=== PATIENT | male | born 1980 | race Caucasian/White ===

== ENCOUNTER 2019-04-19 16:42 | Inpatient (IN) | payer OTHER ==
[2019-04-19] MEDS ORDERED: Sodium Chloride 0.9% 10 ML Syringe FLUSH PRN (17:05)
[2019-04-19] MEDS ORDERED: cefTRIAXone 2 GM in Sodium Chloride 0.9% 100 ML IV ONE (17:05)
[2019-04-19] MEDS ORDERED: cefTRIAXone 2 GM AdvVial IV ONE (17:26)
[2019-04-19] MEDS ORDERED: Sodium Chloride 0.9% 100 ML ONE (17:27)
[2019-04-19] MEDS ORDERED: cefTRIAXone 2 GM in Sodium Chloride 0.9% 100 ML IV SCH (17:30)
--- NOTE | 2019-04-19 18:03 | CT ---
Head CT Technique: Multiple axial sections through the brain were obtained. Intravenous contrast was not utilized. Comparison: No prior intracranial imaging. Findings: Ventricles along with basal cisterns and sulci over the convexities appear within normal limits for the patient's age. No abnormal parenchymal densities are seen. No evidence of intracranial hemorrhage. No midline shift or mass effect is seen. Visualized paranasal sinuses and mastoid sinuses show nothing acute. No acute calvarial abnormality is appreciated. Impression: 1. No acute finding is seen on noncontrast head CT exam. Diagnostic code #1 This report was dictated in [place] Standard Time
[2019-04-19] MEDS ORDERED: Acetaminophen 325 MG Tab PO ONE (19:02)
[2019-04-19] MEDS ORDERED: Benzocaine/Cetylpyridinium/Menthol Lozenge MUCMEM ONE (19:03)
--- NOTE | 2019-04-19 19:25 | EDM.PDOC ---
ED HPI GENERAL MEDICAL PROBLEM - General Chief Complaint: Headache Stated Complaint: HEADACHE AND NOT REAL COHERENT Time Seen by Provider: 04/19/19 17:04 Source of Information: Reports: Patient, Family History Limitations: Reports: No Limitations - History of Present Illness INITIAL COMMENTS - FREE TEXT/NARRATIVE: The patient presents with a headache, fever, chills, cough and generalized weakness. He was diagnosed last week with pneumonia and he was treated but he did not get better and now he is worse. He has no chest pain but he is short of breath. He has no abdominal pain, nausea or vomiting. He has not had an appetite. He has no health problems like asthma. He quit smoking years ago. Onset: Gradual Duration: Day(s): Location: Reports: Head Quality: Reports: Ache Severity: Moderate Improves with: Reports: None Worsens with: Reports: None Associated Symptoms: Reports: Cough, Fever/Chills, Headaches, Shortness of Breath. Denies: Chest Pain, Nausea/Vomiting Headache Pain Score (Numeric/FACES): 8 - Related Data Allergies Allergy/AdvReac Type Severity Reaction Status Date / Time No Known Allergies Allergy Verified 04/19/19 16:53 Home Meds: Home Meds . [Unable to Verify Home Med List] 04/19/19 [History] ED ROS GENERAL - Review of Systems Review Of Systems: See Below Constitutional: Reports: Fever, Chills HEENT: Reports: No Symptoms Respiratory: Reports: Shortness of Breath, Cough Cardiovascular: Reports: No Symptoms Endocrine: Reports: No Symptoms GI/Abdominal: Reports: No Symptoms : Reports: No Symptoms Musculoskeletal: Reports: No Symptoms - Physical Exam Exam: See Below Exam Limited By: No Limitations General Appearance: Alert, No Apparent Distress Ears: Normal External Exam Nose: Normal Inspection Throat/Mouth: Other (Dry mucus membranes) Head Exam: Atraumatic, Normocephalic Neck: Normal Inspection, Supple, Non-Tender Respiratory/Chest: No Respiratory Distress, Rhonchi Cardiovascular: No Edema, No Murmur, Tachycardia GI/Abdominal: Soft, Non-Tender, No Organomegaly Neuro Exam (Abbreviated): Alert, Oriented, No Motor/Sensory Deficits Course - Vital Signs Last Recorded V/S: Last Vital Signs Temp 100.1 F 04/19/19 17:01 Pulse 170 H 04/19/19 17:01 Resp BP 128/86 04/19/19 17:01 Pulse Ox - Orders/Labs/Meds Orders: Active Orders 24 hr Category Date Time Status Patient Status [ADT] Routine ADT 04/19/19 19:08 Active EKG 12 Lead [EKG Documentation Completion] [RC] STAT Care 04/19/19 18:20 Active Chest 2V [CR] Stat Exams 04/19/19 17:05 Taken CULTURE BLOOD [BC] Stat Lab 04/19/19 17:16 Received CULTURE BLOOD [BC] Stat Lab 04/19/19 17:31 Received UA W/JOE RFLX IF INDICATED [URIN] Stat Lab 04/19/19 17:05 Ordered Sodium Chloride 0.9% [Normal Saline] 2,700 ml Med 04/19/19 17:05 Active IV BOLUS Sodium Chloride 0.9% [Saline Flush] Med 04/19/19 17:05 Active 10 ml FLUSH ASDIRECTED PRN Blood Culture x2 Reflex Set [OM.PC] Stat Oth 04/19/19 17:05 Ordered Saline Lock Insert [OM.PC] Stat Oth 04/19/19 17:05 Ordered Severe Sepsis Onset Time [OM.PC] Stat Oth 04/19/19 17:05 Ordered Medication Orders Sodium Chloride (Normal Saline) 2,700 mls @ 1,000 mls/hr IV BOLUS ONE Stop: 04/19/19 19:46 Last Admin: 04/19/19 17:22 Dose: 1,000 mls/hr Sodium Chloride (Saline Flush) 10 ml FLUSH ASDIRECTED PRN PRN Reason: Keep Vein Open Labs: Laboratory Tests 04/19/19 04/19/19 04/19/19 Range/Units 17:10 17:10 17:10 WBC 22.21 H (4.23-9.07) K/mm3 RBC 5.10 (4.63-6.08) M/mm3 Hgb 15.9 (13.7-17.5) gm/dl Hct 48.6 (40.1-51.0) % MCV 95.3 H (79.0-92.2) fl MCH 31.2 (25.7-32.2) pg MCHC 32.7 (32.2-35.5) g/dl RDW Std Deviation 45.8 H (35.1-43.9) fL Plt Count 269 (163-337) K/mm3 MPV 8.3 L (9.4-12.3) fl Neutrophils % (Manual) 79 H (40-60) % Band Neutrophils % 7 (0-10) % Lymphocytes % (Manual) 8 L (20-40) % Atypical Lymphs % 0 % Monocytes % (Manual) 6 (2-10) % Eosinophils % (Manual) 0 L (0.8-7.0) % Basophils % (Manual) 0 L (0.2-1.2) Platelet Estimate Adequate RBC Morph Comment Normal PT 11.0 (9.7-12.0) SECONDS INR 1.01 Sodium 138 (136-145) mEq/L Potassium 4.2 (3.5-5.1) mEq/L Chloride 98 (98-107) mEq/L Carbon Dioxide 29 (21-32) mEq/L Anion Gap 15.2 H (5-15) BUN 12 (7-18) mg/dL Creatinine 1.6 H (0.7-1.3) mg/dL Est Cr Clr Drug Dosing 62.60 mL/min Estimated GFR (MDRD) 49 (>60) mL/min BUN/Creatinine Ratio 7.5 L (14-18) Glucose 115 H (74-106) mg/dL Lactic Acid (0.4-2.0) mmol/L Calcium 9.6 (8.5-10.1) mg/dL Total Bilirubin 1.3 H (0.2-1.0) mg/dL AST 59 H (15-37) U/L ALT 143 H (16-63) U/L Alkaline Phosphatase 99 (46-116) U/L C-Reactive Protein 11.6 H* (<1.0) mg/dL Total Protein 8.0 (6.4-8.2) g/dl Albumin 3.8 (3.4-5.0) g/dl Globulin 4.2 gm/dL Albumin/Globulin Ratio 0.9 L (1-2) 04/19/19 Range/Units 17:10 WBC (4.23-9.07) K/mm3 RBC (4.63-6.08) M/mm3 Hgb (13.7-17.5) gm/dl Hct (40.1-51.0) % MCV (79.0-92.2) fl MCH (25.7-32.2) pg MCHC (32.2-35.5) g/dl RDW Std Deviation (35.1-43.9) fL Plt Count (163-337) K/mm3 MPV (9.4-12.3) fl Neutrophils % (Manual) (40-60) % Band Neutrophils % (0-10) % Lymphocytes % (Manual) (20-40) % Atypical Lymphs % % Monocytes % (Manual) (2-10) % Eosinophils % (Manual) (0.8-7.0) % Basophils % (Manual) (0.2-1.2) Platelet Estimate RBC Morph Comment PT (9.7-12.0) SECONDS INR Sodium (136-145) mEq/L Potassium (3.5-5.1) mEq/L Chloride (98-107) mEq/L Carbon Dioxide (21-32) mEq/L Anion Gap (5-15) BUN (7-18) mg/dL Creatinine (0.7-1.3) mg/dL Est Cr Clr Drug Dosing mL/min Estimated GFR (MDRD) (>60) mL/min BUN/Creatinine Ratio (14-18) Glucose (74-106) mg/dL Lactic Acid 3.5 H* (0.4-2.0) mmol/L Calcium (8.5-10.1) mg/dL Total Bilirubin (0.2-1.0) mg/dL AST (15-37) U/L ALT (16-63) U/L Alkaline Phosphatase (46-116) U/L C-Reactive Protein (<1.0) mg/dL Total Protein (6.4-8.2) g/dl Albumin (3.4-5.0) g/dl Globulin gm/dL Albumin/Globulin Ratio (1-2) Meds: Medications Generic Name Dose Route Start Last Admin Trade Name Freq PRN Reason Stop Dose Admin Sodium Chloride 2,700 mls @ 1,000 mls/hr 04/19/19 17:05 04/19/19 17:22 Normal Saline IV 04/19/19 19:46 1,000 mls/hr BOLUS ONE Administration Sodium Chloride 10 ml 04/19/19 17:05 Saline Flush FLUSH ASDIRECTED PRN Keep Vein Open Discontinued Medications Generic Name Dose Route Start Last Admin Trade Name Freq PRN Reason Stop Dose Admin Acetaminophen 325 mg 04/19/19 19:02 Tylenol PO 04/19/19 19:03 NOW ONE Benzocaine/Menthol 1 lozenge 04/19/19 19:03 Cepacol Sore Throat MUCMEM 04/19/19 19:04 ONETIME ONE Ceftriaxone Sodium Confirm 04/19/19 17:26 04/19/19 17:54 Rocephin Administered 04/19/19 17:27 Not Given Dose 2 gm IV .STK-MED ONE Ceftriaxone Sodium 2 gm/ 100 mls @ 200 mls/hr 04/19/19 17:05 04/19/19 17:54 Sodium Chloride IV 04/19/19 17:34 200 mls/hr STAT ONE Administration Ceftriaxone Sodium 2 gm/ 100 mls @ 200 mls/hr 04/19/19 17:30 Sodium Chloride IV Q24H RICH Sodium Chloride Confirm 04/19/19 17:27 04/19/19 17:55 Normal Saline Administered 04/19/19 17:28 Not Given Dose 100 mls @ as directed .ROUTE .STK-MED ONE - Re-Assessments/Exams Free Text/Narrative Re-Assessment/Exam: 04/19/19 19:23 I ordered oxygen, IV NS 2,700ml bolus, CXR, labs and rocephin 2 grams IV and blood cultures. His CXR shows a RML infiltrate. His WBC was elevated at 22.21. His PT and INR were normal. His anion gap was elevated at 15.2. His creatinine was elevated at 1.6. His glucose was elevated at 115. His AST was elevated at 59. His ALT was elevated at 143. His CRP is elevated at 11.6. His EKG shows a sinus tachycardia in the 150s. He is feeling better. He is septic from pneumonia. I called Dr Marroquin and she agreed to the admission. Departure - Departure Time of Disposition: 19:30 Disposition: Admitted As Inpatient 67 Condition: Poor Clinical Impression: Hypoxia, Renal insufficiency Sepsis Qualifiers: Sepsis type: sepsis due to unspecified organism Sepsis acute organ dysfunction status: unspecified Qualified Code(s): A41.9 - Sepsis, unspecified organism Pneumonia Qualifiers: Pneumonia type: due to unspecified organism Laterality: right Lung location: middle lobe of lung Qualified Code(s): J18.9 - Pneumonia, unspecified organism - Discharge Information Referrals: Gayle Molina NP [Primary Care Provider] - Sepsis Event Note - Evaluation Sepsis Screening Result: Possible Severe Sepsis Risk - Focused Exam Vital Signs: Vital Signs Temp Pulse BP 04/19/19 17:01 100.1 F 170 H 128/86 Date Exam was Performed: 04/19/19 Time Exam was Performed: 19:19 - My Orders Last 24 Hours: My Active Orders 04/19/19 17:05 Chest 2V [CR] Stat UA W/JOE RFLX IF INDICATED [URIN] Stat Sodium Chloride 0.9% [Normal Saline] 2,700 ml IV BOLUS Sodium Chloride 0.9% [Saline Flush] 10 ml FLUSH ASDIRECTED PRN Blood Culture x2 Reflex Set [OM.PC] Stat Saline Lock Insert [OM.PC] Stat Severe Sepsis Onset Time [OM.PC] Stat 04/19/19 17:16 CULTURE BLOOD [BC] Stat 04/19/19 17:31 CULTURE BLOOD [BC] Stat 04/19/19 18:20 EKG 12 Lead [EKG Documentation Completion] [RC] STAT 04/19/19 19:08 Patient Status [ADT] Routine - Assessment/Plan Last 24 Hours: My Active Orders 04/19/19 17:05 Chest 2V [CR] Stat UA W/JOE RFLX IF INDICATED [URIN] Stat Sodium Chloride 0.9% [Normal Saline] 2,700 ml IV BOLUS Sodium Chloride 0.9% [Saline Flush] 10 ml FLUSH ASDIRECTED PRN Blood Culture x2 Reflex Set [OM.PC] Stat Saline Lock Insert [OM.PC] Stat Severe Sepsis Onset Time [OM.PC] Stat 04/19/19 17:16 CULTURE BLOOD [BC] Stat 04/19/19 17:31 CULTURE BLOOD [BC] Stat 04/19/19 18:20 EKG 12 Lead [EKG Documentation Completion] [RC] STAT 04/19/19 19:08 Patient Status [ADT] Routine
[2019-04-19] MEDS ORDERED: Ondansetron 4 MG/2 ML SDV IV PRN (20:47)
[2019-04-19] MEDS ORDERED: Ondansetron 4 MG Tab.DIS PO PRN (20:47)
[2019-04-19] MEDS ORDERED: ALPRAZolam 0.5 MG Tab PO PRN (20:51)
--- NOTE | 2019-04-19 20:59 | PCM.HP.2 ---
H&P History of Present Illness - General Date of Service: 04/19/19 Admit Problem/Dx: Admission Diagnosis/Problem Admission Diagnosis/Problem Pneumonia - History of Present Illness Initial Comments - Free Text/Narative: This is a 39 year old male with past medical history of anxiety who comes to the ED complaining of flu-like symptoms for 1 days. As per patient he awoke today with a headache, associated with productive cough , sore throat, dizziness and chills. Patient notes to have been in usual health yesterday. Of note he had pneumonia in February, he was treated as an outpatient for 10 days. Headache Pain Score (Numeric/FACES): 8 - Related Data Allergies/Adverse Reactions: Allergies Allergy/AdvReac Type Severity Reaction Status Date / Time No Known Allergies Allergy Verified 04/19/19 20:22 Home Medications: Home Meds ALPRAZolam [Xanax] 0.5 mg PO BEDTIME PRN 04/19/19 [History] Cyclobenzaprine [Flexeril] 10 mg PO BID PRN 04/19/19 [History] Desvenlafaxine Succinate [Pristiq ER] 25 mg PO DAILY 04/19/19 [History] Hydrocodone/Acetaminophen [Hydrocodon-Acetaminophn 10-325] 0.5 tab PO BEDTIME PRN 04/19/19 [History] Past Medical History Other Respiratory History: pneumonia in past, states its not recurrent Musculoskeletal History: Reports: Back Pain, Chronic Other Musculoskeletal History: Broke neck in 2005. -Neck/back swell around nerves and he gets muscle spasms - Past Surgical History Other GI Surgeries/Procedures: Hernia surgery Social & Family History - Tobacco Use Smoking Status *Q: Former Smoker Years of Tobacco use: 15 Packs/Tins Daily: 0.5 Used Tobacco, but Quit: Yes Month/Year Tobacco Last Used: 2016 Second Hand Smoke Exposure: No - Caffeine Use Caffeine Use: Reports: Soda - Recreational Drug Use Recreational Drug Use: No H&P Review of Systems - Review of Systems: Review Of Systems: See Below General: Reports: Chills, Malaise, Fatigue. Denies: Fever, Weakness, Night Sweats, Diaphoresis, Decreased Appetite, Weight Loss, Weight Gain HEENT: Reports: Sinus Congestion, Sore Throat. Denies: Dysphasia, Ear Pain, Eye Pain, Glasses, Headaches, Hearing Changes, Rhinitis, Post Nasal Drip, Vertigo, Visual Changes Pulmonary: Reports: Cough, Sputum. Denies: Shortness of Breath, Wheezing, Pleuritic Chest Pain, Hemoptysis Cardiovascular: Denies: Chest Pain, Palpitations, Dyspnea on Exertion, Orthopnea , PND, Edema, Lightheadedness, Syncope, Claudication, Blood Pressure Problem Gastrointestinal: Denies: Abdominal Pain, Anorexia, Black Stool, Bloody Stool, Constipation, Diarrhea, Decreased Appetite, Difficulty Swallowing, Distension, Flatus, Hematemesis, Hematochezia, Melena, Nausea, Stool Incontinence, Vomiting Genitourinary: Denies: Dysuria, Frequency, Burning, Pain, Urgency, Incontinence Musculoskeletal: Denies: Joint Pain, Joint Swelling, Muscle Pain, Muscle Stiffness Skin: Denies: Cyanosis, Jaundice, Mottled, Pallor, Diaphoresis Psychiatric: Denies: Confusion, Depression, Mood Lability, Anxiety, Agitation, Cravings Neurological: Reports: Headache. Denies: Confusion, Dizziness, Numbness, Paresthesia, Pre-Existing Deficit Hematologic/Lymphatic: Denies: Anemia, Easy Bleeding, Easy Bruising Immunologic: Denies: Anaphylaxis, Food Allergy Exam - Exam Exam: See Below - Vital Signs Vital Signs: Last Vital Signs Temp 100.1 F 04/19/19 17: Pulse 170 H 04/19/19 17:01 Resp BP 128/86 04/19/19 17:01 Pulse Ox Weight: 98.339 kg - Exam Quality Assessment: Supplemental Oxygen. No: Central Line/PICC, Urinary Catheter, DVT Prophylaxis General: Alert, Oriented, Cooperative. No: Mild Distress HEENT: Conjunctiva Clear, EACs Clear, EOMI, Hearing Intact. No: Mucosa Moist & [place] Neck: Supple, Trachea Midline, Full Range of Motion. No: Lymphadenopathy Lungs: Clear to Auscultation, Normal Respiratory Effort. No: Crackles, Rales, Rhonchi, Wheezing Cardiovascular: Regular Rhythm, Tachycardia. No: Systolic Murmur, Diastolic Murmur, Rubs, Gallop/S3, Gallop/S4 GI/Abdominal Exam: Normal Bowel Sounds, Soft, Non-Tender, No Organomegaly Back Exam: Normal Inspection. No: CVA Tenderness (L), CVA Tenderness (R) Extremities: Normal Inspection, Normal Range of Motion, Non-Tender, No Pedal Edema, Normal Capillary Refill Neuro Extensive - Mental Status: Alert, Oriented x3 Psychiatric: Alert, Normal Affect, Normal Mood - Patient Data Result Diagrams: 04/19/19 17:10 04/19/19 17:10 EKG INTERPRETATION EKG Date: 04/19/19 Rhythm: NSR [place]: Normal P-Wave: Present QRS: Normal ST-T: Normal QT: Normal EKG Interpretation Comments: Sinus tachycardia Sepsis Event Note - Evaluation Sepsis Screening Result: Severe Sepsis Risk Current Stage of Sepsis: Severe Sepsis Possible Source of Sepsis: Pulmonary - Focused Exam Vital Signs: Vital Signs Temp Pulse BP 04/19/19 17:01 100.1 F 170 H 128/86 Respiratory Effort Without Exertion: Dyspneic, Labored Capillary Refill, Detail: Less than/Equal to (</=) 2 Seconds Pulse Description: 2+ Normal Peripheral Pulse Location: Posterior Tibial Skin Exam (Focused Sepsis): Normal Turgor, Flushed Date Exam was Performed: 04/20/19 Time Exam was Performed: 00:00 - Problem List (1) Sepsis SNOMED Code(s): 54778322 ICD Code: A41.9 - SEPSIS, UNSPECIFIED ORGANISM Status: Acute Current Visit: Yes Qualifiers: Sepsis type: sepsis due to unspecified organism Sepsis acute organ dysfunction status: unspecified Qualified Code(s): A41.9 - Sepsis, unspecified organism (2) Pneumonia SNOMED Code(s): 697666647 ICD Code: J18.9 - PNEUMONIA, UNSPECIFIED ORGANISM Status: Acute Current Visit: Yes Qualifiers: Pneumonia type: due to unspecified organism Laterality: right Lung location: middle lobe of lung Qualified Code(s): J18.9 - Pneumonia, unspecified organism (3) Hypoxia SNOMED Code(s): 131165375 ICD Code: R09.02 - HYPOXEMIA Status: Acute Current Visit: Yes (4) Acute kidney failure SNOMED Code(s): 51720878 ICD Code: N17.9 - ACUTE KIDNEY FAILURE, UNSPECIFIED Status: Acute Current Visit: Yes (5) Sinus tachycardia SNOMED Code(s): 43351085 ICD Code: R00.0 - TACHYCARDIA, UNSPECIFIED Status: Acute Current Visit: Yes (6) Leukocytosis SNOMED Code(s): 167425997, 885091966 ICD Code: D72.829 - ELEVATED WHITE BLOOD CELL COUNT, UNSPECIFIED Status: Acute Current Visit: Yes (7) Lactic acidosis SNOMED Code(s): 98200612 ICD Code: E87.2 - ACIDOSIS Status: Acute Current Visit: Yes (8) High anion gap metabolic acidosis SNOMED Code(s): 57878092 ICD Code: E87.2 - ACIDOSIS Status: Acute Current Visit: Yes (9) Chronic kidney disease SNOMED Code(s): 037162280 ICD Code: N18.9 - CHRONIC KIDNEY DISEASE, UNSPECIFIED Status: Acute Current Visit: Yes (10) Abnormal LFTs SNOMED Code(s): 603175099 ICD Code: R94.5 - ABNORMAL RESULTS OF LIVER FUNCTION STUDIES Status: Acute Current Visit: Yes (11) Anxiety SNOMED Code(s): 05643701 ICD Code: F41.9 - ANXIETY DISORDER, UNSPECIFIED Status: Acute Current Visit: Yes Problem List Initiated/Reviewed/Updated: Yes Assessment/Plan Comment:: Sepsis 2/2 Community acquired pneumonia Hypoxia Sinus tachycardia/ Leukocytosis Lactic acidosis High anion gap metabolic acidosis Flu shot in February Right middle and lower lobe infiltrate Hypoxic on admission requiring O2 supplementation via nasal cannula Elevated lactic acid qualified patient for sepsis Given IVF bolus PLAN - Levofloxacin - Procalcitonin today and every 48 hrs - Trend temperature - F/U on blood cultures - Repeat lactic acid until negative - Monitor Respiratory status - Continue supplementation via NC - ABGs in AM - Repeat labs in AM - RT induced sputum - Etiology serology Acute vs acute on chronic kidney failure Admission GFR 49 Unknown baseline PLAN - Renally dosed medications - Avoid nephrotoxic medications as much as possible - Monitor urine output - Request records for baseline - Repeat labs in AM Anxiety No recent panic attacks Takes as needed Xanax at home PLAN - Continue home meds once available PROPHYLAXIS DVT- Lovenox GI- Not indicated CODE STATUS: FULL CODE DISPOSITION: Patient will be admitted for IV antibiotics and monitorization of respiratory status. No significant co-morbidities, fully independent prior to admission. - Mortality Measure Prognosis:: Good
[2019-04-19 21:19] LABS: HEMOGLOBIN A1C 5.6 % (4.50-6.20)
[2019-04-19] MEDS ORDERED: Sodium Chloride 0.9% 1,000 ML IV SCH (21:30)
[2019-04-19] MEDS: Levofloxacin/Dextrose 5%-Water 750 MG in Premix Bag 1 BAG IV SCH (21:32)
[2019-04-19] MEDS ORDERED: Metoprolol Tartrate 5 MG/5 ML SDV IVPUSH ONE (23:04)
[2019-04-19] MEDS: Lactated Ringers 1,000 ML IV SCH (23:19)
[2019-04-20] MEDS ORDERED: Enoxaparin 40 MG/0.4 ML Syringe SUBCUT ONE (00:11)
[2019-04-20] MEDS: Lactated Ringers 1,000 ML IV SCH ×4 (04:22→23:55)
[2019-04-20] MEDS ORDERED: Desvenlafaxine Succinate [Pristiq] 25 MG PO SCH (09:00)
[2019-04-20] MEDS ORDERED: Cyclobenzaprine 10 MG Tab PO PRN (09:11)
[2019-04-20] MEDS ORDERED: Acetaminophen/HYDROcodone 325-10 MG Tab PO PRN (09:22)
[2019-04-20] MEDS: Acetaminophen 325 MG Tab PO PRN ×2 (09:42→16:58)
[2019-04-20] MEDS: Acetaminophen/HYDROcodone 325-10 MG Tab PO PRN (18:37)
[2019-04-20] MEDS: Levofloxacin/Dextrose 5%-Water 750 MG in Premix Bag 1 BAG IV SCH (20:05)
[2019-04-21] MEDS: Acetaminophen/HYDROcodone 325-10 MG Tab PO PRN ×3 (04:36→19:45)
[2019-04-21] MEDS: Lactated Ringers 1,000 ML IV SCH ×4 (04:38→19:37)
[2019-04-21] MEDS ORDERED: Magnesium Sulfate/Water 2 GM in Premix Bag 1 BAG IV ONE (07:16)
[2019-04-21] MEDS: DESVENLAFAXINE 50 MG PO SCH (08:36)
[2019-04-21] MEDS: Acetaminophen 325 MG Tab PO PRN (09:15)
--- NOTE | 2019-04-21 09:28 | PCM.PN ---
- General Info Date of Service: 04/20/19 Subjective Update: Feeling better Tolerating diet BM this AM Ambulating - Patient Data Vitals - Most Recent: Last Vital Signs Temp 98.4 F 04/21/19 07:55 Pulse 109 H 04/21/19 07:55 Resp 20 04/21/19 07:55 BP 116/78 04/21/19 07:55 Pulse Ox 92 L 04/21/19 07:55 Weight - Most Recent: 95.436 kg - Exam Quality Assessment: Supplemental Oxygen General: Alert, Oriented, Cooperative, No Acute Distress HEENT: Pupils Equal, Pupils Reactive, EOMI, Mucous Membr. Moist/[place] Neck: Supple, Trachea Midline, No JVD, No Thyromegaly, +2 Carotid Pulse wo Bruit. No: Lymphadenopathy Lungs: Normal Respiratory Effort, Decreased Breath Sounds, Crackles (R middle and lower chest) Cardiovascular: Regular Rate, Regular Rhythm. No: Murmurs, Gallops, Rubs GI/Abdominal Exam: Normal Bowel Sounds, Soft, Non-Tender Back Exam: Normal Inspection Sepsis Event Note - Evaluation Sepsis Screening Result: Sepsis Risk - Focused Exam Vital Signs: Vital Signs Temp Pulse Resp BP Pulse Ox 04/21/19 07:55 98.4 F 109 H 20 116/78 92 L 04/21/19 04:35 99.9 F 128 H 18 126/78 92 L 04/20/19 23:56 99.1 F 121 H 20 119/65 89 L 04/20/19 23:30 92 L Date Exam was Performed: 04/21/19 Time Exam was Performed: 18:50 - Problem List & Annotations (1) Sepsis SNOMED Code(s): 81478515 Code(s): A41.9 - SEPSIS, UNSPECIFIED ORGANISM Status: Acute Priority: High Current Visit: Yes Qualifiers: Sepsis type: sepsis due to unspecified organism Sepsis acute organ dysfunction status: unspecified Qualified Code(s): A41.9 - Sepsis, unspecified organism (2) Pneumonia SNOMED Code(s): 801046953 Code(s): J18.9 - PNEUMONIA, UNSPECIFIED ORGANISM Status: Acute Priority: High Current Visit: Yes Qualifiers: Pneumonia type: due to unspecified organism Laterality: right Lung location: middle lobe of lung Qualified Code(s): J18.9 - Pneumonia, unspecified organism (3) Hypoxia SNOMED Code(s): 011168078 Code(s): R09.02 - HYPOXEMIA Status: Resolved Priority: High Current Visit: Yes (4) Acute kidney failure SNOMED Code(s): 11894803 Code(s): N17.9 - ACUTE KIDNEY FAILURE, UNSPECIFIED Status: Resolved Priority: High Current Visit: Yes Qualifiers: Acute renal failure type: unspecified Qualified Code(s): N17.9 - Acute kidney failure, unspecified (5) Sinus tachycardia SNOMED Code(s): 02745006 Code(s): R00.0 - TACHYCARDIA, UNSPECIFIED Status: Acute Priority: High Current Visit: Yes (6) Leukocytosis SNOMED Code(s): 784414185, 051972801 Code(s): D72.829 - ELEVATED WHITE BLOOD CELL COUNT, UNSPECIFIED Status: Acute Priority: High Current Visit: Yes Qualifiers: Leukocytosis type: unspecified Qualified Code(s): D72.829 - Elevated white blood cell count, unspecified (7) Lactic acidosis SNOMED Code(s): 04411773 Code(s): E87.2 - ACIDOSIS Status: Resolved Priority: High Current Visit : Yes (8) High anion gap metabolic acidosis SNOMED Code(s): 42090853 Code(s): E87.2 - ACIDOSIS Status: Resolved Priority: High Current Visit : Yes (9) Chronic kidney disease SNOMED Code(s): 970452576 Code(s): N18.9 - CHRONIC KIDNEY DISEASE, UNSPECIFIED Status: Acute Current Visit: Yes (10) Abnormal LFTs SNOMED Code(s): 077744451 Code(s): R94.5 - ABNORMAL RESULTS OF LIVER FUNCTION STUDIES Status: Acute Priority: High Current Visit: Yes (11) Anxiety SNOMED Code(s): 87268977 Code(s): F41.9 - ANXIETY DISORDER, UNSPECIFIED Status: Chronic Priority: Medium Current Visit: No - Problem List Review Problem List Initiated/Reviewed/Updated: Yes - Plan Plan:: Sepsis 2/2 Community acquired pneumonia Hypoxia Sinus tachycardia/ Leukocytosis Lactic acidosis High anion gap metabolic acidosis Flu shot in February Right middle and lower lobe infiltrate Hypoxic on admission requiring O2 supplementation via nasal cannula Elevated lactic acid qualified patient for sepsis Given IVF bolus Lactic acid still + PLAN - Continue - Procalcitonin pending - Trend temperature - F/U on blood cultures - Monitor Respiratory status - Continue supplementation via NC - Etiology serology Acute vs acute on chronic kidney failure Admission GFR 49 Unknown baseline PLAN - Renally dosed medications - Avoid nephrotoxic medications as much as possible - Monitor urine output - Request records for baseline - Repeat labs in AM Anxiety No recent panic attacks Takes as needed Xanax at home PLAN - Continue home meds once available PROPHYLAXIS DVT- Lovenox GI- Not indicated CODE STATUS: FULL CODE DISPOSITION: Patient will be admitted for IV antibiotics and monitorization of respiratory status. Clinically improving No significant co-morbidities, fully independent prior to admission.
--- NOTE | 2019-04-21 10:50 | CR ---
Chest: Two views of the chest were obtained. Comparison: No prior chest imaging is available. Diffuse increased density noted within both sides of the chest. Findings most likely due to diffuse bronchopneumonia. Heart size and mediastinum are normal. Bony structures are unremarkable. Impression: 1. Diffuse increased density within both sides of the chest. 2. As mentioned above, findings are most likely due to diffuse bronchopneumonia. Diagnostic code #3 This report was dictated in [place] Standard Time
--- NOTE | 2019-04-21 11:41 | PCM.PN ---
- General Info Date of Service: 04/21/19 Admission Dx/Problem (Free Text): Admission Diagnosis/Problem Admission Diagnosis/Problem Pneumonia Functional Status: Reports: Pain Controlled, Tolerating Diet, Ambulating, Urinating, Incentive Spirometry, Other (Acapella ). Denies: New Symptoms - Review of Systems General: Reports: No Symptoms, Weakness (improving ). Denies: Fever, Fatigue, Malaise, Chills HEENT: Reports: No Symptoms. Denies: Headaches, Sore Throat Pulmonary: Reports: Cough (improving ). Denies: Shortness of Breath, Pleuritic Chest Pain, Sputum, Wheezing Cardiovascular: Reports: No Symptoms. Denies: Chest Pain, Palpitations, Dyspnea on Exertion Gastrointestinal: Reports: No Symptoms. Denies: Abdominal Pain, Constipation, Diarrhea, Nausea, Vomiting Genitourinary: Reports: No Symptoms. Denies: Pain Musculoskeletal: Reports: No Symptoms Skin: Reports: No Symptoms. Denies: Cyanosis Neurological: Reports: No Symptoms. Denies: Confusion, Difficulty Walking, Gait Disturbance Psychiatric: Reports: No Symptoms - Patient Data Vitals - Most Recent: Last Vital Signs Temp 98.4 F 04/21/19 07:55 Pulse 109 H 04/21/19 07:55 Resp 20 04/21/19 07:55 BP 116/78 04/21/19 07:55 Pulse Ox 92 L 04/21/19 07:55 Weight - Most Recent: 210 lb 6.4 oz I&O - Last 24 Hours: Intake & Output 04/20/19 04/21/19 04/21/19 22:59 06:59 14:59 Intake Total 0 3600 Output Total 2009 318 Balance 540 420 Lab Results Last 24 Hours: Laboratory Results - last 24 hr 04/21/19 04/21/19 04/21/19 Range/Units 05:22 05:22 10:47 WBC 11.82 H (4.23-9.07) K/mm3 RBC 4.06 L (4.63-6.08) M/mm3 Hgb 12.6 L (13.7-17.5) gm/dl Hct 38.9 L (40.1-51.0) % MCV 95.8 H (79.0-92.2) fl MCH 31.0 (25.7-32.2) pg MCHC 32.4 (32.2-35.5) g/dl RDW Std Deviation 43.2 (35.1-43.9) fL Plt Count 235 (163-337) K/mm3 MPV 8.7 L (9.4-12.3) fl Neut % (Auto) 80.3 H (34.0-67.9) % Lymph % (Auto) 11.9 L (21.8-53.1) % [place] % (Auto) 7.0 (5.3-12.2) % Eos % (Auto) 0.4 L (0.8-7.0) Baso % (Auto) 0.1 (0.1-1.2) % Neut # (Auto) 9.48 H (1.78-5.38) K/mm3 Lymph # (Auto) 1.41 (1.32-3.57) K/mm3 [place] # (Auto) 0.83 H (0.30-0.82) K/mm3 Eos # (Auto) 0.05 (0.04-0.54) K/mm3 Baso # (Auto) 0.01 (0.01-0.08) K/mm3 Puncture Site Rt radial ABG pH 7.44 (7.35-7.45) ABG pCO2 36.4 (35.0-45.0) mmHg ABG pO2 59.0 L (80.0-100.0) mmHg ABG HCO3 24.3 (22.0-26.0) meq/L ABG O2 Saturation 92.2 L (96.0-97.0) % ABG Base Excess 0.9 (-2-2.0) Frederic Test Positive A-a Gradient 45 mmHg O2 Delivery Device Room air FiO2 21.00 (21.00-100.00) % Sodium 137 (136-145) mEq/L Potassium 3.9 (3.5-5.1) mEq/L Chloride 101 (98-107) mEq/L Carbon Dioxide 25 (21-32) mEq/L Anion Gap 14.9 (5-15) BUN 13 (7-18) mg/dL Creatinine 1.2 (0.7-1.3) mg/dL Est Cr Clr Drug Dosing 86.18 mL/min Estimated GFR (MDRD) > 60 (>60) mL/min BUN/Creatinine Ratio 10.8 L (14-18) Glucose 108 H (74-106) mg/dL Calcium 9.1 (8.5-10.1) mg/dL Magnesium 1.5 L (1.8-2.4) mg/dl Akbar Results Last 24 Hours: Microbiology 04/19/19 17:16 Aerobic Blood Culture - Preliminary Blood - Venous - Lab Draw NO GROWTH AFTER 1 DAY Anaerobic Blood Culture - Preliminary NO GROWTH AFTER 1 DAY 04/19/19 17:31 Aerobic Blood Culture - Preliminary Blood - Venous NO GROWTH AFTER 1 DAY Anaerobic Blood Culture - Preliminary NO GROWTH AFTER 1 DAY Med Orders - Current: Current Medications Acetaminophen (Tylenol) 650 mg PO Q4H PRN PRN Reason: Pain (Mild 1-3)/fever Last Admin: 04/21/19 09:15 Dose: 650 mg Hydrocodone Bitart/Acetaminophen ([place] 325-10 Mg) 1 tab PO Q6H PRN PRN Reason: Pain Last Admin: 04/21/19 04:36 Dose: 1 tab Alprazolam (Xanax) 0.5 mg PO BEDTIME PRN PRN Reason: Insomnia Last Admin: 04/19/19 22:08 Dose: 0.5 mg Cyclobenzaprine HCl (Flexeril) 10 mg PO TID PRN PRN Reason: Muscle Spasm Lactated Ringer's (Ringers, Lactated) 1,000 mls @ 200 mls/hr IV ASDIRECTED [facility] Last Admin: 04/21/19 09:46 Dose: 200 mls/hr Levofloxacin/Dextrose 750 mg/ (Premix) 150 mls @ 100 mls/hr IV Q24H [facility] Last Admin: 04/20/19 20:05 Dose: 100 mls/hr Ondansetron HCl (Zofran) 4 mg IV Q6H PRN PRN Reason: Nausea/Vomiting Ondansetron HCl (Zofran Odt) 4 mg PO Q6H PRN PRN Reason: nausea, able to take PO Desvenlafaxine Er (50 Mg Ptom) 0 each PO DAILY [facility] Last Admin: 04/21/19 08:36 Dose: 1 each Sodium Chloride (Saline Flush) 10 ml FLUSH ASDIRECTED PRN PRN Reason: Keep Vein Open Discontinued Medications Acetaminophen (Tylenol) 325 mg PO NOW ONE Stop: 04/19/19 19:03 Last Admin: 04/19/19 20:15 Dose: 325 mg Benzocaine/Menthol (Cepacol Sore Throat) 1 lozenge MUCMEM ONETIME ONE Stop: 04/19/19 19:04 Last Admin: 04/19/19 20:16 Dose: 1 lozenge Ceftriaxone Sodium (Rocephin) Confirm Administered Dose 2 gm IV .STK-MED ONE Stop: 04/19/19 17:27 Last Admin: 04/19/19 17:54 Dose: Not Given Cyclobenzaprine HCl (Flexeril) 10 mg PO BID PRN PRN Reason: Pain Last Admin: 04/20/19 09:41 Dose: 10 mg Enoxaparin Sodium (Lovenox) 40 mg SUBCUT ONETIME ONE Stop: 04/20/19 00:12 Last Admin: 04/20/19 04:16 Dose: 40 mg Ceftriaxone Sodium 2 gm/ (Sodium Chloride) 100 mls @ 200 mls/hr IV STAT ONE Stop: 04/19/19 17:34 Last Admin: 04/19/19 17:54 Dose: 200 mls/hr Sodium Chloride (Normal Saline) 2,700 mls @ 1,000 mls/hr IV BOLUS ONE Stop: 04/19/19 19:46 Last Admin: 04/19/19 17:22 Dose: 1,000 mls/hr Ceftriaxone Sodium 2 gm/ (Sodium Chloride) 100 mls @ 200 mls/hr IV Q24H [facility] Sodium Chloride (Normal Saline) Confirm Administered Dose 100 mls @ as directed .ROUTE .STK-MED ONE Stop: 04/19/19 17:28 Last Admin: 04/19/19 17:55 Dose: Not Given Sodium Chloride (Normal Saline) 1,000 mls @ 200 mls/hr IV ASDIRECTED [facility] Stop: 04/20/19 00:30 Last Admin: 04/19/19 21:31 Dose: 200 mls/hr Magnesium Sulfate 2 gm/ Premix 50 mls @ 25 mls/hr IV ONETIME ONE Stop: 04/21/19 09:15 Last Admin: 04/21/19 07:26 Dose: 25 mls/hr Metoprolol Tartrate (Lopressor) 5 mg IVPUSH ONETIME ONE Stop: 04/19/19 23:05 Last Admin: 04/19/19 23:20 Dose: 5 mg Desvenlafaxine Succinate [Pristiq] 25 Mg 0 each PO DAILY RICH Last Admin: 04/20/19 12:13 Dose: Not Given - Exam Quality Assessment: DVT Prophylaxis. No: Supplemental Oxygen General: Alert, Oriented, Cooperative, No Acute Distress HEENT: Pupils Equal, Pupils Reactive, EOMI, Mucous Membr. Moist/[place] Lungs: Clear to Auscultation, Normal Respiratory Effort. No: Crackles, Rhonchi , Wheezing Cardiovascular: Regular Rhythm, Tachycardia GI/Abdominal Exam: Normal Bowel Sounds, Soft, Non-Tender, No Distention, No Abnormal Bruit (Male) Exam: Deferred Back Exam: Normal Inspection, Full Range of Motion Extremities: Normal Inspection, Normal Range of Motion, Non-Tender, No Pedal Edema, Normal Capillary Refill Peripheral Pulses: 4+: Radial (L), Radial (R), Dorsalis Pedis (L), Dorsalis Pedis (R) Skin: Warm, Dry, Intact Neurological: No New Focal Deficit Psy/Mental Status: Alert, Normal Affect, Normal Mood Sepsis Event Note - Evaluation Sepsis Screening Result: No Definite Risk - Focused Exam Vital Signs: Vital Signs Temp Pulse Resp BP Pulse Ox 04/21/19 07:55 98.4 F 109 H 20 116/78 92 L 04/21/19 04:35 99.9 F 128 H 18 126/78 92 L 04/20/19 23:56 99.1 F 121 H 20 119/65 89 L Date Exam was Performed: 04/21/19 Time Exam was Performed: 15:30 - Problem List & Annotations (1) Abnormal LFTs SNOMED Code(s): 393677392 Code(s): R94.5 - ABNORMAL RESULTS OF LIVER FUNCTION STUDIES Status: Acute Priority: High Current Visit: Yes (2) Acute kidney failure SNOMED Code(s): 64773240 Code(s): N17.9 - ACUTE KIDNEY FAILURE, UNSPECIFIED Status: Resolved Priority: High Current Visit: Yes Qualifiers: Acute renal failure type: unspecified Qualified Code(s): N17.9 - Acute kidney failure, unspecified (3) Anxiety SNOMED Code(s): 13749811 Code(s): F41.9 - ANXIETY DISORDER, UNSPECIFIED Status: Chronic Priority: Medium Current Visit: No (4) High anion gap metabolic acidosis SNOMED Code(s): 53021460 Code(s): E87.2 - ACIDOSIS Status: Resolved Priority: High Current Visit : Yes (5) Hypoxia SNOMED Code(s): 004622480 Code(s): R09.02 - HYPOXEMIA Status: Resolved Priority: High Current Visit: Yes (6) Lactic acidosis SNOMED Code(s): 66894883 Code(s): E87.2 - ACIDOSIS Status: Resolved Priority: High Current Visit : Yes (7) Leukocytosis SNOMED Code(s): 408190450, 375582221 Code(s): D72.829 - ELEVATED WHITE BLOOD CELL COUNT, UNSPECIFIED Status: Acute Priority: High Current Visit: Yes Qualifiers: Leukocytosis type: unspecified Qualified Code(s): D72.829 - Elevated white blood cell count, unspecified (8) Pneumonia SNOMED Code(s): 942923453 Code(s): J18.9 - PNEUMONIA, UNSPECIFIED ORGANISM Status: Acute Priority: High Current Visit: Yes Qualifiers: Pneumonia type: due to unspecified organism Laterality: right Lung location: middle lobe of lung Qualified Code(s): J18.9 - Pneumonia, unspecified organism (9) Renal insufficiency SNOMED Code(s): 915142523, 853196403 Code(s): N28.9 - DISORDER OF KIDNEY AND URETER, UNSPECIFIED Status: Resolved Priority: High Current Visit: Yes (10) Sepsis SNOMED Code(s): 76265203 Code(s): A41.9 - SEPSIS, UNSPECIFIED ORGANISM Status: Acute Priority: High Current Visit: Yes Qualifiers: Sepsis type: sepsis due to unspecified organism Sepsis acute organ dysfunction status: unspecified Qualified Code(s): A41.9 - Sepsis, unspecified organism (11) Sinus tachycardia SNOMED Code(s): 21160222 Code(s): R00.0 - TACHYCARDIA, UNSPECIFIED Status: Acute Priority: High Current Visit: Yes - Problem List Review Problem List Initiated/Reviewed/Updated: Yes - Plan Plan:: Sepsis 2/2 Community acquired pneumonia Hypoxia Sinus tachycardia/ Leukocytosis Lactic acidosis High anion gap metabolic acidosis Flu shot in February Right middle and lower lobe infiltrate Hypoxic on admission requiring O2 supplementation via nasal cannula Elevated lactic acid qualified patient for sepsis Given IVF bolus PLAN - Levofloxacin - Procalcitonin again today - Trend temperature- negative - F/U on blood cultures - negative - Repeat lactic acid until negative - Monitor Respiratory status - Continue supplementation via NC -> on room air - ABGs obtained this AM - Repeat labs in AM - RT induced sputum - Etiology serology - Negative mycoplasma, Strep pneumo pending Acute vs acute on chronic kidney failure -> Resolved Admission GFR 49--> Greater than 60 Unknown baseline PLAN - Renally dosed medications - Avoid nephrotoxic medications as much as possible - Monitor urine output - Request records for baseline - Repeat labs in AM Anxiety No recent panic attacks Takes as needed Xanax at home May be contributing to tachycardia PLAN - Continue home meds once available Headache Reports daily caffeine use PLAN - Fioricet as ordered PROPHYLAXIS DVT- Lovenox GI- Not indicated CODE STATUS: FULL CODE DISPOSITION: Patient will be admitted for IV antibiotics and monitorization of respiratory status. No significant co-morbidities, fully independent prior to admission.
[2019-04-21] MEDS: Cyclobenzaprine 10 MG Tab PO PRN ×2 (13:31→23:07)
[2019-04-21] MEDS ORDERED: Acetaminophen/Butalbital/Caffeine 325-50-40 MG Tab PO PRN (13:49)
[2019-04-21] MEDS: Levofloxacin/Dextrose 5%-Water 750 MG in Premix Bag 1 BAG IV SCH (21:11)
[2019-04-22] MEDS: Lactated Ringers 1,000 ML IV SCH (03:13)
--- NOTE | 2019-04-22 07:58 | PCM.DCSUM1 ---
Discharge Summary - Hospital Course HPI Initial Comments: This is a 39 year old male with past medical history of anxiety who comes to the ED complaining of flu-like symptoms for 1 days. As per patient he awoke today with a headache, associated with productive cough , sore throat, dizziness and chills. Patient notes to have been in usual health yesterday. Of note he had pneumonia in February, he was treated as an outpatient for 10 days. Diagnosis: Stroke: No - Discharge Data Discharge Date: 04/22/19 (Admit date: 04/19/19) Discharge Disposition: Home, Self-Care 01 Condition: Good - Referral to Home Health Primary Care Physician: Gayle Molina NP - Discharge Diagnosis/Problem(s) (1) Abnormal LFTs SNOMED Code(s): 643046300 ICD Code: R94.5 - ABNORMAL RESULTS OF LIVER FUNCTION STUDIES Status: Acute Priority: High Current Visit: Yes (2) Acute kidney failure SNOMED Code(s): 66468965 ICD Code: N17.9 - ACUTE KIDNEY FAILURE, UNSPECIFIED Status: Resolved Priority: High Current Visit: Yes Qualifiers: Acute renal failure type: unspecified Qualified Code(s): N17.9 - Acute kidney failure, unspecified (3) Anxiety SNOMED Code(s): 18817716 ICD Code: F41.9 - ANXIETY DISORDER, UNSPECIFIED Status: Chronic Priority : Medium Current Visit: No (4) High anion gap metabolic acidosis SNOMED Code(s): 88475522 ICD Code: E87.2 - ACIDOSIS Status: Resolved Priority: High Current Visit: Yes (5) Hypoxia SNOMED Code(s): 057228429 ICD Code: R09.02 - HYPOXEMIA Status: Resolved Priority: High Current Visit: Yes (6) Lactic acidosis SNOMED Code(s): 94746997 ICD Code: E87.2 - ACIDOSIS Status: Resolved Priority: High Current Visit: Yes (7) Leukocytosis SNOMED Code(s): 534989266, 424337114 ICD Code: D72.829 - ELEVATED WHITE BLOOD CELL COUNT, UNSPECIFIED Status: Acute Priority: High Current Visit: Yes Qualifiers: Leukocytosis type: unspecified Qualified Code(s): D72.829 - Elevated white blood cell count, unspecified (8) Pneumonia SNOMED Code(s): 465463858 ICD Code: J18.9 - PNEUMONIA, UNSPECIFIED ORGANISM Status: Acute Priority : High Current Visit: Yes Qualifiers: Pneumonia type: due to unspecified organism Laterality: right Lung location: middle lobe of lung Qualified Code(s): J18.9 - Pneumonia, unspecified organism (9) Renal insufficiency SNOMED Code(s): 529941433, 295512834 ICD Code: N28.9 - DISORDER OF KIDNEY AND URETER, UNSPECIFIED Status: Resolved Priority: High Current Visit: Yes (10) Sepsis SNOMED Code(s): 97847487 ICD Code: A41.9 - SEPSIS, UNSPECIFIED ORGANISM Status: Acute Priority: High Current Visit: Yes Qualifiers: Sepsis type: sepsis due to unspecified organism Sepsis acute organ dysfunction status: unspecified Qualified Code(s): A41.9 - Sepsis, unspecified organism (11) Sinus tachycardia SNOMED Code(s): 88094741 ICD Code: R00.0 - TACHYCARDIA, UNSPECIFIED Status: Acute Priority: High Current Visit: Yes - Patient Summary/Data Labs Pending at D/C: No labs. 48 hour Holter monitor applied before discharge Recommended Follow-up Testing/Procedures: Follow-up with PCP within 5-7 days of discharge, Sooner if needed. Hospital Course: Last was admitted to the hospital floor for pneumonia and sepsis. He presented to the ED with headache, fever, chills, cough, generalized weakness. He was also noted to be minimally coherent. He had been treated with prior week for pneumonia, although he reported that he did not get much better and he began feeling worse. He was noted to have an elevated white count of 22.21, high anion gap of 15.2, elevated creatinine at 1.6, elevated CRP at 11.6, and be tachycardic with a heart rate in the 150s. He was placed on oxygen and given a 2700 mL fluid bolus along with 2 g IV Rocephin. Sepsis code was called. Blood cultures were obtained and these remained negative. Head CT was obtained showing nothing acute. Chest x-ray showed diffuse increased density within both sides of the chest, likely due to diffuse bronchial pneumonia. Lactic acid was also found to be elevated at 3.5. Procalcitonin was obtained however due to an issue with lab this was never resulted. UA was negative. Respiratory viral panel was obtained and this was negative. Mycoplasma pneumonia was negative. Strep pneumonia was negative. Magnesium was supplemented. His high anion gap and acute renal failure did resolve with IV fluids. He never did have any fevers. Blood pressures remained stable. He was switched from Rocephin to 750 mg daily Levaquin with good results. His white count did trend down and ultimately normalized prior to discharge at 6.55. He was weaned off of oxygen. Lactic acid trended down. He felt much better. He was utilizing incentive spirometry and Acapella and was instructed to continue with this at discharge. He was prescribed 7 more days of 750 mg Levaquin which would bring his total duration of treatment to 10 days. He was instructed to follow-up with his primary care provider within 5-7 days of discharge, sooner if needed. While here was noted to be tachycardic with HR in the 120s. Was believed initially that this was due to him being septic, however although it improved, it did remain. Patient reports that he has had multiple episodes of heart rate in the 120s. He reports this is usually under stressful situations however it does come and go. He states that he will be in the 120s and then go home to be around family and his children. He then notes that he will be in the mid to upper 90s.. We did order a 48-hour Holter monitor for discharge to continue to monitor this. This should be followed up on by the patient's primary care provider. He will be discharged home today. All home medications were continued. His only new medication was Levaquin as mentioned prior. - Patient Instructions Diet: Usual Diet as Tolerated Activity: As Tolerated Notify Provider of: Fever, Increased Pain, Nausea and/or Vomiting Other/Special Instructions: Follow-up with your primary care provider within 5- 7 days of discharge, sooner if needed. Continue to utilize your incentive spirometry (clear/blue device you inhale through) and acapella (green tube you blow through) until symptoms resolve. Take your antibiotic as prescribed until it is gone, even if you feel 100% better. Resume home medications as directed. Because you were septic you have been given information on this with your discharge paperwork. Follow Holter monitor directions. Wear this for 48 hours as directed. Should symptoms return or worsen return to the emergency room or contact your primary care provider - Gayle Molina NP. - Discharge Plan *PRESCRIPTION DRUG MONITORING PROGRAM REVIEWED*: No *COPY OF PRESCRIPTION DRUG MONITORING REPORT IN PATIENT MIKE: No Prescriptions/Med Rec: levoFLOXacin [Levaquin] 750 mg PO DAILY #7 tab Home Medications: Home Meds ALPRAZolam [Xanax] 1 mg PO BEDTIME PRN 04/19/19 [History] Cyclobenzaprine [Flexeril] 10 mg PO TID PRN 04/19/19 [History] Desvenlafaxine Succinate [Pristiq] 50 mg PO DAILY 04/19/19 [History] Hydrocodone/Acetaminophen [Hydrocodon-Acetaminophn 10-325] 1 tab PO Q6H PRN [History] levoFLOXacin [Levaquin] 750 mg PO DAILY #7 tab 04/22/19 [Rx] Oxygen Therapy Mode: Room Air Patient Handouts: Sepsis, Adult, Ambulatory Cardiac Monitoring, Community- Acquired Pneumonia, Adult, Iuxi-mo-Lzks Forms: ED Department Discharge Referrals: Gayle Molina NP [Primary Care Provider] - 05/06/19 10:45 am (thanh follow-up with your primary care provider on May 06 at 1045am. ) - Discharge Summary/Plan Comment DC Time >30 min.: Yes (45 mins) - General Info Date of Service: 04/22/19 Admission Dx/Problem (Free Text: Admission Diagnosis/Problem Admission Diagnosis/Problem Pneumonia Functional Status: Reports: Pain Controlled, Tolerating Diet, Ambulating, Urinating, New Symptoms, Incentive Spirometry, Other (Acapella ) - Review of Systems General: Reports: No Symptoms. Denies: Fever, Weakness, Chills HEENT: Reports: No Symptoms. Denies: Headaches, Sore Throat Pulmonary: Reports: Cough (occasional ), Sputum (occasional ). Denies: Shortness of Breath, Wheezing Cardiovascular: Reports: No Symptoms. Denies: Chest Pain, Palpitations, Dyspnea on Exertion Gastrointestinal: Reports: No Symptoms. Denies: Abdominal Pain, Constipation, Diarrhea, Nausea, Vomiting Genitourinary: Reports: No Symptoms. Denies: Pain Musculoskeletal: Reports: No Symptoms Skin: Reports: No Symptoms. Denies: Cyanosis Neurological: Reports: No Symptoms. Denies: Confusion, Difficulty Walking, Gait Disturbance Psychiatric: Reports: No Symptoms - Patient Data Vitals - Most Recent: Last Vital Signs Temp 98.1 F 04/22/19 03:17 Pulse 93 04/22/19 03:17 Resp 15 04/22/19 03:17 BP 114/77 04/22/19 03:17 Pulse Ox 93 L 04/22/19 03:17 Weight - Most Recent: 210 lb 4.8 oz I&O - Last 24 hours: Intake & Output 04/21/19 04/22/19 04/22/19 22:59 06:59 14:59 Intake Total 3290 2373 Output Total 1300 1500 Balance 1989 873 Lab Results - Last 24 hrs: Laboratory Results - last 24 hr 04/19/19 04/21/19 04/22/19 Range/Units 21:30 10:47 05:25 WBC 6.55 (4.23-9.07) K/mm3 RBC 4.12 L (4.63-6.08) M/mm3 Hgb 12.7 L (13.7-17.5) gm/dl Hct 39.5 L (40.1-51.0) % MCV 95.9 H (79.0-92.2) fl MCH 30.8 (25.7-32.2) pg MCHC 32.2 (32.2-35.5) g/dl RDW Std Deviation 43.4 (35.1-43.9) fL Plt Count 242 (163-337) K/mm3 MPV 8.5 L (9.4-12.3) fl Neut % (Auto) 56.7 (34.0-67.9) % Lymph % (Auto) 31.5 (21.8-53.1) % Reagan % (Auto) 8.9 (5.3-12.2) % Eos % (Auto) 2.1 (0.8-7.0) Baso % (Auto) 0.2 (0.1-1.2) % Neut # (Auto) 3.72 (1.78-5.38) K/mm3 Lymph # (Auto) 2.06 (1.32-3.57) K/mm3 Reagan # (Auto) 0.58 (0.30-0.82) K/mm3 Eos # (Auto) 0.14 (0.04-0.54) K/mm3 Baso # (Auto) 0.01 (0.01-0.08) K/mm3 Puncture Site Rt radial ABG pH 7.44 (7.35-7.45) ABG pCO2 36.4 (35.0-45.0) mmHg ABG pO2 59.0 L (80.0-100.0) mmHg ABG HCO3 24.3 (22.0-26.0) meq/L ABG O2 Saturation 92.2 L (96.0-97.0) % ABG Base Excess 0.9 (-2-2.0) Frederic Test Positive A-a Gradient 45 mmHg O2 Delivery Device Room air FiO2 21.00 (21.00-100.00) % Sodium (136-145) mEq/L Potassium (3.5-5.1) mEq/L Chloride (98-107) mEq/L Carbon Dioxide (21-32) mEq/L Anion Gap (5-15) BUN (7-18) mg/dL Creatinine (0.7-1.3) mg/dL Est Cr Clr Drug Dosing mL/min Estimated GFR (MDRD) (>60) mL/min BUN/Creatinine Ratio (14-18) Glucose (74-106) mg/dL Calcium (8.5-10.1) mg/dL Magnesium (1.8-2.4) mg/dl Total Bilirubin (0.2-1.0) mg/dL AST (15-37) U/L ALT (16-63) U/L Alkaline Phosphatase (46-116) U/L Total Protein (6.4-8.2) g/dl Albumin (3.4-5.0) g/dl Globulin gm/dL Albumin/Globulin Ratio (1-2) Adenovirus (PCR) Not detected (Not Detected) B. pertussis DNA (PCR) Not detected (Not Detected) B.parapertussis DNA PCR Not detected (Not Detected) C. pneumoniae DNA (PCR) Not detected (Not Detected) Coronavirus (PCR) Not detected (Not Detected) Human Metapneumovir PCR Not detected (Not Detected) Influenza A (RT-PCR) Not detected (Not Detected) Influenza B (RT-PCR) Not detected (Not Detected) M. pneumoniae (PCR) Not detected (Not Detected) Parainfluen 1,2,3,4 PCR Not detected (Not Detected) RSV (PCR) Not detected (Not Detected) Entero/Rhino (PCR) Not detected (Not Detected) 12/17/19 Range/Units 05:25 WBC (4.23-9.07) K/mm3 RBC (4.63-6.08) M/mm3 Hgb (13.7-17.5) gm/dl Hct (40.1-51.0) % MCV (79.0-92.2) fl MCH (25.7-32.2) pg MCHC (32.2-35.5) g/dl RDW Std Deviation (35.1-43.9) fL Plt Count (163-337) K/mm3 MPV (9.4-12.3) fl Neut % (Auto) (34.0-67.9) % Lymph % (Auto) (21.8-53.1) % Reagan % (Auto) (5.3-12.2) % Eos % (Auto) (0.8-7.0) Baso % (Auto) (0.1-1.2) % Neut # (Auto) (1.78-5.38) K/mm3 Lymph # (Auto) (1.32-3.57) K/mm3 Reagan # (Auto) (0.30-0.82) K/mm3 Eos # (Auto) (0.04-0.54) K/mm3 Baso # (Auto) (0.01-0.08) K/mm3 Puncture Site ABG pH (7.35-7.45) ABG pCO2 (35.0-45.0) mmHg ABG pO2 (80.0-100.0) mmHg ABG HCO3 (22.0-26.0) meq/L ABG O2 Saturation (96.0-97.0) % ABG Base Excess (-2-2.0) Frederic Test A-a Gradient mmHg O2 Delivery Device FiO2 (21.00-100.00) % Sodium 139 (136-145) mEq/L Potassium 4.1 (3.5-5.1) mEq/L Chloride 102 (98-107) mEq/L Carbon Dioxide 29 (21-32) mEq/L Anion Gap 12.1 (5-15) BUN 12 (7-18) mg/dL Creatinine 1.2 (0.7-1.3) mg/dL Est Cr Clr Drug Dosing 86.18 mL/min Estimated GFR (MDRD) > 60 (>60) mL/min BUN/Creatinine Ratio 10.0 L (14-18) Glucose 90 (74-106) mg/dL Calcium 9.0 (8.5-10.1) mg/dL Magnesium 1.8 (1.8-2.4) mg/dl Total Bilirubin 0.6 (0.2-1.0) mg/dL AST 17 (15-37) U/L ALT 50 (16-63) U/L Alkaline Phosphatase 64 (46-116) U/L Total Protein 6.9 (6.4-8.2) g/dl Albumin 2.7 L (3.4-5.0) g/dl Globulin 4.2 gm/dL Albumin/Globulin Ratio 0.6 L (1-2) Adenovirus (PCR) (Not Detected) B. pertussis DNA (PCR) (Not Detected) B.parapertussis DNA PCR (Not Detected) C. pneumoniae DNA (PCR) (Not Detected) Coronavirus (PCR) (Not Detected) Human Metapneumovir PCR (Not Detected) Influenza A (RT-PCR) (Not Detected) Influenza B (RT-PCR) (Not Detected) M. pneumoniae (PCR) (Not Detected) Parainfluen 1,2,3,4 PCR (Not Detected) RSV (PCR) (Not Detected) Entero/Rhino (PCR) (Not Detected) JOE Results - Last 24 hrs: Microbiology 04/19/19 20:25 Streptococcus pneumoniae Antigen (M - Final Urine 04/19/19 17:16 Aerobic Blood Culture - Preliminary Blood - Venous - Lab Draw NO GROWTH AFTER 2 DAYS Anaerobic Blood Culture - Preliminary NO GROWTH AFTER 2 DAYS 04/19/19 17:31 Aerobic Blood Culture - Preliminary Blood - Venous NO GROWTH AFTER 2 DAYS Anaerobic Blood Culture - Preliminary NO GROWTH AFTER 2 DAYS Med Orders - Current: Current Medications Acetaminophen (Tylenol) 650 mg PO Q4H PRN PRN Reason: Pain (Mild 1-3)/fever Last Admin: 04/21/19 09:15 Dose: 650 mg Acetaminophen/Butalbital/Caffeine (Fioricet 325-50-40 Mg) 1 tab PO Q6H PRN PRN Reason: Headache Hydrocodone Bitart/Acetaminophen ([place] 325-10 Mg) 1 tab PO Q6H PRN PRN Reason: Pain Last Admin: 04/21/19 19:45 Dose: 1 tab Alprazolam (Xanax) 0.5 mg PO BEDTIME PRN PRN Reason: Insomnia Last Admin: 04/19/19 22:08 Dose: 0.5 mg Cyclobenzaprine HCl (Flexeril) 10 mg PO TID PRN PRN Reason: Muscle Spasm Last Admin: 04/21/19 23:07 Dose: 10 mg Levofloxacin/Dextrose 750 mg/ (Premix) 150 mls @ 100 mls/hr IV Q24H RICH Ondansetron HCl (Zofran) 4 mg IV Q6H PRN PRN Reason: Nausea/Vomiting Ondansetron HCl (Zofran Odt) 4 mg PO Q6H PRN PRN Reason: nausea, able to take PO Desvenlafaxine Er (50 Mg Ptom) 0 each PO DAILY RICH Last Admin: 04/21/19 08:36 Dose: 1 each Sodium Chloride (Saline Flush) 10 ml FLUSH ASDIRECTED PRN PRN Reason: Keep Vein Open Discontinued Medications Acetaminophen (Tylenol) 325 mg PO NOW ONE Stop: 04/19/19 19:03 Last Admin: 04/19/19 20:15 Dose: 325 mg Benzocaine/Menthol (Cepacol Sore Throat) 1 lozenge MUCMEM ONETIME ONE Stop: 04/19/19 19:04 Last Admin: 04/19/19 20:16 Dose: 1 lozenge Ceftriaxone Sodium (Rocephin) Confirm Administered Dose 2 gm IV .STK-MED ONE Stop: 04/19/19 17:27 Last Admin: 04/19/19 17:54 Dose: Not Given Cyclobenzaprine HCl (Flexeril) 10 mg PO BID PRN PRN Reason: Pain Last Admin: 04/20/19 09:41 Dose: 10 mg Enoxaparin Sodium (Lovenox) 40 mg SUBCUT ONETIME ONE Stop: 04/20/19 00:12 Last Admin: 04/20/19 04:16 Dose: 40 mg Ceftriaxone Sodium 2 gm/ (Sodium Chloride) 100 mls @ 200 mls/hr IV STAT ONE Stop: 04/19/19 17:34 Last Admin: 04/19/19 17:54 Dose: 200 mls/hr Sodium Chloride (Normal Saline) 2,700 mls @ 1,000 mls/hr IV BOLUS ONE Stop: 04/19/19 19:46 Last Admin: 04/19/19 17:22 Dose: 1,000 mls/hr Ceftriaxone Sodium 2 gm/ (Sodium Chloride) 100 mls @ 200 mls/hr IV Q24H [facility] Sodium Chloride (Normal Saline) Confirm Administered Dose 100 mls @ as directed .ROUTE .STK-MED ONE Stop: 04/19/19 17:28 Last Admin: 04/19/19 17:55 Dose: Not Given Lactated Ringer's (Ringers, Lactated) 1,000 mls @ 200 mls/hr IV ASDIRECTED [facility] Last Admin: 04/22/19 03:13 Dose: 200 mls/hr Levofloxacin/Dextrose 750 mg/ (Premix) 150 mls @ 100 mls/hr IV Q24H [facility] Last Admin: 04/21/19 21:11 Dose: 100 mls/hr Sodium Chloride (Normal Saline) 1,000 mls @ 200 mls/hr IV ASDIRECTED [facility] Stop: 04/20/19 00:30 Last Admin: 04/19/19 21:31 Dose: 200 mls/hr Magnesium Sulfate 2 gm/ Premix 50 mls @ 25 mls/hr IV ONETIME ONE Stop: 04/21/19 09:15 Last Admin: 04/21/19 07:26 Dose: 25 mls/hr Metoprolol Tartrate (Lopressor) 5 mg IVPUSH ONETIME ONE Stop: 04/19/19 23:05 Last Admin: 04/19/19 23:20 Dose: 5 mg Desvenlafaxine Succinate [Pristiq] 25 Mg 0 each PO DAILY [facility] Last Admin: 04/20/19 12:13 Dose: Not Given - Exam Quality Assessment: Reports: DVT Prophylaxis General: Reports: Alert, Oriented, Cooperative, No Acute Distress HEENT: Reports: Pupils Equal, Pupils Reactive, EOMI, Mucous Membr. Moist/[place] Neck: Reports: Supple, Trachea Midline Lungs: Reports: Clear to Auscultation, Normal Respiratory Effort Cardiovascular: Reports: Regular Rhythm, Tachycardia (rate 90-110s) GI/Abdominal Exam: Normal Bowel Sounds, Soft, Non-Tender, No Distention, No Abnormal Bruit (Male) Exam: Deferred Rectal (Males) Exam: Deferred Back Exam: Reports: Normal Inspection, Full Range of Motion Extremities: Normal Inspection, Normal Range of Motion, Non-Tender, No Pedal Edema, Normal Capillary Refill Skin: Reports: Warm, Dry, Intact Neurological: Reports: No New Focal Deficit Psy/Mental Status: Reports: Alert, Normal Affect, Normal Mood
[2019-04-22] MEDS: Acetaminophen/HYDROcodone 325-10 MG Tab PO PRN (08:04)
[2019-04-22] MEDS: DESVENLAFAXINE 50 MG PO SCH (08:04)
[2019-04-22] MEDS ORDERED: Levofloxacin/Dextrose 5%-Water 750 MG in Premix Bag 1 BAG IV SCH (21:00)
== END 2019-04-22 12:25 | disposition home or self-care (01) | DRG 871 ==
LOC: JD.ED 16:42 → JD.MS 19:08
PROVIDERS: ADMIT Internal Medicine; ATTEND Internal Medicine
DX: A41.9 Sepsis, unspecified organism (principal); J18.1 Lobar pneumonia, unspecified organism; N17.9 Acute kidney failure, unspecified; E87.2 Acidosis; R94.5 Abnormal results of liver function studies; F41.9 Anxiety disorder, unspecified; G89.29 Other chronic pain; M54.9 Dorsalgia, unspecified; N18.9 Chronic kidney disease, unspecified; Z87.891 Personal history of nicotine dependence; Z79.899 Other long term (current) drug therapy
CPT/HCPCS: 36415; 36600; 70450; 70450-26; 71046; 71046-26; 80048; 80053; 81003; 82803; 83036; 83605; 83735; 84100; 84145; 85007; 85025; 85027; 85610; 86140; 86738; 87040; 87486; 87581; 87632; 87798; 87899; 93005; 94761; 96361; 96365; 99284; 99285-25; A9270-GY; J0696; J1650; J1956; J3475; J3490; J7030; J7050; J7120

== ENCOUNTER 2019-06-07 10:00 | Inpatient (IN) | payer OTHER ==
[2019-06-07] MEDS ORDERED: cefTRIAXone 2 GM in Sodium Chloride 0.9% 100 ML IV SCH (10:30)
--- NOTE | 2019-06-07 11:03 | CR ---
Chest: Portable view of the chest was obtained. Comparison: Prior chest x-ray of 04/19/19. Heart size and mediastinum are normal. Minimal interstitial change noted within the left lung base. Uncertain if findings represent mild bronchitis or are residual from previous parenchymal process representing scarring. Lungs otherwise are clear. Bony structures are unremarkable. Impression: 1. Mild interstitial change within the left lung base as noted above. 2. Portable chest x-ray is otherwise unremarkable. Diagnostic code #3 This report was dictated in [place] Standard Time
[2019-06-07] MEDS ORDERED: Albuterol/Ipratropium 3.0-0.5 MG/3 ML Neb Soln NEB ONE (11:05)
[2019-06-07] MEDS ORDERED: Sodium Chloride 0.9% 1,000 ML IV ONE (11:12)
--- NOTE | 2019-06-07 12:30 | EDM.PDOC ---
ED HPI GENERAL MEDICAL PROBLEM - General Chief Complaint: Respiratory Problem Stated Complaint: RESPIRATORY ISSUES Time Seen by Provider: 06/07/19 10:08 Source of Information: Reports: Patient History Limitations: Reports: No Limitations - History of Present Illness INITIAL COMMENTS - FREE TEXT/NARRATIVE: The patient presents with a cough, fever, shortness of breath and tachycardia. This all started yesterday. He was admitted 2 months ago for the same. He had pneumonia and sepsis. He is tachycardia when he came in and his oxygen saturations are low. He has a productive cough. He has a fever and chills. He has no lung problems. He has no abdominal pain, nausea or vomiting. Onset: Gradual Duration: Day(s): (2) Improves with: Reports: None Worsens with: Reports: None Associated Symptoms: Reports: Cough, Fever/Chills, Shortness of Breath. Denies : Chest Pain, Headaches, Nausea/Vomiting Middle Back Pain Score (Numeric/FACES): 8 - Related Data Allergies Allergy/AdvReac Type Severity Reaction Status Date / Time No Known Allergies Allergy Verified 06/07/19 10:10 Home Meds: Home Meds ALPRAZolam [Xanax] 1 mg PO BEDTIME PRN 04/19/19 [History] Cyclobenzaprine [Flexeril] 10 mg PO TID PRN 04/19/19 [History] Desvenlafaxine Succinate [Pristiq] 50 mg PO DAILY 04/19/19 [History] Hydrocodone/Acetaminophen [Hydrocodon-Acetaminophn 10-325] 1 tab PO Q6H PRN [History] Amoxicillin 250 mg PO DAILY 06/07/19 [History] Past Medical History Other Respiratory History: pneumonia in past, states its not recurrent Musculoskeletal History: Reports: Back Pain, Chronic Other Musculoskeletal History: Broke neck in 2005. -Neck/back swell around nerves and he gets muscle spasms Psychiatric History: Reports: Anxiety - Past Surgical History Other GI Surgeries/Procedures: Hernia surgery Social & Family History - Tobacco Use Smoking Status *Q: Former Smoker Used Tobacco, but Quit: Yes Month/Year Tobacco Last Used: 2015 - Caffeine Use Caffeine Use: Reports: Soda - Recreational Drug Use Recreational Drug Use: No ED ROS GENERAL - Review of Systems Review Of Systems: See Below Constitutional: Reports: Fever, Chills HEENT: Reports: No Symptoms Respiratory: Reports: Shortness of Breath, Cough Cardiovascular: Reports: No Symptoms Endocrine: Reports: No Symptoms GI/Abdominal: Reports: No Symptoms : Reports: No Symptoms ED EXAM, GENERAL - Physical Exam Exam: See Below Exam Limited By: No Limitations General Appearance: Alert, No Apparent Distress Ears: Normal External Exam Nose: Normal Inspection Head: Atraumatic, Normocephalic Neck: Normal Inspection Respiratory/Chest: No Respiratory Distress, Lungs Clear, Normal Breath Sounds Cardiovascular: No Edema, No Murmur, Tachycardia GI/Abdominal: Soft, Non-Tender, No Organomegaly, No Mass Back Exam: Normal Inspection Extremities: Normal Inspection EKG INTERPRETATION EKG Date: 06/07/19 Time: 10:44 Rhythm: Other (sinus tachycardia) Rate (Beats/Min): 167 [place]: LAD-Left [place] Deviation P-Wave: Present QRS: Normal ST-T: Normal QT: Normal Course - Vital Signs Last Recorded V/S: Last Vital Signs Temp 101.5 F H 06/07/19 10:08 Pulse 162 H 06/07/19 10:08 Resp 22 H 06/07/19 10:08 BP Pulse Ox 91 L 06/07/19 11:06 - Orders/Labs/Meds Orders: Active Orders 24 hr Category Date Time Status EKG Documentation Completion [RC] ASDIRECTED Care 06/07/19 10:16 Active RT Aerosol Therapy [RC] ASDIRECTED Care 06/07/19 11:06 Active CULTURE BLOOD [BC] Stat Lab 06/07/19 10:30 Received CULTURE BLOOD [BC] Stat Lab 06/07/19 10:43 Received cefTRIAXone [Rocephin] 2 gm Med 06/07/19 10:30 Active Sodium Chloride 0.9% [Normal Saline] 100 ml IV Q24H EKG 12 Lead [EK] Stat Ther 06/07/19 10:16 Ordered Medication Orders Ceftriaxone Sodium 2 gm/ (Sodium Chloride) 100 mls @ 200 mls/hr IV Q24H RICH Last Admin: 06/07/19 10:32 Dose: 200 mls/hr Labs: Laboratory Tests 06/07/19 06/07/19 06/07/19 Range/Units 10:30 10:30 10:30 WBC 13.61 H (4.23-9.07) K/mm3 RBC 4.86 (4.63-6.08) M/mm3 Hgb 14.9 D (13.7-17.5) gm/dl Hct 46.0 (40.1-51.0) % MCV 94.7 H (79.0-92.2) fl MCH 30.7 (25.7-32.2) pg MCHC 32.4 (32.2-35.5) g/dl RDW Std Deviation 43.7 (35.1-43.9) fL Plt Count 339 H D (163-337) K/mm3 MPV 8.1 L (9.4-12.3) fl Neutrophils % (Manual) 87 H (40-60) % Band Neutrophils % 0 (0-10) % Lymphocytes % (Manual) 13 L (20-40) % Atypical Lymphs % 0 % Monocytes % (Manual) 0 L (2-10) % Eosinophils % (Manual) 0 L (0.8-7.0) % Basophils % (Manual) 0 L (0.2-1.2) Toxic Granulation Moderate Platelet Estimate Adequate Plt Morphology Comment Normal RBC Morph Comment Normal Sodium 140 (136-145) mEq/L Potassium 4.5 (3.5-5.1) mEq/L Chloride 101 (98-107) mEq/L Carbon Dioxide 30 (21-32) mEq/L Anion Gap 13.5 (5-15) BUN 12 (7-18) mg/dL Creatinine 1.3 (0.7-1.3) mg/dL Est Cr Clr Drug Dosing 79.55 mL/min Estimated GFR (MDRD) > 60 (>60) mL/min BUN/Creatinine Ratio 9.2 L (14-18) Glucose 151 H (74-106) mg/dL Lactic Acid 3.2 H* (0.4-2.0) mmol/L Calcium 9.9 (8.5-10.1) mg/dL Total Bilirubin 0.5 (0.2-1.0) mg/dL AST 31 (15-37) U/L ALT 54 (16-63) U/L Alkaline Phosphatase 79 (46-116) U/L C-Reactive Protein 5.9 H* (<1.0) mg/dL Total Protein 7.9 (6.4-8.2) g/dl Albumin 4.0 (3.4-5.0) g/dl Globulin 3.9 gm/dL Albumin/Globulin Ratio 1.0 (1-2) Meds: Medications Generic Name Dose Route Start Last Admin Trade Name Darrell PRN Reason Stop Dose Admin Ceftriaxone Sodium 2 gm/ 100 mls @ 200 mls/hr 06/07/19 10:30 06/07/19 10:32 Sodium Chloride IV 200 mls/hr Q24H RICH Administration Discontinued Medications Generic Name Dose Route Start Last Admin Trade Name Darrell PRN Reason Stop Dose Admin Albuterol/Ipratropium 3 ml 06/07/19 11:05 06/07/19 11:11 Duoneb 3.0-0.5 Mg/3 Ml NEB 06/07/19 11:06 3 ml ONETIME ONE Administration Sodium Chloride 1,000 mls @ 1,000 mls/hr 06/07/19 11:12 06/07/19 11:19 Normal Saline IV 06/07/19 12:11 1,000 mls/hr ONETIME ONE Administration Iopamidol 80 ml 06/07/19 13:01 06/07/19 13:02 Isovue-300 (61%) IVPUSH 06/07/19 13:02 80 ml ONETIME ONE Administration - Re-Assessments/Exams Free Text/Narrative Re-Assessment/Exam: 06/07/19 13:47 I ordered oxygen, IV NS 1L bolus, blood cultures, influenza, lactic acid, EKG and CXR. His EKG shows a sinus tachycardia. His CXR shows some atelectasis or early infiltrate left lower lung. His WBC is elevated at 13.61. His glucose is 151. His lactic acid is elevated at 3.2. His CRP is elevated at 5.9. I have ordered another liter of fluids. His influenza was negative. He needs to be admitted. I talked with Dr Nash and we discussed how this is abnormal for such a young gut to have pneumonia twice within 2 months. We discussed the possibility of atypical pneumonia. He did recommend a CT of his chest. I am waiting for the results now. I have ordered rocephin 2 grams IV and gave him a breathing treatment. 06/07/19 14:[address] shows interstitial change within both sides of the chest with more focal density within the left base. Differential includes bacterial bronchitis and pneumonia within the left base as well as viral bronchitis and viral pneumonia. Multiple small subpleural nodules on both sides of the chest. Follow up chest CT is recommended without contrast in 6 months t confirm stability of these nodules. Fluid within the dilated esophagus presumably representing gastroesophageal reflux. I updated Dr Nash. Departure - Departure Time of Disposition: 14:10 Disposition: Admitted As Inpatient 67 Condition: Good Clinical Impression: Sinus tachycardia Pneumonia Qualifiers: Pneumonia type: due to unspecified organism Laterality: right Lung location: middle lobe of lung Qualified Code(s): J18.9 - Pneumonia, unspecified organism Sepsis Qualifiers: Sepsis type: sepsis due to unspecified organism Sepsis acute organ dysfunction status: unspecified Qualified Code(s): A41.9 - Sepsis, unspecified organism - Discharge Information Sepsis Event Note - Evaluation Sepsis Screening Result: Severe Sepsis Risk - Focused Exam Vital Signs: Vital Signs Temp Pulse Resp Pulse Ox Pulse Ox 06/07/19 11:06 91 L 06/07/19 10:08 101.5 F H 162 H 22 H 88 L Date Exam was Performed: 06/07/19 Time Exam was Performed: 14:04 - My Orders Last 24 Hours: My Active Orders 06/07/19 10:16 EKG Documentation Completion [RC] ASDIRECTED EKG 12 Lead [EK] Stat 06/07/19 10:30 CULTURE BLOOD [BC] Stat cefTRIAXone [Rocephin] 2 gm Sodium Chloride 0.9% [Normal Saline] 100 ml IV Q24H 06/07/19 10:43 CULTURE BLOOD [BC] Stat 06/07/19 11:06 RT Aerosol Therapy [RC] ASDIRECTED - Assessment/Plan Last 24 Hours: My Active Orders 06/07/19 10:16 EKG Documentation Completion [RC] ASDIRECTED EKG 12 Lead [EK] Stat 06/07/19 10:30 CULTURE BLOOD [BC] Stat cefTRIAXone [Rocephin] 2 gm Sodium Chloride 0.9% [Normal Saline] 100 ml IV Q24H 06/07/19 10:43 CULTURE BLOOD [BC] Stat 06/07/19 11:06 RT Aerosol Therapy [RC] ASDIRECTED
[2019-06-07] MEDS ORDERED: Iopamidol 612 MG/ML 100 ML Bottle IVPUSH ONE (13:01)
--- NOTE | 2019-06-07 13:33 | CT ---
CT chest Technique: Multiple axial sections were obtained from above the lung apices inferiorly through the lung bases. Intravenous contrast was utilized. Comparison: Prior chest x-ray performed on the same day (10:08 AM) Findings: Esophagus is slightly dilated with fluid. Findings presumably represent gastroesophageal reflux. Visualized upper abdominal structures shows no discrete abnormality. No pericardial thickening is seen. Mediastinum and hilar regions show no adenopathy or mass. No axillary adenopathy is identified. Interstitial changes noted within the left upper lung and right upper lung as well as more focal density within the left lower lung. Multiple small subpleural nodules are noted on both sides of the chest. Impression: 1. Interstitial change within both sides of the chest with more focal density within the left base. Differential includes bacterial bronchitis and pneumonia within the left base as well as viral bronchitis and viral pneumonia. 2. Multiple small subpleural nodules on both sides of the chest. Follow-up chest CT is recommended without contrast in 6 months to confirm stability of these nodules. 3. Fluid within a dilated esophagus presumably representing gastroesophageal reflux. Diagnostic code #3 Study was dictated in [place] Standard Time
[2019-06-07] MEDS ORDERED: Lactated Ringers 1,000 ML IV ONE (14:20)
[2019-06-07] MEDS ORDERED: Acetaminophen 325 MG Tab PO ONE (14:21)
[2019-06-07] MEDS ORDERED: Azithromycin 500 MG in Sodium Chloride 0.9% 250 ML IV ONE (14:44)
[2019-06-07] MEDS ORDERED: ALPRAZolam 0.5 MG Tab PO PRN (14:44)
[2019-06-07] MEDS ORDERED: Vancomycin 2 GM in Sodium Chloride 0.9% 500 ML IV ONE (16:00)
[2019-06-07] MEDS: Oseltamivir 75 MG Cap PO SCH ×2 (16:27→21:10)
[2019-06-07] MEDS ORDERED: Cefepime 2 GM in Premix Bag 1 BAG IV SCH ×2 (16:45→18:30)
[2019-06-07] MEDS: Cyclobenzaprine 10 MG Tab PO PRN (17:28)
[2019-06-07] MEDS: Acetaminophen/HYDROcodone 325-10 MG Tab PO PRN (17:29)
[2019-06-07] MEDS ORDERED: Ibuprofen 600 MG Tab PO PRN (18:23)
[2019-06-07] MEDS ORDERED: Ondansetron 4 MG/2 ML SDV IV PRN (18:26)
[2019-06-07] MEDS: Sodium Chloride 0.9% 1,000 ML IV SCH (18:56)
--- NOTE | 2019-06-07 20:43 | PCM.HP.2 ---
H&P History of Present Illness - General Date of Service: 06/07/19 Admit Problem/Dx: Admission Diagnosis/Problem Admission Diagnosis/Problem Pneumonia - History of Present Illness Initial Comments - Free Text/Narative: Patient presented to the emergency room with chief complaint of cough, fever, shortness of breath, and racing heart. Patient states that he was feeling fine until 2 days ago when he started feeling "fuzzy" and had a temperature of just over 99. Yesterday he developed a cough and had a "coughing fit" and increased heartburn. Patient was diagnosed in February with pneumonia that was chest x- ray confirmed. Patient was seen and admitted here with tachycardia, sepsis, and pneumonia in April and finished 10 days of antibiotics, treated with Levaquin. Patient states that his symptoms today are very similar to his symptoms when he presented here in April. He denies any high-grade fever but does complain of a low-grade fever and chills. During hospitalization last time his heart rate after improvement and rehydration was still in the 120s and he was sent home with a Holter monitor. Holter monitor found him to be predominantly noted in sinus tachycardia with a heart rate ranging from 80 to 259 bpm with a mean of 110 bpm. No atrial fibrillation or ventricular tachycardia. Patient's basal heart rate was noted to be elevated except during sleep hours. This raises concern of inappropriate sinus tachycardia. In the emergency room patient's temperature was found to be 101.5, pulse of 162 , respiratory rate of 16, pulse ox 91%. EKG shows sinus tachycardia with a ventricular rate of 167 bpm with left axis deviation. Labs: WBC 13.61, hemoglobin 14.9, platelets 239, sodium 140, potassium 4.5, bicarb 30, anion gap 13.5. Chest x-ray showed mild interstitial change within the left lung base. Middle Back Pain Score (Numeric/FACES): 8 - Related Data Allergies/Adverse Reactions: Allergies Allergy/AdvReac Type Severity Reaction Status Date / Time No Known Allergies Allergy Verified 06/07/19 10:10 Home Medications: Home Meds ALPRAZolam [Xanax] 1 mg PO BEDTIME PRN 04/19/19 [History] Cyclobenzaprine [Flexeril] 10 mg PO TID PRN 04/19/19 [History] Desvenlafaxine Succinate [Pristiq] 50 mg PO DAILY 04/19/19 [History] Hydrocodone/Acetaminophen [Hydrocodon-Acetaminophn 10325] 1 tab PO Q6H PRN [History] Amoxicillin 250 mg PO DAILY 06/07/19 [History] Past Medical History HEENT History: Reports: Other (See Below) Other HEENT History: root canal on 06/03/2019 Other Respiratory History: pneumonia in past, states its not recurrent Musculoskeletal History: Reports: Back Pain, Chronic Other Musculoskeletal History: Broke neck in 2005. -Neck/back swell around nerves and he gets muscle spasms Psychiatric History: Reports: Anxiety - Past Surgical History Other GI Surgeries/Procedures: Hernia surgery Social & Family History - Tobacco Use Smoking Status *Q: Former Smoker Used Tobacco, but Quit: Yes Month/Year Tobacco Last Used: 2016 Second Hand Smoke Exposure: No - Caffeine Use Caffeine Use: Reports: Soda Caffeine Use Comment: Drinks about 2 20oz bottles of soda per day - Recreational Drug Use Recreational Drug Use: No H&P Review of Systems - Review of Systems: Review Of Systems: See Below General: Reports: Fever, Fatigue HEENT: Reports: No Symptoms Pulmonary: Reports: Shortness of Breath, Cough Cardiovascular: Reports: Palpitations, Lightheadedness Gastrointestinal: Reports: No Symptoms Musculoskeletal: Reports: No Symptoms Psychiatric: Reports: No Symptoms Neurological: Reports: No Symptoms Exam - Exam Exam: See Below - Vital Signs Vital Signs: Last Vital Signs Temp 98.8 F 06/07/19 17:27 Pulse 117 H 06/07/19 17:27 Resp 16 06/07/19 17:27 BP 109/75 06/07/19 17:27 Pulse Ox 93 L 06/07/19 17:27 Weight: 213 lb 6.4 oz - Exam Quality Assessment: Supplemental Oxygen General: Alert, Oriented, 4 HEENT: Conjunctiva Clear, Mucosa Moist & [place] Neck: Supple, Trachea Midline, 2 Lungs: Rhonchi. No: Normal Respiratory Effort (Increased respiratory effort and rate.) Cardiovascular: Regular Rhythm, Normal S1, Normal S2, Tachycardia. No: Systolic Murmur GI/Abdominal Exam: Normal Bowel Sounds, Soft, Non-Tender, No Organomegaly, No Distention, No Abnormal Bruit, No Mass Back Exam: Normal Inspection, Full Range of Motion Extremities: Normal Inspection, Normal Range of Motion, Non-Tender, No Pedal Edema, Normal Capillary Refill Skin: Warm, Dry, Intact Neuro Extensive - Mental Status: Alert, Oriented x3, Normal Mood/Affect, Normal Cognition Neuro Extensive - Motor, Sensory, Reflexes: CN II-XII Intact Psychiatric: Alert, Normal Affect, Normal Mood - Patient Data Lab Results Last 24 hrs: Laboratory Results - last 24 hr 06/07/19 06/07/19 06/07/19 Range/Units 10:30 10:30 10:30 WBC 13.61 H (4.23-9.07) K/mm3 RBC 4.86 (4.63-6.08) M/mm3 Hgb 14.9 D (13.7-17.5) gm/dl Hct 46.0 (40.1-51.0) % MCV 94.7 H (79.0-92.2) fl MCH 30.7 (25.7-32.2) pg MCHC 32.4 (32.2-35.5) g/dl RDW Std Deviation 43.7 (35.1-43.9) fL Plt Count 339 H D (163-337) K/mm3 MPV 8.1 L (9.4-12.3) fl Neutrophils % (Manual) 87 H (40-60) % Band Neutrophils % 0 (0-10) % Lymphocytes % (Manual) 13 L (20-40) % Atypical Lymphs % 0 % Monocytes % (Manual) 0 L (2-10) % Eosinophils % (Manual) 0 L (0.8-7.0) % Basophils % (Manual) 0 L (0.2-1.2) Toxic Granulation Moderate Platelet Estimate Adequate Plt Morphology Comment Normal RBC Morph Comment Normal Sodium 140 (136-145) mEq/L Potassium 4.5 (3.5-5.1) mEq/L Chloride 101 (98-107) mEq/L Carbon Dioxide 30 (21-32) mEq/L Anion Gap 13.5 (5-15) BUN 12 (7-18) mg/dL Creatinine 1.3 (0.7-1.3) mg/dL Est Cr Clr Drug Dosing 79.55 mL/min Estimated GFR (MDRD) > 60 (>60) mL/min BUN/Creatinine Ratio 9.2 L (14-18) Glucose 151 H (74-106) mg/dL Lactic Acid 3.2 H* (0.4-2.0) mmol/L Calcium 9.9 (8.5-10.1) mg/dL Total Bilirubin 0.5 (0.2-1.0) mg/dL AST 31 (15-37) U/L ALT 54 (16-63) U/L Alkaline Phosphatase 79 (46-116) U/L C-Reactive Protein 5.9 H* (<1.0) mg/dL Total Protein 7.9 (6.4-8.2) g/dl Albumin 4.0 (3.4-5.0) g/dl Globulin 3.9 gm/dL Albumin/Globulin Ratio 1.0 (1-2) 06/07/19 06/07/19 Range/Units 14:22 17:30 WBC (4.23-9.07) K/mm3 RBC (4.63-6.08) M/mm3 Hgb (13.7-17.5) gm/dl Hct (40.1-51.0) % MCV (79.0-92.2) fl MCH (25.7-32.2) pg MCHC (32.2-35.5) g/dl RDW Std Deviation (35.1-43.9) fL Plt Count (163-337) K/mm3 MPV (9.4-12.3) fl Neutrophils % (Manual) (40-60) % Band Neutrophils % (0-10) % Lymphocytes % (Manual) (20-40) % Atypical Lymphs % % Monocytes % (Manual) (2-10) % Eosinophils % (Manual) (0.8-7.0) % Basophils % (Manual) (0.2-1.2) Toxic Granulation Platelet Estimate Plt Morphology Comment RBC Morph Comment Sodium (136-145) mEq/L Potassium (3.5-5.1) mEq/L Chloride (98-107) mEq/L Carbon Dioxide (21-32) mEq/L Anion Gap (5-15) BUN (7-18) mg/dL Creatinine (0.7-1.3) mg/dL Est Cr Clr Drug Dosing mL/min Estimated GFR (MDRD) (>60) mL/min BUN/Creatinine Ratio (14-18) Glucose (74-106) mg/dL Lactic Acid 2.3 H* 1.7 (0.4-2.0) mmol/L Calcium (8.5-10.1) mg/dL Total Bilirubin (0.2-1.0) mg/dL AST (15-37) U/L ALT (16-63) U/L Alkaline Phosphatase (46-116) U/L C-Reactive Protein (<1.0) mg/dL Total Protein (6.4-8.2) g/dl Albumin (3.4-5.0) g/dl Globulin gm/dL Albumin/Globulin Ratio (1-2) Result Diagrams: 06/07/19 10:30 06/07/19 10:30 Akbar Results Last 24 hrs: Microbiology 06/07/19 10:30 Influenza Type A Antigen Screen - Final Nasopharyngeal Swab NEGATIVE INFLUENZA A VIRUS AG REFERENCE RANGE: NEGATIVE Influenza Type B Antigen Screen - Final NEGATIVE INFLUENZA B VIRUS AG REFERENCE RANGE: NEGATIVE Imaging Impressions Last 24 hrs: CT of the chest: 1. Interstitial change within both sides of the chest with more focal density within the left base. Differential includes bacterial bronchitis and pneumonia within the left base as well as viral bronchitis and viral pneumonia. 2. Multiple small subpleural nodules on both sides of the chest. Follow-up chest CT is recommended without contrast in 6 months to confirm stability of these nodules. 3. Fluid within dilated esophagus presumably representing gastroesophageal reflux. Sepsis Event Note - Evaluation Sepsis Screening Result: Severe Sepsis Risk - Focused Exam Vital Signs: Vital Signs Temp Temp Pulse Pulse Resp BP Pulse Ox 06/07/19 17:27 98.8 F 117 H 16 109/75 93 L 06/07/19 15:46 100.2 F 06/07/19 14:32 103.0 F H 06/07/19 14:08 102.9 F H 139 H 22 H 124/88 94 L 06/07/19 11:06 06/07/19 10:08 101.5 F H 162 H 22 H 88 L Pulse Ox 06/07/19 17:27 06/07/19 15:46 06/07/19 14:32 06/07/19 14:08 06/07/19 11:06 91 L 06/07/19 10:08 Date Exam was Performed: 06/07/19 Time Exam was Performed: 20:47 Problem List Initiated/Reviewed/Updated: Yes Orders Last 24hrs: Active Orders 24 hr Category Date Time Status Patient Status [ADT] Routine ADT 06/07/19 13:09 Active Oxygen Therapy [RC] PRN Care 06/07/19 18:26 Active RT Aerosol Therapy [RC] ASDIRECTED Care 06/07/19 11:06 Active Up ad Cristal [RC] ASDIRECTED Care 06/07/19 18:26 Active VTE/DVT Education [RC] PER UNIT ROUTINE Care 06/07/19 18:26 Active Vital Signs [RC] Q4HR Care 06/07/19 18:26 Active Regular Diet [DIET] Diet 06/07/19 Dinner Active C-REACTIVE PROTEIN [CHEM] AM Lab 06/08/19 05:11 Ordered C-REACTIVE PROTEIN [CHEM] AM Lab 06/09/19 05:11 Ordered CBC WITH AUTO DIFF [HEME] AM Lab 06/08/19 05:11 Ordered CBC WITH AUTO DIFF [HEME] AM Lab 06/09/19 05:11 Ordered CMP [COMPREHENSIVE METABOLIC PN,CMP] [CHEM] AM Lab 06/08/19 05:11 Ordered CMP [COMPREHENSIVE METABOLIC PN,CMP] [CHEM] AM Lab 06/09/19 05:11 Ordered CULTURE BLOOD [BC] Stat Lab 06/07/19 10:30 Received CULTURE BLOOD [BC] Stat Lab 06/07/19 10:43 Received CULTURE SPUTUM + SMEAR [RM] Routine Lab 06/07/19 14:41 Ordered LEGIONELLA ANTIGEN [MREF] Routine Lab 06/07/19 15:30 Received MAGNESIUM [CHEM] AM Lab 06/08/19 05:11 Ordered MAGNESIUM [CHEM] AM Lab 06/09/19 05:11 Ordered RESPIRATORY PANEL Routine Lab 06/07/19 16:34 Received STREP PNEUMONIAE ANTIGEN [MREF] Routine Lab 06/07/19 15:30 Received ALPRAZolam [Xanax] Med 06/07/19 14:44 Active 1 mg PO BEDTIME PRN Acetaminophen/HYDROcodone [[place] 325-10 MG] Med 06/07/19 16:40 Active 1 tab PO Q6H PRN Cefepime [Maxipime in D5W 2 GM/50 ML] 2 gm Med 06/07/19 18:30 Active Premix Bag 1 bag IV Q8H Cyclobenzaprine [Flexeril] Med 06/07/19 16:40 Active 10 mg PO TID PRN Desvenlafaxine Succinate [Pristiq] Med 06/08/19 09:00 Pending 50 mg PO DAILY Enoxaparin [Lovenox] Med 06/08/19 09:00 Active 40 mg SUBCUT DAILY Ibuprofen [Motrin] Med 06/07/19 18:23 Active 600 mg PO Q6H PRN Ondansetron [Zofran] Med 06/07/19 18:26 Active 4 mg IV Q4H PRN Oseltamivir [Tamiflu] Med 06/07/19 14:45 Active 75 mg PO BID Pharmacy to Dose - Vancomycin Med 06/07/19 14:45 Pending 1 dose .XX ASDIRECTED Sodium Chloride 0.9% [Normal Saline] 1,000 ml Med 06/07/19 18:15 Active IV ASDIRECTED Vancomycin 1.5 gm Med 06/08/19 04:00 Active Sodium Chloride 0.9% [Normal Saline] 250 ml IV Q12H Resuscitation Status Routine Resus Stat 06/07/19 18:26 Ordered EKG 12 Lead [EK] Stat Ther 06/07/19 10:16 Ordered Medication Orders Hydrocodone Bitart/Acetaminophen ([place] 325-10 Mg) 1 tab PO Q6H PRN PRN Reason: Pain Last Admin: 06/07/19 17:29 Dose: 1 tab Alprazolam (Xanax) 1 mg PO BEDTIME PRN PRN Reason: Insomnia Cyclobenzaprine HCl (Flexeril) 10 mg PO TID PRN PRN Reason: Pain Last Admin: 06/07/19 17:28 Dose: 10 mg Enoxaparin Sodium (Lovenox) 40 mg SUBCUT DAILY [facility] Vancomycin HCl 1.5 gm/ Sodium (Chloride) 250 mls @ 167 mls/hr IV Q12H [facility] Cefepime HCl 2 gm/ Premix 50 mls @ 100 mls/hr IV Q8H [facility] Sodium Chloride (Normal Saline) 1,000 mls @ 150 mls/hr IV ASDIRECTED [facility] Last Admin: 06/07/19 18:56 Dose: 150 mls/hr Ibuprofen (Motrin) 600 mg PO Q6H PRN PRN Reason: Pain/Fever Non-Formulary Medication (Desvenlafaxine Succinate [Pristiq]) 50 mg PO DAILY [facility] Ondansetron HCl (Zofran) 4 mg IV Q4H PRN PRN Reason: Nausea/Vomiting Oseltamivir Phosphate (Tamiflu) 75 mg PO BID [facility] Last Admin: 06/07/19 16:27 Dose: 75 mg Vancomycin HCl (Pharmacy To Dose - Vancomycin) 1 dose .XX ASDIRECTED [facility] Assessment/Plan Comment:: Assessment * Sepsis secondary to pneumonia * Fluid resuscitation was started in the emergency department. * Rocephin 2 g IV given in the emergency department. * Recent hospitalization for pneumonia treated with Levaquin. * Elevated white count of 13.6, C-reactive protein 5.9, and lactic acid 3.2. * Sinus tachycardia -possible inappropriate sinus tachycardia * Holter monitor consistent with inappropriate sinus tachycardia with average heart rate of 110. * Recurrent pneumonia. * This appears to be the third pneumonia since February. * No other symptoms of immunodeficiency. * No history of recurrent sinusitis or other infections. * Gastroesophageal reflux disease * On Pepcid AC at home * Subpleural nodules on CT scan * Recommend follow-up noncontrast CT in 6 months Plan * Admit to medical floor on telemetry * Continue fluid rehydration * FiO2 to keep SPO2 greater than 90%. * Broaden antibiotic coverage for Pseudomonas and MRSA since recent inpatient pneumonia treatment. * Start cefepime, azithromycin, and vancomycin. * Respiratory panel, urine for Legionella antigen and streptococcal antigen * Blood and sputum cultures * Serial lactic acid until lactic acid is less than 2 * TSH in the morning * Follow CBC, CMP, and magnesium * Once hemodynamically stable consider starting beta-starla for tachycardia * VTE prophylaxis with Lovenox * CODE STATUS: Full code * Anticipated length of stay 2 to 3 days * Noncontrast CT in 6 months to follow subpleural nodules. CT of the chest: 1. Interstitial change within both sides of the chest with more focal density within the left base. Differential includes bacterial bronchitis and pneumonia within the left base as well as viral bronchitis and viral pneumonia. 2. Multiple small subpleural nodules on both sides of the chest. Follow-up chest CT is recommended without contrast in 6 months to confirm stability of these nodules. 3. Fluid within dilated esophagus presumably representing gastroesophageal reflux. - Mortality Measure Prognosis:: Good
[2019-06-07] MEDS ORDERED: Albuterol/Ipratropium 3.0-0.5 MG/3 ML Neb Soln NEB PRN (21:03)
[2019-06-07] MEDS ORDERED: Albuterol 0.083% 2.5 MG/3 ML Neb Soln NEB PRN (21:04)
[2019-06-07] MEDS ORDERED: Melatonin 3 MG Tab PO PRN (22:41)
[2019-06-08] MEDS: Sodium Chloride 0.9% 1,000 ML IV SCH (02:14)
[2019-06-08] MEDS: Cyclobenzaprine 10 MG Tab PO PRN ×2 (05:34→23:24)
[2019-06-08] MEDS: Acetaminophen/HYDROcodone 325-10 MG Tab PO PRN ×3 (05:34→20:48)
[2019-06-08] MEDS ORDERED: Pantoprazole 40 MG Tab.CR PO SCH (06:00)
[2019-06-08] MEDS: Cefepime 2 GM in Premix Bag 1 BAG IV SCH ×3 (06:01→22:45)
[2019-06-08] MEDS: Enoxaparin 40 MG/0.4 ML Syringe SUBCUT SCH (08:43)
[2019-06-08] MEDS: Oseltamivir 75 MG Cap PO SCH ×2 (08:43→20:48)
[2019-06-08] MEDS ORDERED: Sodium Chloride 0.9% 10 ML Syringe FLUSH PRN (09:23)
--- NOTE | 2019-06-08 09:29 | PCM.PN ---
- General Info Date of Service: 06/08/19 Admission Dx/Problem (Free Text): Admission Diagnosis/Problem Admission Diagnosis/Problem Pneumonia Subjective Update: Patient had a good night. He does state that even when healthy he gets tired at work easily. He often has to stop and take a 15-minute nap. This is consistent with inappropriate sinus tachycardia. - Review of Systems General: Reports: Fatigue HEENT: Reports: No Symptoms Cardiovascular: Reports: No Symptoms Gastrointestinal: Reports: No Symptoms Musculoskeletal: Reports: No Symptoms - Patient Data Vitals - Most Recent: Last Vital Signs Temp 98.1 F 06/08/19 04:01 Pulse 108 H 06/08/19 04:01 Resp 19 06/08/19 04:01 BP 106/78 06/08/19 04:01 Pulse Ox 95 06/08/19 08:51 Weight - Most Recent: 214 lb 14.4 oz I&O - Last 24 Hours: Intake & Output 06/07/19 06/08/19 06/08/19 22:59 06:59 14:59 Intake Total 240 1800 Output Total 2500 Balance 240 -700 Lab Results Last 24 Hours: Laboratory Results - last 24 hr 06/07/19 06/07/19 06/07/19 Range/Units 10:30 10:30 10:30 WBC 13.61 H (4.23-9.07) K/mm3 RBC 4.86 (4.63-6.08) M/mm3 Hgb 14.9 D (13.7-17.5) gm/dl Hct 46.0 (40.1-51.0) % MCV 94.7 H (79.0-92.2) fl MCH 30.7 (25.7-32.2) pg MCHC 32.4 (32.2-35.5) g/dl RDW Std Deviation 43.7 (35.1-43.9) fL Plt Count 339 H D (163-337) K/mm3 MPV 8.1 L (9.4-12.3) fl Neut % (Auto) (34.0-67.9) % Lymph % (Auto) (21.8-53.1) % [place] % (Auto) (5.3-12.2) % Eos % (Auto) (0.8-7.0) Baso % (Auto) (0.1-1.2) % Neut # (Auto) (1.78-5.38) K/mm3 Lymph # (Auto) (1.32-3.57) K/mm3 [place] # (Auto) (0.30-0.82) K/mm3 Eos # (Auto) (0.04-0.54) K/mm3 Baso # (Auto) (0.01-0.08) K/mm3 Neutrophils % (Manual) 87 H (40-60) % Band Neutrophils % 0 (0-10) % Lymphocytes % (Manual) 13 L (20-40) % Atypical Lymphs % 0 % Monocytes % (Manual) 0 L (2-10) % Eosinophils % (Manual) 0 L (0.8-7.0) % Basophils % (Manual) 0 L (0.2-1.2) Toxic Granulation Moderate Platelet Estimate Adequate Plt Morphology Comment Normal RBC Morph Comment Normal Sodium 140 (136-145) mEq/L Potassium 4.5 (3.5-5.1) mEq/L Chloride 101 (98-107) mEq/L Carbon Dioxide 30 (21-32) mEq/L Anion Gap 13.5 (5-15) BUN 12 (7-18) mg/dL Creatinine 1.3 (0.7-1.3) mg/dL Est Cr Clr Drug Dosing 79.55 mL/min Estimated GFR (MDRD) > 60 (>60) mL/min BUN/Creatinine Ratio 9.2 L (14-18) Glucose 151 H (74-106) mg/dL Lactic Acid 3.2 H* (0.4-2.0) mmol/L Calcium 9.9 (8.5-10.1) mg/dL Magnesium (1.8-2.4) mg/dl Total Bilirubin 0.5 (0.2-1.0) mg/dL AST 31 (15-37) U/L ALT 54 (16-63) U/L Alkaline Phosphatase 79 (46-116) U/L C-Reactive Protein 5.9 H* (<1.0) mg/dL Total Protein 7.9 (6.4-8.2) g/dl Albumin 4.0 (3.4-5.0) g/dl Globulin 3.9 gm/dL Albumin/Globulin Ratio 1.0 (1-2) TSH 3rd Generation (0.358-3.74) uIU/mL 06/07/19 06/07/19 06/08/19 Range/Units 14:22 17:30 04:28 WBC 10.66 H (4.23-9.07) K/mm3 RBC 3.88 L (4.63-6.08) M/mm3 Hgb 11.9 L D (13.7-17.5) gm/dl Hct 37.6 L (40.1-51.0) % MCV 96.9 H (79.0-92.2) fl MCH 30.7 (25.7-32.2) pg MCHC 31.6 L (32.2-35.5) g/dl RDW Std Deviation 44.2 H (35.1-43.9) fL Plt Count 284 (163-337) K/mm3 MPV 8.3 L (9.4-12.3) fl Neut % (Auto) 70.7 H (34.0-67.9) % Lymph % (Auto) 19.1 L (21.8-53.1) % [place] % (Auto) 8.0 (5.3-12.2) % Eos % (Auto) 1.4 (0.8-7.0) Baso % (Auto) 0.3 (0.1-1.2) % Neut # (Auto) 7.54 H (1.78-5.38) K/mm3 Lymph # (Auto) 2.04 (1.32-3.57) K/mm3 [place] # (Auto) 0.85 H (0.30-0.82) K/mm3 Eos # (Auto) 0.15 (0.04-0.54) K/mm3 Baso # (Auto) 0.03 (0.01-0.08) K/mm3 Neutrophils % (Manual) (40-60) % Band Neutrophils % (0-10) % Lymphocytes % (Manual) (20-40) % Atypical Lymphs % % Monocytes % (Manual) (2-10) % Eosinophils % (Manual) (0.8-7.0) % Basophils % (Manual) (0.2-1.2) Toxic Granulation Platelet Estimate Plt Morphology Comment RBC Morph Comment Sodium (136-145) mEq/L Potassium (3.5-5.1) mEq/L Chloride (98-107) mEq/L Carbon Dioxide (21-32) mEq/L Anion Gap (5-15) BUN (7-18) mg/dL Creatinine (0.7-1.3) mg/dL Est Cr Clr Drug Dosing mL/min Estimated GFR (MDRD) (>60) mL/min BUN/Creatinine Ratio (14-18) Glucose (74-106) mg/dL Lactic Acid 2.3 H* 1.7 (0.4-2.0) mmol/L Calcium (8.5-10.1) mg/dL Magnesium (1.8-2.4) mg/dl Total Bilirubin (0.2-1.0) mg/dL AST (15-37) U/L ALT (16-63) U/L Alkaline Phosphatase (46-116) U/L C-Reactive Protein (<1.0) mg/dL Total Protein (6.4-8.2) g/dl Albumin (3.4-5.0) g/dl Globulin gm/dL Albumin/Globulin Ratio (1-2) TSH 3rd Generation (0.358-3.74) uIU/mL 06/08/19 Range/Units 04:28 WBC (4.23-9.07) K/mm3 RBC (4.63-6.08) M/mm3 Hgb (13.7-17.5) gm/dl Hct (40.1-51.0) % MCV (79.0-92.2) fl MCH (25.7-32.2) pg MCHC (32.2-35.5) g/dl RDW Std Deviation (35.1-43.9) fL Plt Count (163-337) K/mm3 MPV (9.4-12.3) fl Neut % (Auto) (34.0-67.9) % Lymph % (Auto) (21.8-53.1) % [place] % (Auto) (5.3-12.2) % Eos % (Auto) (0.8-7.0) Baso % (Auto) (0.1-1.2) % Neut # (Auto) (1.78-5.38) K/mm3 Lymph # (Auto) (1.32-3.57) K/mm3 [place] # (Auto) (0.30-0.82) K/mm3 Eos # (Auto) (0.04-0.54) K/mm3 Baso # (Auto) (0.01-0.08) K/mm3 Neutrophils % (Manual) (40-60) % Band Neutrophils % (0-10) % Lymphocytes % (Manual) (20-40) % Atypical Lymphs % % Monocytes % (Manual) (2-10) % Eosinophils % (Manual) (0.8-7.0) % Basophils % (Manual) (0.2-1.2) Toxic Granulation Platelet Estimate Plt Morphology Comment RBC Morph Comment Sodium 139 (136-145) mEq/L Potassium 4.5 (3.5-5.1) mEq/L Chloride 103 (98-107) mEq/L Carbon Dioxide 30 (21-32) mEq/L Anion Gap 10.5 (5-15) BUN 11 (7-18) mg/dL Creatinine 1.1 (0.7-1.3) mg/dL Est Cr Clr Drug Dosing 94.02 mL/min Estimated GFR (MDRD) > 60 (>60) mL/min BUN/Creatinine Ratio 10.0 L (14-18) Glucose 103 (74-106) mg/dL Lactic Acid (0.4-2.0) mmol/L Calcium 8.5 (8.5-10.1) mg/dL Magnesium 1.8 (1.8-2.4) mg/dl Total Bilirubin 0.6 (0.2-1.0) mg/dL AST 17 (15-37) U/L ALT 41 (16-63) U/L Alkaline Phosphatase 61 (46-116) U/L C-Reactive Protein 12.9 H* (<1.0) mg/dL Total Protein 6.1 L (6.4-8.2) g/dl Albumin 2.9 L (3.4-5.0) g/dl Globulin 3.2 gm/dL Albumin/Globulin Ratio 0.9 L (1-2) TSH 3rd Generation 0.941 (0.358-3.74) uIU/mL Akbar Results Last 24 Hours: Microbiology 06/07/19 10:30 Influenza Type A Antigen Screen - Final Nasopharyngeal Swab NEGATIVE INFLUENZA A VIRUS AG REFERENCE RANGE: NEGATIVE Influenza Type B Antigen Screen - Final NEGATIVE INFLUENZA B VIRUS AG REFERENCE RANGE: NEGATIVE Med Orders - Current: Current Medications Hydrocodone Bitart/Acetaminophen ([place] 325-10 Mg) 1 tab PO Q6H PRN PRN Reason: Pain Last Admin: 06/08/19 05:34 Dose: 1 tab Albuterol (Proventil Neb Soln) 2.5 mg NEB Q2H PRN PRN Reason: Dyspnea Albuterol/Ipratropium (Duoneb 3.0-0.5 Mg/3 Ml) 3 ml NEB Q6HRRT PRN PRN Reason: Dyspnea Alprazolam (Xanax) 1 mg PO BEDTIME PRN PRN Reason: Insomnia Cyclobenzaprine HCl (Flexeril) 10 mg PO TID PRN PRN Reason: Pain Last Admin: 06/08/19 05:34 Dose: 10 mg Enoxaparin Sodium (Lovenox) 40 mg SUBCUT DAILY [facility] Last Admin: 06/08/19 08:43 Dose: 40 mg Vancomycin HCl 1.5 gm/ Sodium (Chloride) 250 mls @ 167 mls/hr IV Q12H [facility] Last Admin: 06/08/19 04:05 Dose: 167 mls/hr Cefepime HCl 2 gm/ Premix 50 mls @ 100 mls/hr IV Q8H [facility] Last Admin: 06/08/19 06:01 Dose: 100 mls/hr Ibuprofen (Motrin) 600 mg PO Q6H PRN PRN Reason: Pain/Fever Melatonin (Melatonin) 9 mg PO BEDTIME PRN PRN Reason: Insomnia Non-Formulary Medication (Desvenlafaxine Succinate [Pristiq]) 50 mg PO DAILY [facility] Ondansetron HCl (Zofran) 4 mg IV Q4H PRN PRN Reason: Nausea/Vomiting Oseltamivir Phosphate (Tamiflu) 75 mg PO BID [facility] Last Admin: 06/08/19 08:43 Dose: 75 mg Pantoprazole Sodium (Protonix) 40 mg PO ACBREAKFAST [facility] Last Admin: 06/08/19 05:28 Dose: 40 mg Sodium Chloride (Saline Flush) 10 ml FLUSH ASDIRECTED PRN PRN Reason: Keep Vein Open Vancomycin HCl (Pharmacy To Dose - Vancomycin) 1 dose .XX ASDIRECTED [facility] Discontinued Medications Acetaminophen (Tylenol) 975 mg PO NOW ONE Stop: 06/07/19 14:22 Last Admin: 06/07/19 14:32 Dose: 975 mg Albuterol/Ipratropium (Duoneb 3.0-0.5 Mg/3 Ml) 3 ml NEB ONETIME ONE Stop: 06/07/19 11:06 Last Admin: 06/07/19 11:11 Dose: 3 ml Ceftriaxone Sodium 2 gm/ (Sodium Chloride) 100 mls @ 200 mls/hr IV Q24H [facility] Last Admin: 06/07/19 10:32 Dose: 200 mls/hr Sodium Chloride (Normal Saline) 1,000 mls @ 1,000 mls/hr IV ONETIME ONE Stop: 06/07/19 12:11 Last Admin: 06/07/19 11:19 Dose: 1,000 mls/hr Lactated Ringer's (Ringers, Lactated) 1,000 mls @ 1,000 mls/hr IV .BOLUS ONE Stop: 06/07/19 15:19 Last Admin: 06/07/19 14:34 Dose: 1,000 mls/hr Cefepime HCl 2 gm/ Premix 50 mls @ 100 mls/hr IV Q8H [facility] Last Admin: 06/07/19 18:20 Dose: Not Given Azithromycin 500 mg/ Sodium (Chloride) 250 mls @ 250 mls/hr IV ONETIME ONE Stop: 06/07/19 15:43 Last Admin: 06/07/19 15:42 Dose: 250 mls/hr Vancomycin HCl 2 gm/ Sodium (Chloride) 500 mls @ 250 mls/hr IV ONETIME ONE Stop: 06/07/19 17:59 Last Admin: 06/07/19 16:27 Dose: 250 mls/hr Cefepime HCl 2 gm/ Premix 50 mls @ 100 mls/hr IV Q8H [facility] Last Admin: 06/07/19 21:10 Dose: 100 mls/hr Sodium Chloride (Normal Saline) 1,000 mls @ 150 mls/hr IV ASDIRECTED [facility] Last Admin: 06/08/19 02:14 Dose: 150 mls/hr Iopamidol (Isovue-300 (61%)) 80 ml IVPUSH ONETIME ONE Stop: 06/07/19 13:02 Last Admin: 06/07/19 13:02 Dose: 80 ml - Exam Quality Assessment: Supplemental Oxygen General: Alert, Oriented HEENT: Pupils Equal, Mucous Membr. Moist/[place] Neck: Supple Lungs: Clear to Auscultation, Normal Respiratory Effort Cardiovascular: Regular Rhythm, Tachycardia GI/Abdominal Exam: Normal Bowel Sounds, No Organomegaly, No Distention Extremities: Normal Inspection, Normal Range of Motion, Non-Tender, No Pedal Edema Sepsis Event Note - Evaluation Sepsis Screening Result: Sepsis Risk - Focused Exam Vital Signs: Vital Signs Temp Pulse Resp BP Pulse Ox Pulse Ox Pulse Ox 06/08/19 08:51 95 06/08/19 04:01 98.1 F 108 H 19 106/78 95 06/08/19 00:49 98.2 F 108 H 20 101/61 94 L 06/07/19 21:50 92 L Date Exam was Performed: 06/08/19 Time Exam was Performed: 12:24 - Problem List Review Problem List Initiated/Reviewed/Updated: Yes - My Orders Last 24 Hours: My Active Orders 06/07/19 14:44 ALPRAZolam [Xanax] 1 mg PO BEDTIME PRN 06/07/19 14:45 Oseltamivir [Tamiflu] 75 mg PO BID Pharmacy to Dose - Vancomycin 1 dose .XX ASDIRECTED 06/07/19 15:30 LEGIONELLA ANTIGEN [MREF] Routine STREP PNEUMONIAE ANTIGEN [MREF] Routine 06/07/19 16:34 RESPIRATORY PANEL Routine 06/07/19 16:40 Acetaminophen/HYDROcodone [[place] 325-10 MG] 1 tab PO Q6H PRN Cyclobenzaprine [Flexeril] 10 mg PO TID PRN 06/07/19 18:23 Ibuprofen [Motrin] 600 mg PO Q6H PRN 06/07/19 18:26 Oxygen Therapy [RC] PRN Up ad Cristal [RC] ASDIRECTED VTE/DVT Education [RC] PER UNIT ROUTINE Vital Signs [RC] Q4HR Ondansetron [Zofran] 4 mg IV Q4H PRN Resuscitation Status Routine 06/07/19 21:03 Albuterol/Ipratropium [DuoNeb 3.0-0.5 MG/3 ML] 3 ml NEB Q6HRRT PRN 06/07/19 21:04 Albuterol [Proventil Neb Soln] 2.5 mg NEB Q2H PRN 06/07/19 21:05 RT Aerosol Therapy [RC] ASDIRECTED 06/07/19 21:06 RT Incentive Spirometry [RC] ASDIRECTED 06/07/19 22:41 Melatonin 9 mg PO BEDTIME PRN 06/07/19 Dinner Regular Diet [DIET] 06/08/19 04:00 Vancomycin 1.5 gm Sodium Chloride 0.9% [Normal Saline] 250 ml IV Q12H 06/08/19 04:08 HIV RAPID SCREEN RLFX COMFIRM [CHEM] Routine 06/08/19 05:30 CULTURE SPUTUM + SMEAR [RM] Routine Cefepime [Maxipime in D5W 2 GM/50 ML] 2 gm Premix Bag 1 bag IV Q8H 06/08/19 06:00 Pantoprazole [ProTONIX] 40 mg PO ACBREAKFAST 06/08/19 09:00 Desvenlafaxine Succinate [Pristiq] 50 mg PO DAILY Enoxaparin [Lovenox] 40 mg SUBCUT DAILY 06/08/19 09:23 Sodium Chloride 0.9% [Saline Flush] 10 ml FLUSH ASDIRECTED PRN Convert IV to Saline Lock [OM.PC] Routine 06/09/19 05:11 C-REACTIVE PROTEIN [CHEM] AM CBC WITH AUTO DIFF [HEME] AM CMP [COMPREHENSIVE METABOLIC PN,CMP] [CHEM] AM MAGNESIUM [CHEM] AM - Plan Plan:: Assessment * Sepsis -resolved * Pneumonia * Currently on cefepime, azithromycin, and vancomycin * Recent hospitalization for pneumonia treated with Levaquin. * Elevated white count of 13.6 --> 10.7, C-reactive protein 5.9 --> 12.9, and lactic acid 3.2 --> 1.8. * Sinus tachycardia -possible inappropriate sinus tachycardia * Holter monitor consistent with inappropriate sinus tachycardia with average heart rate of 110. * Patient is symptomatic from his tachycardia making it likely that this is inappropriate sinus tachycardia. * TSH - 0.94 * Recurrent pneumonia. * This appears to be the third pneumonia since February. * No other symptoms of immunodeficiency. * No history of recurrent sinusitis or other infections. * Gastroesophageal reflux disease * On Pepcid AC at home * Changed to Protonix. * Possible cause of recurrent pneumonias. He states he often wakes up coughing due to reflux. * Subpleural nodules on CT scan * Recommend follow-up noncontrast CT in 6 months Plan * Admit to medical floor on telemetry * Continue fluid rehydration * FiO2 to keep SPO2 greater than 90%. * Broadened antibiotic coverage for Pseudomonas and MRSA since recent inpatient pneumonia treatment. * Respiratory panel, urine for Legionella antigen and streptococcal antigen - pending * Blood and sputum cultures - pending * Follow CBC, CMP, CRP and magnesium * Stop IV fluids * Consider starting metoprolol succinate 100 mg in the am for tachycardia * VTE prophylaxis with Lovenox * CODE STATUS: Full code * Anticipated length of stay 2 to 3 days * Noncontrast CT in 6 months to follow subpleural nodules. CT of the chest: 1. Interstitial change within both sides of the chest with more focal density within the left base. Differential includes bacterial bronchitis and pneumonia within the left base as well as viral bronchitis and viral pneumonia. 2. Multiple small subpleural nodules on both sides of the chest. Follow-up chest CT is recommended without contrast in 6 months to confirm stability of these nodules. 3. Fluid within dilated esophagus presumably representing gastroesophageal reflux.
[2019-06-08] MEDS: Vancomycin 1 GM, Vancomycin 250 MG in Sodium Chloride 0.9% 250 ML IV SCH ×2 (11:23→20:48)
[2019-06-08] MEDS: Desvenlafaxine Succinate [Pristiq] 50 MG PO SCH (11:37)
[2019-06-08] MEDS: Pantoprazole 40 MG Tab.CR PO SCH (16:00)
[2019-06-08] MEDS ORDERED: Vancomycin 1.5 GM in Sodium Chloride 0.9% 500 ML IV SCH (16:00)
[2019-06-08] MEDS: Sucralfate Suspension 1 GM/10 ML Cup PO SCH ×2 (16:00→22:46)
[2019-06-09] MEDS: Vancomycin 1 GM, Vancomycin 250 MG in Sodium Chloride 0.9% 250 ML IV SCH (04:12)
[2019-06-09] MEDS: Acetaminophen/HYDROcodone 325-10 MG Tab PO PRN ×2 (04:22→10:57)
[2019-06-09] MEDS: Pantoprazole 40 MG Tab.CR PO SCH (05:50)
[2019-06-09] MEDS: Cefepime 2 GM in Premix Bag 1 BAG IV SCH ×2 (05:51→12:38)
[2019-06-09] MEDS: Sucralfate Suspension 1 GM/10 ML Cup PO SCH ×2 (06:24→10:53)
[2019-06-09] MEDS: Cyclobenzaprine 10 MG Tab PO PRN (08:39)
[2019-06-09] MEDS: Desvenlafaxine Succinate [Pristiq] 50 MG PO SCH (08:41)
[2019-06-09] MEDS: Oseltamivir 75 MG Cap PO SCH (08:41)
[2019-06-09] MEDS: Enoxaparin 40 MG/0.4 ML Syringe SUBCUT SCH (08:42)
[2019-06-09] MEDS ORDERED: Metoprolol Succinate 50 MG Tab.ER PO SCH (09:00)
--- NOTE | 2019-06-09 14:04 | PCM.DCSUM1 ---
Discharge Summary - Hospital Course HPI Initial Comments: Patient presented to the emergency room with chief complaint of cough, fever, shortness of breath, and racing heart. Patient states that he was feeling fine until 2 days ago when he started feeling "fuzzy" and had a temperature of just over 99. Yesterday he developed a cough and had a "coughing fit" and increased heartburn. Patient was diagnosed in February with pneumonia that was chest x- ray confirmed. Patient was seen and admitted here with tachycardia, sepsis, and pneumonia in April and finished 10 days of antibiotics, treated with Levaquin. Patient states that his symptoms today are very similar to his symptoms when he presented here in April. He denies any high-grade fever but does complain of a low-grade fever and chills. During hospitalization last time his heart rate after improvement and rehydration was still in the 120s and he was sent home with a Holter monitor. Holter monitor found him to be predominantly noted in sinus tachycardia with a heart rate ranging from 80 to 259 bpm with a mean of 110 bpm. No atrial fibrillation or ventricular tachycardia. Patient's basal heart rate was noted to be elevated except during sleep hours. This raises concern of inappropriate sinus tachycardia. In the emergency room patient's temperature was found to be 101.5, pulse of 162 , respiratory rate of 16, pulse ox 91%. EKG shows sinus tachycardia with a ventricular rate of 167 bpm with left axis deviation. Labs: WBC 13.61, hemoglobin 14.9, platelets 239, sodium 140, potassium 4.5, bicarb 30, anion gap 13.5. Chest x-ray showed mild interstitial change within the left lung base. Diagnosis: Stroke: No - Discharge Data Discharge Date: 06/09/19 Discharge Disposition: Home, Self-Care 01 Condition: Good - Referral to Home Health Primary Care Physician: Gayle Molina NP - Patient Summary/Data Hospital Course: Patient was admitted for recurrent pneumonia. He was initially placed on vancomycin and cefepime secondary to his recent hospitalization. MRSA screen was negative. After speaking to him more it appears patient is likely aspirating in the middle the night. He states he wakes with coughing fits. He has worse reflux when he lays down at night. Patient also has a history of sinus tachycardia. Review of the Holter monitor showed he likely has inappropriate sinus tachycardia since he has improvement in his rate when he sleeps and it increases to an average of 120 when he is awake. Patient does appear to be symptomatic with at least fatigue secondary to his sinus tachycardia. Patient was started on Toprol-XL 50 mg on the day of discharge. - Patient Instructions Diet: Heart Healthy Diet Driving: May Drive Today Showering/Bathing: May Shower Notify Provider of: Fever Other/Special Instructions: Please make an appointment with your PCP to discuss GI referral and possible cardiology referral. - Discharge Plan *PRESCRIPTION DRUG MONITORING PROGRAM REVIEWED*: No *COPY OF PRESCRIPTION DRUG MONITORING REPORT IN PATIENT MIKE: No Prescriptions/Med Rec: Amoxicillin/Potassium Clav [Augmentin 875-125 Tablet] 1 each PO BID #10 tablet Metoprolol Succinate [Toprol XL 50mg] 50 mg PO DAILY #30 tab.er Pantoprazole Sodium 40 mg PO BID #60 tablet. Sucralfate [Carafate] 1 gm PO QIDACANDBED PRN #120 tablet PRN Reason: Heartburn Home Medications: Home Meds ALPRAZolam [Xanax] 1 mg PO BEDTIME PRN 04/19/19 [History] Cyclobenzaprine [Flexeril] 10 mg PO TID PRN 04/19/19 [History] Desvenlafaxine Succinate [Pristiq] 50 mg PO DAILY 04/19/19 [History] Hydrocodone/Acetaminophen [Hydrocodon-Acetaminophn 10-325] 1 tab PO Q6H PRN [History] Amoxicillin/Potassium Clav [Augmentin 875-125 Tablet] 1 each PO BID #10 tablet 06/09/19 [Rx] Metoprolol Succinate [Toprol XL 50mg] 50 mg PO DAILY #30 tab.er 06/09/19 [Rx] Pantoprazole Sodium 40 mg PO BID #60 tablet. 06/09/19 [Rx] Sucralfate [Carafate] 1 gm PO QIDACANDBED PRN #120 tablet 06/09/19 [Rx] Oxygen Therapy Mode: Room Air Patient Handouts: Sepsis, Adult Forms: ED Department Discharge Referrals: Gayle Molina NP [Primary Care Provider] - 06/16/19 10:00 am (Please follow-up with your primary care provider on ) - Discharge Summary/Plan Comment DC Time >30 min.: Yes Discharge Summary/Plan Comment: Finish all antibiotics. You were started on pantoprazole 40 mg twice a day for your reflux. Also, sucralfate 1 g tablets were prescribed up to 4 times a day for reflux. Your recurrent pneumonia may be due to your reflux. 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 You were started on metoprolol succinate 50 mg daily for your inappropriate sinus tachycardia. Follow-up with your primary care provider next week. - General Info Date of Service: 06/09/19 Admission Dx/Problem (Free Text: Admission Diagnosis/Problem Admission Diagnosis/Problem Pneumonia Subjective Update: Patient is doing much better. After 50 mg of Toprol-XL his heart rate is in the low 100s. Functional Status: Reports: Pain Controlled - Review of Systems General: Reports: No Symptoms HEENT: Reports: No Symptoms Pulmonary: Reports: No Symptoms Cardiovascular: Reports: No Symptoms Gastrointestinal: Reports: No Symptoms - Patient Data Vitals - Most Recent: Last Vital Signs Temp 97.5 F 06/09/19 11:24 Pulse 88 06/09/19 11:24 Resp 20 06/09/19 11:24 BP 121/77 06/09/19 11:24 Pulse Ox 94 L 06/09/19 11:24 Weight - Most Recent: 210 lb 6.4 oz I&O - Last 24 hours: Intake & Output 06/08/19 06/09/19 06/09/19 22:59 06:59 14:59 Intake Total 1200 1250 290 Output Total 3000 1400 Balance -1800 -150 290 Lab Results - Last 24 hrs: Laboratory Results - last 24 hr 06/08/19 06/09/19 06/09/19 Range/Units 23:14 05:18 05:18 WBC 6.28 (4.23-9.07) K/mm3 RBC 3.99 L (4.63-6.08) M/mm3 Hgb 12.3 L (13.7-17.5) gm/dl Hct 37.8 L (40.1-51.0) % MCV 94.7 H (79.0-92.2) fl MCH 30.8 (25.7-32.2) pg MCHC 32.5 (32.2-35.5) g/dl RDW Std Deviation 42.1 (35.1-43.9) fL Plt Count 305 (163-337) K/mm3 MPV 8.4 L (9.4-12.3) fl Neut % (Auto) 50.9 (34.0-67.9) % Lymph % (Auto) 35.0 (21.8-53.1) % [place] % (Auto) 10.0 (5.3-12.2) % Eos % (Auto) 2.9 (0.8-7.0) Baso % (Auto) 0.6 (0.1-1.2) % Neut # (Auto) 3.19 (1.78-5.38) K/mm3 Lymph # (Auto) 2.20 (1.32-3.57) K/mm3 [place] # (Auto) 0.63 (0.30-0.82) K/mm3 Eos # (Auto) 0.18 (0.04-0.54) K/mm3 Baso # (Auto) 0.04 (0.01-0.08) K/mm3 Sodium 137 (136-145) mEq/L Potassium 3.9 (3.5-5.1) mEq/L Chloride 101 (98-107) mEq/L Carbon Dioxide 27 (21-32) mEq/L Anion Gap 12.9 (5-15) BUN 12 (7-18) mg/dL Creatinine 1.0 (0.7-1.3) mg/dL Est Cr Clr Drug Dosing 103.42 mL/min Estimated GFR (MDRD) > 60 (>60) mL/min BUN/Creatinine Ratio 12.0 L (14-18) Glucose 97 (74-106) mg/dL Calcium 8.9 (8.5-10.1) mg/dL Magnesium 1.9 (1.8-2.4) mg/dl Total Bilirubin 0.5 (0.2-1.0) mg/dL AST 15 (15-37) U/L ALT 38 (16-63) U/L Alkaline Phosphatase 66 (46-116) U/L C-Reactive Protein 12.1 H* (<1.0) mg/dL Total Protein 6.8 (6.4-8.2) g/dl Albumin 3.1 L (3.4-5.0) g/dl Globulin 3.7 gm/dL Albumin/Globulin Ratio 0.8 L (1-2) MRSA (PCR) Negative JOE Results - Last 24 hrs: Microbiology 06/07/19 10:30 Aerobic Blood Culture - Preliminary Blood NO GROWTH AFTER 2 DAYS Anaerobic Blood Culture - Preliminary NO GROWTH AFTER 2 DAYS 06/07/19 10:43 Aerobic Blood Culture - Preliminary Blood NO GROWTH AFTER 2 DAYS Anaerobic Blood Culture - Preliminary NO GROWTH AFTER 2 DAYS 06/08/19 05:30 Gram Stain - Final Sputum - Expectorated Med Orders - Current: Current Medications Hydrocodone Bitart/Acetaminophen ([place] 325-10 Mg) 1 tab PO Q6H PRN PRN Reason: Pain Last Admin: 06/09/19 10:57 Dose: 1 tab Albuterol (Proventil Neb Soln) 2.5 mg NEB Q2H PRN PRN Reason: Dyspnea Albuterol/Ipratropium (Duoneb 3.0-0.5 Mg/3 Ml) 3 ml NEB Q6HRRT PRN PRN Reason: Dyspnea Alprazolam (Xanax) 1 mg PO BEDTIME PRN PRN Reason: Insomnia Cyclobenzaprine HCl (Flexeril) 10 mg PO TID PRN PRN Reason: Pain Last Admin: 06/09/19 08:39 Dose: 10 mg Enoxaparin Sodium (Lovenox) 40 mg SUBCUT DAILY [facility] Last Admin: 06/09/19 08:42 Dose: 40 mg Cefepime HCl 2 gm/ Premix 50 mls @ 100 mls/hr IV Q8H [facility] Last Admin: 06/09/19 12:38 Dose: 100 mls/hr Ibuprofen (Motrin) 600 mg PO Q6H PRN PRN Reason: Pain/Fever Melatonin (Melatonin) 9 mg PO BEDTIME PRN PRN Reason: Insomnia Metoprolol Succinate (Toprol Xl) 50 mg PO DAILY [facility] Last Admin: 06/09/19 08:39 Dose: 50 mg Ondansetron HCl (Zofran) 4 mg IV Q4H PRN PRN Reason: Nausea/Vomiting Oseltamivir Phosphate (Tamiflu) 75 mg PO BID [facility] Last Admin: 06/09/19 08:41 Dose: 75 mg Pantoprazole Sodium (Protonix) 40 mg PO BIDAC [facility] Last Admin: 06/09/19 05:50 Dose: 40 mg Desvenlafaxine Succinate [Pristiq] 50 Mg 0 each PO DAILY [facility] Last Admin: 06/09/19 08:41 Dose: 1 each Sodium Chloride (Saline Flush) 10 ml FLUSH ASDIRECTED PRN PRN Reason: Keep Vein Open Sucralfate (Carafate) 1 gm PO QIDACANDBED [facility] Last Admin: 06/09/19 10:53 Dose: 1 gm Discontinued Medications Acetaminophen (Tylenol) 975 mg PO NOW ONE Stop: 06/07/19 14:22 Last Admin: 06/07/19 14:32 Dose: 975 mg Albuterol/Ipratropium (Duoneb 3.0-0.5 Mg/3 Ml) 3 ml NEB ONETIME ONE Stop: 06/07/19 11:06 Last Admin: 06/07/19 11:11 Dose: 3 ml Ceftriaxone Sodium 2 gm/ (Sodium Chloride) 100 mls @ 200 mls/hr IV Q24H [facility] Last Admin: 06/07/19 10:32 Dose: 200 mls/hr Sodium Chloride (Normal Saline) 1,000 mls @ 1,000 mls/hr IV ONETIME ONE Stop: 06/07/19 12:11 Last Admin: 06/07/19 11:19 Dose: 1,000 mls/hr Lactated Ringer's (Ringers, Lactated) 1,000 mls @ 1,000 mls/hr IV .BOLUS ONE Stop: 06/07/19 15:19 Last Admin: 06/07/19 14:34 Dose: 1,000 mls/hr Cefepime HCl 2 gm/ Premix 50 mls @ 100 mls/hr IV Q8H [facility] Last Admin: 06/07/19 18:20 Dose: Not Given Azithromycin 500 mg/ Sodium (Chloride) 250 mls @ 250 mls/hr IV ONETIME ONE Stop: 06/07/19 15:43 Last Admin: 06/07/19 15:42 Dose: 250 mls/hr Vancomycin HCl 2 gm/ Sodium (Chloride) 500 mls @ 250 mls/hr IV ONETIME ONE Stop: 06/07/19 17:59 Last Admin: 06/07/19 16:27 Dose: 250 mls/hr Vancomycin HCl 1.5 gm/ Sodium (Chloride) 250 mls @ 167 mls/hr IV Q12H [facility] Last Admin: 06/08/19 04:05 Dose: 167 mls/hr Cefepime HCl 2 gm/ Premix 50 mls @ 100 mls/hr IV Q8H [facility] Last Admin: 06/07/19 21:10 Dose: 100 mls/hr Sodium Chloride (Normal Saline) 1,000 mls @ 150 mls/hr IV ASDIRECTED [facility] Last Admin: 06/08/19 02:14 Dose: 150 mls/hr Vancomycin HCl 1.5 gm/ Sodium (Chloride) 500 mls @ 334 mls/hr IV Q12H [facility] Vancomycin HCl 1 gm/Vancomycin HCl 250 mg/ Sodium Chloride 250 mls @ 167 mls/ hr IV Q8H [facility] Last Admin: 06/09/19 04:12 Dose: 167 mls/hr Iopamidol (Isovue-300 (61%)) 80 ml IVPUSH ONETIME ONE Stop: 06/07/19 13:02 Last Admin: 06/07/19 13:02 Dose: 80 ml Pantoprazole Sodium (Protonix) 40 mg PO ACBREAKFAST [facility] Last Admin: 06/08/19 05:28 Dose: 40 mg Vancomycin HCl (Pharmacy To Dose - Vancomycin) 0 dose .XX ASDIRECTED PRN PRN Reason: RX TO DOSE VANCOMYCIN - Exam General: Reports: Alert, Oriented HEENT: Reports: Pupils Equal, Mucous Membr. Moist/[place] Neck: Reports: Supple Lungs: Reports: Clear to Auscultation, Normal Respiratory Effort Cardiovascular: Reports: Regular Rhythm, Tachycardia GI/Abdominal Exam: Normal Bowel Sounds, Soft, Non-Tender, No Organomegaly, No Distention, No Abnormal Bruit, No Mass, Pelvis Stable Extremities: Normal Inspection, Non-Tender, No Pedal Edema Neurological: Reports: No New Focal Deficit Psy/Mental Status: Reports: Alert, Normal Affect, Normal Mood
== END 2019-06-09 14:52 | disposition home or self-care (01) | DRG 871 ==
LOC: JD.ED 10:00 → JD.MS 13:09
PROVIDERS: ADMIT Family Medicine; ATTEND Family Medicine
DX: A41.9 Sepsis, unspecified organism (principal); J18.9 Pneumonia, unspecified organism; R91.8 Other nonspecific abnormal finding of lung field; K21.9 Gastro-esophageal reflux disease without esophagitis; M54.9 Dorsalgia, unspecified; G89.29 Other chronic pain; F41.9 Anxiety disorder, unspecified; Z87.891 Personal history of nicotine dependence; Z98.890 Other specified postprocedural states; Z79.2 Long term (current) use of antibiotics; Z99.81 Dependence on supplemental oxygen; Z79.899 Other long term (current) drug therapy
CPT/HCPCS: 36415; 71045; 71045-26; 71260; 71260-26; 80053; 83605; 83735; 84443; 85007; 85025; 85027; 86140; 87040; 87070; 87205; 87486; 87581; 87632; 87641; 87798; 87804; 87899; 93005; 93010; 94640; 94760; 96361; 96365; 99222; 99232; 99239; 99284; 99285-25; A9270-GY; G0433; J0456; J0692; J0696; J1650; J3370; J7030; J7040; J7050; J7120; J7620-GY; Q9967

== ENCOUNTER 2019-07-28 13:21 | Observation (INO) | payer OTHER ==
[2019-07-28] MEDS ORDERED: Lactated Ringers 1,000 ML IV ONE (13:56)
[2019-07-28] MEDS ORDERED: Lactated Ringers 1,000 ML IV SCH (14:00)
--- NOTE | 2019-07-28 14:00 | EDM.PDOC ---
ED HPI GENERAL MEDICAL PROBLEM - General Chief Complaint: Respiratory Problem Stated Complaint: HEART RATE IS HIGH O2 IS LOW SENT BY CLINIC Time Seen by Provider: 07/28/19 13:43 - History of Present Illness INITIAL COMMENTS - FREE TEXT/NARRATIVE: 39-year-old male presents the emergency room with rapid heart rate worsening cough and a fever. This started this morning. The patient has had multiple episodes of pneumonia over the last 6 to 8 months. He has been admitted twice thus far he has been followed up by some specialists and the believe he is having an aspiration pneumonia. He is having significant reflux especially at night when he tries to sleep. They have recently started him on what sounds like a PPI and Carafate which is helping some. This morning he woke up with a fever and a more rapid heart rate. He has been seen by cardiology who says he has a rapid heart rate of than that no abnormalities have been identified. The cough for the most part is been nonproductive thus far. - Related Data Allergies Allergy/AdvReac Type Severity Reaction Status Date / Time No Known Allergies Allergy Verified 07/28/19 13:33 Home Meds: Home Meds ALPRAZolam [Xanax] 1 mg PO BEDTIME PRN 04/19/19 [History] Cyclobenzaprine [Flexeril] 10 mg PO TID PRN 04/19/19 [History] Desvenlafaxine Succinate [Pristiq] 50 mg PO DAILY 04/19/19 [History] Hydrocodone/Acetaminophen [Hydrocodon-Acetaminophn 10-325] 1 tab PO Q6H PRN [History] Metoprolol Succinate [Toprol XL 50mg] 50 mg PO DAILY #30 tab.er 06/09/19 [Rx] Pantoprazole Sodium 40 mg PO BID #60 tablet. 06/09/19 [Rx] Sucralfate [Carafate] 1 gm PO QIDACANDBED PRN #120 tablet 06/09/19 [Rx] Past Medical History HEENT History: Reports: Other (See Below) Other HEENT History: root canal on 06/03/2019 Cardiovascular History: Reports: Other (See Below) Other Cardiovascular History: Tachycardia Respiratory History: Reports: Pneumonia, Recurrent Other Respiratory History: pneumonia in past, states its not recurrent Gastrointestinal History: Reports: GERD Genitourinary History: Reports: None Musculoskeletal History: Reports: Back Pain, Chronic Other Musculoskeletal History: Broke neck in 2006. -Neck/back swell around nerves and he gets muscle spasms Neurological History: Reports: None Psychiatric History: Reports: Anxiety Endocrine/Metabolic History: Reports: Obesity/BMI 30+ Hematologic History: Reports: None Immunologic History: Reports: None Oncologic (Cancer) History: Reports: None Dermatologic History: Reports: None - Infectious Disease History Infectious Disease History: Reports: None - Past Surgical History GI Surgical History: Reports: Hernia Repair/Other Social & Family History - Tobacco Use Smoking Status *Q: Former Smoker Used Tobacco, but Quit: Yes Month/Year Tobacco Last Used: 2017 - Caffeine Use Caffeine Use: Reports: Soda Caffeine Use Comment: Drinks about 2 20oz bottles of soda per day - Recreational Drug Use Recreational Drug Use: No ED ROS GENERAL - Review of Systems Review Of Systems: See Below Constitutional: Reports: Fever. Denies: No Symptoms, Chills HEENT: Reports: No Symptoms Respiratory: Reports: Shortness of Breath, Cough. Denies: Wheezing, Pleuritic Chest Pain, Sputum Cardiovascular: Denies: Chest Pain, Blood Pressure Problem, Lightheadedness, Palpitations, Syncope Endocrine: Denies: No Symptoms GI/Abdominal: Reports: No Symptoms : Reports: No Symptoms Musculoskeletal: Reports: No Symptoms Neurological: Reports: No Symptoms ED EXAM, GENERAL - Physical Exam Exam: See Below Exam Limited By: No Limitations General Appearance: Alert, No Apparent Distress Eye Exam: Bilateral Eye: Normal Inspection Ears: Normal External Exam, Normal Canal, Hearing Grossly Normal, Normal TMs Nose: Normal Inspection, Normal Mucosa, No Blood Throat/Mouth: Normal Inspection, Normal Lips, Normal Teeth, Normal Gums, Normal Oropharynx, Normal Voice, No Airway Compromise, Other (Semi-dry mucosa) Head: Atraumatic, Normocephalic Neck: Normal Inspection, Supple, Non-Tender, Full Range of Motion. No: Lymphadenopathy (L), Lymphadenopathy (R) Respiratory/Chest: Lungs Clear, Decreased Breath Sounds Cardiovascular: Regular Rate, Rhythm, No Edema, No Murmur, Tachycardia GI/Abdominal: Normal Bowel Sounds, Soft, Non-Tender Back Exam: Normal Inspection. No: CVA Tenderness (L), CVA Tenderness (R) EKG INTERPRETATION EKG Date: 07/28/19 Rhythm: NSR Rate (Beats/Min): 95 [place]: Normal P-Wave: Present QRS: Normal ST-T: Normal QT: Normal Comparison: No Change (Probable no significant change he was in a sinus tach rate near 160 on his last EKG) EKG Interpretation Comments: Normal EKG Course - Vital Signs Last Recorded V/S: Last Vital Signs Temp 37.2 C 07/28/19 13:29 Pulse 86 07/28/19 16:32 Resp 16 07/28/19 16:32 BP 106/84 07/28/19 16:32 Pulse Ox 97 07/28/19 16:32 - Orders/Labs/Meds Orders: Active Orders 24 hr Category Date Time Status EKG Documentation Completion [RC] STAT Care 07/28/19 13:57 Active Oxygen Therapy Adult [Oxygen Therapy] [RC] ASDIRECTED Care 07/28/19 14:01 Active CULTURE BLOOD [BC] Stat Lab 07/28/19 14:20 Received CULTURE BLOOD [BC] Stat Lab 07/28/19 14:26 Received UA RFX JOE AND CULT IF INDIC [URIN] Stat Lab 07/28/19 13:57 Ordered Lactated Ringers [Ringers, Lactated] 1,000 ml Med 07/28/19 14:00 Active IV ASDIRECTED Blood Culture x2 Reflex Set [OM.PC] Stat Oth 07/28/19 13:57 Ordered Isolation [COMM] Routine Oth 07/28/19 15:05 Ordered Isolation [COMM] Routine Oth 07/28/19 15:09 Ordered Medication Orders Lactated Ringer's (Ringers, Lactated) 1,000 mls @ 150 mls/hr IV ASDIRECTED RICH Last Admin: 07/28/19 15:36 Dose: 150 mls/hr Labs: Laboratory Tests 07/28/19 07/28/19 07/28/19 Range/Units 14:04 14:20 14:20 WBC (4.23-9.07) K/mm3 RBC (4.63-6.08) M/mm3 Hgb (13.7-17.5) gm/dl Hct (40.1-51.0) % MCV (79.0-92.2) fl MCH (25.7-32.2) pg MCHC (32.2-35.5) g/dl RDW Std Deviation (35.1-43.9) fL Plt Count (163-337) K/mm3 MPV (9.4-12.3) fl Neut % (Auto) (34.0-67.9) % Lymph % (Auto) (21.8-53.1) % [place] % (Auto) (5.3-12.2) % Eos % (Auto) (0.8-7.0) Baso % (Auto) (0.1-1.2) % Neut # (Auto) (1.78-5.38) K/mm3 Lymph # (Auto) (1.32-3.57) K/mm3 [place] # (Auto) (0.30-0.82) K/mm3 Eos # (Auto) (0.04-0.54) K/mm3 Baso # (Auto) (0.01-0.08) K/mm3 Manual Slide Review PT 11.8 (9.7-12.0) SECONDS INR 1.09 Puncture Site Rt radial ABG pH 7.45 (7.35-7.45) ABG pCO2 38.7 (35.0-45.0) mmHg ABG pO2 68.0 L (80.0-100.0) mmHg ABG HCO3 26.8 H (22.0-26.0) meq/L ABG O2 Saturation 85.1 L (96.0-97.0) % ABG Base Excess 3.2 H (-2-2.0) Frederic Test Positive O2 Delivery Device Room air FiO2 0.00 L (21.00-100.00) % Sodium 141 (136-145) mEq/L Potassium 4.1 (3.5-5.1) mEq/L Chloride 104 (98-107) mEq/L Carbon Dioxide 26 (21-32) mEq/L Anion Gap 15.1 H (5-15) BUN 12 (7-18) mg/dL Creatinine 1.1 (0.7-1.3) mg/dL Est Cr Clr Drug Dosing 94.02 mL/min Estimated GFR (MDRD) > 60 (>60) mL/min BUN/Creatinine Ratio 10.9 L (14-18) Glucose 103 (74-106) mg/dL Lactic Acid (0.4-2.0) mmol/L Calcium 9.2 (8.5-10.1) mg/dL Total Bilirubin 0.5 (0.2-1.0) mg/dL AST 29 (15-37) U/L ALT 41 (16-63) U/L Alkaline Phosphatase 70 (46-116) U/L Total Protein 7.1 (6.4-8.2) g/dl Albumin 3.8 (3.4-5.0) g/dl Globulin 3.3 gm/dL Albumin/Globulin Ratio 1.2 (1-2) 07/28/19 07/28/19 Range/Units 14:20 14:20 WBC 9.90 H (4.23-9.07) K/mm3 RBC 4.35 L (4.63-6.08) M/mm3 Hgb 13.5 L (13.7-17.5) gm/dl Hct 39.9 L (40.1-51.0) % MCV 91.7 D (79.0-92.2) fl MCH 31.0 (25.7-32.2) pg MCHC 33.8 (32.2-35.5) g/dl RDW Std Deviation 40.7 (35.1-43.9) fL Plt Count 297 (163-337) K/mm3 MPV 8.5 L (9.4-12.3) fl Neut % (Auto) 84.7 H (34.0-67.9) % Lymph % (Auto) 9.2 L (21.8-53.1) % [place] % (Auto) 5.3 (5.3-12.2) % Eos % (Auto) 0.4 L (0.8-7.0) Baso % (Auto) 0.2 (0.1-1.2) % Neut # (Auto) 8.39 H (1.78-5.38) K/mm3 Lymph # (Auto) 0.91 L (1.32-3.57) K/mm3 [place] # (Auto) 0.52 (0.30-0.82) K/mm3 Eos # (Auto) 0.04 (0.04-0.54) K/mm3 Baso # (Auto) 0.02 (0.01-0.08) K/mm3 Manual Slide Review Normal smear PT (9.7-12.0) SECONDS INR Puncture Site ABG pH (7.35-7.45) ABG pCO2 (35.0-45.0) mmHg ABG pO2 (80.0-100.0) mmHg ABG HCO3 (22.0-26.0) meq/L ABG O2 Saturation (96.0-97.0) % ABG Base Excess (-2-2.0) Frederic Test O2 Delivery Device FiO2 (21.00-100.00) % Sodium (136-145) mEq/L Potassium (3.5-5.1) mEq/L Chloride (98-107) mEq/L Carbon Dioxide (21-32) mEq/L Anion Gap (5-15) BUN (7-18) mg/dL Creatinine (0.7-1.3) mg/dL Est Cr Clr Drug Dosing mL/min Estimated GFR (MDRD) (>60) mL/min BUN/Creatinine Ratio (14-18) Glucose (74-106) mg/dL Lactic Acid 1.0 (0.4-2.0) mmol/L Calcium (8.5-10.1) mg/dL Total Bilirubin (0.2-1.0) mg/dL AST (15-37) U/L ALT (16-63) U/L Alkaline Phosphatase (46-116) U/L Total Protein (6.4-8.2) g/dl Albumin (3.4-5.0) g/dl Globulin gm/dL Albumin/Globulin Ratio (1-2) Meds: Medications Generic Name Dose Route Start Last Admin Trade Name Freq PRN Reason Stop Dose Admin Lactated Ringer's 1,000 mls @ 150 mls/hr 07/28/19 14:00 07/28/19 15:36 Ringers, Lactated IV 150 mls/hr ASDIRECTED RICH Administration Discontinued Medications Generic Name Dose Route Start Last Admin Trade Name Freq PRN Reason Stop Dose Admin Lactated Ringer's 1,000 mls @ 999 mls/hr 07/28/19 13:56 07/28/19 14:23 Ringers, Lactated IV 07/28/19 14:56 999 mls/hr .BOLUS ONE Administration - Re-Assessments/Exams Free Text/Narrative Re-Assessment/Exam: 07/28/19 17:22 Beds been uneventful thus far his lactic acid is 1 cultures have been obtained that reviewing his records with him the same psych his tachycardia is chronic for him the O2 saturation being low is not certainly new for him he has not had any chest pain so probability of the PE is extremely unlikely. No pneumonia found on one view chest. Case discussed with Dr. Mary, our hospitalist, patient will be placed in for further evaluation and treatment. He does not believe he is actively septic at this point as his tachycardia is chronic however this will be watched very closely Departure - Departure Time of Disposition: 17:23 Disposition: Admitted As Inpatient 67 Clinical Impression: Hypoxia, History of tachycardia - Discharge Information Referrals: Gayle Molina NP [Primary Care Provider] - Forms: ED Department Discharge Sepsis Event Note - Evaluation Sepsis Screening Result: Possible Sepsis Risk - Focused Exam Vital Signs: Vital Signs Temp Pulse Resp BP Pulse Ox Pulse Ox 07/28/19 16:32 86 16 106/84 97 07/28/19 14:24 88 L 07/28/19 13:29 37.2 C 122 H 16 137/92 H 92 L Date Exam was Performed: 07/28/19 Time Exam was Performed: 17:26 - My Orders Last 24 Hours: My Active Orders 07/28/19 13:57 EKG Documentation Completion [RC] STAT UA RFX JOE AND CULT IF INDIC [URIN] Stat Blood Culture x2 Reflex Set [OM.PC] Stat 07/28/19 14:00 Lactated Ringers [Ringers, Lactated] 1,000 ml IV ASDIRECTED 07/28/19 14:01 Oxygen Therapy Adult [Oxygen Therapy] [RC] ASDIRECTED 07/28/19 14:20 CULTURE BLOOD [BC] Stat 07/28/19 14:26 CULTURE BLOOD [BC] Stat 07/28/19 15:05 Isolation [COMM] Routine 07/28/19 15:09 Isolation [COMM] Routine - Assessment/Plan Last 24 Hours: My Active Orders 07/28/19 13:57 EKG Documentation Completion [RC] STAT UA RFX JOE AND CULT IF INDIC [URIN] Stat Blood Culture x2 Reflex Set [OM.PC] Stat 07/28/19 14:00 Lactated Ringers [Ringers, Lactated] 1,000 ml IV ASDIRECTED 07/28/19 14:01 Oxygen Therapy Adult [Oxygen Therapy] [RC] ASDIRECTED 07/28/19 14:20 CULTURE BLOOD [BC] Stat 07/28/19 14:26 CULTURE BLOOD [BC] Stat 03/23/20 15:05 Isolation [COMM] Routine 07/28/19 15:09 Isolation [COMM] Routine
--- NOTE | 2019-07-28 14:21 | CR ---
Chest: Portable view of the chest was obtained. Comparison: Prior chest x-ray of 06/07/19. Heart size and mediastinum are normal. Lungs are clear. Bony structures appear grossly intact. Impression: 1. Nothing acute is appreciated on portable chest x-ray. Diagnostic code #1 This report was dictated in MDT
[2019-07-28] MEDS ORDERED: Acetaminophen 325 MG Tab PO PRN (19:09)
[2019-07-28] MEDS ORDERED: Sucralfate 1 GM Tab PO PRN (19:11)
[2019-07-28] MEDS ORDERED: ALPRAZolam 0.5 MG Tab PO PRN (19:11)
--- NOTE | 2019-07-28 19:20 | PCM.HP.2 ---
H&P History of Present Illness - General Date of Service: 07/28/19 Admit Problem/Dx: Admission Diagnosis/Problem Admission Diagnosis/Problem Hypoxia - History of Present Illness Initial Comments - Free Text/Narative: 39-year-old male with history of recurrent aspiration pneumonia presented to the emergency room after developing fever, malaise, cough, and general flulike symptoms. Patient states that he woke up feeling feverish and his temperature was 102.5 temporally. He has been admitted to other times in the last few months and it was determined that he has aspirations in the middle the night. He sleeps with his head raise, is on a PPI and Carafate. He has been seen by gastroenterology. When patient arrived in the emergency room his oxygen was in the mid 80s and blood gas showed a PaO2 of 68. Patient was placed on 2 L and oxygen saturations increased to the mid 90s. Patient also has a 2-1/2-year-old that spends time in daycare. He has been sick recently. Patient also has syndrome of inappropriate sinus tachycardia. He is currently on Toprol-XL 50 mg daily and has been evaluated by cardiology. Initial labs: WBC 9.9, hemoglobin 13.5, platelet count 297, normal comprehensive metabolic panel, ABG pH 7.45, PCO2 37.7, PO2 of 68, HCO3 of 26.8. Chest x-ray showed nothing acute. - Related Data Allergies/Adverse Reactions: Allergies Allergy/AdvReac Type Severity Reaction Status Date / Time No Known Allergies Allergy Verified 07/28/19 13:33 Home Medications: Home Meds ALPRAZolam [Xanax] 1 mg PO BEDTIME PRN 04/19/19 [History] Cyclobenzaprine [Flexeril] 10 mg PO TID PRN 04/19/19 [History] Desvenlafaxine Succinate [Pristiq] 50 mg PO DAILY 04/19/19 [History] Hydrocodone/Acetaminophen [Hydrocodon-Acetaminophn 10-325] 1 tab PO Q6H PRN [History] Metoprolol Succinate [Toprol XL 50mg] 50 mg PO DAILY #30 tab.er 06/09/19 [Rx] Pantoprazole Sodium 40 mg PO BID #60 tablet. 06/09/19 [Rx] Sucralfate [Carafate] 1 gm PO QIDACANDBED PRN #120 tablet 06/09/19 [Rx] Past Medical History HEENT History: Reports: Other (See Below) Other HEENT History: root canal on 06/03/2019 Cardiovascular History: Reports: Other (See Below) Other Cardiovascular History: Tachycardia Respiratory History: Reports: Pneumonia, Recurrent Other Respiratory History: pneumonia in past, states its not recurrent Gastrointestinal History: Reports: GERD Genitourinary History: Reports: None Musculoskeletal History: Reports: Back Pain, Chronic Other Musculoskeletal History: Broke neck in 2005. -Neck/back swell around nerves and he gets muscle spasms Neurological History: Reports: None Psychiatric History: Reports: Anxiety Endocrine/Metabolic History: Reports: Obesity/BMI 30+ Hematologic History: Reports: None Immunologic History: Reports: None Oncologic (Cancer) History: Reports: None Dermatologic History: Reports: None - Infectious Disease History Infectious Disease History: Reports: None - Past Surgical History GI Surgical History: Reports: Hernia Repair/Other Social & Family History - Tobacco Use Smoking Status *Q: Former Smoker Used Tobacco, but Quit: Yes Month/Year Tobacco Last Used: 2016 - Caffeine Use Caffeine Use: Reports: Soda Caffeine Use Comment: Drinks about 2 20oz bottles of soda per day - Recreational Drug Use Recreational Drug Use: No H&P Review of Systems - Review of Systems: Review Of Systems: Comprehensive ROS is negative, except as noted in HPI. Exam - Exam Exam: See Below - Vital Signs Vital Signs: Last Vital Signs Temp 97.2 F 07/28/19 18:15 Pulse 102 H 07/28/19 18:15 Resp 16 07/28/19 18:15 BP 105/80 07/28/19 18:15 Pulse Ox 95 07/28/19 18:15 Weight: 208 lb 8 oz - Exam Quality Assessment: Supplemental Oxygen General: Alert, Oriented, 4 HEENT: Conjunctiva Clear, Hearing Intact, Mucosa Moist & Hos[place], Normal Nasal Septum Neck: Supple, Trachea Midline, 2 Lungs: Clear to Auscultation, Normal Respiratory Effort Cardiovascular: Regular Rhythm, Normal S1, Normal S2, Tachycardia. No: Systolic Murmur GI/Abdominal Exam: Normal Bowel Sounds, Soft, Non-Tender, No Organomegaly, No Distention, No Abnormal Bruit, No Mass Extremities: Normal Inspection, Normal Range of Motion, Non-Tender, No Pedal Edema, Normal Capillary Refill Skin: Warm, Dry, Intact Neurological: Cranial Nerves Intact Neuro Extensive - Mental Status: Alert, Oriented x3, Normal Mood/Affect, Normal Cognition Psychiatric: Alert, Normal Affect, Normal Mood - Patient Data Lab Results Last 24 hrs: Laboratory Results - last 24 hr 07/28/19 07/28/19 07/28/19 Range/Units 14:04 14:20 14:20 WBC (4.23-9.07) K/mm3 RBC (4.63-6.08) M/mm3 Hgb (13.7-17.5) gm/dl Hct (40.1-51.0) % MCV (79.0-92.2) fl MCH (25.7-32.2) pg MCHC (32.2-35.5) g/dl RDW Std Deviation (35.1-43.9) fL Plt Count (163-337) K/mm3 MPV (9.4-12.3) fl Neut % (Auto) (34.0-67.9) % Lymph % (Auto) (21.8-53.1) % [place] % (Auto) (5.3-12.2) % Eos % (Auto) (0.8-7.0) Baso % (Auto) (0.1-1.2) % Neut # (Auto) (1.78-5.38) K/mm3 Lymph # (Auto) (1.32-3.57) K/mm3 [place] # (Auto) (0.30-0.82) K/mm3 Eos # (Auto) (0.04-0.54) K/mm3 Baso # (Auto) (0.01-0.08) K/mm3 Manual Slide Review PT 11.8 (9.7-12.0) SECONDS INR 1.09 Puncture Site Rt radial ABG pH 7.45 (7.35-7.45) ABG pCO2 38.7 (35.0-45.0) mmHg ABG pO2 68.0 L (80.0-100.0) mmHg ABG HCO3 26.8 H (22.0-26.0) meq/L ABG O2 Saturation 85.1 L (96.0-97.0) % ABG Base Excess 3.2 H (-2-2.0) Frederic Test Positive O2 Delivery Device Room air FiO2 0.00 L (21.00-100.00) % Sodium 141 (136-145) mEq/L Potassium 4.1 (3.5-5.1) mEq/L Chloride 104 (98-107) mEq/L Carbon Dioxide 26 (21-32) mEq/L Anion Gap 15.1 H (5-15) BUN 12 (7-18) mg/dL Creatinine 1.1 (0.7-1.3) mg/dL Est Cr Clr Drug Dosing 94.02 mL/min Estimated GFR (MDRD) > 60 (>60) mL/min BUN/Creatinine Ratio 10.9 L (14-18) Glucose 103 (74-106) mg/dL Lactic Acid (0.4-2.0) mmol/L Calcium 9.2 (8.5-10.1) mg/dL Total Bilirubin 0.5 (0.2-1.0) mg/dL AST 29 (15-37) U/L ALT 41 (16-63) U/L Alkaline Phosphatase 70 (46-116) U/L Total Protein 7.1 (6.4-8.2) g/dl Albumin 3.8 (3.4-5.0) g/dl Globulin 3.3 gm/dL Albumin/Globulin Ratio 1.2 (1-2) Urine Color (Yellow) Urine Appearance (Clear) Urine pH (5.0-8.0) Ur Specific [place] (1.005-1.030) Urine Protein (Negative) Urine Glucose (UA) (Negative) Urine Ketones (Negative) Urine Occult Blood (Negative) Urine Nitrite (Negative) Urine Bilirubin (Negative) Urine Urobilinogen (0.2-1.0) Ur Leukocyte Esterase (Negative) 07/28/19 07/28/19 07/28/19 Range/Units 14:20 14:20 18:05 WBC 9.90 H (4.23-9.07) K/mm3 RBC 4.35 L (4.63-6.08) M/mm3 Hgb 13.5 L (13.7-17.5) gm/dl Hct 39.9 L (40.1-51.0) % MCV 91.7 D (79.0-92.2) fl MCH 31.0 (25.7-32.2) pg MCHC 33.8 (32.2-35.5) g/dl RDW Std Deviation 40.7 (35.1-43.9) fL Plt Count 297 (163-337) K/mm3 MPV 8.5 L (9.4-12.3) fl Neut % (Auto) 84.7 H (34.0-67.9) % Lymph % (Auto) 9.2 L (21.8-53.1) % [place] % (Auto) 5.3 (5.3-12.2) % Eos % (Auto) 0.4 L (0.8-7.0) Baso % (Auto) 0.2 (0.1-1.2) % Neut # (Auto) 8.39 H (1.78-5.38) K/mm3 Lymph # (Auto) 0.91 L (1.32-3.57) K/mm3 [place] # (Auto) 0.52 (0.30-0.82) K/mm3 Eos # (Auto) 0.04 (0.04-0.54) K/mm3 Baso # (Auto) 0.02 (0.01-0.08) K/mm3 Manual Slide Review Normal smear PT (9.7-12.0) SECONDS INR Puncture Site ABG pH (7.35-7.45) ABG pCO2 (35.0-45.0) mmHg ABG pO2 (80.0-100.0) mmHg ABG HCO3 (22.0-26.0) meq/L ABG O2 Saturation (96.0-97.0) % ABG Base Excess (-2-2.0) Frederic Test O2 Delivery Device FiO2 (21.00-100.00) % Sodium (136-145) mEq/L Potassium (3.5-5.1) mEq/L Chloride (98-107) mEq/L Carbon Dioxide (21-32) mEq/L Anion Gap (5-15) BUN (7-18) mg/dL Creatinine (0.7-1.3) mg/dL Est Cr Clr Drug Dosing mL/min Estimated GFR (MDRD) (>60) mL/min BUN/Creatinine Ratio (14-18) Glucose (74-106) mg/dL Lactic Acid 1.0 (0.4-2.0) mmol/L Calcium (8.5-10.1) mg/dL Total Bilirubin (0.2-1.0) mg/dL AST (15-37) U/L ALT (16-63) U/L Alkaline Phosphatase (46-116) U/L Total Protein (6.4-8.2) g/dl Albumin (3.4-5.0) g/dl Globulin gm/dL Albumin/Globulin Ratio (1-2) Urine Color Light yellow (Yellow) Urine Appearance Clear (Clear) Urine pH 7.5 (5.0-8.0) Ur Specific [place] 1.020 (1.005-1.030) Urine Protein Negative (Negative) Urine Glucose (UA) Negative (Negative) Urine Ketones Negative (Negative) Urine Occult Blood Negative (Negative) Urine Nitrite Negative (Negative) Urine Bilirubin Negative (Negative) Urine Urobilinogen 0.2 (0.2-1.0) Ur Leukocyte Esterase Negative (Negative) Result Diagrams: 07/28/19 14:20 07/28/19 14:20 Akbar Results Last 24 hrs: Microbiology 07/28/19 15:45 Respiratory Syncytial Virus Ag Scrn - Final Nasal, Unspecified NEGATIVE RSV ANTIGEN REFERENCE RANGE: NEGATIVE 07/28/19 15:45 Influenza Type A Antigen Screen - Final Nasal, Unspecified NEGATIVE INFLUENZA A VIRUS AG REFERENCE RANGE: NEGATIVE Influenza Type B Antigen Screen - Final NEGATIVE INFLUENZA B VIRUS AG REFERENCE RANGE: NEGATIVE Sepsis Event Note - Evaluation Sepsis Screening Result: Possible Sepsis Risk - Focused Exam Vital Signs: Vital Signs Temp Pulse Resp BP Pulse Ox Pulse Ox 07/28/19 18:15 97.2 F 102 H 16 105/80 95 07/28/19 16:32 86 16 106/84 97 07/28/19 14:24 88 L 07/28/19 13:29 98.9 F 122 H 16 137/92 H 92 L Date Exam was Performed: 07/28/19 Time Exam was Performed: 21:28 Problem List Initiated/Reviewed/Updated: Yes Orders Last 24hrs: Active Orders 24 hr Category Date Time Status Admission Status [Patient Status] [ADT] Routine ADT 07/28/19 17:40 Active EKG Documentation Completion [RC] STAT Care 07/28/19 13:57 Active Oxygen Therapy Adult [Oxygen Therapy] [RC] ASDIRECTED Care 07/28/19 14:01 Active Oxygen Therapy [RC] PRN Care 07/28/19 19:09 Ordered Up ad Cristal [RC] ASDIRECTED Care 07/28/19 19:09 Ordered VTE/DVT Education [RC] PER UNIT ROUTINE Care 07/28/19 19:09 Ordered Vital Signs [RC] ASDIRECTED Care 07/28/19 19:09 Ordered Regular Diet [DIET] Diet 07/29/19 Breakfast Active BASIC METABOLIC PANEL,BMP [CHEM] AM Lab 07/29/19 05:11 Ordered CBC WITH AUTO DIFF [HEME] AM Lab 07/29/19 05:11 Ordered CORONAVIRUS COVID-19 PCR PHL [MREF] Stat Lab 07/28/19 17:45 Received CULTURE BLOOD [BC] Stat Lab 07/28/19 14:20 Received CULTURE BLOOD [BC] Stat Lab 07/28/19 14:26 Received ALPRAZolam [Xanax] Med 07/28/19 19:11 Ordered 1 mg PO BEDTIME PRN Acetaminophen [Tylenol] Med 07/28/19 19:09 Ordered 650 mg PO Q4H PRN Acetaminophen/HYDROcodone Med 07/28/19 19:11 Ordered 1 tab PO Q6H PRN Cyclobenzaprine [Flexeril] Med 07/28/19 19:11 Ordered 10 mg PO TID PRN Desvenlafaxine Succinate [Pristiq] Med 07/29/19 09:00 Ordered 50 mg PO DAILY Lactated Ringers [Ringers, Lactated] 1,000 ml Med 07/28/19 14:00 Active IV ASDIRECTED Metoprolol Succinate [Toprol XL] Med 07/29/19 09:00 Ordered 50 mg PO DAILY Pantoprazole [ProTONIX] Med 07/28/19 21:00 Ordered 40 mg PO BID Sucralfate [Carafate] Med 07/28/19 19:11 Ordered 1 gm PO QIDACANDBED PRN Blood Culture x2 Reflex Set [OM.PC] Stat Oth 07/28/19 13:57 Ordered Isolation [COMM] Routine Oth 07/28/19 15:05 Ordered Isolation [COMM] Routine Oth 07/28/19 15:09 Ordered Resuscitation Status Routine Resus Stat 07/28/19 18:49 Ordered Medication Orders Acetaminophen (Tylenol) 650 mg PO Q4H PRN PRN Reason: Pain (Mild 1-3)/fever Alprazolam (Xanax) 1 mg PO BEDTIME PRN PRN Reason: Insomnia Cyclobenzaprine HCl (Flexeril) 10 mg PO TID PRN PRN Reason: Pain Lactated Ringer's (Ringers, Lactated) 1,000 mls @ 150 mls/hr IV ASDIRECTED [facility] Last Admin: 07/28/19 15:36 Dose: 150 mls/hr Metoprolol Succinate (Toprol Xl) 50 mg PO DAILY [facility] Non-Formulary Medication (Acetaminophen/Hydrocodone) 1 tab PO Q6H PRN PRN Reason: Pain Non-Formulary Medication (Desvenlafaxine Succinate [Pristiq]) 50 mg PO DAILY [facility] Pantoprazole Sodium (Protonix) 40 mg PO BID [facility] Sucralfate (Carafate) 1 gm PO QIDACANDBED PRN PRN Reason: Heartburn Assessment/Plan Comment:: 39-year-old male with sick close contact and history of aspiration pneumonia presented to the emergency room with hypoxemia and reported fever. * Temperature at home temporally was 102.5. * Hypoxic on arrival to the emergency room in the mid 80s with a PaO2 of 65. * No known exposure to COVID-19 * Negative influenza and RSV in the emergency room * Normal chest x-ray * Presumed viral illness * On pantoprazole and Carafate Syndrome of inappropriate tachycardia * Home meds include metoprolol succinate 50 mg daily History of chronic back and neck pain * Home meds include Flexeril and hydrocodone/acetaminophen Plan * Admit to medical floor in isolation * FiO2 to keep SPO2 greater than 90% * Because he had a fever, hypoxemia, cough, shortness of breath and a sick contact we will proceed with testing for COVID-19 since he is hospitalized. * Repeat CBC and CMP in the morning * Hold off on antibiotics at this time. * Continue home meds * VTE prophylaxis not warranted: Early ambulation * CODE STATUS: Full code - Mortality Measure Prognosis:: Good
[2019-07-28] MEDS: Pantoprazole 40 MG Tab.CR PO SCH (21:02)
[2019-07-28] MEDS: Cyclobenzaprine 10 MG Tab PO PRN (22:14)
[2019-07-28] MEDS: Acetaminophen/HYDROcodone 325-10 MG Tab PO PRN (22:14)
[2019-07-29] MEDS: Acetaminophen/HYDROcodone 325-10 MG Tab PO PRN (05:11)
[2019-07-29] MEDS: Pantoprazole 40 MG Tab.CR PO SCH (05:11)
[2019-07-29] MEDS: Cyclobenzaprine 10 MG Tab PO PRN (05:12)
[2019-07-29] MEDS ORDERED: ALPRAZolam 1 MG Tab PO PRN (07:48)
[2019-07-29] MEDS ORDERED: Metoprolol Succinate 50 MG Tab.ER PO SCH (09:00)
[2019-07-29] MEDS ORDERED: Desvenlafaxine Succinate [Pristiq] 50 MG PO SCH (09:00)
--- NOTE | 2019-07-29 11:27 | PCM.DCSUM1 ---
Discharge Summary - Hospital Course HPI Initial Comments: 39-year-old male with history of recurrent aspiration pneumonia presented to the emergency room after developing fever, malaise, cough, and general flulike symptoms. Patient states that he woke up feeling feverish and his temperature was 102.5 temporally. He has been admitted to other times in the last few months and it was determined that he has aspirations in the middle the night. He sleeps with his head raise, is on a PPI and Carafate. He has been seen by gastroenterology. When patient arrived in the emergency room his oxygen was in the mid 80s and blood gas showed a PaO2 of 68. Patient was placed on 2 L and oxygen saturations increased to the mid 90s. Patient also has a 2-1/2-year-old that spends time in daycare. He has been sick recently. Patient also has syndrome of inappropriate sinus tachycardia. He is currently on Toprol-XL 50 mg daily and has been evaluated by cardiology. Initial labs: WBC 9.9, hemoglobin 13.5, platelet count 297, normal comprehensive metabolic panel, ABG pH 7.45, PCO2 37.7, PO2 of 68, HCO3 of 26.8. Chest x-ray showed nothing acute. Brief History: 39-year-old male with sick close contact and history of aspiration pneumonia presented to the emergency room with hypoxemia and reported fever. Temperature at home temporally was 102.5. Hypoxic on arrival to the emergency room in the mid 80s with a PaO2 of 65. No known exposure to COVID-19. Negative influenza and RSV in the emergency room. Normal chest x- ray. Presumed viral illness. On pantoprazole and Carafate. Syndrome of inappropriate tachycardia. Home meds include metoprolol succinate 50 mg daily. History of chronic back and neck pain. Home meds include Flexeril and hydrocodone/acetaminophen. Plan. Admit to medical floor in isolation. FiO2 to keep SPO2 greater than 90%. Because he had a fever, hypoxemia, cough, shortness of breath and a sick contact we will proceed with testing for COVID- 19 since he is hospitalized. Repeat CBC and CMP in the morning. Hold off on antibiotics at this time. Continue home meds. VTE prophylaxis not warranted: Early ambulation. CODE STATUS: Full code Diagnosis: Stroke: No - Discharge Data Discharge Date: 07/29/19 Discharge Disposition: Home, Self-Care 01 Condition: Good - Referral to Home Health Primary Care Physician: Gayle Molina NP - Patient Summary/Data Hospital Course: Patient was admitted and placed in isolation. He had no further elevations in his temperature or fever. He was weaned off oxygen early last evening and never required oxygen throughout the rest of the night. Cough resolved and he is asymptomatic. - Patient Instructions Diet: Usual Diet as Tolerated Activity: As Tolerated Showering/Bathing: May Shower Notify Provider of: Fever Other/Special Instructions: Follow up with gastroenterolost to discuss recurrent aspiration. - Discharge Plan *PRESCRIPTION DRUG MONITORING PROGRAM REVIEWED*: No *COPY OF PRESCRIPTION DRUG MONITORING REPORT IN PATIENT MIKE: No Home Medications: Home Meds ALPRAZolam [Xanax] 1 mg PO BEDTIME PRN 04/19/19 [History] Cyclobenzaprine [Flexeril] 10 mg PO TID PRN 04/19/19 [History] Desvenlafaxine Succinate [Pristiq] 50 mg PO DAILY 04/19/19 [History] Hydrocodone/Acetaminophen [Hydrocodon-Acetaminophn 10-325] 1 tab PO Q6H PRN [History] Metoprolol Succinate [Toprol XL 50mg] 50 mg PO DAILY #30 tab.er 06/09/19 [Rx] Pantoprazole Sodium 40 mg PO BID #60 tablet. 06/09/19 [Rx] Sucralfate [Carafate] 1 gm PO QIDACANDBED PRN #120 tablet 06/09/19 [Rx] Oxygen Therapy Mode: Room Air Patient Handouts: Hypoxia, Sinus Tachycardia, Coronavirus Information 07/21/19 Referrals: Gayle Molina NP [Primary Care Provider] - 08/07/19 10:30 am (Please follow up with Gayle Molina NP on August 06 at 10:30.) - Discharge Summary/Plan Comment DC Time >30 min.: No Discharge Summary/Plan Comment: Discharged home in good condition. Continue self isolation until results of COVID-19 are back. No change in medications. - General Info Date of Service: 07/29/19 Admission Dx/Problem (Free Text: Admission Diagnosis/Problem Admission Diagnosis/Problem Hypoxia Subjective Update: Patient is doing well without any complaints. He slept well, denies cough, no fever. Functional Status: Reports: Pain Controlled - Review of Systems General: Reports: No Symptoms HEENT: Reports: No Symptoms Pulmonary: Reports: No Symptoms Cardiovascular: Reports: No Symptoms Gastrointestinal: Reports: No Symptoms Musculoskeletal: Reports: No Symptoms Neurological: Reports: No Symptoms - Patient Data Vitals - Most Recent: Last Vital Signs Temp 97.5 F 07/29/19 08:30 Pulse 72 07/29/19 08:30 Resp 14 07/29/19 08:30 BP 101/56 L 07/29/19 08:30 Pulse Ox 94 L 07/29/19 08:30 Weight - Most Recent: 207 lb 11.2 oz I&O - Last 24 hours: Intake & Output 07/28/19 07/29/19 07/29/19 22:59 06:59 14:59 Intake Total 1500 Output Total 800 Balance 700 Lab Results - Last 24 hrs: Laboratory Results - last 24 hr 07/28/19 07/28/19 07/28/19 Range/Units 14:04 14:20 14:20 WBC (4.23-9.07) K/mm3 RBC (4.63-6.08) M/mm3 Hgb (13.7-17.5) gm/dl Hct (40.1-51.0) % MCV (79.0-92.2) fl MCH (25.7-32.2) pg MCHC (32.2-35.5) g/dl RDW Std Deviation (35.1-43.9) fL Plt Count (163-337) K/mm3 MPV (9.4-12.3) fl Neut % (Auto) (34.0-67.9) % Lymph % (Auto) (21.8-53.1) % [place] % (Auto) (5.3-12.2) % Eos % (Auto) (0.8-7.0) Baso % (Auto) (0.1-1.2) % Neut # (Auto) (1.78-5.38) K/mm3 Lymph # (Auto) (1.32-3.57) K/mm3 [place] # (Auto) (0.30-0.82) K/mm3 Eos # (Auto) (0.04-0.54) K/mm3 Baso # (Auto) (0.01-0.08) K/mm3 Manual Slide Review PT 11.8 (9.7-12.0) SECONDS INR 1.09 Puncture Site Rt radial ABG pH 7.45 (7.35-7.45) ABG pCO2 38.7 (35.0-45.0) mmHg ABG pO2 68.0 L (80.0-100.0) mmHg ABG HCO3 26.8 H (22.0-26.0) meq/L ABG O2 Saturation 85.1 L (96.0-97.0) % ABG Base Excess 3.2 H (-2-2.0) Frederic Test Positive O2 Delivery Device Room air FiO2 0.00 L (21.00-100.00) % Sodium 141 (136-145) mEq/L Potassium 4.1 (3.5-5.1) mEq/L Chloride 104 (98-107) mEq/L Carbon Dioxide 26 (21-32) mEq/L Anion Gap 15.1 H (5-15) BUN 12 (7-18) mg/dL Creatinine 1.1 (0.7-1.3) mg/dL Est Cr Clr Drug Dosing 94.02 mL/min Estimated GFR (MDRD) > 60 (>60) mL/min BUN/Creatinine Ratio 10.9 L (14-18) Glucose 103 (74-106) mg/dL Lactic Acid (0.4-2.0) mmol/L Calcium 9.2 (8.5-10.1) mg/dL Total Bilirubin 0.5 (0.2-1.0) mg/dL AST 29 (15-37) U/L ALT 41 (16-63) U/L Alkaline Phosphatase 70 (46-116) U/L Total Protein 7.1 (6.4-8.2) g/dl Albumin 3.8 (3.4-5.0) g/dl Globulin 3.3 gm/dL Albumin/Globulin Ratio 1.2 (1-2) Urine Color (Yellow) Urine Appearance (Clear) Urine pH (5.0-8.0) Ur Specific [place] (1.005-1.030) Urine Protein (Negative) Urine Glucose (UA) (Negative) Urine Ketones (Negative) Urine Occult Blood (Negative) Urine Nitrite (Negative) Urine Bilirubin (Negative) Urine Urobilinogen (0.2-1.0) Ur Leukocyte Esterase (Negative) 07/28/19 07/28/1920 Range/Units 14:20 14:20 18:05 WBC 9.90 H (4.23-9.07) K/mm3 RBC 4.35 L (4.63-6.08) M/mm3 Hgb 13.5 L (13.7-17.5) gm/dl Hct 39.9 L (40.1-51.0) % MCV 91.7 D (79.0-92.2) fl MCH 31.0 (25.7-32.2) pg MCHC 33.8 (32.2-35.5) g/dl RDW Std Deviation 40.7 (35.1-43.9) fL Plt Count 297 (163-337) K/mm3 MPV 8.5 L (9.4-12.3) fl Neut % (Auto) 84.7 H (34.0-67.9) % Lymph % (Auto) 9.2 L (21.8-53.1) % Oliver % (Auto) 5.3 (5.3-12.2) % Eos % (Auto) 0.4 L (0.8-7.0) Baso % (Auto) 0.2 (0.1-1.2) % Neut # (Auto) 8.39 H (1.78-5.38) K/mm3 Lymph # (Auto) 0.91 L (1.32-3.57) K/mm3 [place] # (Auto) 0.52 (0.30-0.82) K/mm3 Eos # (Auto) 0.04 (0.04-0.54) K/mm3 Baso # (Auto) 0.02 (0.01-0.08) K/mm3 Manual Slide Review Normal smear PT (9.7-12.0) SECONDS INR Puncture Site ABG pH (7.35-7.45) ABG pCO2 (35.0-45.0) mmHg ABG pO2 (80.0-100.0) mmHg ABG HCO3 (22.0-26.0) meq/L ABG O2 Saturation (96.0-97.0) % ABG Base Excess (-2-2.0) Frederic Test O2 Delivery Device FiO2 (21.00-100.00) % Sodium (136-145) mEq/L Potassium (3.5-5.1) mEq/L Chloride (98-107) mEq/L Carbon Dioxide (21-32) mEq/L Anion Gap (5-15) BUN (7-18) mg/dL Creatinine (0.7-1.3) mg/dL Est Cr Clr Drug Dosing mL/min Estimated GFR (MDRD) (>60) mL/min BUN/Creatinine Ratio (14-18) Glucose (74-106) mg/dL Lactic Acid 1.0 (0.4-2.0) mmol/L Calcium (8.5-10.1) mg/dL Total Bilirubin (0.2-1.0) mg/dL AST (15-37) U/L ALT (16-63) U/L Alkaline Phosphatase (46-116) U/L Total Protein (6.4-8.2) g/dl Albumin (3.4-5.0) g/dl Globulin gm/dL Albumin/Globulin Ratio (1-2) Urine Color Light yellow (Yellow) Urine Appearance Clear (Clear) Urine pH 7.5 (5.0-8.0) Ur Specific [place] 1.020 (1.005-1.030) Urine Protein Negative (Negative) Urine Glucose (UA) Negative (Negative) Urine Ketones Negative (Negative) Urine Occult Blood Negative (Negative) Urine Nitrite Negative (Negative) Urine Bilirubin Negative (Negative) Urine Urobilinogen 0.2 (0.2-1.0) Ur Leukocyte Esterase Negative (Negative) 07/29/19 07/29/19 Range/Units 05:48 05:48 WBC 5.06 (4.23-9.07) K/mm3 RBC 3.93 L (4.63-6.08) M/mm3 Hgb 12.0 L D (13.7-17.5) gm/dl Hct 37.2 L (40.1-51.0) % MCV 94.7 H D (79.0-92.2) fl MCH 30.5 (25.7-32.2) pg MCHC 32.3 (32.2-35.5) g/dl RDW Std Deviation 42.3 (35.1-43.9) fL Plt Count 275 (163-337) K/mm3 MPV 8.4 L (9.4-12.3) fl Neut % (Auto) 41.2 (34.0-67.9) % Lymph % (Auto) 44.9 (21.8-53.1) % [place] % (Auto) 9.7 (5.3-12.2) % Eos % (Auto) 4.0 (0.8-7.0) Baso % (Auto) 0.2 (0.1-1.2) % Neut # (Auto) 2.09 (1.78-5.38) K/mm3 Lymph # (Auto) 2.27 (1.32-3.57) K/mm3 [place] # (Auto) 0.49 (0.30-0.82) K/mm3 Eos # (Auto) 0.20 (0.04-0.54) K/mm3 Baso # (Auto) 0.01 (0.01-0.08) K/mm3 Manual Slide Review PT (9.7-12.0) SECONDS INR Puncture Site ABG pH (7.35-7.45) ABG pCO2 (35.0-45.0) mmHg ABG pO2 (80.0-100.0) mmHg ABG HCO3 (22.0-26.0) meq/L ABG O2 Saturation (96.0-97.0) % ABG Base Excess (-2-2.0) Frederic Test O2 Delivery Device FiO2 (21.00-100.00) % Sodium 142 (136-145) mEq/L Potassium 4.3 (3.5-5.1) mEq/L Chloride 106 (98-107) mEq/L Carbon Dioxide 28 (21-32) mEq/L Anion Gap 12.3 (5-15) BUN 11 (7-18) mg/dL Creatinine 1.2 (0.7-1.3) mg/dL Est Cr Clr Drug Dosing 86.18 mL/min Estimated GFR (MDRD) > 60 (>60) mL/min BUN/Creatinine Ratio 9.2 L (14-18) Glucose 97 (74-106) mg/dL Lactic Acid (0.4-2.0) mmol/L Calcium 8.9 (8.5-10.1) mg/dL Total Bilirubin (0.2-1.0) mg/dL AST (15-37) U/L ALT (16-63) U/L Alkaline Phosphatase (46-116) U/L Total Protein (6.4-8.2) g/dl Albumin (3.4-5.0) g/dl Globulin gm/dL Albumin/Globulin Ratio (1-2) Urine Color (Yellow) Urine Appearance (Clear) Urine pH (5.0-8.0) Ur Specific [place] (1.005-1.030) Urine Protein (Negative) Urine Glucose (UA) (Negative) Urine Ketones (Negative) Urine Occult Blood (Negative) Urine Nitrite (Negative) Urine Bilirubin (Negative) Urine Urobilinogen (0.2-1.0) Ur Leukocyte Esterase (Negative) JOE Results - Last 24 hrs: Microbiology 07/28/19 15:45 Respiratory Syncytial Virus Ag Scrn - Final Nasal, Unspecified NEGATIVE RSV ANTIGEN REFERENCE RANGE: NEGATIVE 07/28/19 15:45 Influenza Type A Antigen Screen - Final Nasal, Unspecified NEGATIVE INFLUENZA A VIRUS AG REFERENCE RANGE: NEGATIVE Influenza Type B Antigen Screen - Final NEGATIVE INFLUENZA B VIRUS AG REFERENCE RANGE: NEGATIVE Med Orders - Current: Current Medications Acetaminophen (Tylenol) 650 mg PO Q4H PRN PRN Reason: Pain (Mild 1-3)/fever Hydrocodone Bitart/Acetaminophen ([place] 325-10 Mg) 1 tab PO Q6H PRN PRN Reason: PAIN Last Admin: 07/29/19 05:11 Dose: 1 tab Alprazolam (Xanax) 1 mg PO BEDTIME PRN PRN Reason: Insomnia Cyclobenzaprine HCl (Flexeril) 10 mg PO TID PRN PRN Reason: Pain Last Admin: 07/29/19 05:12 Dose: 10 mg Metoprolol Succinate (Toprol Xl) 50 mg PO DAILY [facility] Pantoprazole Sodium (Protonix) 40 mg PO BIDAC RICH Last Admin: 07/29/19 05:11 Dose: 40 mg Desvenlafaxine Succinate [Pristiq] 50 Mg 0 each PO DAILY [facility] Sucralfate (Carafate) 1 gm PO QIDACANDBED PRN PRN Reason: Heartburn Discontinued Medications Alprazolam (Xanax) 1 mg PO BEDTIME PRN PRN Reason: Insomnia Lactated Ringer's (Ringers, Lactated) 1,000 mls @ 999 mls/hr IV .BOLUS ONE Stop: 07/28/19 14:56 Last Admin: 07/28/19 14:23 Dose: 999 mls/hr Lactated Ringer's (Ringers, Lactated) 1,000 mls @ 150 mls/hr IV ASDIRECTED [facility] Last Admin: 07/28/19 15:36 Dose: 150 mls/hr - Exam Quality Assessment: Denies: Supplemental Oxygen General: Reports: Alert, Oriented HEENT: Reports: Pupils Equal, Mucous Membr. Moist/[place] Neck: Reports: Supple Lungs: Reports: Clear to Auscultation, Normal Respiratory Effort Cardiovascular: Reports: Regular Rate, Regular Rhythm GI/Abdominal Exam: Normal Bowel Sounds, Soft, Non-Tender, No Organomegaly, No Distention, No Abnormal Bruit, No Mass Extremities: Normal Inspection, Normal Range of Motion, Non-Tender, No Pedal Edema, Normal Capillary Refill Psy/Mental Status: Reports: Alert, Normal Affect, Normal Mood
== END 2019-07-29 13:13 | disposition home or self-care (01) ==
LOC: JD.ED 13:21 → JD.MS 17:40
PROVIDERS: ADMIT Family Medicine; ATTEND Family Medicine
DX: R09.02 Hypoxemia (principal); R00.0 Tachycardia, unspecified; R50.9 Fever, unspecified; R05 Cough; R06.02 Shortness of breath; R53.81 Other malaise; G89.29 Other chronic pain; M54.9 Dorsalgia, unspecified; M54.2 Cervicalgia; E66.9 Obesity, unspecified; F41.9 Anxiety disorder, unspecified; K21.9 Gastro-esophageal reflux disease without esophagitis; Z87.891 Personal history of nicotine dependence; Z87.01 Personal history of pneumonia (recurrent); Z68.30 Body mass index [BMI] 30.0-30.9, adult; Z79.899 Other long term (current) drug therapy
CPT/HCPCS: 36415; 36600; 71045; 80048; 80053; 81003; 82803; 83605; 85025; 85610; 87040; 87804; 87807; 93005; 96360; 96361; 99284; A9270; J7120; U0001; 93010; G0378

== ENCOUNTER 2020-01-14 08:24 | Emergency (ER) | payer OTHER ==
[2020-01-14] MEDS ORDERED: Sodium Chloride 0.9% 10 ML Syringe FLUSH PRN (09:01)
[2020-01-14] MEDS ORDERED: Acetaminophen 325 MG Tab PO ONE (09:04)
[2020-01-14] MEDS ORDERED: Sodium Chloride 0.9% 1,000 ML IV SCH (09:15)
--- NOTE | 2020-01-14 09:42 | EDM.PDOC ---
ED HPI GENERAL MEDICAL PROBLEM - General Chief Complaint: Fever Stated Complaint: FEVER/MUSCLE ACHE Time Seen by Provider: 01/14/20 08:53 Source of Information: Reports: Patient, RN Notes Reviewed - History of Present Illness INITIAL COMMENTS - FREE TEXT/NARRATIVE: 39 yr old male with nasal congestion yesterday, seen at clinic yesterday, started on oral prednisone and an oral antibiotic after being seen at clinic. Today awakened with fever, chills, occasional cough. Does not feel short of breath but presented to ED with sats of only 84% at time of initial vitals. He does of hx of GE reflux, hx of prior pneumonias, hx Htn. He states he and his are trying to be careful, social distancing and wearing masks when out in public so no known covid exposure. Not currently working. Generalized Pain Score (Numeric/FACES): 8 - Related Data Allergies Allergy/AdvReac Type Severity Reaction Status Date / Time oxycodone Allergy Headache Verified 01/14/20 09:06 Home Meds: Home Meds ALPRAZolam [Xanax] 1 mg PO BEDTIME PRN 04/19/19 [History] Cyclobenzaprine [Flexeril] 10 mg PO TID PRN 04/19/19 [History] Desvenlafaxine Succinate [Pristiq] 50 mg PO DAILY 04/19/19 [History] Hydrocodone/Acetaminophen [Hydrocodone-Acetamin 10-325 mg] 1 tab PO Q6H PRN 04/19/19 [History] Metoprolol Succinate [Toprol XL 50mg] 50 mg PO DAILY #30 tab.er 06/09/19 [Rx] Pantoprazole Sodium 40 mg PO BID #60 tablet. 06/09/19 [Rx] Past Medical History HEENT History: Reports: Impaired Vision, Other (See Below) Other HEENT History: root canal on 06/03/2019, wears eyeglasses. Cardiovascular History: Reports: Other (See Below) Other Cardiovascular History: Tachycardia Respiratory History: Reports: Pneumonia, Recurrent Other Respiratory History: pneumonia in past, states its not recurrent Gastrointestinal History: Reports: GERD Genitourinary History: Reports: Acute Renal Failure Musculoskeletal History: Reports: Back Pain, Chronic, Fracture Other Musculoskeletal History: Broke neck in 2005. -Neck/back swell around nerves and he gets muscle spasms Neurological History: Reports: Concussion Psychiatric History: Reports: Anxiety Endocrine/Metabolic History: Reports: Obesity/BMI 30+ Hematologic History: Reports: None Immunologic History: Reports: Other (See Below) Other Immunologic History: mono in high school Oncologic (Cancer) History: Reports: None Dermatologic History: Reports: None - Infectious Disease History Infectious Disease History: Reports: Chicken Pox - Past Surgical History HEENT Surgical History: Reports: Oral Surgery Other HEENT Surgeries/Procedures: cleft palate. GI Surgical History: Reports: Hernia Repair/Other Social & Family History - Family History Family Medical History: Noncontributory - Tobacco Use Smoking Status *Q: Former Smoker Used Tobacco, but Quit: Yes Month/Year Tobacco Last Used: May 2016 - Caffeine Use Caffeine Use: Reports: None Caffeine Use Comment: Drinks about 2 20oz bottles of soda per day - Recreational Drug Use Recreational Drug Use: No ED ROS GENERAL - Review of Systems Review Of Systems: See Below Constitutional: Reports: Fever, Chills HEENT: Reports: Rhinitis. Denies: Throat Pain Respiratory: Reports: Cough. Denies: Shortness of Breath, Sputum Cardiovascular: Denies: Chest Pain GI/Abdominal: Reports: Diarrhea (soft stools since last evening). Denies: Abdominal Pain, Nausea, Vomiting Musculoskeletal: Denies: Shoulder Pain, Arm Pain, Back Pain Skin: Denies: Rash Neurological: Reports: Dizziness (mild). Denies: Trouble Speaking, Difficulty Walking ED EXAM, GENERAL - Physical Exam Exam: See Below General Appearance: Alert, No Apparent Distress Head: Atraumatic Neck: Supple Respiratory/Chest: No Respiratory Distress, Lungs Clear, Normal Breath Sounds. No: Rhonchi, Wheezing Cardiovascular: Tachycardia GI/Abdominal: Soft, Non-Tender Back Exam: No: CVA Tenderness (L), CVA Tenderness (R) Extremities: Normal Inspection. No: Pedal Edema, Leg Pain Neurological: Alert, Oriented, No Motor/Sensory Deficits Skin Exam: Warm, Dry, Normal Color, No Rash Course - Vital Signs Last Recorded V/S: Last Vital Signs Temp 100.3 F 01/14/20 09:45 Pulse 119 H 01/14/20 09:45 Resp 18 01/14/20 09:45 BP 113/84 01/14/20 09:45 Pulse Ox 93 L 01/14/20 09:45 - Orders/Labs/Meds Orders: Active Orders 24 hr Category Date Time Status Oxygen Therapy [RC] ASDIRECTED Care 01/14/20 09:00 Active Peripheral IV Care [RC] . DIRECTED Care 01/14/20 09:01 Active Sodium Chloride 0.9% [Normal Saline] 1,000 ml Med 01/14/20 09:15 Active IV ASDIRECTED Sodium Chloride 0.9% [Saline Flush] Med 01/14/20 09:01 Active 10 ml FLUSH ASDIRECTED PRN Peripheral IV Insertion Adult [OM.PC] Stat Oth 01/14/20 09:00 Ordered Medication Orders Sodium Chloride (Normal Saline) 1,000 mls @ 75 mls/hr IV ASDIRECTED RICH Last Admin: 01/14/20 09:20 Dose: 75 mls/hr Documented by: KARINA Sodium Chloride (Saline Flush) 10 ml FLUSH ASDIRECTED PRN PRN Reason: Keep Vein Open Last Admin: 01/14/20 09:20 Dose: 10 ml Documented by: KARINA Labs: Laboratory Tests 01/14/20 01/14/20 01/14/20 Range/Units 08:50 08:50 08:50 WBC 8.96 (4.23-9.07) K/mm3 RBC 4.29 L (4.63-6.08) M/mm3 Hgb 13.0 L (13.7-17.5) gm/dl Hct 40.0 L (40.1-51.0) % MCV 93.2 H (79.0-92.2) fl MCH 30.3 (25.7-32.2) pg MCHC 32.5 (32.2-35.5) g/dl RDW Std Deviation 41.9 (35.1-43.9) fL Plt Count 321 (163-337) K/mm3 MPV 8.8 L (9.4-12.3) fl Neut % (Auto) 87.6 H (34.0-67.9) % Lymph % (Auto) 5.5 L (21.8-53.1) % [place] % (Auto) 6.5 (5.3-12.2) % Eos % (Auto) 0.2 L (0.8-7.0) Baso % (Auto) 0.1 (0.1-1.2) % Neut # (Auto) 7.85 H (1.78-5.38) K/mm3 Lymph # (Auto) 0.49 L (1.32-3.57) K/mm3 [place] # (Auto) 0.58 (0.30-0.82) K/mm3 Eos # (Auto) 0.02 L (0.04-0.54) K/mm3 Baso # (Auto) 0.01 (0.01-0.08) K/mm3 Manual Slide Review Abnormal smear D-Dimer, Quantitative (0.19-0.50) mg/L Puncture Site ABG pH (7.35-7.45) ABG pCO2 (35.0-45.0) mmHg ABG pO2 (80.0-100.0) mmHg ABG HCO3 (22.0-26.0) meq/L ABG O2 Saturation (96.0-97.0) % ABG Base Excess (-2-2.0) Frederic Test A-a Gradient mmHg O2 Delivery Device Oxygen Flow Rate FiO2 (21.00-100.00) % Sodium 139 (136-145) mEq/L Potassium 4.1 (3.5-5.1) mEq/L Chloride 103 (98-107) mEq/L Carbon Dioxide 27 (21-32) mEq/L Anion Gap 13.1 (5-15) BUN 13 (7-18) mg/dL Creatinine 1.5 H (0.7-1.3) mg/dL Est Cr Clr Drug Dosing 68.94 mL/min Estimated GFR (MDRD) 52 (>60) mL/min BUN/Creatinine Ratio 8.7 L (14-18) Glucose 127 H (74-106) mg/dL Lactic Acid (0.4-2.0) mmol/L Calcium 9.7 (8.5-10.1) mg/dL Ferritin (26-388) ng/ml Total Bilirubin 0.3 (0.2-1.0) mg/dL AST 38 H (15-37) U/L ALT 52 (16-63) U/L Alkaline Phosphatase 61 (46-116) U/L Lactate Dehydrogenase 213 (85-227) U/L Troponin I (0.00-0.056) ng/mL C-Reactive Protein 6.9 H* (<1.0) mg/dL Total Protein 7.6 (6.4-8.2) g/dl Albumin 3.8 (3.4-5.0) g/dl Globulin 3.8 gm/dL Albumin/Globulin Ratio 1.0 (1-2) SARS Virus RNA (PCR) (NEGATIVE) 01/14/20 01/14/20 01/14/20 Range/Units 08:50 08:50 08:50 WBC (4.23-9.07) K/mm3 RBC (4.63-6.08) M/mm3 Hgb (13.7-17.5) gm/dl Hct (40.1-51.0) % MCV (79.0-92.2) fl MCH (25.7-32.2) pg MCHC (32.2-35.5) g/dl RDW Std Deviation (35.1-43.9) fL Plt Count (163-337) K/mm3 MPV (9.4-12.3) fl Neut % (Auto) (34.0-67.9) % Lymph % (Auto) (21.8-53.1) % [place] % (Auto) (5.3-12.2) % Eos % (Auto) (0.8-7.0) Baso % (Auto) (0.1-1.2) % Neut # (Auto) (1.78-5.38) K/mm3 Lymph # (Auto) (1.32-3.57) K/mm3 [place] # (Auto) (0.30-0.82) K/mm3 Eos # (Auto) (0.04-0.54) K/mm3 Baso # (Auto) (0.01-0.08) K/mm3 Manual Slide Review D-Dimer, Quantitative 0.33 (0.19-0.50) mg/L Puncture Site ABG pH (7.35-7.45) ABG pCO2 (35.0-45.0) mmHg ABG pO2 (80.0-100.0) mmHg ABG HCO3 (22.0-26.0) meq/L ABG O2 Saturation (96.0-97.0) % ABG Base Excess (-2-2.0) Frederic Test A-a Gradient mmHg O2 Delivery Device Oxygen Flow Rate FiO2 (21.00-100.00) % Sodium (136-145) mEq/L Potassium (3.5-5.1) mEq/L Chloride (98-107) mEq/L Carbon Dioxide (21-32) mEq/L Anion Gap (5-15) BUN (7-18) mg/dL Creatinine (0.7-1.3) mg/dL Est Cr Clr Drug Dosing mL/min Estimated GFR (MDRD) (>60) mL/min BUN/Creatinine Ratio (14-18) Glucose (74-106) mg/dL Lactic Acid 1.5 (0.4-2.0) mmol/L Calcium (8.5-10.1) mg/dL Ferritin 296 (26-388) ng/ml Total Bilirubin (0.2-1.0) mg/dL AST (15-37) U/L ALT (16-63) U/L Alkaline Phosphatase (46-116) U/L Lactate Dehydrogenase (85-227) U/L Troponin I (0.00-0.056) ng/mL C-Reactive Protein (<1.0) mg/dL Total Protein (6.4-8.2) g/dl Albumin (3.4-5.0) g/dl Globulin gm/dL Albumin/Globulin Ratio (1-2) SARS Virus RNA (PCR) (NEGATIVE) 01/14/20 01/14/20 01/14/20 Range/Units 09:10 10:11 12:15 WBC (4.23-9.07) K/mm3 RBC (4.63-6.08) M/mm3 Hgb (13.7-17.5) gm/dl Hct (40.1-51.0) % MCV (79.0-92.2) fl MCH (25.7-32.2) pg MCHC (32.2-35.5) g/dl RDW Std Deviation (35.1-43.9) fL Plt Count (163-337) K/mm3 MPV (9.4-12.3) fl Neut % (Auto) (34.0-67.9) % Lymph % (Auto) (21.8-53.1) % [place] % (Auto) (5.3-12.2) % Eos % (Auto) (0.8-7.0) Baso % (Auto) (0.1-1.2) % Neut # (Auto) (1.78-5.38) K/mm3 Lymph # (Auto) (1.32-3.57) K/mm3 [place] # (Auto) (0.30-0.82) K/mm3 Eos # (Auto) (0.04-0.54) K/mm3 Baso # (Auto) (0.01-0.08) K/mm3 Manual Slide Review D-Dimer, Quantitative (0.19-0.50) mg/L Puncture Site Lt radial ABG pH 7.40 (7.35-7.45) ABG pCO2 42.8 (35.0-45.0) mmHg ABG pO2 66.0 L (80.0-100.0) mmHg ABG HCO3 25.7 (22.0-26.0) meq/L ABG O2 Saturation 91.9 L (96.0-97.0) % ABG Base Excess 1.2 (-2-2.0) Frederic Test Positive A-a Gradient 31 mmHg O2 Delivery Device Room air Oxygen Flow Rate 0.0 FiO2 21.00 (21.00-100.00) % Sodium (136-145) mEq/L Potassium (3.5-5.1) mEq/L Chloride (98-107) mEq/L Carbon Dioxide (21-32) mEq/L Anion Gap (5-15) BUN (7-18) mg/dL Creatinine (0.7-1.3) mg/dL Est Cr Clr Drug Dosing mL/min Estimated GFR (MDRD) (>60) mL/min BUN/Creatinine Ratio (14-18) Glucose (74-106) mg/dL Lactic Acid (0.4-2.0) mmol/L Calcium (8.5-10.1) mg/dL Ferritin (26-388) ng/ml Total Bilirubin (0.2-1.0) mg/dL AST (15-37) U/L ALT (16-63) U/L Alkaline Phosphatase (46-116) U/L Lactate Dehydrogenase (85-227) U/L Troponin I < 0.017 (0.00-0.056) ng/mL C-Reactive Protein (<1.0) mg/dL Total Protein (6.4-8.2) g/dl Albumin (3.4-5.0) g/dl Globulin gm/dL Albumin/Globulin Ratio (1-2) SARS Virus RNA (PCR) Negative (NEGATIVE) Meds: Medications Generic Name Dose Route Start Last Admin Trade Name Freq PRN Reason Stop Dose Admin Sodium Chloride 1,000 mls @ 75 mls/hr 01/14/20 09:15 01/14/20 09:20 Normal Saline IV 75 mls/hr ASDIRECTED RICH Administration Sodium Chloride 10 ml 01/14/20 09:01 01/14/20 09:20 Saline Flush FLUSH 10 ml ASDIRECTED PRN Administration Keep Vein Open Discontinued Medications Generic Name Dose Route Start Last Admin Trade Name Freq PRN Reason Stop Dose Admin Acetaminophen 975 mg 01/14/20 09:04 01/14/20 09:20 Tylenol PO 01/14/20 09:05 975 mg NOW ONE Administration - Re-Assessments/Exams Free Text/Narrative Re-Assessment/Exam: 01/14/20 13:06 CXR did not show acute findings. WBC 8,900. LDH, D Dimer, Ferritin all nl. Lactic acid 1.5. CRP 6.9. 1 hr covid neg. sats were in the low to mid 90's with 02. I did check ABG's after 15 minutes room air which showed pO2 66, other OK, sats of 91.9 with that. He does feel up to going home. He did not feel short of breath resting off 02. He certainly has an infection, I do strongly suspect early covid., suspect false neg. on his screen which does happen somewhat frequently, I have discussed with pt that it looks OK for him to go home at this time but have given him strong return precautions. Departure - Departure Time of Disposition: 12:43 Disposition: Home, Self-Care 01 Condition: Fair Clinical Impression: Viral syndrome - Discharge Information Instructions: Viral Illness, Adult Referrals: Gayle Molina NP [Primary Care Provider] - Forms: ED Department Discharge Additional Instructions: rest, tylenol q 6 to 8 hr for high fever or discomfort as needed. Self Isolate for 7 to 10 days or until you have been without symptoms for at least 3 to 4 days. Even though your Covid screen this morning is negative there it is likely that you have covid infection with your current sx and so much covid illness in our community right now. Consider retesting on Sunday. Return to ED for severe difficulty breathing or otherwise as needed. Sepsis Event Note (ED) - Evaluation Sepsis Screening Result: Possible Sepsis Risk - Focused Exam Vital Signs: Vital Signs Temp Temp Pulse Resp BP Pulse Ox 01/14/20 09:45 100.3 F 119 H 18 113/84 93 L 01/14/20 09:20 103.5 F H 01/14/20 08:35 103.5 F H 154 H 16 125/80 84 L - My Orders Last 24 Hours: My Active Orders 01/14/20 09:00 Oxygen Therapy [RC] ASDIRECTED Peripheral IV Insertion Adult [OM.PC] Stat 01/14/20 09:01 Peripheral IV Care [RC] . DIRECTED Sodium Chloride 0.9% [Saline Flush] 10 ml FLUSH ASDIRECTED PRN 01/14/20 09:15 Sodium Chloride 0.9% [Normal Saline] 1,000 ml IV ASDIRECTED - Assessment/Plan Last 24 Hours: My Active Orders 01/14/20 09:00 Oxygen Therapy [RC] ASDIRECTED Peripheral IV Insertion Adult [OM.PC] Stat 01/14/20 09:01 Peripheral IV Care [RC] . DIRECTED Sodium Chloride 0.9% [Saline Flush] 10 ml FLUSH ASDIRECTED PRN 01/14/20 09:15 Sodium Chloride 0.9% [Normal Saline] 1,000 ml IV ASDIRECTED
--- NOTE | 2020-01-14 09:51 | CR ---
Chest: Portable view of the chest was obtained. Comparison: Prior chest x-ray on 07/28/19. Heart size and mediastinum are normal. Lungs are clear with no acute parenchymal change. Bony structures are grossly intact. Impression: 1. Nothing acute is seen on portable chest x-ray. Diagnostic code #1 This report was dictated in MDT
== END 2020-01-14 14:05 | disposition home or self-care (01) ==
LOC: JD.ED 08:24
DX: B34.9 Viral infection, unspecified (principal); K21.9 Gastro-esophageal reflux disease without esophagitis; F41.9 Anxiety disorder, unspecified; E66.9 Obesity, unspecified; Z68.30 Body mass index [BMI] 30.0-30.9, adult; Z20.828 Contact with and (suspected) exposure to other viral communicable diseases; Z88.5 Allergy status to narcotic agent; Z79.899 Other long term (current) drug therapy; Z87.891 Personal history of nicotine dependence
CPT/HCPCS: 36415; 36600; 71045; 71045-26; 80053; 82728; 82803; 83605; 83615; 84484; 85025; 85379; 86140; 96360; 96361; 99283-25; A9270-GY; J7030; U0002

== ENCOUNTER 2020-04-03 11:37 | Emergency (ER) | payer OTHER ==
[2020-04-03] MEDS ORDERED: Sodium Chloride 0.9% 10 ML Syringe FLUSH PRN (11:59)
[2020-04-03] MEDS ORDERED: Sodium Chloride 0.9% 1,000 ML IV SCH (12:00)
[2020-04-03] MEDS ORDERED: cefTRIAXone 2 GM in Sodium Chloride 0.9% 100 ML IV ONE (14:07)
[2020-04-03] MEDS ORDERED: Sodium Chloride 0.9% 1,000 ML IV ONE (14:12)
--- NOTE | 2020-04-03 14:16 | EDM.PDOC ---
ED HPI GENERAL MEDICAL PROBLEM - General Chief Complaint: Fever Stated Complaint: POSS COVID/FEVER Time Seen by Provider: 04/03/20 11:53 Source of Information: Reports: Patient History Limitations: Reports: No Limitations - History of Present Illness INITIAL COMMENTS - FREE TEXT/NARRATIVE: The patient presents with a cough, shortness of breath and fever. This started a couple days ago. He has a history of recurrent pneumonias and tachycardia. This will be the 4th time he has had pneumonia in the past 4 years. His oxygen saturations are always low in the 70s. Today it was 77%. He is always tachycardic. Today his heart rate was in the 150s. He has no lung problems such as asthma or COPD. He does not smoke. He has no other heart problems such as CAD. He does have a history of reflux and HTN for which he takes medicine. He does not think he was exposed to anyone with COVID 19. Onset: Gradual Duration: Day(s): Severity: Moderate Improves with: Reports: None Worsens with: Reports: None Associated Symptoms: Reports: Cough, Fever/Chills, Shortness of Breath. Denies: Chest Pain, Headaches, Nausea/Vomiting Treatments [employer]: Reports: Acetaminophen Headache Pain Score (Numeric/FACES): 7 - Related Data Allergies Allergy/AdvReac Type Severity Reaction Status Date / Time oxycodone Allergy Headache Verified 04/03/20 11:55 Home Meds: Home Meds ALPRAZolam [Xanax] 1 mg PO BEDTIME PRN 04/19/19 [History] Cyclobenzaprine [Flexeril] 10 mg PO TID PRN 04/19/19 [History] Desvenlafaxine Succinate [Pristiq] 50 mg PO DAILY 04/19/19 [History] Hydrocodone/Acetaminophen [Hydrocodone-Acetamin 10-325 mg] 1 tab PO Q6H PRN 04/19/19 [History] Metoprolol Succinate [Toprol XL 50mg] 50 mg PO DAILY #30 tab.er 06/09/19 [Rx] Pantoprazole Sodium 40 mg PO BID #60 tablet. 06/09/19 [Rx] Past Medical History HEENT History: Reports: Impaired Vision, Other (See Below) Other HEENT History: root canal on 06/03/2019, wears eyeglasses. Cardiovascular History: Reports: Other (See Below) Other Cardiovascular History: Tachycardia Respiratory History: Reports: Pneumonia, Recurrent Other Respiratory History: pneumonia in past, states its not recurrent Gastrointestinal History: Reports: GERD Genitourinary History: Reports: Acute Renal Failure Musculoskeletal History: Reports: Back Pain, Chronic, Fracture Other Musculoskeletal History: Broke neck in 2005. -Neck/back swell around nerves and he gets muscle spasms Neurological History: Reports: Concussion Psychiatric History: Reports: Anxiety Endocrine/Metabolic History: Reports: Obesity/BMI 30+ Hematologic History: Reports: None Immunologic History: Reports: Other (See Below) Other Immunologic History: mono in high school Oncologic (Cancer) History: Reports: None Dermatologic History: Reports: None - Infectious Disease History Infectious Disease History: Reports: Chicken Pox - Past Surgical History HEENT Surgical History: Reports: Oral Surgery Other HEENT Surgeries/Procedures: cleft palate. GI Surgical History: Reports: Hernia Repair/Other Other GI Surgeries/Procedures: Hernia surgery Social & Family History - Family History Family Medical History: No Pertinent Family History - Tobacco Use Tobacco Use Status *Q: Current Status Unknown - Caffeine Use Caffeine Use: Reports: None Caffeine Use Comment: Drinks about 2 20oz bottles of soda per day - Recreational Drug Use Recreational Drug Use: No ED ROS GENERAL - Review of Systems Review Of Systems: See Below Constitutional: Reports: Fever, Chills HEENT: Reports: No Symptoms Respiratory: Reports: Shortness of Breath, Cough Cardiovascular: Reports: Palpitations. Denies: Chest Pain Endocrine: Reports: No Symptoms GI/Abdominal: Reports: No Symptoms ED EXAM, GENERAL - Physical Exam Exam: See Below Exam Limited By: No Limitations General Appearance: Alert, No Apparent Distress Ears: Normal External Exam Nose: Normal Inspection Head: Atraumatic, Normocephalic Neck: Normal Inspection Respiratory/Chest: No Respiratory Distress, Decreased Breath Sounds Cardiovascular: Regular Rate, Rhythm, No Edema, No Murmur GI/Abdominal: Soft, Non-Tender, No Organomegaly, No Mass Back Exam: Normal Inspection Extremities: Normal Inspection #1 Interpretation EKG Date: 04/03/20 Time: 14:34 Rhythm: Other (sinus tachycardia) Rate (Beats/Min): 136 [place]: Normal P-Wave: Present QRS: Normal ST-T: Normal QT: Normal Course - Vital Signs Last Recorded V/S: Last Vital Signs Temp 98.6 F 04/03/20 14:09 Pulse 132 H 04/03/20 14:09 Resp 18 04/03/20 14:09 BP 122/72 04/03/20 14:09 Pulse Ox 93 L 04/03/20 14:09 - Orders/Labs/Meds Orders: Active Orders 24 hr Category Date Time Status Cardiac Monitoring [RC] . DIRECTED Care 04/03/20 11:59 Active EKG Documentation Completion [RC] STAT Care 04/03/20 12:00 Active Oxygen Therapy [RC] PRN Care 04/03/20 11:59 Active Peripheral IV Care [RC] . DIRECTED Care 04/03/20 12:00 Active Chest 1V Frontal [CR] Stat Exams 04/03/20 12:00 Taken CULTURE BLOOD [BC] Stat Lab 04/03/20 12:22 Received CULTURE BLOOD [BC] Stat Lab 04/03/20 12:35 Received Sodium Chloride 0.9% [Normal Saline] 1,000 ml Med 04/03/20 12:00 Active IV .BOLUS Sodium Chloride 0.9% [Normal Saline] 1,000 ml Med 04/03/20 14:12 Active IV ONETIME Sodium Chloride 0.9% [Saline Flush] Med 04/03/20 11:59 Active 10 ml FLUSH ASDIRECTED PRN cefTRIAXone [Rocephin] 2 gm Med 04/03/20 14:07 Active Sodium Chloride 0.9% [Normal Saline] 100 ml IV ONETIME Blood Culture x2 Reflex Set [OM.PC] Stat Oth 04/03/20 12:01 Ordered Peripheral IV Insertion Adult [OM.PC] Stat Oth 04/03/20 11:59 Ordered Medication Orders Sodium Chloride (Normal Saline) 1,000 mls @ 1,000 mls/hr IV .BOLUS RICH Last Admin: 04/03/20 12:13 Dose: 1,000 mls/hr Documented by: SHIRLEY Ceftriaxone Sodium 2 gm/ (Sodium Chloride) 100 mls @ 200 mls/hr IV ONETIME ONE Stop: 04/03/20 14:36 Last Admin: 04/03/20 14:22 Dose: 200 mls/hr Documented by: KARINA Sodium Chloride (Normal Saline) 1,000 mls @ 999 mls/hr IV ONETIME ONE Stop: 04/03/20 15:12 Last Admin: 04/03/20 14:22 Dose: 999 mls/hr Documented by: KARINA Sodium Chloride (Saline Flush) 10 ml FLUSH ASDIRECTED PRN PRN Reason: Keep Vein Open Last Admin: 04/03/20 12:13 Dose: 10 ml Documented by: SHIRLEY Labs: Laboratory Tests 04/03/20 04/03/20 04/03/20 Range/Units 12:00 12:00 12:00 WBC 5.67 (4.23-9.07) K/mm3 RBC 3.94 L (4.63-6.08) M/mm3 Hgb 12.3 L (13.7-17.5) gm/dl Hct 36.9 L (40.1-51.0) % MCV 93.7 H (79.0-92.2) fl MCH 31.2 (25.7-32.2) pg MCHC 33.3 (32.2-35.5) g/dl RDW Std Deviation 43.8 (35.1-43.9) fL Plt Count 235 D (163-337) K/mm3 MPV 8.4 L (9.4-12.3) fl Neut % (Auto) 77.9 H (34.0-67.9) % Lymph % (Auto) 13.8 L (21.8-53.1) % [place] % (Auto) 7.6 (5.3-12.2) % Eos % (Auto) 0.5 L (0.8-7.0) Baso % (Auto) 0.2 (0.1-1.2) % Neut # (Auto) 4.42 (1.78-5.38) K/mm3 Lymph # (Auto) 0.78 L (1.32-3.57) K/mm3 [place] # (Auto) 0.43 (0.30-0.82) K/mm3 Eos # (Auto) 0.03 L (0.04-0.54) K/mm3 Baso # (Auto) 0.01 (0.01-0.08) K/mm3 PT 12.4 H (9.7-12.0) SECONDS INR 1.16 APTT 24.1 (21.7-31.4) SECONDS D-Dimer, Quantitative 0.98 H (0.19-0.50) mg/L Puncture Site ABG pH (7.35-7.45) ABG pCO2 (35.0-45.0) mmHg ABG pO2 (80.0-100.0) mmHg ABG HCO3 (22.0-26.0) meq/L ABG O2 Saturation (96.0-97.0) % ABG Base Excess (-2-2.0) Frederic Test O2 Delivery Device Oxygen Flow Rate FiO2 (21.00-100.00) % Sodium 140 (136-145) mEq/L Potassium 3.4 L (3.5-5.1) mEq/L Chloride 102 (98-107) mEq/L Carbon Dioxide 29 (21-32) mEq/L Anion Gap 12.4 (5-15) BUN 12 (7-18) mg/dL Creatinine 1.5 H (0.7-1.3) mg/dL Est Cr Clr Drug Dosing 66.77 mL/min Estimated GFR (MDRD) 52 (>60) mL/min BUN/Creatinine Ratio 8.0 L (14-18) Glucose 102 (74-106) mg/dL Lactic Acid (0.4-2.0) mmol/L Calcium 9.5 (8.5-10.1) mg/dL Ferritin (26-388) ng/ml Total Bilirubin 0.6 (0.2-1.0) mg/dL AST 60 H (15-37) U/L ALT 79 H (16-63) U/L Alkaline Phosphatase 57 (46-116) U/L Lactate Dehydrogenase 237 H (85-227) U/L Troponin I < 0.017 (0.00-0.056) ng/mL C-Reactive Protein 1.6 H* (<1.0) mg/dL Total Protein 6.9 (6.4-8.2) g/dl Albumin 3.6 (3.4-5.0) g/dl Globulin 3.3 gm/dL Albumin/Globulin Ratio 1.1 (1-2) SARS-CoV-2 RNA (SYDNIE) (NEGATIVE) 04/03/20 04/03/20 04/03/20 Range/Units 12:00 12:00 12:01 WBC (4.23-9.07) K/mm3 RBC (4.63-6.08) M/mm3 Hgb (13.7-17.5) gm/dl Hct (40.1-51.0) % MCV (79.0-92.2) fl MCH (25.7-32.2) pg MCHC (32.2-35.5) g/dl RDW Std Deviation (35.1-43.9) fL Plt Count (163-337) K/mm3 MPV (9.4-12.3) fl Neut % (Auto) (34.0-67.9) % Lymph % (Auto) (21.8-53.1) % [place] % (Auto) (5.3-12.2) % Eos % (Auto) (0.8-7.0) Baso % (Auto) (0.1-1.2) % Neut # (Auto) (1.78-5.38) K/mm3 Lymph # (Auto) (1.32-3.57) K/mm3 [place] # (Auto) (0.30-0.82) K/mm3 Eos # (Auto) (0.04-0.54) K/mm3 Baso # (Auto) (0.01-0.08) K/mm3 PT (9.7-12.0) SECONDS INR APTT (21.7-31.4) SECONDS D-Dimer, Quantitative (0.19-0.50) mg/L Puncture Site Rt radial ABG pH 7.40 (7.35-7.45) ABG pCO2 45.4 H (35.0-45.0) mmHg ABG pO2 65.0 L (80.0-100.0) mmHg ABG HCO3 27.7 H (22.0-26.0) meq/L ABG O2 Saturation 91.2 L (96.0-97.0) % ABG Base Excess 2.9 H (-2-2.0) Frederic Test Positive O2 Delivery Device Nasal cannula Oxygen Flow Rate 5.0 FiO2 0.00 L (21.00-100.00) % Sodium (136-145) mEq/L Potassium (3.5-5.1) mEq/L Chloride (98-107) mEq/L Carbon Dioxide (21-32) mEq/L Anion Gap (5-15) BUN (7-18) mg/dL Creatinine (0.7-1.3) mg/dL Est Cr Clr Drug Dosing mL/min Estimated GFR (MDRD) (>60) mL/min BUN/Creatinine Ratio (14-18) Glucose (74-106) mg/dL Lactic Acid 2.2 H* (0.4-2.0) mmol/L Calcium (8.5-10.1) mg/dL Ferritin 277 (26-388) ng/ml Total Bilirubin (0.2-1.0) mg/dL AST (15-37) U/L ALT (16-63) U/L Alkaline Phosphatase (46-116) U/L Lactate Dehydrogenase (85-227) U/L Troponin I (0.00-0.056) ng/mL C-Reactive Protein (<1.0) mg/dL Total Protein (6.4-8.2) g/dl Albumin (3.4-5.0) g/dl Globulin gm/dL Albumin/Globulin Ratio (1-2) SARS-CoV-2 RNA (SYDNIE) (NEGATIVE) 04/03/20 Range/Units 12:19 WBC (4.23-9.07) K/mm3 RBC (4.63-6.08) M/mm3 Hgb (13.7-17.5) gm/dl Hct (40.1-51.0) % MCV (79.0-92.2) fl MCH (25.7-32.2) pg MCHC (32.2-35.5) g/dl RDW Std Deviation (35.1-43.9) fL Plt Count (163-337) K/mm3 MPV (9.4-12.3) fl Neut % (Auto) (34.0-67.9) % Lymph % (Auto) (21.8-53.1) % [place] % (Auto) (5.3-12.2) % Eos % (Auto) (0.8-7.0) Baso % (Auto) (0.1-1.2) % Neut # (Auto) (1.78-5.38) K/mm3 Lymph # (Auto) (1.32-3.57) K/mm3 [place] # (Auto) (0.30-0.82) K/mm3 Eos # (Auto) (0.04-0.54) K/mm3 Baso # (Auto) (0.01-0.08) K/mm3 PT (9.7-12.0) SECONDS INR APTT (21.7-31.4) SECONDS D-Dimer, Quantitative (0.19-0.50) mg/L Puncture Site ABG pH (7.35-7.45) ABG pCO2 (35.0-45.0) mmHg ABG pO2 (80.0-100.0) mmHg ABG HCO3 (22.0-26.0) meq/L ABG O2 Saturation (96.0-97.0) % ABG Base Excess (-2-2.0) Frederic Test O2 Delivery Device Oxygen Flow Rate FiO2 (21.00-100.00) % Sodium (136-145) mEq/L Potassium (3.5-5.1) mEq/L Chloride (98-107) mEq/L Carbon Dioxide (21-32) mEq/L Anion Gap (5-15) BUN (7-18) mg/dL Creatinine (0.7-1.3) mg/dL Est Cr Clr Drug Dosing mL/min Estimated GFR (MDRD) (>60) mL/min BUN/Creatinine Ratio (14-18) Glucose (74-106) mg/dL Lactic Acid (0.4-2.0) mmol/L Calcium (8.5-10.1) mg/dL Ferritin (26-388) ng/ml Total Bilirubin (0.2-1.0) mg/dL AST (15-37) U/L ALT (16-63) U/L Alkaline Phosphatase (46-116) U/L Lactate Dehydrogenase (85-227) U/L Troponin I (0.00-0.056) ng/mL C-Reactive Protein (<1.0) mg/dL Total Protein (6.4-8.2) g/dl Albumin (3.4-5.0) g/dl Globulin gm/dL Albumin/Globulin Ratio (1-2) SARS-CoV-2 RNA (SYDNIE) Negative (NEGATIVE) Meds: Medications Generic Name Dose Route Start Last Admin Trade Name Freq PRN Reason Stop Dose Admin Sodium Chloride 1,000 mls @ 1,000 mls/hr 04/03/20 12:00 04/03/20 12:13 Normal Saline IV 1,000 mls/hr .BOLUS RICH Administration Ceftriaxone Sodium 2 gm/ 100 mls @ 200 mls/hr 04/03/20 14:07 04/03/20 14:22 Sodium Chloride IV 04/03/20 14:36 200 mls/hr ONETIME ONE Administration Sodium Chloride 1,000 mls @ 999 mls/hr 04/03/20 14:12 04/03/20 14:22 Normal Saline IV 04/03/20 15:12 999 mls/hr ONETIME ONE Administration Sodium Chloride 10 ml 04/03/20 11:59 04/03/20 12:13 Saline Flush FLUSH 10 ml ASDIRECTED PRN Administration Keep Vein Open - Re-Assessments/Exams Free Text/Narrative Re-Assessment/Exam: 04/03/20 14:35 I ordered an IV NS 1L bolus, oxygen 5L NC, labs, blood cultures, lactic acid, CXR and COVID 19. His EKG shows a sinus tachycardia. His CXR shows a left lower lobe infiltrate. His COVID 19 test is negative. His CBC looks good. His D-dimer is elevated at 0.98. His pH is normal at 7.4. His pCO2 was elevated slightly at 45.4. His pO2 is low at 65. His K is 3.4. His creatinine is elevated at 1.5. His lactic acid is elevated at 2.2. His AST is elevated at 60. His ALT is elevated at 79. His LDH is elevated at 237. His troponin is negative. His CRP is elevated at 1.6. I ordered rocephin 2 grams IV. I feel he needs to be admitted. We have no beds here. Both [facility] are full. I called [facility] and talked with Dr Wilkes the hospitalist alteration hand and he accepted the patient. Departure - Departure Time of Disposition: 14:40 Disposition: Home, Self-Care 01 Condition: Serious Clinical Impression: Hypoxia, Sinus tachycardia Pneumonia Qualifiers: Pneumonia type: due to unspecified organism Laterality: left Lung location: lower lobe of lung Qualified Code(s): J18.9 - Pneumonia, unspecified organism - Discharge Information Referrals: Gayle Molina NP [Primary Care Provider] - Forms: ED Department Discharge Sepsis Event Note (ED) - Evaluation Sepsis Screening Result: No Definite Risk - Focused Exam Vital Signs: Vital Signs Temp Pulse Resp BP Pulse Ox 04/03/20 14:09 98.6 F 132 H 18 122/72 93 L 04/03/20 12:35 100.1 F 136 H 20 118/77 90 L 04/03/20 11:51 157 H 26 H 137/90 77 L - My Orders Last 24 Hours: My Active Orders 04/03/20 11:59 Cardiac Monitoring [RC] . DIRECTED Oxygen Therapy [RC] PRN Sodium Chloride 0.9% [Saline Flush] 10 ml FLUSH ASDIRECTED PRN Peripheral IV Insertion Adult [OM.PC] Stat 04/03/20 12:00 EKG Documentation Completion [RC] STAT Peripheral IV Care [RC] . DIRECTED Chest 1V Frontal [CR] Stat Sodium Chloride 0.9% [Normal Saline] 1,000 ml IV .BOLUS 04/03/20 12:01 Blood Culture x2 Reflex Set [OM.PC] Stat 04/03/20 12:22 CULTURE BLOOD [BC] Stat 04/03/20 12:35 CULTURE BLOOD [BC] Stat 04/03/20 14:07 cefTRIAXone [Rocephin] 2 gm Sodium Chloride 0.9% [Normal Saline] 100 ml IV ONETIME 04/03/20 14:12 Sodium Chloride 0.9% [Normal Saline] 1,000 ml IV ONETIME - Assessment/Plan Last 24 Hours: My Active Orders 04/03/20 11:59 Cardiac Monitoring [RC] . DIRECTED Oxygen Therapy [RC] PRN Sodium Chloride 0.9% [Saline Flush] 10 ml FLUSH ASDIRECTED PRN Peripheral IV Insertion Adult [OM.PC] Stat 04/03/20 12:00 EKG Documentation Completion [RC] STAT Peripheral IV Care [RC] . DIRECTED Chest 1V Frontal [CR] Stat Sodium Chloride 0.9% [Normal Saline] 1,000 ml IV .BOLUS 04/03/20 12:01 Blood Culture x2 Reflex Set [OM.PC] Stat 04/03/20 12:22 CULTURE BLOOD [BC] Stat 04/03/20 12:35 CULTURE BLOOD [BC] Stat 04/03/20 14:07 cefTRIAXone [Rocephin] 2 gm Sodium Chloride 0.9% [Normal Saline] 100 ml IV ONETIME 04/03/20 14:12 Sodium Chloride 0.9% [Normal Saline] 1,000 ml IV ONETIME
--- NOTE | 2020-04-05 11:21 | CR ---
PROCEDURE INFORMATION: Exam: XR Chest, 1 View Exam date and time: 04/03/2020 1:23 PM Age: 39 years old Clinical indication: Chest pain; Type not specified TECHNIQUE: Imaging protocol: XR of the chest Views: 1 view. COMPARISON: CR Chest 1V Frontal 01/14/2020 9:11 AM FINDINGS: Lungs: There is focal airspace opacity in the left lower lobe concerning for pneumonia. Atypical/viral etiologies are possible. Pleural space: Unremarkable. No pleural effusion. No pneumothorax. Heart/Mediastinum: Unremarkable. No cardiomegaly. Bones/joints: Unremarkable. IMPRESSION: New focal airspace opacity in the periphery of the left lower lobe. Finding is concerning for pneumonia. Consider atypical/viral etiologies. Thank you for allowing us to participate in the care of your patient. Dictated and Authenticated by: Stewart Chowdary MD 04/03/2020 2:53 PM Central Time ([place] & [place]) LAUREN
== END 2020-04-03 15:05 | disposition home or self-care (01) ==
LOC: JD.ED 11:37
DX: J18.9 Pneumonia, unspecified organism (principal); R09.02 Hypoxemia; R79.89 Other specified abnormal findings of blood chemistry; E66.9 Obesity, unspecified; R79.1 Abnormal coagulation profile; F41.9 Anxiety disorder, unspecified; K21.9 Gastro-esophageal reflux disease without esophagitis; Z20.828 Contact with and (suspected) exposure to other viral communicable diseases; Z88.5 Allergy status to narcotic agent; Z68.32 Body mass index [BMI] 32.0-32.9, adult
CPT/HCPCS: 36415; 36600; 71045; 80053; 82728; 82803; 83605; 83615; 84484; 85025; 85379; 85610; 85730; 86140; 87040; 87635; 93005; 96365; 99285; J0696; J7030; J7050; U0002

== ENCOUNTER 2020-05-17 07:15 | Inpatient (IN) | payer OTHER ==
--- NOTE | 2020-05-17 07:38 | EDM.PDOC ---
ED HPI GENERAL MEDICAL PROBLEM - General Chief Complaint: Respiratory Problem Stated Complaint: COUGH AND FEVER Time Seen by Provider: 05/17/20 07:25 Source of Information: Reports: Patient History Limitations: Reports: No Limitations - History of Present Illness INITIAL COMMENTS - FREE TEXT/NARRATIVE: 40-year-old male presents to the ED feeling short of breath on minimal exertion. Patient has a history of recent aspiration pneumonitis .Last admission was April 03 in [place] due to lack of beds in [place] and here with a left lower lobar pneumonia. He was Covid negative at that time and he was Covid negative the last week before he had nasal septoplasty performed by ENT--Dr Jacobo in [place]. Still has some tubes in his nasal cavities bilaterally. His reports that he was coughing a good deal of the night with some concerns of recurrent aspiration. He has no fever at this time. Feels mildly short of breath. O2 sats were only 80% on room air. Lungs show scattered rhonchi throughout the posterior lung hurst but very quiesced sent and minimal. 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 It is concerning that he may have been aspirating multiple times over the last 10 years. Last time he was treated with broad-spectrum antibiotics including Rocephin. He has a mild minimal cough at this time. No sore throat no odynophagia. Onset: Today, Sudden Onset Date: 05/17/20 (Reports that he was coughing and choking a bit throughout the night.) Duration: Hour(s): Location: Reports: Chest Quality: Reports: Other (Soreness of breath.) Severity: Moderate Improves with: Reports: Rest Worsens with: Reports: Other (With walking and exertion.) Context: Denies: Activity, Exercise, Lifting, Sick Contact, Trauma, Other Associated Symptoms: Reports: Cough, Shortness of Breath. 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 06/09/19 [Rx] Fenofibrate Nanocrystallized [Fenofibrate] 145 mg PO DAILY 05/17/20 [History] Gabapentin [Neurontin] 300 mg PO TID 05/17/20 [History] Metoprolol Succinate [Toprol XL 50mg] 50 mg PO BID 05/17/20 [History] Rosuvastatin Calcium 20 mg PO DAILY 05/17/20 [History] Past Medical History HEENT History: Reports: Impaired Vision, Other (See Below) Other HEENT History: root canal on 06/03/2019, wears eyeglasses. Born with a cleft palate. Cardiovascular History: Reports: Other (See Below) Other Cardiovascular History: Tachycardia Respiratory History: Reports: Pneumonia, Recurrent Other Respiratory History: pneumonia in past, states its not recurrent. Patient has a history of recurrent aspiration pneumonitis. Gastrointestinal History: Reports: GERD Genitourinary History: Reports: Acute Renal Failure Musculoskeletal History: Reports: Back Pain, Chronic, Fracture Other Musculoskeletal History: Broke neck in 2005. -Neck/back swell around nerves and he gets muscle spasms Neurological History: Reports: Concussion Psychiatric History: Reports: Anxiety Endocrine/Metabolic History: Reports: Obesity/BMI 30+ Hematologic History: Reports: None Immunologic History: Reports: Other (See Below) Other Immunologic History: mono in high school Oncologic (Cancer) History: Reports: None Dermatologic History: Reports: None - Infectious Disease History Infectious Disease History: Reports: Chicken Pox - Past Surgical History HEENT Surgical History: Reports: Oral Surgery Other HEENT Surgeries/Procedures: cleft palate. GI Surgical History: Reports: Hernia Repair/Other Other GI Surgeries/Procedures: Hernia surgery Social & Family History - Family History Family Medical History: No Pertinent Family History - Caffeine Use Caffeine Use: Reports: None Caffeine Use Comment: Drinks about 2 20oz bottles of soda per day - Living Situation & Occupation Living situation: Reports: Occupation: Employed [employer] Review of Systems Review Of Systems: See Below Constitutional: Reports: Fatigue. Denies: Fever, Chills, Malaise, Weakness, Diaphoresis, Decreased Appetite, Weight Loss HEENT: Reports: Glasses, Sinus Problem (Chronic nasal congestion with recent repair of deviated nasal septum last week .), Other Respiratory: Reports: Shortness of Breath, Cough. Denies: Wheezing, Pleuritic Chest Pain, Sputum, Hemoptysis, Other Cardiovascular: Reports: Dyspnea on Exertion. Denies: No Symptoms, Chest Pain, Blood Pressure Problem, Claudication, Edema, Lightheadedness, Orthopnea, Palpitations, PND, Syncope Endocrine: Reports: No Symptoms GI/Abdominal: Reports: Other (History of significant GERD known to have a small hiatal hernia and was felt not bad enough to require fundoplication) : Reports: Frequency, Other Musculoskeletal: Reports: Back Pain (Nocturia x2) Skin: Reports: No Symptoms Neurological: Reports: No Symptoms Psychiatric: Reports: No Symptoms Hematologic/Lymphatic: Reports: No Symptoms Immunologic: Reports: No Symptoms ED EXAM, GENERAL - Physical Exam Exam: See Below Exam Limited By: No Limitations General Appearance: Alert, WD/WN, No Apparent Distress, Other (Temperature is 38.2 pulse 80 and sinus respiratory it was 22 with O2 sats o 78% room air placed on 3 L/min by nasal cannula to achieve O2 sats of 93% BP 05/31/1974) Eye Exam: Bilateral Eye: Normal Inspection, PERRL Ears: Normal TMs Nose: Other (Morris had recent surgery to bilateral naris with tubes 90 both sides of the nares that are due to come out today.) Throat/Mouth: Other (Patient has an upper dental plate in place covering up his soft and hard palate there I could not see any cleft at this time.) Head: Atraumatic, Normocephalic Neck: Normal Inspection, Supple, Non-Tender, Full Range of Motion. No: Lymphadenopathy (L), Lymphadenopathy (R) Respiratory/Chest: No Accessory Muscle Use, Respiratory Distress (Tachypneic at rest 22 to 24/min with O2 sats of only 78% room air), Rhonchi (Fine rhonchi throughout both posterior lung hurst up to the lower scapula bilaterally.). No: Wheezing, Stridor Cardiovascular: Normal Peripheral Pulses, Regular Rate, Rhythm, No Edema, No Gallop, No Murmur, No Rub Peripheral Pulses: 2+: Posterior Tibial (L), Posterior Tibial (R), Dorsalis Pedis (L), Dorsalis Pedis (R), 3+: Carotid (L), Carotid (R) GI/Abdominal: Normal Bowel Sounds, Soft, Non-Tender, No Organomegaly, No Abnormal Bruit, No Mass, Pelvis Stable Back Exam: Normal Inspection, Full Range of Motion. No: CVA Tenderness (L), CVA Tenderness (R) Extremities: Normal Inspection, Normal Range of Motion, Non-Tender, No Pedal Edema Neurological: Alert, Oriented, CN II-XII Intact, Normal Cognition, Normal Gait Psychiatric: Normal Affect, Normal Mood Skin Exam: Warm, Dry, Intact, Normal Color, No Rash #1 Interpretation EKG Date: 05/17/20 Time: 07:58 Rhythm: Other Rate (Beats/Min): 124 Elk: LAD-Left Elk Deviation (Mild left axis deviation -24 degrees) P-Wave: Present QRS: Other (Early R wave transition consider right ventricular hypertrophy versus septal hypertrophy pattern.) ST-T: Other (T wave inversion in lead V2 and flattening in aVL nonspecific findings) QT: Normal EKG Interpretation Comments: Borderline ECG Course - Vital Signs Last Recorded V/S: Last Vital Signs Temp 38.7 C H 05/17/20 08:53 Pulse 80 05/17/20 07:28 Resp 22 H 05/17/20 07:28 BP 125/75 05/17/20 07:28 Pulse Ox 86 L 05/17/20 07:38 - Orders/Labs/Meds Orders: Active Orders 24 hr Category Date Time Status EKG Documentation Completion [RC] STAT Care 05/17/20 07:36 Active Oxygen Therapy [RC] ASDIRECTED Care 05/17/20 07:36 Active RT Aerosol Therapy [RC] ASDIRECTED Care 05/17/20 08:10 Active CULTURE BLOOD [BC] Stat Lab 05/17/20 08:11 Received CULTURE BLOOD [BC] Stat Lab 05/17/20 08:22 Received FERRITIN [CHEM] Stat Lab 05/17/20 08:11 Received URINALYSIS W/MICROSCOPIC [UA W/MICROSCOPIC] [URIN] Stat Lab 05/17/20 07:37 Ordered Albuterol/Ipratropium [DuoNeb 3.0-0.5 MG/3 ML] Med 05/17/20 08:10 Active 3 ml NEB Q4H PRN Dextrose 5%-0.9% NaCl [Dextrose 5%-Normal Saline] 1,000 Med 05/17/20 07:45 Active ml IV ASDIRECTED Blood Culture x2 Reflex Set [OM.PC] Stat Oth 05/17/20 07:36 Ordered Medication Orders Albuterol/Ipratropium (Duoneb 3.0-0.5 Mg/3 Ml) 3 ml NEB Q4H PRN PRN Reason: Shortness Of Breath/wheezing Last Admin: 05/17/20 08:19 Dose: 3 ml Documented by: LACHELLE Alprazolam (Xanax) 1 mg PO BEDTIME RICH Cyclobenzaprine HCl (Flexeril) 10 mg PO TID PRN PRN Reason: Pain Fenofibrate (Tricor) 145 mg PO DAILY RICH Gabapentin (Neurontin) 300 mg PO TID RICH Guaifenesin/Phenylephrine HCl (Robitussin Dm) 10 ml PO Q4H PRN PRN Reason: Cough Dextrose/Sodium Chloride (Dextrose 5%-Normal Saline) 1,000 mls @ 500 mls/hr IV ASDIRECTED [facility] Last Admin: 05/17/20 08:12 Dose: 500 mls/hr Documented by: SHIRLEY Promethazine HCl 12.5 mg/ (Sodium Chloride) 50.5 mls @ 100 mls/hr IV Q6H PRN PRN Reason: Nausea/Vomiting Sodium Chloride (Normal Saline) 1,000 mls @ 100 mls/hr IV ASDIRECTED [facility] Stop: 05/17/20 21:44 Ibuprofen (Motrin) 400 mg PO Q6H PRN PRN Reason: Pain (mild 1-3) Metoprolol Succinate (Toprol Xl) 50 mg PO BID [facility] Ondansetron HCl (Zofran) 4 mg IV Q6H PRN PRN Reason: Nausea/Vomiting Pantoprazole Sodium (Protonix) 40 mg PO BID [facility] Pantoprazole Sodium (Protonix Iv) 40 mg IV Q12HR [facility] Desvenlafaxine Succinate [Pristiq] 50 Mg 0 each PO DAILY [facility] Polyethylene Glycol (Miralax) 17 gm PO DAILY PRN PRN Reason: Constipation Labs: Laboratory Tests 05/17/20 05/17/20 05/17/20 Range/Units 08:11 08:11 08:11 WBC 8.39 (4.23-9.07) K/mm3 RBC 3.99 L (4.63-6.08) M/mm3 Hgb 12.2 L (13.7-17.5) gm/dl Hct 37.3 L (40.1-51.0) % MCV 93.5 H (79.0-92.2) fl MCH 30.6 (25.7-32.2) pg MCHC 32.7 (32.2-35.5) g/dl RDW Std Deviation 40.3 (35.1-43.9) fL Plt Count 325 D (163-337) K/mm3 MPV 8.4 L (9.4-12.3) fl Neutrophils % (Manual) 83 H (40-60) % Band Neutrophils % 0 (0-10) % Lymphocytes % (Manual) 13 L (20-40) % Atypical Lymphs % 0 % Monocytes % (Manual) 4 (2-10) % Eosinophils % (Manual) 0 L (0.8-7.0) % Basophils % (Manual) 0 L (0.2-1.2) Platelet Estimate Adequate RBC Morph Comment Normal PT 11.3 (9.7-12.0) SECONDS INR 1.06 APTT 21.9 (21.7-31.4) SECONDS D-Dimer, Quantitative (0.19-0.50) mg/L Puncture Site ABG pH (7.35-7.45) ABG pCO2 (35.0-45.0) mmHg ABG pO2 (80.0-100.0) mmHg ABG HCO3 (22.0-26.0) meq/L ABG O2 Saturation (96.0-97.0) % ABG Base Excess (-2-2.0) Frederic Test A-a Gradient mmHg O2 Delivery Device Oxygen Flow Rate FiO2 (21.00-100.00) % Sodium 142 (136-145) mEq/L Potassium 3.8 (3.5-5.1) mEq/L Chloride 101 (98-107) mEq/L Carbon Dioxide 32 (21-32) mEq/L Anion Gap 12.8 (5-15) BUN 15 (7-18) mg/dL Creatinine 1.1 (0.7-1.3) mg/dL Est Cr Clr Drug Dosing 93.09 mL/min Estimated GFR (MDRD) > 60 (>60) mL/min BUN/Creatinine Ratio 13.6 L (14-18) Glucose 115 H (74-106) mg/dL Lactic Acid (0.4-2.0) mmol/L Calcium 8.9 (8.5-10.1) mg/dL Magnesium 1.8 (1.8-2.4) mg/dl Total Bilirubin 0.5 (0.2-1.0) mg/dL AST 94 H (15-37) U/L ALT 121 H (16-63) U/L Alkaline Phosphatase 68 (46-116) U/L Lactate Dehydrogenase 244 H (85-227) U/L Troponin I < 0.017 (0.00-0.056) ng/mL C-Reactive Protein 2.4 H* (<1.0) mg/dL NT-Pro-B Natriuret Pep (0-125) pg/mL Total Protein 7.3 (6.4-8.2) g/dl Albumin 3.8 (3.4-5.0) g/dl Globulin 3.5 gm/dL Albumin/Globulin Ratio 1.1 (1-2) 05/17/20 05/17/20 05/17/20 Range/Units 08:11 08:11 08:11 WBC (4.23-9.07) K/mm3 RBC (4.63-6.08) M/mm3 Hgb (13.7-17.5) gm/dl Hct (40.1-51.0) % MCV (79.0-92.2) fl MCH (25.7-32.2) pg MCHC (32.2-35.5) g/dl RDW Std Deviation (35.1-43.9) fL Plt Count (163-337) K/mm3 MPV (9.4-12.3) fl Neutrophils % (Manual) (40-60) % Band Neutrophils % (0-10) % Lymphocytes % (Manual) (20-40) % Atypical Lymphs % % Monocytes % (Manual) (2-10) % Eosinophils % (Manual) (0.8-7.0) % Basophils % (Manual) (0.2-1.2) Platelet Estimate RBC Morph Comment PT (9.7-12.0) SECONDS INR APTT (21.7-31.4) SECONDS D-Dimer, Quantitative 0.39 (0.19-0.50) mg/L Puncture Site ABG pH (7.35-7.45) ABG pCO2 (35.0-45.0) mmHg ABG pO2 (80.0-100.0) mmHg ABG HCO3 (22.0-26.0) meq/L ABG O2 Saturation (96.0-97.0) % ABG Base Excess (-2-2.0) Frederic Test A-a Gradient mmHg O2 Delivery Device Oxygen Flow Rate FiO2 (21.00-100.00) % Sodium (136-145) mEq/L Potassium (3.5-5.1) mEq/L Chloride (98-107) mEq/L Carbon Dioxide (21-32) mEq/L Anion Gap (5-15) BUN (7-18) mg/dL Creatinine (0.7-1.3) mg/dL Est Cr Clr Drug Dosing mL/min Estimated GFR (MDRD) (>60) mL/min BUN/Creatinine Ratio (14-18) Glucose (74-106) mg/dL Lactic Acid 1.6 (0.4-2.0) mmol/L Calcium (8.5-10.1) mg/dL Magnesium (1.8-2.4) mg/dl Total Bilirubin (0.2-1.0) mg/dL AST (15-37) U/L ALT (16-63) U/L Alkaline Phosphatase (46-116) U/L Lactate Dehydrogenase (85-227) U/L Troponin I (0.00-0.056) ng/mL C-Reactive Protein (<1.0) mg/dL NT-Pro-B Natriuret Pep 34 (0-125) pg/mL Total Protein (6.4-8.2) g/dl Albumin (3.4-5.0) g/dl Globulin gm/dL Albumin/Globulin Ratio (1-2) 05/17/20 Range/Units 08:25 WBC (4.23-9.07) K/mm3 RBC (4.63-6.08) M/mm3 Hgb (13.7-17.5) gm/dl Hct (40.1-51.0) % MCV (79.0-92.2) fl MCH (25.7-32.2) pg MCHC (32.2-35.5) g/dl RDW Std Deviation (35.1-43.9) fL Plt Count (163-337) K/mm3 MPV (9.4-12.3) fl Neutrophils % (Manual) (40-60) % Band Neutrophils % (0-10) % Lymphocytes % (Manual) (20-40) % Atypical Lymphs % % Monocytes % (Manual) (2-10) % Eosinophils % (Manual) (0.8-7.0) % Basophils % (Manual) (0.2-1.2) Platelet Estimate RBC Morph Comment PT (9.7-12.0) SECONDS INR APTT (21.7-31.4) SECONDS D-Dimer, Quantitative (0.19-0.50) mg/L Puncture Site Rt radial ABG pH 7.38 (7.35-7.45) ABG pCO2 49.0 H (35.0-45.0) mmHg ABG pO2 67.0 L (80.0-100.0) mmHg ABG HCO3 28.2 H (22.0-26.0) meq/L ABG O2 Saturation 93.8 L (96.0-97.0) % ABG Base Excess 2.9 H (-2-2.0) Frederic Test Positive A-a Gradient 128 mmHg O2 Delivery Device Nasal cannula Oxygen Flow Rate 3.0 FiO2 32.00 (21.00-100.00) % Sodium (136-145) mEq/L Potassium (3.5-5.1) mEq/L Chloride (98-107) mEq/L Carbon Dioxide (21-32) mEq/L Anion Gap (5-15) BUN (7-18) mg/dL Creatinine (0.7-1.3) mg/dL Est Cr Clr Drug Dosing mL/min Estimated GFR (MDRD) (>60) mL/min BUN/Creatinine Ratio (14-18) Glucose (74-106) mg/dL Lactic Acid (0.4-2.0) mmol/L Calcium (8.5-10.1) mg/dL Magnesium (1.8-2.4) mg/dl Total Bilirubin (0.2-1.0) mg/dL AST (15-37) U/L ALT (16-63) U/L Alkaline Phosphatase (46-116) U/L Lactate Dehydrogenase (85-227) U/L Troponin I (0.00-0.056) ng/mL C-Reactive Protein (<1.0) mg/dL NT-Pro-B Natriuret Pep (0-125) pg/mL Total Protein (6.4-8.2) g/dl Albumin (3.4-5.0) g/dl Globulin gm/dL Albumin/Globulin Ratio (1-2) Meds: Medications Generic Name Dose Route Start Last Admin Trade Name Freq PRN Reason Stop Dose Admin Albuterol/Ipratropium 3 ml 05/17/20 08:10 05/17/20 08:19 Duoneb 3.0-0.5 Mg/3 Ml NEB 3 ml Q4H PRN Administration Shortness Of Breath/wheezing Alprazolam 1 mg 05/17/20 21:00 Xanax PO BEDTIME [facility] Cyclobenzaprine HCl 10 mg 05/17/20 11:33 Flexeril PO TID PRN Pain Fenofibrate 145 mg 05/18/20 09:00 Tricor PO DAILY [facility] Gabapentin 300 mg 05/17/20 15:00 Neurontin PO TID [facility] Guaifenesin/Phenylephrine HCl 10 ml 05/17/20 11:38 Robitussin Dm PO Q4H PRN Cough Dextrose/Sodium Chloride 1,000 mls @ 500 mls/hr 05/17/20 07:45 05/17/20 08:12 Dextrose 5%-Normal Saline IV 500 mls/hr ASDIRECTED RICH Administration Promethazine HCl 12.5 mg/ 50.5 mls @ 100 mls/hr 05/17/20 11:34 Sodium Chloride IV Q6H PRN Nausea/Vomiting Sodium Chloride 1,000 mls @ 100 mls/hr 05/17/20 11:45 Normal Saline IV 05/17/20 21:44 ASDIRECTED RICH Ibuprofen 400 mg 05/17/20 11:34 Motrin PO Q6H PRN Pain (mild 1-3) Metoprolol Succinate 50 mg 05/17/20 21:00 Toprol Xl PO BID RICH Ondansetron HCl 4 mg 05/17/20 11:34 Zofran IV Q6H PRN Nausea/Vomiting Pantoprazole Sodium 40 mg 05/17/20 21:00 Protonix PO BID [facility] Pantoprazole Sodium 40 mg 05/17/20 21:00 Protonix Iv IV Q12HR [facility] Desvenlafaxine 0 each 05/18/20 09:00 Succinate [Pristiq] PO 50 Mg DAILY [facility] Polyethylene Glycol 17 gm 05/17/20 11:34 Miralax PO DAILY PRN Constipation Discontinued Medications Generic Name Dose Route Start Last Admin Trade Name Freq PRN Reason Stop Dose Admin Acetaminophen 975 mg 05/17/20 08:43 05/17/20 08:53 Tylenol PO 05/17/20 08:44 975 mg ONETIME ONE Administration Ceftriaxone Sodium 2 gm/ 100 mls @ 200 mls/hr 05/17/20 08:19 05/17/20 08:32 Sodium Chloride IV 05/17/20 08:48 200 mls/hr ONETIME ONE Administration Ampicillin Sodium/Sulbactam 100 mls @ 200 mls/hr 05/17/20 09:00 Sodium 1.5 gm/ Sodium Chloride IV Q6H RICH Ampicillin Sodium/Sulbactam 100 mls @ 200 mls/hr 05/17/20 09:09 Sodium 1.5 gm/ Sodium Chloride IV 05/17/20 09:38 ONETIME ONE Piperacillin Sod/Tazobactam 100 mls @ 200 mls/hr 05/17/20 09:15 05/17/20 09:24 Sod 4.5 gm/ Sodium Chloride IV 05/17/20 09:44 200 mls/hr ONETIME ONE Administration Piperacillin Sod/Tazobactam 100 mls @ 200 mls/hr 05/17/20 09:13 Sod 4.5 gm/ Sodium Chloride IV 05/17/20 09:42 ONETIME ONE - Radiology Interpretation Free Text/Narrative:: 40-year-old male presents to the ED with dyspnea that developed overnight. Patient had no recognition of coughing throughout the night but his indicates that he was coughing throughout the night and she believes choking and aspirating. Patient has a history of recurrent aspiration pneumonitis. He was recently hospitalized in [facility] due to lack of beds here and in [facility] on April 03 and was discharged [facility] 1. He was found to have a left lower lobar pneumonia and was Covid negative. He was treated with broad- spectrum antibiotics and discharged home on oral antibiotics. He states he did well with this. This morning he presents with cough shortness of breath and O2 sats here only 78 to 80% on room air. Placed on 3 L/min by nasal cannula with the nose being somewhat obstructed for recent nasal septoplasty performed last week in [place] by Dr. Bedolla--ear nose and throat surgeon. He is due to have the tubes removed from his nose today. States he has a slight cough with no sputum production. He has known to have a hiatal hernia with GERD. It is felt not bad enough to require fundoplication. Temperature is 38.2. Patient will have a septic work-up including lactic acid level. Soon as blood cultures x2 been collected he will receive Rocephin 2 g IV. - Re-Assessments/Exams Free Text/Narrative Re-Assessment/Exam: 05/17/20 08:22 portable chest x-ray reveals a infiltrate left lower lobe of the lung. There are no lung or chest x-rays for comparison views since April 03, 2020. O2 sats are 94%. BP 05/21/1971 with a heart rate of 121 sinus tachycardia. 05/17/20 08:44 patient denies any chills. He is definitely becoming more febrile since admission to the ED. We will give Tylenol 975 mg p.o. O2 sats are now 95%. 05/17/20 08:45 White count is 8.39 with a left shift of 83% neutrophils no bands cells reported. Hemoglobin is 12.12 with hematocrit of 37.3 MCV slightly elevated 93.5. Platelet count 325,000. Blood gases reveal a pH of 7.38 PCO2 is 49 PO2 was 67 with bicarb of 28.2. O2 saturations 94%. This is on 3 L of oxygen by nasal cannula. I am going to add Zosyn 4.5 gm to his treatment plan to cover anaerobes. 05/17/20 09:22 Chemistry is now back showing a sodium of 142 potassium 3.8. Chloride 101 with a bicarb of 32. Anion gap is 12.8. BUN is 15 with a creatinine 1.1. GFR remains greater than 60. Glucose is 115 with a calcium of 8.9. Magnesium 1.8. Total bilirubin is 0.5 with a slightly elevated AST at 94 and ALT at 121. Alk phosphatase is normal at 68. LDH is pending troponin I is less than 0.017 C-reactive protein minimally elevated at 2.4 total protein 7.3 with an albumin fraction of 3.8. 05/17/20 09:22 Case will be discussed with on-call hospitalist Dr. Awan with a view to admission to the hospital [facility] floor.. 05/17/20 11:30: I was able to discuss case with Dr. Curtis and he will see the patient in the ED with a view to admission to the [facility] surgery floor. Departure - Departure Time of Disposition: 11:40 Disposition: Admitted As Inpatient 67 Condition: Serious Clinical Impression: Febrile illness, acute, Hiatal hernia Aspiration pneumonia Qualifiers: Aspiration pneumonia type: unspecified Laterality: left Lung location: lower lobe of lung Qualified Code(s): J69.0 - Pneumonitis due to inhalation of food and vomit - Discharge Information *PRESCRIPTION DRUG MONITORING PROGRAM REVIEWED*: Not Applicable *COPY OF PRESCRIPTION DRUG MONITORING REPORT IN PATIENT MIKE: Not Applicable Sepsis Event Note (ED) - Focused Exam Vital Signs: Vital Signs Temp Temp Pulse Resp BP Pulse Ox Pulse Ox 05/17/20 08:53 38.7 C H 05/17/20 07:38 86 L 05/17/20 07:28 38.2 C H 80 22 H 125/75 78 L - My Orders Last 24 Hours: My Active Orders 05/17/20 07:36 EKG Documentation Completion [RC] STAT Oxygen Therapy [RC] ASDIRECTED Blood Culture x2 Reflex Set [OM.PC] Stat 05/17/20 07:37 URINALYSIS W/MICROSCOPIC [UA W/MICROSCOPIC] [URIN] Stat 05/17/20 07:45 Dextrose 5%-0.9% NaCl [Dextrose 5%-Normal Saline] 1,000 ml IV ASDIRECTED 05/17/20 08:10 RT Aerosol Therapy [RC] ASDIRECTED Albuterol/Ipratropium [DuoNeb 3.0-0.5 MG/3 ML] 3 ml NEB Q4H PRN 05/17/20 08:11 CULTURE BLOOD [BC] Stat FERRITIN [CHEM] Stat 05/17/20 08:22 CULTURE BLOOD [BC] Stat - Assessment/Plan Last 24 Hours: My Active Orders 05/17/20 07:36 EKG Documentation Completion [RC] STAT Oxygen Therapy [RC] ASDIRECTED Blood Culture x2 Reflex Set [OM.PC] Stat 05/17/20 07:37 URINALYSIS W/MICROSCOPIC [UA W/MICROSCOPIC] [URIN] Stat 05/17/20 07:45 Dextrose 5%-0.9% NaCl [Dextrose 5%-Normal Saline] 1,000 ml IV ASDIRECTED 05/17/20 08:10 RT Aerosol Therapy [RC] ASDIRECTED Albuterol/Ipratropium [DuoNeb 3.0-0.5 MG/3 ML] 3 ml NEB Q4H PRN 05/17/20 08:11 CULTURE BLOOD [BC] Stat FERRITIN [CHEM] Stat 05/17/20 08:22 CULTURE BLOOD [BC] Stat
[2020-05-17] MEDS ORDERED: Dextrose 5%-0.9% NaCl 1,000 ML IV SCH (07:45)
[2020-05-17] MEDS ORDERED: Albuterol/Ipratropium 3.0-0.5 MG/3 ML Neb Soln NEB PRN (08:10)
[2020-05-17] MEDS ORDERED: cefTRIAXone 2 GM in Sodium Chloride 0.9% 100 ML IV ONE (08:19)
[2020-05-17] MEDS ORDERED: Acetaminophen 325 MG Tab PO ONE (08:43)
--- NOTE | 2020-05-17 08:45 | CR ---
Chest: Portable view of the chest was obtained. Comparison: Prior chest x-ray of 01/14/20. Heart size and mediastinum are normal. Increased density is identified within the left lung base. Lungs otherwise are clear. Bony structures appear unremarkable. Impression: 1. Findings suspicious for left lower lobe pneumonia. Diagnostic code #3
[2020-05-17] MEDS ORDERED: Ampicillin/Sulbactam Na 1.5 GM in Sodium Chloride 0.9% 100 ML IV SCH (09:00)
[2020-05-17] MEDS ORDERED: Ampicillin/Sulbactam Na 1.5 GM in Sodium Chloride 0.9% 100 ML IV ONE (09:09)
[2020-05-17] MEDS ORDERED: Piperacillin/Tazobactam 4.5 GM in Sodium Chloride 0.9% 100 ML IV ONE ×2 (09:13→09:15)
--- NOTE | 2020-05-17 11:10 | PCM.HP.2 ---
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 He has a similar episode back in March and was sent to [place] for treatment. He was discharged there after 3 days of hospital stay with oral antibiotic. Upon presentation to ED, he was found sating in the 70s to 80s on RA. He had a temp as high as 102F with leukocytosis. He is currently on 2L NC sating adequately. He received IV unasyn and rocephin prior to coming in to the floor fo further management. Back Pain Score (Numeric/FACES): 8 - Related Data Allergies/Adverse Reactions: Allergies Allergy/AdvReac Type Severity Reaction Status Date / Time oxycodone AdvReac Headache Verified 05/18/20 11:27 Home Medications: Home Meds ALPRAZolam [Xanax] 1 mg PO BEDTIME 04/19/19 [History] Cyclobenzaprine [Flexeril] 10 mg PO TID PRN 04/19/19 [History] Desvenlafaxine Succinate [Pristiq] 50 mg PO DAILY 04/19/19 [History] Hydrocodone/Acetaminophen [Hydrocodone-Acetamin 10-325 mg] 1 tab PO Q4H PRN 04/19/19 [History] Pantoprazole Sodium 40 mg PO BID #60 tablet. 06/09/19 [Rx] Cefuroxime Axetil [Ceftin] 500 mg PO BID 05/17/20 [History] Fenofibrate Nanocrystallized [Fenofibrate] 145 mg PO DAILY 05/17/20 [History] Gabapentin [Neurontin] 300 mg PO TID 05/17/20 [History] Metoprolol Succinate [Toprol XL 50mg] 50 mg PO BID 05/17/20 [History] Rosuvastatin Calcium 20 mg PO BEDTIME 05/17/20 [History] Past Medical History HEENT History: Reports: Impaired Vision, Other (See Below) Other HEENT History: root canal on 06/03/2019, wears eyeglasses. Born with a cleft palate. Cardiovascular History: Reports: Other (See Below) Other Cardiovascular History: Tachycardia Respiratory History: Reports: Pneumonia, Recurrent Other Respiratory History: pneumonia in past, states its not recurrent. Patient has a history of recurrent aspiration pneumonitis. Gastrointestinal History: Reports: GERD, Hiatal Hernia Genitourinary History: Reports: Acute Renal Failure Musculoskeletal History: Reports: Back Pain, Chronic, Fracture Other Musculoskeletal History: Broke neck in 2005. -Neck/back swell around nerves and he gets muscle spasms Neurological History: Reports: Concussion Psychiatric History: Reports: Anxiety Endocrine/Metabolic History: Reports: Obesity/BMI 30+ Hematologic History: Reports: None Immunologic History: Reports: Other (See Below) Other Immunologic History: mono in high school Oncologic (Cancer) History: Reports: None Dermatologic History: Reports: None - Infectious Disease History Infectious Disease History: Reports: Chicken Pox - Past Surgical History HEENT Surgical History: Reports: Oral Surgery Other HEENT Surgeries/Procedures: cleft palate. GI Surgical History: Reports: Hernia Repair/Other Other GI Surgeries/Procedures: Hernia surgery Social & Family History - Family History Family Medical History: No Pertinent Family History - Tobacco Use Tobacco Use Status *Q: Former Tobacco User Used Tobacco, but Quit: Yes Month/Year Tobacco Last Used: 2017 - Caffeine Use Caffeine Use: Reports: None Caffeine Use Comment: Drinks about 2 20oz bottles of soda per day - Recreational Drug Use Recreational Drug Use: No - Living Situation & Occupation Living situation: Reports: Occupation: Employed H&P Review of Systems - Review of Systems: Review Of Systems: See Below General: Reports: Fever, Chills. Denies: Fatigue HEENT: Denies: Contact Lenses Pulmonary: Reports: Cough, Other (choking spell). Denies: Shortness of Breath Cardiovascular: Denies: Chest Pain Gastrointestinal: Denies: Abdominal Pain, Hematemesis, Vomiting Genitourinary: Denies: Frequency Musculoskeletal: Reports: Back Pain Skin: Denies: Cyanosis Psychiatric: Denies: Confusion, Anxiety Neurological: Denies: Dizziness, Headache, Syncope, Weakness Hematologic/Lymphatic: Reports: No Symptoms Immunologic: Reports: No Symptoms Exam - Exam Exam: See Below - Vital Signs Vital Signs: Last Vital Signs Temp 38.7 C H 05/17/20 08:53 Pulse 80 05/17/20 07:28 Resp 22 H 05/17/20 07:28 BP 125/75 05/17/20 07:28 Pulse Ox 86 L 05/17/20 07:38 Weight: 97.522 kg - Exam Quality Assessment: Supplemental Oxygen General: Alert, Oriented, Cooperative, Mild Distress HEENT: Conjunctiva Clear, EACs Clear, EOMI, Hearing Intact, Nares Patent, Normal Nasal Septum, Posterior Pharynx Clear, Pupils Equal, Pupils Reactive. No: Mucosa Moist & Cushing Neck: Supple, Trachea Midline Lungs: Normal Respiratory Effort, Decreased Breath Sounds Cardiovascular: Regular Rate, Regular Rhythm GI/Abdominal Exam: Normal Bowel Sounds, Non-Tender, No Organomegaly, No Distention (Male) Exam: Deferred Rectal (Males) Exam: Deferred Back Exam: Normal Inspection, Decreased Range of Motion Extremities: Normal Inspection, Normal Range of Motion, Non-Tender, No Pedal Edema, Normal Capillary Refill Peripheral Pulses: 2+: Dorsalis Pedis (L), Dorsalis Pedis (R) Skin: Warm, Dry, Intact Neuro Extensive - Mental Status: Oriented x3, Normal Cognition, Memory Intact Neuro Extensive - Motor, Sensory, Reflexes: CN II-XII Intact, Normal Gait Psychiatric: Alert, Normal Affect, Normal Mood - Patient Data Lab Results Last 24 hrs: Laboratory Results - last 24 hr 05/17/20 05/17/20 05/17/20 Range/Units 08:11 08:11 08:11 WBC 8.39 (4.23-9.07) K/mm3 RBC 3.99 L (4.63-6.08) M/mm3 Hgb 12.2 L (13.7-17.5) gm/dl Hct 37.3 L (40.1-51.0) % MCV 93.5 H (79.0-92.2) fl MCH 30.6 (25.7-32.2) pg MCHC 32.7 (32.2-35.5) g/dl RDW Std Deviation 40.3 (35.1-43.9) fL Plt Count 325 D (163-337) K/mm3 MPV 8.4 L (9.4-12.3) fl Neutrophils % (Manual) 83 H (40-60) % Band Neutrophils % 0 (0-10) % Lymphocytes % (Manual) 13 L (20-40) % Atypical Lymphs % 0 % Monocytes % (Manual) 4 (2-10) % Eosinophils % (Manual) 0 L (0.8-7.0) % Basophils % (Manual) 0 L (0.2-1.2) Platelet Estimate Adequate RBC Morph Comment Normal PT 11.3 (9.7-12.0) SECONDS INR 1.06 APTT 21.9 (21.7-31.4) SECONDS D-Dimer, Quantitative (0.19-0.50) mg/L Puncture Site ABG pH (7.35-7.45) ABG pCO2 (35.0-45.0) mmHg ABG pO2 (80.0-100.0) mmHg ABG HCO3 (22.0-26.0) meq/L ABG O2 Saturation (96.0-97.0) % ABG Base Excess (-2-2.0) Frederic Test A-a Gradient mmHg O2 Delivery Device Oxygen Flow Rate FiO2 (21.00-100.00) % Sodium 142 (136-145) mEq/L Potassium 3.8 (3.5-5.1) mEq/L Chloride 101 (98-107) mEq/L Carbon Dioxide 32 (21-32) mEq/L Anion Gap 12.8 (5-15) BUN 15 (7-18) mg/dL Creatinine 1.1 (0.7-1.3) mg/dL Est Cr Clr Drug Dosing 93.09 mL/min Estimated GFR (MDRD) > 60 (>60) mL/min BUN/Creatinine Ratio 13.6 L (14-18) Glucose 115 H (74-106) mg/dL Lactic Acid (0.4-2.0) mmol/L Calcium 8.9 (8.5-10.1) mg/dL Magnesium 1.8 (1.8-2.4) mg/dl Total Bilirubin 0.5 (0.2-1.0) mg/dL AST 94 H (15-37) U/L ALT 121 H (16-63) U/L Alkaline Phosphatase 68 (46-116) U/L Lactate Dehydrogenase 244 H (85-227) U/L Troponin I < 0.017 (0.00-0.056) ng/mL C-Reactive Protein 2.4 H* (<1.0) mg/dL NT-Pro-B Natriuret Pep (0-125) pg/mL Total Protein 7.3 (6.4-8.2) g/dl Albumin 3.8 (3.4-5.0) g/dl Globulin 3.5 gm/dL Albumin/Globulin Ratio 1.1 (1-2) 05/17/20 05/17/20 05/17/20 Range/Units 08:11 08:11 08:11 WBC (4.23-9.07) K/mm3 RBC (4.63-6.08) M/mm3 Hgb (13.7-17.5) gm/dl Hct (40.1-51.0) % MCV (79.0-92.2) fl MCH (25.7-32.2) pg MCHC (32.2-35.5) g/dl RDW Std Deviation (35.1-43.9) fL Plt Count (163-337) K/mm3 MPV (9.4-12.3) fl Neutrophils % (Manual) (40-60) % Band Neutrophils % (0-10) % Lymphocytes % (Manual) (20-40) % Atypical Lymphs % % Monocytes % (Manual) (2-10) % Eosinophils % (Manual) (0.8-7.0) % Basophils % (Manual) (0.2-1.2) Platelet Estimate RBC Morph Comment PT (9.7-12.0) SECONDS INR APTT (21.7-31.4) SECONDS D-Dimer, Quantitative 0.39 (0.19-0.50) mg/L Puncture Site ABG pH (7.35-7.45) ABG pCO2 (35.0-45.0) mmHg ABG pO2 (80.0-100.0) mmHg ABG HCO3 (22.0-26.0) meq/L ABG O2 Saturation (96.0-97.0) % ABG Base Excess (-2-2.0) Frederic Test A-a Gradient mmHg O2 Delivery Device Oxygen Flow Rate FiO2 (21.00-100.00) % Sodium (136-145) mEq/L Potassium (3.5-5.1) mEq/L Chloride (98-107) mEq/L Carbon Dioxide (21-32) mEq/L Anion Gap (5-15) BUN (7-18) mg/dL Creatinine (0.7-1.3) mg/dL Est Cr Clr Drug Dosing mL/min Estimated GFR (MDRD) (>60) mL/min BUN/Creatinine Ratio (14-18) Glucose (74-106) mg/dL Lactic Acid 1.6 (0.4-2.0) mmol/L Calcium (8.5-10.1) mg/dL Magnesium (1.8-2.4) mg/dl Total Bilirubin (0.2-1.0) mg/dL AST (15-37) U/L ALT (16-63) U/L Alkaline Phosphatase (46-116) U/L Lactate Dehydrogenase (85-227) U/L Troponin I (0.00-0.056) ng/mL C-Reactive Protein (<1.0) mg/dL NT-Pro-B Natriuret Pep 34 (0-125) pg/mL Total Protein (6.4-8.2) g/dl Albumin (3.4-5.0) g/dl Globulin gm/dL Albumin/Globulin Ratio (1-2) 05/17/20 Range/Units 08:25 WBC (4.23-9.07) K/mm3 RBC (4.63-6.08) M/mm3 Hgb (13.7-17.5) gm/dl Hct (40.1-51.0) % MCV (79.0-92.2) fl MCH (25.7-32.2) pg MCHC (32.2-35.5) g/dl RDW Std Deviation (35.1-43.9) fL Plt Count (163-337) K/mm3 MPV (9.4-12.3) fl Neutrophils % (Manual) (40-60) % Band Neutrophils % (0-10) % Lymphocytes % (Manual) (20-40) % Atypical Lymphs % % Monocytes % (Manual) (2-10) % Eosinophils % (Manual) (0.8-7.0) % Basophils % (Manual) (0.2-1.2) Platelet Estimate RBC Morph Comment PT (9.7-12.0) SECONDS INR APTT (21.7-31.4) SECONDS D-Dimer, Quantitative (0.19-0.50) mg/L Puncture Site Rt radial ABG pH 7.38 (7.35-7.45) ABG pCO2 49.0 H (35.0-45.0) mmHg ABG pO2 67.0 L (80.0-100.0) mmHg ABG HCO3 28.2 H (22.0-26.0) meq/L ABG O2 Saturation 93.8 L (96.0-97.0) % ABG Base Excess 2.9 H (-2-2.0) Frederic Test Positive A-a Gradient 128 mmHg O2 Delivery Device Nasal cannula Oxygen Flow Rate 3.0 FiO2 32.00 (21.00-100.00) % Sodium (136-145) mEq/L Potassium (3.5-5.1) mEq/L Chloride (98-107) mEq/L Carbon Dioxide (21-32) mEq/L Anion Gap (5-15) BUN (7-18) mg/dL Creatinine (0.7-1.3) mg/dL Est Cr Clr Drug Dosing mL/min Estimated GFR (MDRD) (>60) mL/min BUN/Creatinine Ratio (14-18) Glucose (74-106) mg/dL Lactic Acid (0.4-2.0) mmol/L Calcium (8.5-10.1) mg/dL Magnesium (1.8-2.4) mg/dl Total Bilirubin (0.2-1.0) mg/dL AST (15-37) U/L ALT (16-63) U/L Alkaline Phosphatase (46-116) U/L Lactate Dehydrogenase (85-227) U/L Troponin I (0.00-0.056) ng/mL C-Reactive Protein (<1.0) mg/dL NT-Pro-B Natriuret Pep (0-125) pg/mL Total Protein (6.4-8.2) g/dl Albumin (3.4-5.0) g/dl Globulin gm/dL Albumin/Globulin Ratio (1-2) Result Diagrams: 05/18/20 05:00 05/18/20 05:00 Sepsis Event Note - Evaluation Sepsis Screening Result: No Definite Risk - Focused Exam Vital Signs: Vital Signs Temp Temp Pulse Resp BP Pulse Ox Pulse Ox 05/17/20 08:53 38.7 C H 05/17/20 07:38 86 L 05/17/20 07:28 38.2 C H 80 22 H 125/75 78 L Problem List Initiated/Reviewed/Updated: Yes Orders Last 24hrs: Active Orders 24 hr Category Date Time Status Admission Status [Patient Status] [ADT] Routine ADT 05/17/20 09:33 Active EKG Documentation Completion [RC] STAT Care 05/17/20 07:36 Active Oxygen Therapy [RC] ASDIRECTED Care 05/17/20 07:36 Active RT Aerosol Therapy [RC] ASDIRECTED Care 05/17/20 08:10 Active CULTURE BLOOD [BC] Stat Lab 05/17/20 08:11 Received CULTURE BLOOD [BC] Stat Lab 05/17/20 08:22 Received FERRITIN [CHEM] Stat Lab 05/17/20 08:11 Received URINALYSIS W/MICROSCOPIC [UA W/MICROSCOPIC] [URIN] Stat Lab 05/17/20 07:37 Ordered Albuterol/Ipratropium [DuoNeb 3.0-0.5 MG/3 ML] Med 05/17/20 08:10 Active 3 ml NEB Q4H PRN Dextrose 5%-0.9% NaCl [Dextrose 5%-Normal Saline] 1,000 Med 05/17/20 07:45 A ctive ml IV ASDIRECTED Blood Culture x2 Reflex Set [OM.PC] Stat Oth 05/17/20 07:36 Ordered Medication Orders Albuterol/Ipratropium (Duoneb 3.0-0.5 Mg/3 Ml) 3 ml NEB Q4H PRN PRN Reason: Shortness Of Breath/wheezing Last Admin: 05/17/20 08:19 Dose: 3 ml Documented by: LACHELLE Dextrose/Sodium Chloride (Dextrose 5%-Normal Saline) 1,000 mls @ 500 mls/hr IV ASDIRECTED RICH Last Admin: 05/17/20 08:12 Dose: 500 mls/hr Documented by: SHIRLEY Assessment/Plan Comment:: This is a 40 yo white male with past medical hx/o Impaired Vision, Hx/o Cleft palate, Recurrent Pneumonia, GERD, Hx/o Aspiration Pneumonitis, Chronic Back Pain, Anxiety, Obesity and 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 Assessment: Acute: LLL Pneumonia/Aspiration Pneumonitis Hypoxia with O2 sat in the 70s-80s S/p Fever Hyperglycemia Elevated Liver Enzymes Elevated LDH Elevated CRP Fatty Live via U/S Class I Obese Hx/o Congenital Cleft Palate Recent Naso-septal Surgery Chronic: Impaired Vision, Hx/o Cleft palate, Recurrent Pneumonia, GERD, Hx/o Aspiration Pneumonitis, Chronic Back Pain, Anxiety, Obesity and Recent Nasal Surgery Plan: Admit to [facility]. Routine AM Labs. Monitor for Sepsis. Speech eval. NPO until speech eval. Resume some home medications. IV antibiotic. DVT/GI prophylaxis. Sputum Cx with gram strain. IS as directed. PRN decongestant/expectorant. PRN anti-emetic agents. Supplemental O2. - Mortality Measure Prognosis:: Good
[2020-05-17] MEDS ORDERED: Ondansetron 4 MG/2 ML SDV IV PRN (11:34)
[2020-05-17] MEDS ORDERED: Polyethylene Glycol 3350 Powder 17 GM Packet PO PRN (11:34)
[2020-05-17] MEDS ORDERED: Ibuprofen 400 MG Tab PO PRN (11:34)
[2020-05-17] MEDS ORDERED: Promethazine 12.5 MG in Sodium Chloride 0.9% 50 ML IV PRN (11:34)
[2020-05-17] MEDS ORDERED: guaiFENesin/Dextromethorphan 100-10 MG/5 ML Soln 5 ML Cup PO PRN (11:38)
[2020-05-17] MEDS ORDERED: Sodium Chloride 0.9% 1,000 ML IV SCH (11:45)
--- NOTE | 2020-05-17 13:28 | US ---
Limited abdominal ultrasound: Multiple real-time images were obtained of the upper right abdomen. Comparison: No prior abdominal ultrasound is available. Liver shows increased echoes most likely representing fatty infiltration. Gallbladder contains no shadowing gallstones. No gallbladder wall thickening or biliary duct dilatation is appreciated. Right kidney is not evaluated due to bowel gas. Left kidney is without hydronephrosis or mass and has a length of 13.5 cm. Inferior vena cava is patent. Main portal vein shows normal hepatopedal flow. Impression: 1. Findings felt compatible with fatty infiltration within the liver. 2. Nonvisualized right kidney due to bowel gas. 3. No additional abnormality is seen on right upper quadrant abdominal ultrasound. Diagnostic code #3
[2020-05-17] MEDS: Gabapentin 300 MG Cap PO SCH ×2 (16:33→21:27)
[2020-05-17] MEDS: Piperacillin/Tazobactam 4.5 GM in Sodium Chloride 0.9% 100 ML IV SCH (17:00)
[2020-05-17] MEDS ORDERED: ALPRAZolam 0.5 MG Tab PO SCH (21:00)
[2020-05-17] MEDS ORDERED: Pantoprazole 40 MG Vial IV SCH (21:00)
[2020-05-17] MEDS: Pantoprazole 40 MG Tab.CR PO SCH (21:27)
[2020-05-17] MEDS: Metoprolol Succinate 50 MG Tab.ER PO SCH (21:28)
[2020-05-18] MEDS: Piperacillin/Tazobactam 4.5 GM in Sodium Chloride 0.9% 100 ML IV SCH ×3 (00:45→16:55)
[2020-05-18] MEDS: Cyclobenzaprine 10 MG Tab PO PRN ×2 (06:01→14:35)
[2020-05-18] MEDS: Pantoprazole 40 MG Tab.CR PO SCH ×2 (09:36→21:01)
[2020-05-18] MEDS: Gabapentin 300 MG Cap PO SCH ×3 (09:36→21:01)
[2020-05-18] MEDS: Metoprolol Succinate 50 MG Tab.ER PO SCH ×2 (09:37→21:02)
[2020-05-18] MEDS: Fenofibrate Nanocrystallized 145 MG Tab PO SCH (09:37)
[2020-05-18] MEDS ORDERED: HYDROmorphone 1 MG/ML Syringe IVPUSH PRN (11:04)
[2020-05-18] MEDS: Desvenlafaxine Succinate [Pristiq] 50 MG PO SCH (11:19)
[2020-05-18] MEDS: Acetaminophen/HYDROcodone 325-10 MG Tab PO PRN ×2 (11:43→21:02)
--- NOTE | 2020-05-18 12:10 | PCM.PN ---
- General Info Date of Service: 05/18/20 Admission Dx/Problem (Free Text): Admission Diagnosis/Problem Admission Diagnosis/Problem Aspiration pneumonia due to gastric secretions Subjective Update: No overnight or acute issues. He is doing better this AM. He rested well last night. He denies having fever, chills or shortness of breath. He is coughing but w/o phlegm. No coughing spell. He eating and drinking okay. He denies having GI/ complaints. Functional Status: Reports: Pain Controlled, Tolerating Diet, Ambulating, Urinating, Incentive Spirometry. Denies: New Symptoms - Review of Systems General: Denies: Fever, Chills HEENT: Denies: Contact Lenses Pulmonary: Reports: Cough. Denies: Shortness of Breath Cardiovascular: Denies: Chest Pain Gastrointestinal: Denies: Abdominal Pain, Nausea, Vomiting Genitourinary: Denies: Incontinence Musculoskeletal: Denies: Neck Pain Skin: Denies: Cyanosis, Bruising, Rash Neurological: Denies: Confusion, Seizure, Weakness Psychiatric: Denies: Depression, Anxiety - Patient Data Vitals - Most Recent: Last Vital Signs Temp 36.4 C 05/18/20 11:21 Pulse 111 H 05/18/20 11:21 Resp 16 05/18/20 11:21 BP 101/65 05/18/20 11:21 Pulse Ox 90 L 05/18/20 11:21 Weight - Most Recent: 98.339 kg I&O - Last 24 Hours: Intake & Output 05/17/20 05/18/20 05/18/20 22:59 06:59 14:59 Intake Total 583 400 240 Output Total 750 Balance -167 400 240 Lab Results Last 24 Hours: Laboratory Results - last 24 hr 05/17/20 05/17/20 05/18/20 Range/Units 08:11 21:45 05:00 WBC 7.91 (4.23-9.07) K/mm3 RBC 3.45 L (4.63-6.08) M/mm3 Hgb 10.6 L D (13.7-17.5) gm/dl Hct 32.8 L (40.1-51.0) % MCV 95.1 H (79.0-92.2) fl MCH 30.7 (25.7-32.2) pg MCHC 32.3 (32.2-35.5) g/dl RDW Std Deviation 41.7 (35.1-43.9) fL Plt Count 296 (163-337) K/mm3 MPV 8.9 L (9.4-12.3) fl Neut % (Auto) 72.8 H (34.0-67.9) % Lymph % (Auto) 17.3 L (21.8-53.1) % [place] % (Auto) 7.7 (5.3-12.2) % Eos % (Auto) 1.6 (0.8-7.0) Baso % (Auto) 0.3 (0.1-1.2) % Neut # (Auto) 5.76 H (1.78-5.38) K/mm3 Lymph # (Auto) 1.37 (1.32-3.57) K/mm3 [place] # (Auto) 0.61 (0.30-0.82) K/mm3 Eos # (Auto) 0.13 (0.04-0.54) K/mm3 Baso # (Auto) 0.02 (0.01-0.08) K/mm3 Sodium (136-145) mEq/L Potassium (3.5-5.1) mEq/L Chloride (98-107) mEq/L Carbon Dioxide (21-32) mEq/L Anion Gap (5-15) BUN (7-18) mg/dL Creatinine (0.7-1.3) mg/dL Est Cr Clr Drug Dosing mL/min Estimated GFR (MDRD) (>60) mL/min BUN/Creatinine Ratio (14-18) Glucose (74-106) mg/dL Calcium (8.5-10.1) mg/dL Magnesium (1.8-2.4) mg/dl Ferritin 229 (26-388) ng/ml C-Reactive Protein (<1.0) mg/dL Urine Color Yellow (Yellow) Urine Appearance Clear (Clear) Urine pH 7.5 (5.0-8.0) Ur Specific [place] 1.020 (1.005-1.030) Urine Protein Negative (Negative) Urine Glucose (UA) Negative (Negative) Urine Ketones Negative (Negative) Urine Occult Blood Negative (Negative) Urine Nitrite Negative (Negative) Urine Bilirubin Negative (Negative) Urine Urobilinogen 0.2 (0.2-1.0) Ur Leukocyte Esterase Negative (Negative) Urine RBC Not seen (0-5) /hpf Urine WBC Not seen (0-5) /hpf Ur Squamous Epith Cells Not seen (0-5) /hpf Urine Bacteria Rare (FEW) /hpf Urine Mucus Not seen (FEW) /hpf 05/18/20 Range/Units 05:00 WBC (4.23-9.07) K/mm3 RBC (4.63-6.08) M/mm3 Hgb (13.7-17.5) gm/dl Hct (40.1-51.0) % MCV (79.0-92.2) fl MCH (25.7-32.2) pg MCHC (32.2-35.5) g/dl RDW Std Deviation (35.1-43.9) fL Plt Count (163-337) K/mm3 MPV (9.4-12.3) fl Neut % (Auto) (34.0-67.9) % Lymph % (Auto) (21.8-53.1) % [place] % (Auto) (5.3-12.2) % Eos % (Auto) (0.8-7.0) Baso % (Auto) (0.1-1.2) % Neut # (Auto) (1.78-5.38) K/mm3 Lymph # (Auto) (1.32-3.57) K/mm3 [place] # (Auto) (0.30-0.82) K/mm3 Eos # (Auto) (0.04-0.54) K/mm3 Baso # (Auto) (0.01-0.08) K/mm3 Sodium 139 (136-145) mEq/L Potassium 3.8 (3.5-5.1) mEq/L Chloride 102 (98-107) mEq/L Carbon Dioxide 25 (21-32) mEq/L Anion Gap 15.8 H (5-15) BUN 19 H (7-18) mg/dL Creatinine 1.0 (0.7-1.3) mg/dL Est Cr Clr Drug Dosing 102.40 mL/min Estimated GFR (MDRD) > 60 (>60) mL/min BUN/Creatinine Ratio 19.0 H (14-18) Glucose 104 (74-106) mg/dL Calcium 8.6 (8.5-10.1) mg/dL Magnesium 1.8 (1.8-2.4) mg/dl Ferritin (26-388) ng/ml C-Reactive Protein 15.8 H* (<1.0) mg/dL Urine Color (Yellow) Urine Appearance (Clear) Urine pH (5.0-8.0) Ur Specific [place] (1.005-1.030) Urine Protein (Negative) Urine Glucose (UA) (Negative) Urine Ketones (Negative) Urine Occult Blood (Negative) Urine Nitrite (Negative) Urine Bilirubin (Negative) Urine Urobilinogen (0.2-1.0) Ur Leukocyte Esterase (Negative) Urine RBC (0-5) /hpf Urine WBC (0-5) /hpf Ur Squamous Epith Cells (0-5) /hpf Urine Bacteria (FEW) /hpf Urine Mucus (FEW) /hpf Akbar Results Last 24 Hours: Microbiology 05/18/20 04:45 Gram Stain - Final Sputum - Expectorated 05/17/20 08:11 Aerobic Blood Culture - Preliminary Blood - Venous NO GROWTH AFTER 1 DAY Anaerobic Blood Culture - Preliminary NO GROWTH AFTER 1 DAY 05/17/20 08:22 Aerobic Blood Culture - Preliminary Blood - Venous - Lab Draw NO GROWTH AFTER 1 DAY Anaerobic Blood Culture - Preliminary NO GROWTH AFTER 1 DAY Med Orders - Current: Current Medications Hydrocodone Bitart/Acetaminophen ([place] 325-10 Mg) 1 tab PO Q4H PRN PRN Reason: Pain Last Admin: 05/18/20 11:43 Dose: 1 tab Documented by: Albuterol/Ipratropium (Duoneb 3.0-0.5 Mg/3 Ml) 3 ml NEB Q4H PRN PRN Reason: Shortness Of Breath/wheezing Last Admin: 05/17/20 08:19 Dose: 3 ml Documented by: Alprazolam (Xanax) 1 mg PO BEDTIME REPLACED BY [facility] Cyclobenzaprine HCl (Flexeril) 10 mg PO TID PRN PRN Reason: Pain Last Admin: 05/18/20 06:01 Dose: 10 mg Documented by: Fenofibrate (Tricor) 145 mg PO DAILY REPLACED BY [facility] Last Admin: 05/18/20 09:37 Dose: 145 mg Documented by: Gabapentin (Neurontin) 300 mg PO TID REPLACED BY [facility] Last Admin: 05/18/20 09:36 Dose: 300 mg Documented by: Guaifenesin/Phenylephrine HCl (Robitussin Dm) 10 ml PO Q4H PRN PRN Reason: Cough Hydromorphone HCl (Dilaudid) 1 mg IVPUSH Q4H PRN PRN Reason: Pain Promethazine HCl 12.5 mg/ (Sodium Chloride) 50.5 mls @ 100 mls/hr IV Q6H PRN PRN Reason: Nausea/Vomiting Piperacillin Sod/Tazobactam (Sod 4.5 gm/ Sodium Chloride) 100 mls @ 25 mls/hr IV Q8H REPLACED BY [facility] Last Admin: 05/18/20 09:35 Dose: 25 mls/hr Documented by: Ibuprofen (Motrin) 400 mg PO Q6H PRN PRN Reason: Pain (mild 1-3) Last Admin: 05/18/20 03:47 Dose: 400 mg Documented by: Metoprolol Succinate (Toprol Xl) 50 mg PO BID REPLACED BY [facility] Last Admin: 05/18/20 09:37 Dose: 50 mg Documented by: Ondansetron HCl (Zofran) 4 mg IV Q6H PRN PRN Reason: Nausea/Vomiting Pantoprazole Sodium (Protonix) 40 mg PO BID REPLACED BY [facility] Last Admin: 05/18/20 09:36 Dose: 40 mg Documented by: Desvenlafaxine Succinate [Pristiq] 50 Mg 0 each PO DAILY REPLACED BY [facility] Last Admin: 05/18/20 11:19 Dose: Not Given Documented by: Polyethylene Glycol (Miralax) 17 gm PO DAILY PRN PRN Reason: Constipation Discontinued Medications Acetaminophen (Tylenol) 975 mg PO ONETIME ONE Stop: 05/17/20 08:44 Last Admin: 05/17/20 08:53 Dose: 975 mg Documented by: Alprazolam (Xanax) 1 mg PO BEDTIME REPLACED BY [facility] Last Admin: 05/17/20 21:27 Dose: 1 mg Documented by: Dextrose/Sodium Chloride (Dextrose 5%-Normal Saline) 1,000 mls @ 500 mls/hr IV ASDIRECTED REPLACED BY [facility] Last Admin: 05/17/20 08:12 Dose: 500 mls/hr Documented by: Ceftriaxone Sodium 2 gm/ (Sodium Chloride) 100 mls @ 200 mls/hr IV ONETIME ONE Stop: 05/17/20 08:48 Last Admin: 05/17/20 08:32 Dose: 200 mls/hr Documented by: Ampicillin Sodium/Sulbactam (Sodium 1.5 gm/ Sodium Chloride) 100 mls @ 200 mls/hr IV Q6H REPLACED BY [facility] Last Admin: 05/17/20 16:01 Dose: Not Given Documented by: Ampicillin Sodium/Sulbactam (Sodium 1.5 gm/ Sodium Chloride) 100 mls @ 200 mls/hr IV ONETIME ONE Stop: 05/17/20 09:38 Last Admin: 05/17/20 16:01 Dose: Not Given Documented by: Piperacillin Sod/Tazobactam (Sod 4.5 gm/ Sodium Chloride) 100 mls @ 200 mls/hr IV ONETIME ONE Stop: 05/17/20 09:44 Last Admin: 05/17/20 09:24 Dose: 200 mls/hr Documented by: Piperacillin Sod/Tazobactam (Sod 4.5 gm/ Sodium Chloride) 100 mls @ 200 mls/hr IV ONETIME ONE Stop: 05/17/20 09:42 Last Admin: 05/17/20 16:02 Dose: Not Given Documented by: Sodium Chloride (Normal Saline) 1,000 mls @ 100 mls/hr IV ASDIRECTED REPLACED BY [facility] Stop: 05/17/20 21:44 Last Admin: 05/17/20 14:08 Dose: 100 mls/hr Documented by: Pantoprazole Sodium (Protonix Iv) 40 mg IV Q12HR RICH - Exam Quality Assessment: Supplemental Oxygen General: Alert, Oriented, Cooperative, No Acute Distress HEENT: Pupils Equal, Pupils Reactive, EOMI, Mucous Membr. Moist/[place] Neck: Supple Lungs: Clear to Auscultation, Normal Respiratory Effort Cardiovascular: Regular Rate, Regular Rhythm GI/Abdominal Exam: Normal Bowel Sounds, Soft, Non-Tender, No Organomegaly (Male) Exam: Deferred Back Exam: Normal Inspection, Full Range of Motion Extremities: Normal Inspection, Normal Range of Motion, Non-Tender, No Pedal Edema, Normal Capillary Refill Peripheral Pulses: 2+: Dorsalis Pedis (L), Dorsalis Pedis (R) Skin: Warm, Dry, Intact Neurological: No New Focal Deficit Psy/Mental Status: Alert, Normal Affect, Normal Mood Sepsis Event Note - Evaluation Sepsis Screening Result: No Definite Risk - Focused Exam Vital Signs: Vital Signs Temp Pulse Resp BP Pulse Ox Pulse Ox 05/18/20 11:21 36.4 C 111 H 16 101/65 90 L 05/18/20 09:37 104 H 134/66 05/18/20 07:30 37.0 C 104 H 18 134/66 96 05/18/20 04:23 95 05/18/20 03:46 36.6 C 130 H 22 H 120/87 95 05/18/20 00:56 20 92 L 05/18/20 00:43 133 H 92 L - Problem List Review Problem List Initiated/Reviewed/Updated: Yes - My Orders Last 24 Hours: My Active Orders 05/17/20 11:33 Cyclobenzaprine [Flexeril] 10 mg PO TID PRN 05/17/20 11:34 Height and Weight [RC] 06 Intake and Output [RC] 04,16 Oxygen Therapy [RC] PRN Up ad Cristal [RC] BID VTE/DVT Education [RC] DAILY Vital Signs [RC] Q4HR Consult to Case Management/[employer] [CONS] Routine LEADITE MAN Evaluation and Treatment [CONS] Routine Ibuprofen [Motrin] 400 mg PO Q6H PRN Ondansetron [Zofran] 4 mg IV Q6H PRN Promethazine [Phenergan] 12.5 mg Sodium Chloride 0.9% [Normal Saline] 50 ml IV Q6H polyethylene glycoL 3350 [MiraLAX] 17 gm PO DAILY PRN Resuscitation Status Routine 05/17/20 11:38 Flutter Valve Therapy [RT Chest Physiotherapy] [RC] ASDIRECTED Incentive Spirometry [RT Incentive Spirometry] [RC] Q2HWA Dextromethorphan/guaiFENesin [Robitussin DM] 10 ml PO Q4H PRN 05/17/20 15:00 Gabapentin [Neurontin] 300 mg PO TID 05/17/20 Dinner Regular Diet [DIET] 05/17/20 17:30 Piperacillin/Tazobactam [Piperacil-Tazobact] 4.5 gm Sodium Chloride 0.9% [Normal Saline] 100 ml IV Q8H 05/17/20 17:49 CORONAVIRUS COVID-19 PCR PHL Stat 05/17/20 21:00 Metoprolol Succinate [Toprol XL] 50 mg PO BID Pantoprazole [ProTONIX] 40 mg PO BID 05/18/20 04:45 CULTURE SPUTUM + SMEAR [RM] Stat 05/18/20 09:00 Fenofibrate Nanocrystallized [Tricor] 145 mg PO DAILY Patient's Own Medication [Ptom] 0 each PO DAILY 05/18/20 11:04 Acetaminophen/HYDROcodone [[place] 325-10 MG] 1 tab PO Q4H PRN HYDROmorphone [Dilaudid] 1 mg IVPUSH Q4H PRN 05/18/20 21:00 ALPRAZolam [Xanax] 1 mg PO BEDTIME 05/19/20 05:11 Chest 1V Frontal [CR] AM BASIC METABOLIC PANEL,BMP [CHEM] AM C-REACTIVE PROTEIN [CHEM] AM CBC WITH AUTO DIFF [HEME] AM MAGNESIUM [CHEM] AM 05/20/20 05:11 BASIC METABOLIC PANEL,BMP [CHEM] AM C-REACTIVE PROTEIN [CHEM] AM CBC WITH AUTO DIFF [HEME] AM MAGNESIUM [CHEM] AM 05/21/20 05:11 BASIC METABOLIC PANEL,BMP [CHEM] AM C-REACTIVE PROTEIN [CHEM] AM CBC WITH AUTO DIFF [HEME] AM MAGNESIUM [CHEM] AM 05/22/20 05:11 BASIC METABOLIC PANEL,BMP [CHEM] AM C-REACTIVE PROTEIN [CHEM] AM CBC WITH AUTO DIFF [HEME] AM MAGNESIUM [CHEM] AM 05/23/20 05:11 BASIC METABOLIC PANEL,BMP [CHEM] AM C-REACTIVE PROTEIN [CHEM] AM CBC WITH AUTO DIFF [HEME] AM MAGNESIUM [CHEM] AM - Plan Plan:: his is a 40 yo white male with past medical hx/o Impaired Vision, Hx/o Cleft palate, Recurrent Pneumonia, GERD, Hx/o Aspiration Pneumonitis, Chronic Back Pain, Anxiety, Obesity and 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 Assessment: Acute: LLL Pneumonia/Aspiration Pneumonitis Hypoxia with O2 sat in the 70s-80s, now on 2L NC S/p Fever Hyperglycemia Elevated Liver Enzymes Elevated LDH Elevated CRP Fatty Liver via U/S Class I Obese Hx/o Congenital Cleft Palate Recent Naso-septal Surgery Chronic: Impaired Vision, Hx/o Cleft palate, Recurrent Pneumonia, GERD, Hx/o Asp iration Pneumonitis, Chronic Back Pain, Anxiety, Obesity and Recent Nasal Surgery Plan: Continue current treatment. Routine AM Labs. Covid-19/Sputum/Blood Cx pending. Regular diet. IV antibiotic:Zosyn. DVT/GI prophylaxis. Resume home dose pain medication and statin. IS as directed. PRN decongestant/expectorant. PPI for GERD/Coughing Spell. PRN anti-emetic agents. Ambulate as tolerated. Isolation protocol until Covid test is negative. Titrate to come off supplemental O2.
[2020-05-18] MEDS: ALPRAZolam 1 MG Tab PO SCH (21:01)
[2020-05-18] MEDS: Rosuvastatin 10 MG Tab PO SCH (21:01)
[2020-05-19] MEDS: Piperacillin/Tazobactam 4.5 GM in Sodium Chloride 0.9% 100 ML IV SCH ×3 (02:05→17:44)
[2020-05-19] MEDS: Acetaminophen/HYDROcodone 325-10 MG Tab PO PRN ×4 (02:05→20:03)
--- NOTE | 2020-05-19 07:44 | PCM.PN ---
- General Info Date of Service: 05/19/20 Admission Dx/Problem (Free Text): Admission Diagnosis/Problem Admission Diagnosis/Problem Aspiration pneumonia due to gastric secretions Subjective Update: He is feeling better. No fever but still has lingering cough. He reports no new complaints. His repeat chest x-ray shows increased eft lower lobe infiltrate. Functional Status: Reports: Pain Controlled, Tolerating Diet, Ambulating, Urinating. Denies: New Symptoms - Review of Systems General: Denies: Fever, Weakness, Fatigue, Malaise, Chills HEENT: Denies: Contact Lenses Pulmonary: Reports: Cough. Denies: Shortness of Breath, Wheezing Cardiovascular: Denies: Chest Pain Gastrointestinal: Denies: Abdominal Pain, Nausea, Vomiting Genitourinary: Denies: Frequency Musculoskeletal: Denies: Joint Pain Skin: Denies: Cyanosis, Bruising, Pruritis, Rash Neurological: Denies: Confusion, Headache, Syncope, Weakness Psychiatric: Denies: Depression, Anxiety - Patient Data Vitals - Most Recent: Last Vital Signs Temp 36.8 C 05/19/20 05:07 Pulse 111 H 05/19/20 05:07 Resp 16 05/19/20 05:07 BP 97/49 L 05/19/20 05:07 Pulse Ox 85 L 05/19/20 05:07 Weight - Most Recent: 96.071 kg I&O - Last 24 Hours: Intake & Output 05/18/20 05/19/20 05/19/20 22:59 06:59 14:59 Intake Total 1140 600 Balance 1140 600 Lab Results Last 24 Hours: Laboratory Results - last 24 hr 05/18/20 05/19/20 05/19/20 Range/Units 05:00 05:07 05:07 WBC 7.90 (4.23-9.07) K/mm3 RBC 3.38 L (4.63-6.08) M/mm3 Hgb 10.3 L (13.7-17.5) gm/dl Hct 32.4 L (40.1-51.0) % MCV 95.9 H (79.0-92.2) fl MCH 30.5 (25.7-32.2) pg MCHC 31.8 L (32.2-35.5) g/dl RDW Std Deviation 42.2 (35.1-43.9) fL Plt Count 343 H (163-337) K/mm3 MPV 8.7 L (9.4-12.3) fl Neut % (Auto) 63.9 (34.0-67.9) % Lymph % (Auto) 22.7 (21.8-53.1) % [place] % (Auto) 9.9 (5.3-12.2) % Eos % (Auto) 2.9 (0.8-7.0) Baso % (Auto) 0.3 (0.1-1.2) % Neut # (Auto) 5.06 (1.78-5.38) K/mm3 Lymph # (Auto) 1.79 (1.32-3.57) K/mm3 [place] # (Auto) 0.78 (0.30-0.82) K/mm3 Eos # (Auto) 0.23 (0.04-0.54) K/mm3 Baso # (Auto) 0.02 (0.01-0.08) K/mm3 Sodium 139 (136-145) mEq/L Potassium 4.3 (3.5-5.1) mEq/L Chloride 101 (98-107) mEq/L Carbon Dioxide 28 (21-32) mEq/L Anion Gap 14.3 (5-15) BUN 18 (7-18) mg/dL Creatinine 1.3 (0.7-1.3) mg/dL Est Cr Clr Drug Dosing 78.77 mL/min Estimated GFR (MDRD) > 60 (>60) mL/min BUN/Creatinine Ratio 13.8 L (14-18) Glucose 102 (74-106) mg/dL Calcium 9.1 (8.5-10.1) mg/dL Magnesium 2.0 (1.8-2.4) mg/dl Total Bilirubin 0.6 (0.2-1.0) mg/dL Direct Bilirubin 0.30 H (0.0-0.2) mg/dl Indirect Bilirubin 0.30 AST 35 (15-37) U/L ALT 88 H (16-63) U/L Alkaline Phosphatase 58 (46-116) U/L C-Reactive Protein 15.8 H* 21.5 H* (<1.0) mg/dL Total Protein 7.1 (6.4-8.2) g/dl Albumin 3.0 L (3.4-5.0) g/dl Globulin 4.1 gm/dL Albumin/Globulin Ratio 0.7 L (1-2) Akbar Results Last 24 Hours: Microbiology 05/18/20 04:45 Gram Stain - Final Sputum - Expectorated 05/17/20 08:11 Aerobic Blood Culture - Preliminary Blood - Venous NO GROWTH AFTER 1 DAY Anaerobic Blood Culture - Preliminary NO GROWTH AFTER 1 DAY 05/17/20 08:22 Aerobic Blood Culture - Preliminary Blood - Venous - Lab Draw NO GROWTH AFTER 1 DAY Anaerobic Blood Culture - Preliminary NO GROWTH AFTER 1 DAY Med Orders - Current: Current Medications Hydrocodone Bitart/Acetaminophen ([place] 325-10 Mg) 1 tab PO Q4H PRN PRN Reason: Pain Last Admin: 05/19/20 02:05 Dose: 1 tab Documented by: Albuterol/Ipratropium (Duoneb 3.0-0.5 Mg/3 Ml) 3 ml NEB Q4H PRN PRN Reason: Shortness Of Breath/wheezing Last Admin: 05/17/20 08:19 Dose: 3 ml Documented by: Alprazolam (Xanax) 1 mg PO BEDTIME [facility] Last Admin: 05/18/20 21:01 Dose: 1 mg Documented by: Cyclobenzaprine HCl (Flexeril) 10 mg PO TID PRN PRN Reason: Pain Last Admin: 05/18/20 14:35 Dose: 10 mg Documented by: Fenofibrate (Tricor) 145 mg PO DAILY [facility] Last Admin: 05/18/20 09:37 Dose: 145 mg Documented by: Gabapentin (Neurontin) 300 mg PO TID [facility] Last Admin: 05/18/20 21:01 Dose: 300 mg Documented by: Guaifenesin/Phenylephrine HCl (Robitussin Dm) 10 ml PO Q4H PRN PRN Reason: Cough Hydromorphone HCl (Dilaudid) 1 mg IVPUSH Q4H PRN PRN Reason: Pain Last Admin: 05/18/20 15:47 Dose: 1 mg Documented by: Promethazine HCl 12.5 mg/ (Sodium Chloride) 50.5 mls @ 100 mls/hr IV Q6H PRN PRN Reason: Nausea/Vomiting Piperacillin Sod/Tazobactam (Sod 4.5 gm/ Sodium Chloride) 100 mls @ 25 mls/hr IV Q8H [facility] Last Admin: 05/19/20 02:05 Dose: 25 mls/hr Documented by: Ibuprofen (Motrin) 400 mg PO Q6H PRN PRN Reason: Pain (mild 1-3) Last Admin: 05/18/20 03:47 Dose: 400 mg Documented by: Metoprolol Succinate (Toprol Xl) 50 mg PO BID [facility] Last Admin: 05/18/20 21:02 Dose: 50 mg Documented by: Ondansetron HCl (Zofran) 4 mg IV Q6H PRN PRN Reason: Nausea/Vomiting Pantoprazole Sodium (Protonix) 40 mg PO BID [facility] Last Admin: 05/18/20 21:01 Dose: 40 mg Documented by: Desvenlafaxine Succinate [Pristiq] 50 Mg 0 each PO DAILY [facility] Last Admin: 05/18/20 11:19 Dose: Not Given Documented by: Polyethylene Glycol (Miralax) 17 gm PO DAILY PRN PRN Reason: Constipation Rosuvastatin Calcium (Crestor) 20 mg PO BEDTIME [facility] Last Admin: 05/18/20 21:01 Dose: 20 mg Documented by: Discontinued Medications Acetaminophen (Tylenol) 975 mg PO ONETIME ONE Stop: 05/17/20 08:44 Last Admin: 05/17/20 08:53 Dose: 975 mg Documented by: Alprazolam (Xanax) 1 mg PO BEDTIME [facility] Last Admin: 05/17/20 21:27 Dose: 1 mg Documented by: Dextrose/Sodium Chloride (Dextrose 5%-Normal Saline) 1,000 mls @ 500 mls/hr IV ASDIRECTED [facility] Last Admin: 05/17/20 08:12 Dose: 500 mls/hr Documented by: Ceftriaxone Sodium 2 gm/ (Sodium Chloride) 100 mls @ 200 mls/hr IV ONETIME ONE Stop: 05/17/20 08:48 Last Admin: 05/17/20 08:32 Dose: 200 mls/hr Documented by: Ampicillin Sodium/Sulbactam (Sodium 1.5 gm/ Sodium Chloride) 100 mls @ 200 mls/hr IV Q6H [facility] Last Admin: 05/17/20 16:01 Dose: Not Given Documented by: Ampicillin Sodium/Sulbactam (Sodium 1.5 gm/ Sodium Chloride) 100 mls @ 200 mls/hr IV ONETIME ONE Stop: 05/17/20 09:38 Last Admin: 05/17/20 16:01 Dose: Not Given Documented by: Piperacillin Sod/Tazobactam (Sod 4.5 gm/ Sodium Chloride) 100 mls @ 200 mls/hr IV ONETIME ONE Stop: 05/17/20 09:44 Last Admin: 05/17/20 09:24 Dose: 200 mls/hr Documented by: Piperacillin Sod/Tazobactam (Sod 4.5 gm/ Sodium Chloride) 100 mls @ 200 mls/hr IV ONETIME ONE Stop: 05/17/20 09:42 Last Admin: 05/17/20 16:02 Dose: Not Given Documented by: Sodium Chloride (Normal Saline) 1,000 mls @ 100 mls/hr IV ASDIRECTED [facility] Stop: 05/17/20 21:44 Last Admin: 05/17/20 14:08 Dose: 100 mls/hr Documented by: Pantoprazole Sodium (Protonix Iv) 40 mg IV Q12HR RICH - Exam Quality Assessment: Supplemental Oxygen (2L NC) General: Alert, Oriented, Cooperative, No Acute Distress HEENT: Pupils Equal, Pupils Reactive, EOMI, Mucous Membr. Moist/[place], Other (with nasal packing) Neck: Supple Lungs: Clear to Auscultation, Normal Respiratory Effort Cardiovascular: Regular Rate, Regular Rhythm GI/Abdominal Exam: Normal Bowel Sounds, Soft, Non-Tender, No Organomegaly, No Distention, No Abnormal Bruit (Male) Exam: Deferred Back Exam: Normal Inspection, Decreased Range of Motion Extremities: Normal Inspection, Normal Range of Motion, Non-Tender, No Pedal Edema, Normal Capillary Refill, Pedal Edema Peripheral Pulses: 2+: Dorsalis Pedis (L), Dorsalis Pedis (R) Skin: Warm, Dry, Intact Neurological: No New Focal Deficit Psy/Mental Status: Alert, Normal Affect, Normal Mood Sepsis Event Note - Evaluation Sepsis Screening Result: No Definite Risk - Focused Exam Vital Signs: Vital Signs Temp Pulse Resp BP Pulse Ox 05/19/20 05:07 36.8 C 111 H 16 97/49 L 85 L 05/18/20 23:26 37.1 C 140 H 104/65 86 L 05/18/20 21:02 125 H 101/63 05/18/20 20:04 37.6 C 125 H 20 101/63 92 L - Problem List Review Problem List Initiated/Reviewed/Updated: Yes - My Orders Last 24 Hours: My Active Orders 05/18/20 09:00 Fenofibrate Nanocrystallized [Tricor] 145 mg PO DAILY Patient's Own Medication [Ptom] 0 each PO DAILY 05/18/20 11:04 Acetaminophen/HYDROcodone [[place] 325-10 MG] 1 tab PO Q4H PRN HYDROmorphone [Dilaudid] 1 mg IVPUSH Q4H PRN 05/18/20 19:10 Antiembolic Devices [RC] BID SCD [Sequential Compression Device] [OM.PC] Routine 05/18/20 21:00 ALPRAZolam [Xanax] 1 mg PO BEDTIME Rosuvastatin [Crestor] 20 mg PO BEDTIME 05/19/20 05:11 Chest 1V Frontal [CR] AM 05/20/20 05:11 BASIC METABOLIC PANEL,BMP [CHEM] AM C-REACTIVE PROTEIN [CHEM] AM CBC WITH AUTO DIFF [HEME] AM MAGNESIUM [CHEM] AM 05/21/20 05:11 BASIC METABOLIC PANEL,BMP [CHEM] AM C-REACTIVE PROTEIN [CHEM] AM CBC WITH AUTO DIFF [HEME] AM MAGNESIUM [CHEM] AM 05/22/20 05:11 BASIC METABOLIC PANEL,BMP [CHEM] AM C-REACTIVE PROTEIN [CHEM] AM CBC WITH AUTO DIFF [HEME] AM MAGNESIUM [CHEM] AM 05/23/20 05:11 BASIC METABOLIC PANEL,BMP [CHEM] AM C-REACTIVE PROTEIN [CHEM] AM CBC WITH AUTO DIFF [HEME] AM MAGNESIUM [CHEM] AM - Plan Plan:: his is a 40 yo white male with past medical hx/o Impaired Vision, Hx/o Cleft palate, Recurrent Pneumonia, GERD, Hx/o Aspiration Pneumonitis, Chronic Back Pain, Anxiety, Obesity and 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 Assessment: Acute: LLL Pneumonia/Aspiration Pneumonitis Hypoxia with O2 sat in the 80s, still on 2L NC Elevated Liver Enzymes, improving Elevated LDH Elevated CRP: 15.8-->21.5 Fatty Liver via U/S Hypoalbuminemia with Albumin of 3.0 Class I Obese Hx/o Congenital Cleft Palate Recent Naso-septal Surgery S/p removal of bilateral nasal packing Resolved: Fever Hyperglycemia Chronic: Impaired Vision, Hx/o Cleft palate, Recurrent Pneumonia, GERD, Hx/o Aspiration Pneumonitis, Chronic Back Pain, Anxiety, Obesity and Recent Nasal Surgery Plan: Continue current treatment. Routine AM Labs. Sputum Cx shows yeast. Covid- 19 test is negative. Blood cultures x2 are negative after 48 hours. Regular diet. IV antibiotic:Zosyn. DVT/GI prophylaxis. Resume home dose pain medication and statin. IS as directed. PRN decongestant/expectorant. PPI for GERD/Coughing Spell. PRN anti-emetic agents. Ambulate as tolerated. Isolation protocol offt. Titrate to come off supplemental O2.
[2020-05-19] MEDS: Pantoprazole 40 MG Tab.CR PO SCH ×2 (08:20→22:20)
[2020-05-19] MEDS: Gabapentin 300 MG Cap PO SCH ×3 (08:20→22:15)
[2020-05-19] MEDS: Fenofibrate Nanocrystallized 145 MG Tab PO SCH (08:20)
[2020-05-19] MEDS: Metoprolol Succinate 50 MG Tab.ER PO SCH ×2 (08:20→22:16)
[2020-05-19] MEDS: Desvenlafaxine Succinate [Pristiq] 50 MG PO SCH (08:24)
--- NOTE | 2020-05-19 09:07 | CR ---
Chest: Portable view of the chest was obtained. Comparison: Prior chest x-ray of 05/17/20. Findings: Increasing left lower lobe pneumonia is seen from prior exam. Right lung is clear. Heart size and mediastinum are normal. Bony structures are grossly intact. Impression: 1. Increasing left lower lobe pneumonia from prior chest x-ray. 2. No other acute abnormality is seen. Diagnostic code #3
[2020-05-19] MEDS: Rosuvastatin 10 MG Tab PO SCH (22:14)
[2020-05-19] MEDS: ALPRAZolam 1 MG Tab PO SCH (22:15)
[2020-05-20] MEDS: Piperacillin/Tazobactam 4.5 GM in Sodium Chloride 0.9% 100 ML IV SCH ×3 (01:02→18:22)
[2020-05-20] MEDS: Acetaminophen/HYDROcodone 325-10 MG Tab PO PRN ×3 (01:03→18:30)
[2020-05-20] MEDS: Cyclobenzaprine 10 MG Tab PO PRN (01:04)
--- NOTE | 2020-05-20 07:07 | PCM.PN ---
- General Info Date of Service: 05/20/20 Admission Dx/Problem (Free Text): Admission Diagnosis/Problem Admission Diagnosis/Problem Aspiration pneumonia due to gastric secretions Subjective Update: He had an uneventful night. No acute issues or complaints. He is barely coughing. He remains afebrile w/o leukocytosis. He states he feels a lot better. Functional Status: Reports: Pain Controlled, Tolerating Diet, Ambulating, Urinating - Review of Systems General: Denies: Fever, Weakness, Fatigue, Malaise, Chills HEENT: Denies: Headaches, Sinus Congestion, Sore Throat Pulmonary: Reports: Cough. Denies: Shortness of Breath, Pleuritic Chest Pain, Sputum, Hemoptysis Cardiovascular: Denies: Chest Pain Gastrointestinal: Denies: Abdominal Pain, Nausea, Vomiting Genitourinary: Denies: Frequency Musculoskeletal: Denies: Joint Pain Skin: Denies: Bruising, Pruritis, Rash Neurological: Denies: Confusion, Dizziness, Trouble Speaking, Difficulty Walking, Weakness, Gait Disturbance Psychiatric: Denies: Depression, Anxiety - Patient Data Vitals - Most Recent: Last Vital Signs Temp 36.7 C 05/20/20 04:23 Pulse 97 05/20/20 04:23 Resp 16 05/20/20 04:23 BP 96/62 05/20/20 04:23 Pulse Ox 94 L 05/20/20 04:23 Weight - Most Recent: 96.343 kg I&O - Last 24 Hours: Intake & Output 05/19/20 05/20/20 05/20/20 22:59 06:59 14:59 Intake Total 1000 800 Output Total 1600 Balance 1000 -800 Lab Results Last 24 Hours: Laboratory Results - last 24 hr 05/17/20 05/20/20 05/20/20 Range/Units 17:49 04:09 04:09 WBC 5.48 (4.23-9.07) K/mm3 RBC 3.16 L (4.63-6.08) M/mm3 Hgb 9.6 L (13.7-17.5) gm/dl Hct 30.2 L (40.1-51.0) % MCV 95.6 H (79.0-92.2) fl MCH 30.4 (25.7-32.2) pg MCHC 31.8 L (32.2-35.5) g/dl RDW Std Deviation 41.5 (35.1-43.9) fL Plt Count 305 (163-337) K/mm3 MPV 8.7 L (9.4-12.3) fl Neut % (Auto) 53.8 (34.0-67.9) % Lymph % (Auto) 31.9 (21.8-53.1) % [place] % (Auto) 10.6 (5.3-12.2) % Eos % (Auto) 2.7 (0.8-7.0) Baso % (Auto) 0.5 (0.1-1.2) % Neut # (Auto) 2.94 (1.78-5.38) K/mm3 Lymph # (Auto) 1.75 (1.32-3.57) K/mm3 [place] # (Auto) 0.58 (0.30-0.82) K/mm3 Eos # (Auto) 0.15 (0.04-0.54) K/mm3 Baso # (Auto) 0.03 (0.01-0.08) K/mm3 Sodium 138 (136-145) mEq/L Potassium 3.8 (3.5-5.1) mEq/L Chloride 99 (98-107) mEq/L Carbon Dioxide 29 (21-32) mEq/L Anion Gap 13.8 (5-15) BUN 14 (7-18) mg/dL Creatinine 1.2 (0.7-1.3) mg/dL Est Cr Clr Drug Dosing 85.34 mL/min Estimated GFR (MDRD) > 60 (>60) mL/min BUN/Creatinine Ratio 11.7 L (14-18) Glucose 101 (74-106) mg/dL Calcium 8.8 (8.5-10.1) mg/dL Magnesium 2.0 (1.8-2.4) mg/dl C-Reactive Protein 15.3 H* (<1.0) mg/dL SARS-CoV-2 (PCR) Not detected (NOT DETECT) Akbar Results Last 24 Hours: Microbiology 05/18/20 04:45 Gram Stain - Final Sputum - Expectorated Sputum Culture - Preliminary YEAST 05/17/20 08:11 Aerobic Blood Culture - Preliminary Blood - Venous NO GROWTH AFTER 2 DAYS Anaerobic Blood Culture - Preliminary NO GROWTH AFTER 2 DAYS 05/17/20 08:22 Aerobic Blood Culture - Preliminary Blood - Venous - Lab Draw NO GROWTH AFTER 2 DAYS Anaerobic Blood Culture - Preliminary NO GROWTH AFTER 2 DAYS Med Orders - Current: Current Medications Hydrocodone Bitart/Acetaminophen ([place] 325-10 Mg) 1 tab PO Q4H PRN PRN Reason: Pain Last Admin: 05/20/20 01:03 Dose: 1 tab Documented by: Albuterol/Ipratropium (Duoneb 3.0-0.5 Mg/3 Ml) 3 ml NEB Q4H PRN PRN Reason: Shortness Of Breath/wheezing Last Admin: 05/17/20 08:19 Dose: 3 ml Documented by: Alprazolam (Xanax) 1 mg PO BEDTIME [facility] Last Admin: 05/19/20 22:15 Dose: 1 mg Documented by: Cyclobenzaprine HCl (Flexeril) 10 mg PO TID PRN PRN Reason: Pain Last Admin: 05/20/20 01:04 Dose: 10 mg Documented by: Fenofibrate (Tricor) 145 mg PO DAILY [facility] Last Admin: 05/19/20 08:20 Dose: 145 mg Documented by: Gabapentin (Neurontin) 300 mg PO TID [facility] Last Admin: 05/19/20 22:15 Dose: 300 mg Documented by: Guaifenesin/Phenylephrine HCl (Robitussin Dm) 10 ml PO Q4H PRN PRN Reason: Cough Hydromorphone HCl (Dilaudid) 1 mg IVPUSH Q4H PRN PRN Reason: Pain Last Admin: 05/18/20 15:47 Dose: 1 mg Documented by: Promethazine HCl 12.5 mg/ (Sodium Chloride) 50.5 mls @ 100 mls/hr IV Q6H PRN PRN Reason: Nausea/Vomiting Piperacillin Sod/Tazobactam (Sod 4.5 gm/ Sodium Chloride) 100 mls @ 25 mls/hr IV Q8H [facility] Last Admin: 05/20/20 01:02 Dose: 25 mls/hr Documented by: Ibuprofen (Motrin) 400 mg PO Q6H PRN PRN Reason: Pain (mild 1-3) Last Admin: 05/18/20 03:47 Dose: 400 mg Documented by: Metoprolol Succinate (Toprol Xl) 50 mg PO BID [facility] Last Admin: 05/19/20 22:16 Dose: 50 mg Documented by: Ondansetron HCl (Zofran) 4 mg IV Q6H PRN PRN Reason: Nausea/Vomiting Pantoprazole Sodium (Protonix) 40 mg PO BID [facility] Last Admin: 05/19/20 22:20 Dose: 40 mg Documented by: Desvenlafaxine Succinate [Pristiq] 50 Mg 0 each PO DAILY [facility] Last Admin: 05/19/20 08:24 Dose: Not Given Documented by: Polyethylene Glycol (Miralax) 17 gm PO DAILY PRN PRN Reason: Constipation Rosuvastatin Calcium (Crestor) 20 mg PO BEDTIME [facility] Last Admin: 05/19/20 22:14 Dose: 20 mg Documented by: Discontinued Medications Acetaminophen (Tylenol) 975 mg PO ONETIME ONE Stop: 05/17/20 08:44 Last Admin: 05/17/20 08:53 Dose: 975 mg Documented by: Alprazolam (Xanax) 1 mg PO BEDTIME [facility] Last Admin: 05/17/20 21:27 Dose: 1 mg Documented by: Dextrose/Sodium Chloride (Dextrose 5%-Normal Saline) 1,000 mls @ 500 mls/hr IV ASDIRECTED [facility] Last Admin: 05/17/20 08:12 Dose: 500 mls/hr Documented by: Ceftriaxone Sodium 2 gm/ (Sodium Chloride) 100 mls @ 200 mls/hr IV ONETIME ONE Stop: 05/17/20 08:48 Last Admin: 05/17/20 08:32 Dose: 200 mls/hr Documented by: Ampicillin Sodium/Sulbactam (Sodium 1.5 gm/ Sodium Chloride) 100 mls @ 200 mls/hr IV Q6H [facility] Last Admin: 05/17/20 16:01 Dose: Not Given Documented by: Ampicillin Sodium/Sulbactam (Sodium 1.5 gm/ Sodium Chloride) 100 mls @ 200 mls/hr IV ONETIME ONE Stop: 05/17/20 09:38 Last Admin: 05/17/20 16:01 Dose: Not Given Documented by: Piperacillin Sod/Tazobactam (Sod 4.5 gm/ Sodium Chloride) 100 mls @ 200 mls/hr IV ONETIME ONE Stop: 05/17/20 09:44 Last Admin: 05/17/20 09:24 Dose: 200 mls/hr Documented by: Piperacillin Sod/Tazobactam (Sod 4.5 gm/ Sodium Chloride) 100 mls @ 200 mls/hr IV ONETIME ONE Stop: 05/17/20 09:42 Last Admin: 05/17/20 16:02 Dose: Not Given Documented by: Sodium Chloride (Normal Saline) 1,000 mls @ 100 mls/hr IV ASDIRECTED [facility] Stop: 05/17/20 21:44 Last Admin: 05/17/20 14:08 Dose: 100 mls/hr Documented by: Pantoprazole Sodium (Protonix Iv) 40 mg IV Q12HR [facility] - Exam Quality Assessment: No: Supplemental Oxygen General: Alert, Oriented, Cooperative, No Acute Distress HEENT: Pupils Equal, Pupils Reactive, EOMI, Mucous Membr. Moist/[place] Neck: Supple, Trachea Midline Lungs: Normal Respiratory Effort, Decreased Breath Sounds, Rhonchi (mild on left lower lung) Cardiovascular: Regular Rate, Regular Rhythm GI/Abdominal Exam: Normal Bowel Sounds, Soft, Non-Tender, No Organomegaly, No Distention, No Abnormal Bruit (Male) Exam: Deferred Back Exam: Normal Inspection, Full Range of Motion Extremities: Normal Inspection, Normal Range of Motion, Non-Tender, No Pedal Edema, Normal Capillary Refill Peripheral Pulses: 2+: Dorsalis Pedis (L), Dorsalis Pedis (R) Skin: Warm, Dry, Intact Neurological: No New Focal Deficit, Normal Gait Psy/Mental Status: Alert, Normal Affect, Normal Mood Sepsis Event Note - Evaluation Sepsis Screening Result: No Definite Risk - Focused Exam Vital Signs: Vital Signs Temp Pulse Resp BP Pulse Ox Pulse Ox 05/20/20 04:23 36.7 C 97 16 96/62 94 L 05/20/20 00:14 36.7 C 122 H 20 107/66 93 L 05/19/20 22:40 125 H 92 L 05/19/20 22:39 128 H 87 L 05/19/20 22:25 81 L 05/19/20 22:19 37.1 C 120 H 18 115/72 81 L 05/19/20 22:16 120 H 115/72 05/19/20 19:45 36.9 C 117 H 20 108/61 92 L - Problem List Review Problem List Initiated/Reviewed/Updated: Yes - My Orders Last 24 Hours: My Active Orders 05/21/20 05:11 BASIC METABOLIC PANEL,BMP [CHEM] AM C-REACTIVE PROTEIN [CHEM] AM CBC WITH AUTO DIFF [HEME] AM MAGNESIUM [CHEM] AM 05/22/20 05:11 BASIC METABOLIC PANEL,BMP [CHEM] AM C-REACTIVE PROTEIN [CHEM] AM CBC WITH AUTO DIFF [HEME] AM MAGNESIUM [CHEM] AM 05/23/20 05:11 BASIC METABOLIC PANEL,BMP [CHEM] AM C-REACTIVE PROTEIN [CHEM] AM CBC WITH AUTO DIFF [HEME] AM MAGNESIUM [CHEM] AM - Plan Plan:: This is a 40 yo white male with past medical hx/o Impaired Vision, Hx/o Cleft palate, Recurrent Pneumonia, GERD, Hx/o Aspiration Pneumonitis, Chronic Back Pain, Anxiety, Obesity and 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 Assessment: Acute: LLL Pneumonia/Aspiration Pneumonitis Hypoxia with O2 sat in the 80s, now on RA sating adequately Elevated Liver Enzymes, improving Elevated LDH Elevated CRP: 15.8-->21.5-->15.3 Fatty Liver via U/S Hypoalbuminemia with Albumin of 3.0 Class I Obese Hx/o Congenital Cleft Palate Recent Naso-septal Surgery S/p removal of bilateral nasal packing Resolved: Fever Hyperglycemia Chronic: Impaired Vision, Hx/o Cleft palate, Recurrent Pneumonia, GERD, Hx/o Aspiration Pneumonitis, Chronic Back Pain, Anxiety, Obesity and Recent Nasal Surgery Plan: Continue current treatment. Routine AM Labs. Sputum Cx shows yeast:may consider starting him on antifungal agent. He is responding to treatment very well. Blood cultures x 2 are negative after 48 hours. Regular diet. Continue IV antibiotic: Zosyn. DVT/GI prophylaxis. IS as directed. PRN decong estant/expectorant. PPI for GERD/Coughing Spell. PRN anti-emetic agents. Ambulate as tolerated. Off Isolation protocol. Possible discharge in 1-2 days.
[2020-05-20] MEDS: Fenofibrate Nanocrystallized 145 MG Tab PO SCH (09:39)
[2020-05-20] MEDS: Metoprolol Succinate 50 MG Tab.ER PO SCH ×2 (09:39→21:50)
[2020-05-20] MEDS: Pantoprazole 40 MG Tab.CR PO SCH ×2 (09:39→21:52)
[2020-05-20] MEDS: Gabapentin 300 MG Cap PO SCH ×3 (09:39→21:50)
[2020-05-20] MEDS: Desvenlafaxine Succinate [Pristiq] 50 MG PO SCH (09:40)
[2020-05-20] MEDS: Rosuvastatin 10 MG Tab PO SCH (21:49)
[2020-05-20] MEDS: ALPRAZolam 1 MG Tab PO SCH (21:50)
[2020-05-21] MEDS: Piperacillin/Tazobactam 4.5 GM in Sodium Chloride 0.9% 100 ML IV SCH ×2 (01:15→09:22)
[2020-05-21] MEDS: Acetaminophen/HYDROcodone 325-10 MG Tab PO PRN (05:49)
--- NOTE | 2020-05-21 07:54 | CR ---
Chest: Portable view of the chest was obtained. Comparison: Prior chest x-ray of 05/19/20. Findings: Mild increased density within the left lung base is seen. Findings most likely represents continuing area of mild pneumonia. Minimal atelectasis is noted within the right lung base. Upper lungs are clear. Heart size and mediastinum are normal. Bony structures show nothing acute. Impression: 1. Increased density within left lung base most likely due to persisting pneumonia. Findings are slightly changed from prior study with less atelectasis. 2. Minimal atelectasis within the right lung base. Diagnostic code #3
[2020-05-21] MEDS: Gabapentin 300 MG Cap PO SCH (08:24)
[2020-05-21] MEDS: Pantoprazole 40 MG Tab.CR PO SCH (08:24)
[2020-05-21] MEDS: Desvenlafaxine Succinate [Pristiq] 50 MG PO SCH (08:25)
[2020-05-21] MEDS: Metoprolol Succinate 50 MG Tab.ER PO SCH (08:25)
[2020-05-21] MEDS: Fenofibrate Nanocrystallized 145 MG Tab PO SCH (08:25)
--- NOTE | 2020-05-21 10:07 | PCM.DCSUM1 ---
Discharge Summary - Hospital Course Brief History: This is a 40 yo white male with past medical hx/o Impaired Vision, Hx/o Cleft palate, Recurrent Pneumonia, GERD, Hx/o Aspiration Pneumonitis, Chronic Back Pain, Anxiety, Obesity and Recent Nasal Surgery due to congenital oral defect who comes to ED for evaluation of fever associated with cough as well as choking spell and was diagnosed with Left Lower Lobe PNA. - Discharge Data Discharge Date: 05/21/20 Discharge Disposition: Home, Self-Care 01 Condition: Good - Referral to Home Health Primary Care Physician: Gayle Molina NP - Patient Summary/Data Operative Procedure(s) Performed: None Complications: None Consults: Consultations 05/17/20 11:34 Consult to Case Management/Marine Scientist [CONS] Routine V BELT CURER Evaluation and Treatment [CONS] Routine Recommended Follow-up Testing/Procedures: None Hospital Course: Patient was primarily admitted for aspiration pneumonia/community acquired pneumonia. He received intravenous antibiotic, bronchodilators, as well as supplemental O2 for main treatment. He is slowly improved on this regimen. His viral panel was negative. However his sputum culture showed Danielle albicans. His hospital course was uncomplicated except his chronic medical illness remained stable during this hospitalization. Once medically stable, patient was then discharged to home. He will be going home with additional course of his home dose antibiotic as well as a 2-day week course of diflucan for further management of his fungal infection. He was advised to come back or seek immediate care should his symptoms persist or get worse. He was further advised to follow-up with his primary care provider in 1 week. - Patient Instructions Diet: Usual Diet as Tolerated Activity: As Tolerated Driving: Do Not Drive Showering/Bathing: May Shower Notify Provider of: Fever, Increased Pain, Swelling and Redness, Drainage, Nausea and/or Vomiting Other/Special Instructions: -Follow discharge instructions. -Resume all routine home meds and activities as tolerated. -Continue to use incentive spirometry and flutter valve as directed. -Take new medications as directed. -Continue home oral antibiotic and will add 3 more days of treatment. -Come back or seek immedicate care if your symptom persists or gets worse. -Follow up with PCP in 1 week - Discharge Plan *PRESCRIPTION DRUG MONITORING PROGRAM REVIEWED*: Not Applicable *COPY OF PRESCRIPTION DRUG MONITORING REPORT IN PATIENT MIKE: Not Applicable Prescriptions/Med Rec: Fluconazole [Diflucan] 100 mg PO DAILY #13 tablet Saccharomyces Boulardii [Florastor] 250 mg PO DAILY #7 capsule Home Medications: Home Meds ALPRAZolam [Xanax] 1 mg PO BEDTIME 04/19/19 [History] Cyclobenzaprine [Flexeril] 10 mg PO TID PRN 04/19/19 [History] Desvenlafaxine Succinate [Pristiq] 50 mg PO DAILY 04/19/19 [History] Hydrocodone/Acetaminophen [Hydrocodone-Acetamin 10-325 mg] 1 tab PO Q4H PRN 04/19/19 [History] Pantoprazole Sodium 40 mg PO BID #60 tablet. 06/09/19 [Rx] Fenofibrate Nanocrystallized [Fenofibrate] 145 mg PO DAILY 05/17/20 [History] Gabapentin [Neurontin] 300 mg PO TID 05/17/20 [History] Metoprolol Succinate [Toprol XL 50mg] 50 mg PO BID 05/17/20 [History] Rosuvastatin Calcium 20 mg PO BEDTIME 05/17/20 [History] Cefuroxime Axetil [Ceftin] 500 mg PO BID #6 05/21/20 [Rx] Fluconazole [Diflucan] 100 mg PO DAILY #13 tablet 05/21/20 [Rx] Saccharomyces Boulardii [Florastor] 250 mg PO DAILY #7 capsule 05/21/20 [Rx] Oxygen Therapy Mode: Room Air Patient Handouts: Oral Thrush, Adult, Kost-or-Lunl, Aspiration Pneumonia, Fever, Adult, [id number], Community-Acquired Pneumonia, Adult, [id number] Referrals: Gayle Molina, HONING MACHINE SET UP OPERATOR TOOL [Primary Care Provider] - 05/26/20 1:15 pm (Follow up appt with Gayle Molina HONING MACHINE SET UP OPERATOR [employer]OL) - Discharge Summary/Plan Comment DC Time >30 min.: No Discharge Summary/Plan Comment: Discharge to Home - General Info Date of Service: 05/21/20 Admission Dx/Problem (Free Text: Admission Diagnosis/Problem Admission Diagnosis/Problem Aspiration pneumonia due to gastric secretions Subjective Update: He had an uneventful night. No acute issues or complaints. He is barely coughing. He remains afebrile w/o leukocytosis. He states he feels a lot better. Functional Status: Reports: Pain Controlled, Tolerating Diet, Ambulating, Urinating - Review of Systems General: Denies: Fever, Weakness, Fatigue, Malaise, Chills HEENT: Denies: Contact Lenses, Dysphasia, Ear Pain, Eye Pain, Headaches, Post Nasal Drip, Sinus Congestion, Sore Throat, Rhinitis, Visual Changes Pulmonary: Denies: Shortness of Breath, Cough, Sputum, Hemoptysis Cardiovascular: Denies: Chest Pain, Dyspnea on Exertion, Lightheadedness Gastrointestinal: Denies: Abdominal Pain, Nausea, Vomiting Genitourinary: Denies: Dysuria, Burning Musculoskeletal: Denies: Joint Pain Skin: Denies: Cyanosis, Bruising, Pruritis Neurological: Denies: Confusion, Dizziness, Difficulty Walking, Weakness, Gait Disturbance Psychiatric: Denies: Confusion, Depression, Anxiety, Hallucinations - Patient Data Vitals - Most Recent: Last Vital Signs Temp 36.6 C 05/21/20 07:48 Pulse 91 05/21/20 08:25 Resp 16 05/21/20 07:48 BP 106/62 05/21/20 08:25 Pulse Ox 93 L 05/21/20 07:48 Weight - Most Recent: 95.345 kg I&O - Last 24 hours: Intake & Output 05/20/20 05/21/20 05/21/20 22:59 06:59 14:59 Intake Total 1300 300 Output Total 900 Balance 400 300 Lab Results - Last 24 hrs: Laboratory Results - last 24 hr 05/21/20 05/21/20 Range/Units 06:20 06:20 WBC 5.02 (4.23-9.07) K/mm3 RBC 2.87 L (4.63-6.08) M/mm3 Hgb 8.7 L (13.7-17.5) gm/dl Hct 27.4 L (40.1-51.0) % MCV 95.5 H (79.0-92.2) fl MCH 30.3 (25.7-32.2) pg MCHC 31.8 L (32.2-35.5) g/dl RDW Std Deviation 40.5 (35.1-43.9) fL Plt Count 345 H (163-337) K/mm3 MPV 8.1 L (9.4-12.3) fl Neut % (Auto) 47.4 (34.0-67.9) % Lymph % (Auto) 37.8 (21.8-53.1) % [place] % (Auto) 10.4 (5.3-12.2) % Eos % (Auto) 3.0 (0.8-7.0) Baso % (Auto) 0.6 (0.1-1.2) % Neut # (Auto) 2.38 (1.78-5.38) K/mm3 Lymph # (Auto) 1.90 (1.32-3.57) K/mm3 [place] # (Auto) 0.52 (0.30-0.82) K/mm3 Eos # (Auto) 0.15 (0.04-0.54) K/mm3 Baso # (Auto) 0.03 (0.01-0.08) K/mm3 Sodium 140 (136-145) mEq/L Potassium 3.8 (3.5-5.1) mEq/L Chloride 102 (98-107) mEq/L Carbon Dioxide 29 (21-32) mEq/L Anion Gap 12.8 (5-15) BUN 10 (7-18) mg/dL Creatinine 1.3 (0.7-1.3) mg/dL Est Cr Clr Drug Dosing 78.77 mL/min Estimated GFR (MDRD) > 60 (>60) mL/min BUN/Creatinine Ratio 7.7 L (14-18) Glucose 98 (74-106) mg/dL Calcium 9.2 (8.5-10.1) mg/dL Magnesium 2.1 (1.8-2.4) mg/dl C-Reactive Protein 10.3 H* (<1.0) mg/dL JOE Results - Last 24 hrs: Microbiology 05/17/20 08:11 Aerobic Blood Culture - Preliminary Blood - Venous NO GROWTH AFTER 4 DAYS Anaerobic Blood Culture - Preliminary NO GROWTH AFTER 4 DAYS 05/17/20 08:22 Aerobic Blood Culture - Preliminary Blood - Venous - Lab Draw NO GROWTH AFTER 4 DAYS Anaerobic Blood Culture - Preliminary NO GROWTH AFTER 4 DAYS 05/18/20 04:45 Gram Stain - Final Sputum - Expectorated Sputum Culture - Preliminary Danielle Species Not Albicans Danielle Albicans Med Orders - Current: Current Medications Hydrocodone Bitart/Acetaminophen ([place] 325-10 Mg) 1 tab PO Q4H PRN PRN Reason: Pain Last Admin: 05/21/20 05:49 Dose: 1 tab Documented by: Albuterol/Ipratropium (Duoneb 3.0-0.5 Mg/3 Ml) 3 ml NEB Q4H PRN PRN Reason: Shortness Of Breath/wheezing Last Admin: 05/17/20 08:19 Dose: 3 ml Documented by: Alprazolam (Xanax) 1 mg PO BEDTIME [facility] Last Admin: 05/20/20 21:50 Dose: 1 mg Documented by: Cyclobenzaprine HCl (Flexeril) 10 mg PO TID PRN PRN Reason: Pain Last Admin: 05/20/20 01:04 Dose: 10 mg Documented by: Fenofibrate (Tricor) 145 mg PO DAILY [facility] Last Admin: 05/21/20 08:25 Dose: 145 mg Documented by: Gabapentin (Neurontin) 300 mg PO TID [facility] Last Admin: 05/21/20 08:24 Dose: 300 mg Documented by: Guaifenesin/Phenylephrine HCl (Robitussin Dm) 10 ml PO Q4H PRN PRN Reason: Cough Hydromorphone HCl (Dilaudid) 1 mg IVPUSH Q4H PRN PRN Reason: Pain Last Admin: 05/18/20 15:47 Dose: 1 mg Documented by: Promethazine HCl 12.5 mg/ (Sodium Chloride) 50.5 mls @ 100 mls/hr IV Q6H PRN PRN Reason: Nausea/Vomiting Piperacillin Sod/Tazobactam (Sod 4.5 gm/ Sodium Chloride) 100 mls @ 25 mls/hr IV Q8H [facility] Last Admin: 05/21/20 09:22 Dose: 25 mls/hr Documented by: Ibuprofen (Motrin) 400 mg PO Q6H PRN PRN Reason: Pain (mild 1-3) Last Admin: 05/18/20 03:47 Dose: 400 mg Documented by: Metoprolol Succinate (Toprol Xl) 50 mg PO BID [facility] Last Admin: 05/21/20 08:25 Dose: 50 mg Documented by: Ondansetron HCl (Zofran) 4 mg IV Q6H PRN PRN Reason: Nausea/Vomiting Pantoprazole Sodium (Protonix) 40 mg PO BID [facility] Last Admin: 05/21/20 08:24 Dose: 40 mg Documented by: Desvenlafaxine Succinate [Pristiq] 50 Mg 0 each PO DAILY [facility] Last Admin: 05/21/20 08:25 Dose: Not Given Documented by: Polyethylene Glycol (Miralax) 17 gm PO DAILY PRN PRN Reason: Constipation Rosuvastatin Calcium (Crestor) 20 mg PO BEDTIME [facility] Last Admin: 05/20/20 21:49 Dose: 20 mg Documented by: Discontinued Medications Acetaminophen (Tylenol) 975 mg PO ONETIME ONE Stop: 05/17/20 08:44 Last Admin: 05/17/20 08:53 Dose: 975 mg Documented by: Alprazolam (Xanax) 1 mg PO BEDTIME [facility] Last Admin: 05/17/20 21:27 Dose: 1 mg Documented by: Dextrose/Sodium Chloride (Dextrose 5%-Normal Saline) 1,000 mls @ 500 mls/hr IV ASDIRECTED [facility] Last Admin: 05/17/20 08:12 Dose: 500 mls/hr Documented by: Ceftriaxone Sodium 2 gm/ (Sodium Chloride) 100 mls @ 200 mls/hr IV ONETIME ONE Stop: 05/17/20 08:48 Last Admin: 05/17/20 08:32 Dose: 200 mls/hr Documented by: Ampicillin Sodium/Sulbactam (Sodium 1.5 gm/ Sodium Chloride) 100 mls @ 200 mls/hr IV Q6H [facility] Last Admin: 05/17/20 16:01 Dose: Not Given Documented by: Ampicillin Sodium/Sulbactam (Sodium 1.5 gm/ Sodium Chloride) 100 mls @ 200 mls/hr IV ONETIME ONE Stop: 05/17/20 09:38 Last Admin: 05/17/20 16:01 Dose: Not Given Documented by: Piperacillin Sod/Tazobactam (Sod 4.5 gm/ Sodium Chloride) 100 mls @ 200 mls/hr IV ONETIME ONE Stop: 05/17/20 09:44 Last Admin: 05/17/20 09:24 Dose: 200 mls/hr Documented by: Piperacillin Sod/Tazobactam (Sod 4.5 gm/ Sodium Chloride) 100 mls @ 200 mls/hr IV ONETIME ONE Stop: 05/17/20 09:42 Last Admin: 05/17/20 16:02 Dose: Not Given Documented by: Sodium Chloride (Normal Saline) 1,000 mls @ 100 mls/hr IV ASDIRECTED [facility] Stop: 05/17/20 21:44 Last Admin: 05/17/20 14:08 Dose: 100 mls/hr Documented by: Pantoprazole Sodium (Protonix Iv) 40 mg IV Q12HR [facility] - Exam Quality Assessment: Denies: Supplemental Oxygen General: Reports: Alert, Oriented, No Acute Distress, Severe Distress HEENT: Reports: Pupils Equal, Pupils Reactive, EOMI, Mucous Membr. Moist/[place] Neck: Reports: Supple, Trachea Midline, No JVD Lungs: Reports: Clear to Auscultation, Normal Respiratory Effort Cardiovascular: Reports: Regular Rate, Regular Rhythm GI/Abdominal Exam: Normal Bowel Sounds, Soft, Non-Tender, No Organomegaly, No Distention, No Abnormal Bruit, No Mass (Male) Exam: Deferred Rectal (Males) Exam: Deferred Back Exam: Reports: Normal Inspection, Decreased Range of Motion Extremities: Normal Inspection, Normal Range of Motion, Non-Tender, No Pedal Edema, Normal Capillary Refill Skin: Reports: Warm, Dry, Intact Neurological: Reports: No New Focal Deficit Psy/Mental Status: Reports: Alert, Normal Affect, Normal Mood
== END 2020-05-21 13:47 | disposition home or self-care (01) | DRG 178 ==
LOC: JD.ED 07:15 → JD.MS 09:33
PROVIDERS: ADMIT Internal Medicine; ATTEND Internal Medicine
DX: J69.0 Pneumonitis due to inhalation of food and vomit (principal); B37.89 Other sites of candidiasis; J18.9 Pneumonia, unspecified organism; H54.7 Unspecified visual loss; K21.9 Gastro-esophageal reflux disease without esophagitis; G89.29 Other chronic pain; M54.9 Dorsalgia, unspecified; F41.9 Anxiety disorder, unspecified; Z20.822 Contact with and (suspected) exposure to COVID-19; K44.9 Diaphragmatic hernia without obstruction or gangrene; E66.9 Obesity, unspecified; K76.0 Fatty (change of) liver, not elsewhere classified; Z68.32 Body mass index [BMI] 32.0-32.9, adult; Q35.9 Cleft palate, unspecified; Z87.01 Personal history of pneumonia (recurrent); Z79.899 Other long term (current) drug therapy; Z88.5 Allergy status to narcotic agent; Z87.891 Personal history of nicotine dependence; Z98.890 Other specified postprocedural states
CPT/HCPCS: 36415; 36600; 71045; 71045-26; 76705; 76705-26; 80048; 80053; 80076; 81001; 82728; 82803; 83605; 83615; 83735; 83880; 84484; 85007; 85025; 85027; 85379; 85610; 85730; 86140; 87040; 87070; 87205; 92610-GN; 93005; 93010; 94640; 94667; 94760; 94761; 96365; 96367; 99285; 99285-25; A9270-GY; J0696; J1170; J2543; J7030; J7042; J7050; J7620-GY; U0002

== ENCOUNTER 2020-05-31 20:31 | Emergency (ER) | payer OTHER ==
--- NOTE | 2020-05-31 21:10 | EDM.PDOC ---
ED HPI GENERAL MEDICAL PROBLEM - General Chief Complaint: Respiratory Problem Stated Complaint: COUGH FEVER SOB Time Seen by Provider: 05/31/20 20:42 Source of Information: Reports: Patient History Limitations: Reports: No Limitations - History of Present Illness INITIAL COMMENTS - FREE TEXT/NARRATIVE: Mr. Cervantes is a very pleasant 40-year-old gentleman who now presents the ED stating that he developed a cough productive of yellowish sputum, dyspnea, primarily with exertion although occasionally at rest, a temperature just over 100 degrees, and diaphoresis yesterday, 05/30/2020. He then developed shivers around 19:00 tonight. He states that he did not take any [id number] or home remedies to treat his symptoms. The patient states that he has had similar symptoms about 6 or 7 times in the past, since 06/07/2019, with his most recent episode about 1 month ago. He states that he was told that his symptoms are due to aspiration pneumonia, although he states that he underwent a swallow evaluation, and passed it with no difficulties. He also underwent an EGD, finding only a small hiatal hernia. The patient takes pantoprazole to treat GERD. Here in the ED, the patient's initial BP is found to be mildly elevated at 151/84, with tachycardia of 120 bpm. He has a low-grade fever of 100.7 degrees, and is hypoxemic at 76% on room air, 92% on 4 L of oxygen per nasal cannula. He does not appear to be in any distress. Prior to yesterday, the patient denies having a recent fever, chills, sore throat, ear pain, nasal or sinus congestion, cough, dyspnea, chest pain, palpitations, nausea, vomiting, constipation, diarrhea, abdominal pain, urinary symptoms, recent weight gain or weight loss, recent bloody bowel movements or black bowel movements, recent joint aches, headaches, or rashes. The patient's PCP is Gayle Molina NP. His gastroenterology midlevel is Bambi Clifford NP, at [facility]. He does not recall the name of the Nurse General Duty that he will be seeing in the future. He states that he already received an influenza vaccine this season. Neck Pain Score (Numeric/FACES): 9 - Related Data Allergies Allergy/AdvReac Type Severity Reaction Status Date / Time oxycodone AdvReac Severe Headache Verified 05/31/20 20:45 Home Meds: Home Meds ALPRAZolam [Xanax] 1 mg PO BEDTIME 04/19/19 [History] Cyclobenzaprine [Flexeril] 10 mg PO TID PRN 04/19/19 [History] Desvenlafaxine Succinate [Pristiq] 50 mg PO DAILY 04/19/19 [History] Hydrocodone/Acetaminophen [Hydrocodone-Acetamin 10-325 mg] 1 tab PO Q4H PRN 04/19/19 [History] Pantoprazole Sodium 40 mg PO BID #60 tablet. 06/09/19 [Rx] Fenofibrate Nanocrystallized [Fenofibrate] 145 mg PO DAILY 05/17/20 [History] Gabapentin [Neurontin] 300 mg PO TID 05/17/20 [History] Metoprolol Succinate [Toprol XL 50mg] 50 mg PO BID 05/17/20 [History] Rosuvastatin Calcium 20 mg PO BEDTIME 05/17/20 [History] Cefuroxime Axetil [Ceftin] 500 mg PO BID #6 05/21/20 [Rx] Past Medical History HEENT History: Reports: Impaired Vision (wears glasses) Cardiovascular History: Reports: High Cholesterol, Other (See Below) (Tachycardia) Gastrointestinal History: Reports: GERD, Hiatal Hernia Musculoskeletal History: Reports: Fracture (C2 fracture 2005), Neck Pain, Chronic (due to OA) Endocrine/Metabolic History: Reports: Obesity/BMI 30+ - Infectious Disease History Infectious Disease History: Reports: Chicken Pox, Mononucleosis (in HS) - Past Surgical History HEENT Surgical History: Reports: Oral Surgery (cleft palate + lip repair) GI Surgical History: Reports: EGD (x 2019), Hernia, Inguinal (right) Social & Family History - Tobacco Use Tobacco Use Status *Q: Former Tobacco User Tobacco Use Within Last Twelve Months: Vaping (Nicotine) Years of Tobacco use: 20 Packs/Tins Daily: 1 Month/Year Tobacco Last Used: Quit 2018 - Caffeine Use Caffeine Use: Reports: Soda Caffeine Use Comment: Drinks about 2 20oz bottles of soda per day - Alcohol Use Alcohol Use History: No - Recreational Drug Use Recreational Drug Use: No - Living Situation & Occupation Living situation: Reports: , with Spouse, with Family (1 child) Occupation: Disabled ED ROS GENERAL - Review of Systems Review Of Systems: Comprehensive ROS is negative, except as noted in HPI. ED EXAM, GENERAL - Physical Exam Exam: See Below Exam Limited By: No Limitations General Appearance: Alert, WD/WN, No Apparent Distress Eye Exam: Bilateral Eye: EOMI, Normal Inspection Ears: Normal External Exam, Hearing Grossly Normal Nose: Normal Inspection Throat/Mouth: Normal Inspection, Normal Lips (s/p cleft lip repair), Normal Voice, No Airway Compromise Head: Atraumatic, Normocephalic Neck: Normal Inspection, Full Range of Motion Respiratory/Chest: No Respiratory Distress, Lungs Clear, Normal Breath Sounds, No Accessory Muscle Use. No: Decreased Breath Sounds, Crackles, Rhonchi, Wheezing, Stridor, Prolonged Expiration Cardiovascular: Normal Peripheral Pulses, No Gallop, No JVD, No Murmur, No Rub, Tachycardia (regular) Peripheral Pulses: 3+: Radial (L), Radial (R) GI/Abdominal: Normal Bowel Sounds, Soft, Non-Tender, No Organomegaly, No Distention, No Abnormal Bruit, No Mass Back Exam: Normal Inspection, Full Range of Motion, NT Extremities: Normal Inspection, Normal Range of Motion, Normal Capillary Refill, Other (1-2+ pitting pretibial edema bilaterally) Neurological: Alert, Oriented, Normal Cognition, No Motor/Sensory Deficits Psychiatric: Normal Affect Skin Exam: Warm, Dry, Intact, Normal Color, No Rash #1 Interpretation EKG Date: 05/31/20 Time: 20:53 Rhythm: Other (Sinus tachycardia) Rate (Beats/Min): 119 [place]: Normal P-Wave: Present QRS: Normal ST-T: Normal QT: Normal Comparison: No Change (05/17/2020) Course - Vital Signs Last Recorded V/S: Last Vital Signs Temp 38.2 C H 05/31/20 20:41 Pulse 120 H 05/31/20 20:41 Resp 18 05/31/20 20:41 BP 151/84 H 05/31/20 20:41 Pulse Ox 76 L 05/31/20 20:41 - Orders/Labs/Meds Orders: Active Orders 24 hr Category Date Time Status EKG 12 Lead [EKG Documentation Completion] [RC] STAT Care 05/31/20 20:56 Active Ang Chest [CT] Stat Exams 05/31/20 22:26 Taken Chest 2V [CR] Stat Exams 05/31/20 21:01 Taken CULTURE BLOOD [BC] Stat Lab 05/31/20 21:18 Received CULTURE BLOOD [BC] Stat Lab 05/31/20 21:35 Received Sodium Chloride 0.9% [Normal Saline] 1,000 ml Med 05/31/20 22:30 Active IV ASDIRECTED Blood Culture x2 Reflex Set [OM.PC] Stat Oth 05/31/20 21:01 Ordered Medication Orders Sodium Chloride (Normal Saline) 1,000 mls @ 150 mls/hr IV ASDIRECTED RICH Last Admin: 05/31/20 22:49 Dose: 150 mls/hr Documented by: ELIE Labs: Laboratory Tests 05/31/20 05/31/20 05/31/20 Range/Units 21:10 21:18 21:18 WBC 9.43 H (4.23-9.07) K/mm3 RBC 3.61 L (4.63-6.08) M/mm3 Hgb 11.0 L D (13.7-17.5) gm/dl Hct 34.8 L (40.1-51.0) % MCV 96.4 H (79.0-92.2) fl MCH 30.5 (25.7-32.2) pg MCHC 31.6 L (32.2-35.5) g/dl RDW Std Deviation 42.3 (35.1-43.9) fL Plt Count 386 H (163-337) K/mm3 MPV 8.5 L (9.4-12.3) fl Neutrophils % (Manual) 79 H (40-60) % Band Neutrophils % 0 (0-10) % Lymphocytes % (Manual) 15 L (20-40) % Atypical Lymphs % 0 % Monocytes % (Manual) 4 (2-10) % Eosinophils % (Manual) 1 (0.8-7.0) % Basophils % (Manual) 1 (0.2-1.2) Platelet Estimate Adequate RBC Morph Comment Normal APTT 25.4 (21.7-31.4) SECONDS D-Dimer, Quantitative 1.08 H (0.19-0.50) mg/L Puncture Site ABG pH (7.35-7.45) ABG pCO2 (35.0-45.0) mmHg ABG pO2 (80.0-100.0) mmHg ABG HCO3 (22.0-26.0) meq/L ABG O2 Saturation (96.0-97.0) % ABG Base Excess (-2-2.0) Frederic Test A-a Gradient mmHg O2 Delivery Device Oxygen Flow Rate FiO2 (21.00-100.00) % Sodium (136-145) mEq/L Potassium (3.5-5.1) mEq/L Chloride (98-107) mEq/L Carbon Dioxide (21-32) mEq/L Anion Gap (5-15) BUN (7-18) mg/dL Creatinine (0.7-1.3) mg/dL Est Cr Clr Drug Dosing mL/min Estimated GFR (MDRD) (>60) mL/min BUN/Creatinine Ratio (14-18) Glucose (74-106) mg/dL Lactic Acid (0.4-2.0) mmol/L Calcium (8.5-10.1) mg/dL Total Bilirubin (0.2-1.0) mg/dL AST (15-37) U/L ALT (16-63) U/L Alkaline Phosphatase (46-116) U/L Troponin I (0.00-0.056) ng/mL Total Protein (6.4-8.2) g/dl Albumin (3.4-5.0) g/dl Globulin gm/dL Albumin/Globulin Ratio (1-2) Influenza Type A RNA Negative (NEGATIVE) Influenza Type B RNA Negative (NEGATIVE) SARS-CoV-2 RNA (SYDNIE) Negative (NEGATIVE) 05/31/20 05/31/20 05/31/20 Range/Units 21:18 21:18 21:22 WBC (4.23-9.07) K/mm3 RBC (4.63-6.08) M/mm3 Hgb (13.7-17.5) gm/dl Hct (40.1-51.0) % MCV (79.0-92.2) fl MCH (25.7-32.2) pg MCHC (32.2-35.5) g/dl RDW Std Deviation (35.1-43.9) fL Plt Count (163-337) K/mm3 MPV (9.4-12.3) fl Neutrophils % (Manual) (40-60) % Band Neutrophils % (0-10) % Lymphocytes % (Manual) (20-40) % Atypical Lymphs % % Monocytes % (Manual) (2-10) % Eosinophils % (Manual) (0.8-7.0) % Basophils % (Manual) (0.2-1.2) Platelet Estimate RBC Morph Comment APTT (21.7-31.4) SECONDS D-Dimer, Quantitative (0.19-0.50) mg/L Puncture Site Lt radial ABG pH 7.39 (7.35-7.45) ABG pCO2 49.2 H (35.0-45.0) mmHg ABG pO2 84.0 (80.0-100.0) mmHg ABG HCO3 29.4 H (22.0-26.0) meq/L ABG O2 Saturation 96.1 (96.0-97.0) % ABG Base Excess 4.3 H (-2-2.0) Frederic Test Positive A-a Gradient 111 mmHg O2 Delivery Device Nasal cannula Oxygen Flow Rate 4.0 FiO2 36.00 (21.00-100.00) % Sodium 141 (136-145) mEq/L Potassium 4.2 (3.5-5.1) mEq/L Chloride 101 (98-107) mEq/L Carbon Dioxide 32 (21-32) mEq/L Anion Gap 12.2 (5-15) BUN 13 (7-18) mg/dL Creatinine 1.4 H (0.7-1.3) mg/dL Est Cr Clr Drug Dosing 73.14 mL/min Estimated GFR (MDRD) 56 (>60) mL/min BUN/Creatinine Ratio 9.3 L (14-18) Glucose 110 H (74-106) mg/dL Lactic Acid 1.0 (0.4-2.0) mmol/L Calcium 9.5 (8.5-10.1) mg/dL Total Bilirubin 0.3 (0.2-1.0) mg/dL AST 40 H (15-37) U/L ALT 36 (16-63) U/L Alkaline Phosphatase 64 (46-116) U/L Troponin I < 0.017 (0.00-0.056) ng/mL Total Protein 7.5 (6.4-8.2) g/dl Albumin 3.7 (3.4-5.0) g/dl Globulin 3.8 gm/dL Albumin/Globulin Ratio 1.0 (1-2) Influenza Type A RNA (NEGATIVE) Influenza Type B RNA (NEGATIVE) SARS-CoV-2 RNA (SYDNIE) (NEGATIVE) Meds: Medications Generic Name Dose Route Start Last Admin Trade Name Darrell PRN Reason Stop Dose Admin Sodium Chloride 1,000 mls @ 150 mls/hr 05/31/20 22:30 05/31/20 22:49 Normal Saline IV 150 mls/hr ASDIRECTED [facility] Administration - Re-Assessments/Exams Free Text/Narrative Re-Assessment/Exam: 05/31/20 21:04 As above, the patient developed a cough productive of yellowish sputum, dyspnea, primarily with exertion, but also occasionally at rest, a mildly elevated temperature, and diaphoresis yesterday, then shivers about 2 hours ago. Here in the ED, he is found to be tachycardic, febrile, and significantly hypoxemic. An ECG, obtained at triage, demonstrates a sinus tachycardia with no ischemic changes. His physical exam, including that of his lungs, is remarkable for tachycardia, and is otherwise completely unremarkable. I have ordered a work-up that includes several blood tests, 2 sets of blood cultures, an ABG, a swab for both the SARS-CoV-2 virus and influenza, and a chest x-ray. 05/31/20 22:04 Two-view chest radiograph appears to be grossly normal. The cardiac silhouette is within normal limits. No pulmonary vascular congestion. No pleural effusions. Near-complete resolution of the left lower lobe infiltrate seen on the portable chest radiograph dated 05/21/2020 with no new infiltrates. No pneumothorax. Formal read per the Radiologist pending. 05/31/20 22:27 The patient's CBC is remarkable for a WBC count slightly elevated at 9.43, but with 0% bandemia. His H/H are slightly depressed at 11.0/34.8, and he has mild thrombocytosis of 386,000. His CMP is remarkable for a Cr lightly elevated at 1.4, with a BUN normal at 13. He has slight hyperglycemia of 110, and his AST is slightly elevated at 40 with a ALT normal at 36, and the remainder of his CMP being unremarkable. His lactic acid level is within normal limits at 1.0. His troponin is undetectably low. His D-dimer is elevated at 1.08. His ABG demonstrates a primary respiratory acidosis with a secondary metabolic alkalosis. His swab for the SARS-CoV-2 virus and influenza virus has returned negative for both. Based on the above, I have ordered a CT angiogram of the chest along with some IV fluid. 05/31/20 23:40 CT angiogram of the chest is read by [facility] as: 1. Findings suspected for pulmonary embolism in the left upper lobe, clot burden small. Visualization of this region is suboptimal. A short-term follow- up study in 24-48 hours is recommended to determine whether these if these [sic] small filling defects are persistent. 2. Bilateral pulmonary parenchymal abnormality suspect for pneumonia. There are a variety of small distinct nodules in both lungs which are likely inflammatory. A [id number] study , [sic] when patient's acute symptoms have r esolved, it is recommended to assure that all of these areas of nodularity involute. Reviewing the patient's prior medical records, I find the following: A chest x-ray in the ED on 04/19/2019 found bilateral infiltrates. He was treated with IV ceftriaxone in the ED, then admitted to the hospital where he was treated with IV levofloxacin. He was discharged home on 04/22/2019 with a 7-day prescription for levofloxacin. 2 sets of blood cultures from 04/19/2019 were negative. A chest x-ray in the ED on 06/07/2019 found an opacity of his left base, while a CT of the chest at that time found bilateral infiltrates, primarily in the left base. He was again treated with IV ceftriaxone in the ED, and again admitted to the hospital, this time being treated with IV cefepime, azithromycin, and vancomycin. He was discharged home on 06/09/2019 with a prescription for Augmentin. 2 sets of blood cultures from 06/07/2019 were again negative, and, in addition, a Legionella urinary antigen and Streptococcus pneumoniae antigen returned negative. An expectorated sputum culture from 06/08/2019 grew moderate Danielle glabrata and few Danielle albicans. A chest x-ray from the ED on 07/28/2019 was normal, however, the patient was admitted for hypoxemia, being discharged home the following day. No antibiotics were given visit, and 2 sets of blood cultures dated 07/28/2019 were again negative, along with a negative swabs for influenza A+B, RSV, and the SARS-CoV-2 virus. A chest x-ray from the ED on on 01/14/2020 was normal. No antibiotics were given, and the patient was discharged home. On 04/03/2020, a chest x-ray from the ED again found a left lower lobe opacity. The patient was again given IV Rocephin in the ED, then transferred to [facility] due to bed shortage. 2 sets of blood cultures from 04/03/2020 returned negative. We do not have medical records from [facility]. On 05/17/2020, a chest x-ray from the ED again demonstrated a left lower lobe infiltrate. He was treated with IV Rocephin in the ED, then admitted, where he was treated with IV Zosyn. A repeat chest x-ray on 05/19/2020 demonstrated worsening of the infiltrate, and even greater worsening on a 05/21/2020 chest x- ray. 2 sets of blood cultures from 05/17/2020 returned negative. An expectorated sputum culture grew abundant Danielle glabrata and moderate Danielle albicans. He was discharged home on 05/21/2020 with a prescription for oral amoxicillin and a 2-week course of Diflucan, to treat presumed thrush. Due to the patient's hypoxemia, he will need to be admitted to the hospital. I am concerned that the patient may be suffering from fungal pneumonia, explaining why his symptoms have persisted despite treatment with antibiotics, and why his blood cultures have persistently been negative. He would benefit from bronchoscopy, and will therefore need to be transferred. Because of the likelihood of the correctness of the diagnosis of a PE is actually quite low, I do not believe that he needs to be placed on an anticoagulant at this time, particularly since that may delay or prevent him from undergoing a bronchoscopy. 06/01/20 00:54 Case discussed with Keron at [facility] at 00:42. Case then discussed with Dr. Gibbons, Hospitalist at [facility], at 00:47. He is concerned about the decision to not anticoagulate the patient, but agreed. He accepted the patient for transfer to their facility. 06/01/20 00:58 The above plan, including my decision to not anticoagulate him, was discussed with the patient. He is agreeable. The patient will be transported by ground ambulance. 06/01/20 01:07 All 13 chest x-ray, CT angiogram/chest, abdominal x-ray, and upper GI images from 05/20/2018 through present have been pushed to Jean-Claude Alvarez. Departure - Departure Time of Disposition: 00:58 Disposition: DC/Tfer to Acute Hospital 02 Condition: Good Clinical Impression: Hypoxemia, Cough, Dyspnea, Fever - Discharge Information *PRESCRIPTION DRUG MONITORING PROGRAM REVIEWED*: Not Applicable *COPY OF PRESCRIPTION DRUG MONITORING REPORT IN PATIENT MIKE: Not Applicable Referrals: Gayle Molina NP [Primary Care Provider] - Bambi Clifford NP [Ordering Only Provider] - Forms: ED Department Discharge Sepsis Event Note (ED) - Evaluation Sepsis Screening Result: Possible Sepsis Risk - Focused Exam Vital Signs: Vital Signs Temp Pulse Resp BP Pulse Ox 05/31/20 20:41 38.2 C H 120 H 18 151/84 H 76 L - My Orders Last 24 Hours: My Active Orders 05/31/20 20:56 EKG 12 Lead [EKG Documentation Completion] [RC] STAT 05/31/20 21:01 Chest 2V [CR] Stat Blood Culture x2 Reflex Set [OM.PC] Stat 05/31/20 21:18 CULTURE BLOOD [BC] Stat 05/31/20 21:35 CULTURE BLOOD [BC] Stat 05/31/20 22:26 Ang Chest [CT] Stat 05/31/20 22:30 Sodium Chloride 0.9% [Normal Saline] 1,000 ml IV ASDIRECTED - Assessment/Plan Last 24 Hours: My Active Orders 05/31/20 20:56 EKG 12 Lead [EKG Documentation Completion] [RC] STAT 05/31/20 21:01 Chest 2V [CR] Stat Blood Culture x2 Reflex Set [OM.PC] Stat 05/31/20 21:18 CULTURE BLOOD [BC] Stat 05/31/20 21:35 CULTURE BLOOD [BC] Stat 05/31/20 22:26 Ang Chest [CT] Stat 05/31/20 22:30 Sodium Chloride 0.9% [Normal Saline] 1,000 ml IV ASDIRECTED
[2020-05-31 21:56] LABS: CORONAVIRUS COVID-19 NAA NEGATIVE (NEGATIVE)
[2020-05-31] MEDS ORDERED: Sodium Chloride 0.9% 1,000 ML IV SCH (22:30)
--- NOTE | 2020-06-01 07:43 | CR ---
Chest: 2 views of the chest were obtained. Comparison: Subsequent chest CT study performed later on the same day. Slight parenchymal density is noted within the right middle lobe as well as left base. Upper lungs are clear. Heart size and mediastinum are normal. Bony structures appear within normal limits for the patient's age. Impression: 1. Slight density within the right middle lobe which on subsequent CT study represents a presumed pneumonia. 2. Density within left base most likely representing scarring from old pneumonia. Diagnostic code #3
--- NOTE | 2020-06-01 07:43 | CT ---
CT chest Technique: Multiple axial sections through the chest were obtained. Intravenous contrast was utilized. Study has been performed as a pulmonary angiogram protocol. Comparison: Prior chest CT exam of 06/07/19. Findings: Equivocal filling defects within the left upper lung. Pulmonary arteries are not optimally opacified and uncertain if this represents minimal pulmonary embolism or represents flow artifact. No other discrete filling defect is seen within the main or segmental branches. Smaller nonsegmental pulmonary emboli could be missed. Mediastinum and hilar regions show no adenopathy. Thoracic aorta shows no aneurysm. Stable pretracheal lymph node is seen which appears fairly stable from prior exam. No pericardial thickening is seen. Small hiatal hernia is noted. Other visualized abdominal structures show nothing acute. Lung window settings were reviewed. Patchy areas of increased density is noted within the right middle lobe. Slight densities are noted within the lingula and left lower lobe which most likely represent scarring from pneumonia which was seen on prior study. There are multiple nodules scattered within both lungs. These are believed to be fairly stable from prior study in location. Impression: 1. Mild right middle lobe density most likely representing pneumonia. This is an interval change from prior study. 2. Areas of increased density within the left base and lingula which are felt to represent scarring from previous pneumonia on prior CT study. 3. Small nodules are seen within the chest without definite change from previous study. 4. Equivocal small area of pulmonary embolism within the left upper lung, uncertain if this is real or due to flow artifact because of less than optimal opacified pulmonary arteries. Consider bilateral lower extremity deep venous ultrasound. Diagnostic code #3 I agree with preliminary report issued by [facility] report finalized on 06/01/20, 12:37 AM CIVIL ENGINEERING SPECIALIST
== END 2020-06-01 01:42 ==
LOC: JD.ED 20:31
DX: R09.02 Hypoxemia (principal); R06.00 Dyspnea, unspecified; R05 Cough; R50.9 Fever, unspecified; R79.1 Abnormal coagulation profile; R00.0 Tachycardia, unspecified; E78.00 Pure hypercholesterolemia, unspecified; K21.9 Gastro-esophageal reflux disease without esophagitis; E66.9 Obesity, unspecified; Z68.31 Body mass index [BMI] 31.0-31.9, adult; Z20.822 Contact with and (suspected) exposure to COVID-19; Z88.5 Allergy status to narcotic agent; Z79.899 Other long term (current) drug therapy
CPT/HCPCS: 0240U; 36415; 36600; 71046; 71046-26; 71275; 71275-26; 80053; 82803; 83605; 84484; 85007; 85027; 85379; 85730; 87040; 93005; 93010; 99285; 99285-25; J7030

== ENCOUNTER 2020-09-12 17:54 | Inpatient (IN) | payer OTHER ==
[2020-09-12] MEDS ORDERED: Sodium Chloride 0.9% 10 ML Syringe FLUSH PRN (18:46)
[2020-09-12] MEDS ORDERED: Metoprolol Succinate 50 MG Tab.ER PO ONE (18:49)
[2020-09-12 19:01] LABS: CORONAVIRUS COVID-19 NAA NEGATIVE (NEGATIVE)
--- NOTE | 2020-09-12 19:15 | EDM.PDOC ---
ED HPI GENERAL MEDICAL PROBLEM - General Chief Complaint: Respiratory Problem Stated Complaint: COUGH/FEVER/SOB Time Seen by Provider: 09/12/20 18:20 Source of Information: Reports: Patient History Limitations: Reports: No Limitations, Other (ED vital signs reveal a temp of 98.7, pulse of 130, respiratory rate of 19, blood pressure 115/81, pulse ox of 91% on room air.) - History of Present Illness INITIAL COMMENTS - FREE TEXT/NARRATIVE: 40-year-old male presents the emergency department today with complaints of fever, increased cough, shortness of breath, and a slight headache. Patient states he does have a history of aspiration pneumonia due to reflux. He states that he had chronic GERD and was using a CPAP which caused him to have aspiration pneumonia for which she has been hospitalized in the past. He states he is currently on Protonix twice daily. He has seen gastroenterology and pulmonology and they cannot find the cause of his reflux which causes the aspi ration. He states that over the course the past couple of days he believes that he aspirated while in his sleep. However he states that he had a temp of 101.7 this morning, chills, increased cough which is causing him to have emesis from coughing so forcefully. Patient is afebrile in the emergency department however he did take tylenol for his fever prior to his arrival. Patient is tachycardic in the emergency department however he states he has not taken his beta-starla today as he has not felt well. He generally takes metoprolol XL 50 mg twice daily. His primary care provider is Fior Molina. Treatments JERSEY KNITTER: Reports: Acetaminophen Neck Pain Score (Numeric/FACES): 8 - Related Data Allergies Allergy/AdvReac Type Severity Reaction Status Date / Time oxycodone AdvReac Severe Headache Verified 05/31/20 20:45 Home Meds: Home Meds ALPRAZolam [Xanax] 1 mg PO BEDTIME 04/19/19 [History] Cyclobenzaprine [Flexeril] 10 mg PO TID PRN 04/19/19 [History] Desvenlafaxine Succinate [Pristiq] 50 mg PO DAILY 04/19/19 [History] Hydrocodone/Acetaminophen [Hydrocodone-Acetamin 10-325 mg] 1 tab PO Q4H PRN 04/19/19 [History] Pantoprazole Sodium 40 mg PO BID #60 tablet. 06/09/19 [Rx] Fenofibrate Nanocrystallized [Fenofibrate] 145 mg PO DAILY 05/17/20 [History] Gabapentin [Neurontin] 300 mg PO TID 05/17/20 [History] Metoprolol Succinate [Toprol XL 50mg] 50 mg PO BID 05/17/20 [History] Rosuvastatin Calcium 20 mg PO BEDTIME 05/17/20 [History] Past Medical History HEENT History: Reports: Impaired Vision Other HEENT History: root canal on 06/03/2019, wears eyeglasses. Born with a cleft palate. Cardiovascular History: Reports: High Cholesterol, Other (See Below) Other Cardiovascular History: Tachycardia Respiratory History: Reports: Pneumonia, Recurrent Other Respiratory History: pneumonia in past, states its not recurrent. Patient has a history of recurrent aspiration pneumonitis. Gastrointestinal History: Reports: GERD, Hiatal Hernia Genitourinary History: Reports: Acute Renal Failure Musculoskeletal History: Reports: Fracture, Neck Pain, Chronic Other Musculoskeletal History: Broke neck in 2005. -Neck/back swell around nerves and he gets muscle spasms Neurological History: Reports: Concussion Psychiatric History: Reports: Anxiety Endocrine/Metabolic History: Reports: Obesity/BMI 30+ - Infectious Disease History Infectious Disease History: Reports: Chicken Pox, Mononucleosis - Past Surgical History HEENT Surgical History: Reports: Oral Surgery Other HEENT Surgeries/Procedures: cleft palate. GI Surgical History: Reports: EGD, Hernia, Inguinal Other GI Surgeries/Procedures: Hernia surgery Social & Family History - Family History Family Medical History: No Pertinent Family History - Tobacco Use Tobacco Use Status *Q: Former Tobacco User Used Tobacco, but Quit: Yes Month/Year Tobacco Last Used: 3 yr - Caffeine Use Caffeine Use: Reports: Soda Caffeine Use Comment: Drinks about 2 20oz bottles of soda per day - Recreational Drug Use Recreational Drug Use: No - Living Situation & Occupation Living situation: Reports: , with Spouse, with Family (1 child) Occupation: Disabled ED ROS GENERAL - Review of Systems Review Of Systems: Comprehensive ROS is negative, except as noted in HPI. ED EXAM, GENERAL - Physical Exam Exam: See Below Exam Limited By: No Limitations General Appearance: Alert, WD/WN, Mild Distress Ears: Normal External Exam, Hearing Grossly Normal Nose: Normal Inspection Throat/Mouth: Normal Inspection, Normal Lips, Normal Voice, No Airway Compromise Head: Atraumatic, Normocephalic Neck: Normal Inspection, Supple Respiratory/Chest: No Respiratory Distress, Lungs Clear, Normal Breath Sounds, No Accessory Muscle Use, Chest Non-Tender Cardiovascular: Normal Peripheral Pulses, Regular Rate, Rhythm, No Edema, No Murmur Peripheral Pulses: 2+: Radial (L), Radial (R) GI/Abdominal: Normal Bowel Sounds, Soft, Non-Tender, No Distention (Male) Exam: Deferred Rectal (Males) Exam: Deferred Back Exam: Normal Inspection, Full Range of Motion Extremities: Normal Inspection, Normal Range of Motion, Non-Tender, No Pedal Edema, Normal Capillary Refill Neurological: Alert, Oriented, Normal Cognition Psychiatric: Normal Affect, Normal Mood Skin Exam: Warm, Dry, Intact, Normal Color, No Rash Lymphatic: No Adenopathy #1 Interpretation EKG Date: 09/12/20 Time: 21:33 Rhythm: NSR Rate (Beats/Min): 110 [place]: Normal P-Wave: Present QRS: Normal ST-T: Normal QT: Normal EKG Interpretation Comments: Per Dr. Grace interpretation: Sinus tachycardia; no AED; no AVB; no ischemic changes; early transition; no LAD/RAD; no LVH/RVH; no IVCD; QTC within normal limits Course - Vital Signs Text/Narrative:: Patient presents the emergency department from increased complaints of fever, chills, cough, shortness of breath, and a slight headache. States he has a history of aspiration pneumonia from wearing his CPAP when he sleeps. He states he has a productive cough today of green to black-colored sputum. Cough is so forceful that it causes him to vomit which has now caused him to have a sore throat. At the time of my assessment, the patient's O2 sats are 88% on room air. I have applied to the oxygen at 2 L per nasal cannula. Patient is tachycardic in the 120s however I do contributes this to him not taking his doses of metoprolol today. He does take 50 mg of Toprol-XL twice daily for a history of tachycardia. He is not septic in appearance and he is afebrile at the time of ED assessment. I have ordered labs, Covid, influenza a and B swab, chest x-ray, and blood cultures x2. I have also ordered his dose of metoprolol 50 mg to be given now. Last Recorded V/S: Last Vital Signs Temp 98.7 F 09/12/20 18:15 Pulse 110 H 09/12/20 21:45 Resp 18 09/12/20 21:45 BP 113/83 09/12/20 21:45 Pulse Ox 94 L 09/12/20 21:45 - Orders/Labs/Meds Orders: Active Orders 24 hr Category Date Time Status Admission Status [Patient Status] [ADT] Routine ADT 09/12/20 23:00 Ordered Cardiac Monitoring [RC] . DIRECTED Care 09/12/20 23:00 Ordered EKG Documentation Completion [RC] STAT Care 09/12/20 21:25 Active RT Aerosol Therapy [RC] ASDIRECTED Care 09/12/20 19:48 Active RT Incentive Spirometry [RC] ASDIRECTED Care 09/12/20 19:54 Active CTA Chest W WO Contrast [Ang Chest] [CT] Stat Exams 09/12/20 21:52 Taken CULTURE BLOOD [BC] Stat Lab 09/12/20 19:00 Received CULTURE BLOOD [BC] Stat Lab 09/12/20 19:10 Received Magnesium Sulfate/Water [Magnesium Sulfate in Water 4 Med 09/12/20 21:45 Active GM/50 ML] 4 gm Premix Bag 1 bag IV ONETIME Sodium Chloride 0.9% [Normal Saline] 100 ml Med 09/12/20 22:15 Active IV ASDIRECTED Sodium Chloride 0.9% [Saline Flush] Med 09/12/20 18:46 Active 10 ml FLUSH ASDIRECTED PRN metroNIDAZOLE/Normal Saline [Flagyl in NS 500 MG/100 ML Med 09/12/20 21:45 Active ] 500 mg Premix Bag 1 bag IV Q8H Blood Culture x2 Reflex Set [OM.PC] Stat Oth 09/12/20 18:49 Ordered Saline Lock Insert [OM.PC] Stat Oth 09/12/20 18:46 Ordered Medication Orders Magnesium Sulfate 4 gm/ Premix 50 mls @ 12.5 mls/hr IV ONETIME ONE Stop: 09/13/20 01:44 Last Admin: 09/12/20 21:57 Dose: 12.5 mls/hr Documented by: YESSI Metronidazole 500 mg/ Premix 100 mls @ 100 mls/hr IV Q8H [facility] Last Admin: 09/12/20 21:52 Dose: 100 mls/hr Documented by: YESSI Sodium Chloride (Normal Saline) 100 mls @ 60 mls/hr IV ASDIRECTED RICH Last Admin: 09/12/20 22:28 Dose: 60 mls/hr Documented by: LIBORIO Sodium Chloride (Sodium Chloride 0.9% 10 Ml Syringe) 10 ml FLUSH ASDIRECTED PRN PRN Reason: Keep Vein Open Last Admin: 09/12/20 19:08 Dose: 10 ml Documented by: TERRI Labs: Laboratory Tests 09/12/20 09/12/20 09/12/20 Range/Units 18:15 19:10 19:10 WBC 9.11 H (4.23-9.07) K/mm3 RBC 4.32 L (4.63-6.08) M/mm3 Hgb 12.7 L D (13.7-17.5) gm/dl Hct 38.9 L (40.1-51.0) % MCV 90.0 D (79.0-92.2) fl MCH 29.4 (25.7-32.2) pg MCHC 32.6 (32.2-35.5) g/dl RDW Std Deviation 43.4 (35.1-43.9) fL Plt Count 288 D (163-337) K/mm3 MPV 8.4 L (9.4-12.3) fl Neut % (Auto) 84.1 H (34.0-67.9) % Lymph % (Auto) 7.1 L (21.8-53.1) % [place] % (Auto) 8.5 (5.3-12.2) % Eos % (Auto) 0 L (0.8-7.0) Baso % (Auto) 0.2 (0.1-1.2) % Neut # (Auto) 7.66 H (1.78-5.38) K/mm3 Lymph # (Auto) 0.65 L (1.32-3.57) K/mm3 [place] # (Auto) 0.77 (0.30-0.82) K/mm3 Eos # (Auto) 0.00 L (0.04-0.54) K/mm3 Baso # (Auto) 0.02 (0.01-0.08) K/mm3 Manual Slide Review Abnormal smear D-Dimer, Quantitative (0.19-0.50) mg/L Sodium 141 (136-145) mEq/L Potassium 4.3 (3.5-5.1) mEq/L Chloride 102 (98-107) mEq/L Carbon Dioxide 26 (21-32) mEq/L Anion Gap 17.3 H (5-15) BUN 12 (7-18) mg/dL Creatinine 1.3 (0.7-1.3) mg/dL Est Cr Clr Drug Dosing 78.77 mL/min Estimated GFR (MDRD) > 60 (>60) mL/min BUN/Creatinine Ratio 9.2 L (14-18) Glucose 122 H (74-106) mg/dL Calcium 9.3 (8.5-10.1) mg/dL Magnesium 1.2 L (1.8-2.4) mg/dl Total Bilirubin 1.0 (0.2-1.0) mg/dL AST 53 H (15-37) U/L ALT 68 H (16-63) U/L Alkaline Phosphatase 63 (46-116) U/L Total Protein 7.3 (6.4-8.2) g/dl Albumin 3.6 (3.4-5.0) g/dl Globulin 3.7 gm/dL Albumin/Globulin Ratio 1.0 (1-2) Influenza Type A RNA Negative (NEGATIVE) Influenza Type B RNA Negative (NEGATIVE) SARS-CoV-2 RNA (SYDNIE) Negative (NEGATIVE) 09/12/20 Range/Units 19:10 WBC (4.23-9.07) K/mm3 RBC (4.63-6.08) M/mm3 Hgb (13.7-17.5) gm/dl Hct (40.1-51.0) % MCV (79.0-92.2) fl MCH (25.7-32.2) pg MCHC (32.2-35.5) g/dl RDW Std Deviation (35.1-43.9) fL Plt Count (163-337) K/mm3 MPV (9.4-12.3) fl Neut % (Auto) (34.0-67.9) % Lymph % (Auto) (21.8-53.1) % [place] % (Auto) (5.3-12.2) % Eos % (Auto) (0.8-7.0) Baso % (Auto) (0.1-1.2) % Neut # (Auto) (1.78-5.38) K/mm3 Lymph # (Auto) (1.32-3.57) K/mm3 [place] # (Auto) (0.30-0.82) K/mm3 Eos # (Auto) (0.04-0.54) K/mm3 Baso # (Auto) (0.01-0.08) K/mm3 Manual Slide Review D-Dimer, Quantitative 0.92 H (0.19-0.50) mg/L Sodium (136-145) mEq/L Potassium (3.5-5.1) mEq/L Chloride (98-107) mEq/L Carbon Dioxide (21-32) mEq/L Anion Gap (5-15) BUN (7-18) mg/dL Creatinine (0.7-1.3) mg/dL Est Cr Clr Drug Dosing mL/min Estimated GFR (MDRD) (>60) mL/min BUN/Creatinine Ratio (14-18) Glucose (74-106) mg/dL Calcium (8.5-10.1) mg/dL Magnesium (1.8-2.4) mg/dl Total Bilirubin (0.2-1.0) mg/dL AST (15-37) U/L ALT (16-63) U/L Alkaline Phosphatase (46-116) U/L Total Protein (6.4-8.2) g/dl Albumin (3.4-5.0) g/dl Globulin gm/dL Albumin/Globulin Ratio (1-2) Influenza Type A RNA (NEGATIVE) Influenza Type B RNA (NEGATIVE) SARS-CoV-2 RNA (SYDNIE) (NEGATIVE) Meds: Medications Generic Name Dose Route Start Last Admin Trade Name Freq PRN Reason Stop Dose Admin Magnesium Sulfate 4 gm/ Premix 50 mls @ 12.5 mls/hr 09/12/20 21:45 09/12/20 21:57 IV 09/13/20 01:44 12.5 mls/hr ONETIME ONE Administration Metronidazole 500 mg/ Premix 100 mls @ 100 mls/hr 09/12/20 21:45 09/12/20 21:52 IV 100 mls/hr Q8H RICH Administration Sodium Chloride 100 mls @ 60 mls/hr 05/09/21 22:15 09/12/20 22:28 Normal Saline IV 60 mls/hr ASDIRECTED RICH Administration Sodium Chloride 10 ml 09/12/20 18:46 09/12/20 19:08 Sodium Chloride 0.9% 10 Ml Syringe FLUSH 10 ml ASDIRECTED PRN Administration Keep Vein Open Discontinued Medications Generic Name Dose Route Start Last Admin Trade Name Freq PRN Reason Stop Dose Admin Albuterol 2.5 mg 09/12/20 19:47 09/12/20 19:58 Albuterol 0.083% 2.5 Mg/3 Ml Neb Soln NEB 09/12/20 19:48 2.5 mg ONETIME ONE Administration Ceftriaxone Sodium 1 gm/ 100 mls @ 200 mls/hr 09/12/20 21:21 09/12/20 21:44 Sodium Chloride IV 09/12/20 21:50 200 mls/hr ONETIME ONE Administration Iopamidol 100 ml 09/12/20 22:10 09/12/20 22:28 Iopamidol 755 Mg/Ml 100 Ml Bottle IVPUSH 09/12/20 22:11 100 ml ONETIME ONE Administration Metoprolol Succinate 50 mg 09/12/20 18:49 09/12/20 19:01 Metoprolol Succinate 50 Mg Tab.Er PO 09/12/20 18:50 50 mg ONETIME ONE Administration Sodium Chloride 10 ml 09/12/20 22:10 09/12/20 22:28 Sodium Chloride 0.9% 10 Ml Syringe FLUSH 09/12/20 22:11 10 ml ONETIME ONE Administration - Re-Assessments/Exams Free Text/Narrative Re-Assessment/Exam: 09/12/201924 Radiologist impression portable view of the chest: 1. Increasing interstitial change within the right lung and left lung base. Findings could represent diffuse bronchitis either bacterial or viral. Please correlate with the patient's symptoms. 09/12/20 21:44 Hematology reveals a WBC of 9.11, hemoglobin 12.7, hematocrit 38.9, platelet count 288, neutrophil percentage 84.1, chemistry reveals a sodium of 141, potassium 4.3, anion gap 17.3, BUN 12, creatinine 1.3, glucose 122, magnesium 1.2, AST 53, ALT 68 serology reveals an influenza type a and B are both negative as well as Covid negative. I will order magnesium 4 g IV. I have also ordered Rocephin 1 g IV. The patient is on 2 L of oxygen and O2 saturations are only 90 to 91%. I do feel that this patient needs to be admitted to the hospital. I have spoken to the hospitalist, Dr. Rehman and he has agreed to accept the patient under his care. He requests that obtain a twelve- lead EKG and add a D-dimer to the patient's lab work. I will also order Flagyl 500 mg IV. 09/12/20 21:51 D-dimer is 0.92. I have ordered a CTA. 09/12/20 23:02 Radiologist impression CTA of the chest with contrast: 1. There is no CT evidence of central pulmonary embolism at this time. Peripheral emboli, beyond the fourth order branches cannot be ruled out or ruled in. 2. Progressive ill-defined nodular infiltrate involved much of the right lung suggesting progressive pneumonia. Consider viral etiologies, bacterial etiologies, and atypical etiologies. 3. Improved air aeration left lung. 4. There are multiple small rather discrete pulmonary nodules bilaterally. It is unclear whether these are part of the ongoing presumed inflammatory/infective process or whether these reflect discrete lung nodules from some other etiology. Continued surveillance recommended. Departure - Departure Time of Disposition: 23:05 Disposition: Refer to Observation Condition: Good Clinical Impression: Hypomagnesemia Pneumonia Qualifiers: Pneumonia type: due to unspecified organism Laterality: left Lung location: lower lobe of lung Qualified Code(s): J18.9 - Pneumonia, unspecified organism - Discharge Information Referrals: Gayle Molina NP [Primary Care Provider] - Forms: ED Department Discharge Sepsis Event Note (ED) - Evaluation Sepsis Screening Result: No Definite Risk - Focused Exam Vital Signs: Vital Signs Temp Pulse Pulse Resp BP BP Pulse Ox 09/12/20 21:45 110 H 18 113/83 94 L 09/12/20 20:00 09/12/20 19:31 120 H 16 115/85 91 L 09/12/20 19:01 130 H 102/89 09/12/20 18:43 09/12/20 18:15 98.7 F 130 H 19 115/81 91 L Pulse Ox 09/12/20 21:45 09/12/20 20:00 92 L 09/12/20 19:31 09/12/20 19:01 09/12/20 18:43 93 L 09/12/20 18:15 - My Orders Last 24 Hours: My Active Orders 09/12/20 18:46 Sodium Chloride 0.9% [Saline Flush] 10 ml FLUSH ASDIRECTED PRN Saline Lock Insert [OM.PC] Stat 09/12/20 18:49 Blood Culture x2 Reflex Set [OM.PC] Stat 09/12/20 19:00 CULTURE BLOOD [BC] Stat 09/12/20 19:10 CULTURE BLOOD [BC] Stat 09/12/20 19:48 RT Aerosol Therapy [RC] ASDIRECTED 09/12/20 19:54 RT Incentive Spirometry [RC] ASDIRECTED 09/12/20 21:25 EKG Documentation Completion [RC] STAT 09/12/20 21:45 Magnesium Sulfate/Water [Magnesium Sulfate in Water 4 GM/50 ML] 4 gm Premix Bag 1 bag IV ONETIME metroNIDAZOLE/Normal Saline [Flagyl in NS 500 MG/100 ML] 500 mg Premix Bag 1 bag IV Q8H 09/12/20 21:52 CTA Chest W WO Contrast [Ang Chest] [CT] Stat 09/12/20 22:15 Sodium Chloride 0.9% [Normal Saline] 100 ml IV ASDIRECTED 09/12/20 23:00 Admission Status [Patient Status] [ADT] Routine Cardiac Monitoring [RC] . DIRECTED - Assessment/Plan Last 24 Hours: My Active Orders 09/12/20 18:46 Sodium Chloride 0.9% [Saline Flush] 10 ml FLUSH ASDIRECTED PRN Saline Lock Insert [OM.PC] Stat 09/12/20 18:49 Blood Culture x2 Reflex Set [OM.PC] Stat 09/12/20 19:00 CULTURE BLOOD [BC] Stat 09/12/20 19:10 CULTURE BLOOD [BC] Stat 09/12/20 19:48 RT Aerosol Therapy [RC] ASDIRECTED 09/12/20 19:54 RT Incentive Spirometry [RC] ASDIRECTED 09/12/20 21:25 EKG Documentation Completion [RC] STAT 09/12/20 21:45 Magnesium Sulfate/Water [Magnesium Sulfate in Water 4 GM/50 ML] 4 gm Premix Bag 1 bag IV ONETIME metroNIDAZOLE/Normal Saline [Flagyl in NS 500 MG/100 ML] 500 mg Premix Bag 1 bag IV Q8H 09/12/20 21:52 CTA Chest W WO Contrast [Ang Chest] [CT] Stat 09/12/20 22:15 Sodium Chloride 0.9% [Normal Saline] 100 ml IV ASDIRECTED 09/12/20 23:00 Admission Status [Patient Status] [ADT] Routine Cardiac Monitoring [RC] . DIRECTED
--- NOTE | 2020-09-12 19:29 | CR ---
Chest: Portable view of the chest was obtained. Comparison: Prior chest CT study of 05/31/20 and chest x-ray also performed on 05/31/20. Interstitial density is noted throughout the right lung increasing in prominence from prior CT study. Left lung shows minimal interstitial change within the left base. Heart size and mediastinum are normal. No acute osseous finding is seen. Impression: 1. Increasing interstitial change within the right lung and left lung base. Findings could represent diffuse bronchitis either bacterial or viral. Please correlate with the patient's symptoms. Diagnostic code #3
[2020-09-12] MEDS ORDERED: Albuterol 0.083% 2.5 MG/3 ML Neb Soln NEB ONE (19:47)
[2020-09-12] MEDS ORDERED: cefTRIAXone 1 GM in Sodium Chloride 0.9% 100 ML IV ONE (21:21)
[2020-09-12] MEDS ORDERED: Magnesium Sulfate/Water 4 GM in Premix Bag 1 BAG IV ONE (21:45)
[2020-09-12] MEDS: metroNIDAZOLE/Normal Saline 500 MG in Premix Bag 1 BAG IV SCH (21:52)
[2020-09-12] MEDS ORDERED: Sodium Chloride 0.9% 10 ML Syringe FLUSH ONE (22:10)
[2020-09-12] MEDS ORDERED: Iopamidol 755 Mg/ML 100 ML Bottle IVPUSH ONE (22:10)
[2020-09-12] MEDS ORDERED: Sodium Chloride 0.9% 100 ML IV SCH (22:15)
[2020-09-13] MEDS: metroNIDAZOLE/Normal Saline 500 MG in Premix Bag 1 BAG IV SCH ×3 (04:59→21:20)
[2020-09-13] MEDS ORDERED: traMADol 50 MG Tab PO PRN (05:39)
--- NOTE | 2020-09-13 07:06 | CT ---
CT chest Technique: Multiple axial sections were obtained from above the lung apices inferiorly through the lung bases. Intravenous contrast was utilized. Study was performed as a pulmonary angiogram protocol. Comparison: Prior CT chest angiogram of 05/31/20. Findings: Pulmonary arteries are moderately well opacified. No filling defects are seen to indicate pulmonary embolism. Thoracic aorta shows no aneurysm. Scattered lymph nodes are seen within the mediastinum which remain stable from prior exam. No pericardial thickening is seen. Visualized abdominal structures show increased stool within the colon. No acute abdominal abnormality is appreciated. Increasing density within the right lung base is seen from prior exam presumably due to worsening pneumonia. Diffuse nodularity is seen within the right lung which is increased from prior exam. Multiple small peripheral based nodules are also noted. Bone window settings were reviewed which show no acute osseous abnormality. Impression: 1. Increasing density within the right lung base from prior study presumably due to pneumonia. 2. No definite findings of pulmonary embolism. 3. Diffuse nodular interstitial change within the right lung with other smaller well-defined nodules within the periphery of the right lung. Please correlate if this represents infection which could be bacterial or viral, other atypical etiologies can also be included within the differential. This finding is felt to be slightly increased in prominence from previous exam. 4. Mild increased stool within the colon. Diagnostic code #3 I agree with preliminary report from [facility] finalized on 09/13/20, 11:58 PM CDT, code 1
--- NOTE | 2020-09-13 07:15 | PCM.HP.2 ---
H&P History of Present Illness - General Date of Service: 09/13/20 Admit Problem/Dx: Admission Diagnosis/Problem Admission Diagnosis/Problem Hypoxia Source of Information: Patient, Old Records, Provider, RN, RN Notes Reviewed History Limitations: Reports: No Limitations - History of Present Illness Initial Comments - Free Text/Narative: This is a 40-year-old male who presents to ED on the evening of 09/12/2020 with respiratory concerns. He reports recent fever, cough, shortness of breath, and a slight headache. He does carry a history of aspiration pneumonia due to reflu x and he has been hospitalized before for this. States he had been using his CPAP and he does have chronic GERD which would cause him to aspirate. He is on Protonix twice daily. He seen GI and pulmonology and they have been unable to figure out a cause thus far. He states he believes he aspirated in his sleep. Reports a temp of 101.7 accompanied by chills and increased cough which is causing him to vomit, as he is coughing so hard. He is afebrile in the ED but did take Tylenol prior to his arrival. He is noted to be tachycardic however he is on a beta-starla and he states he has not taken it because he has been sick. In the ED twelve-lead EKG is obtained showing a sinus tachycardia at 110 bpm with no ischemic changes. He is noted to have a temp of 98.7 pulse 110. Respirations 18. Blood pressure 113/83. Saturations are 88% on room air. Labs are obtained showing a leukocytosis at 9.11. Hemoglobin 12.7. Platelet 288,000. Neutrophils are elevated at 84.1%. Sodium 141. Potassium 4.3. Chloride 102. Carbon dioxide 26. Anion gap is high at 17.3. BUN is 12. Creatinine 1.3. GFR greater than 60. Glucose is 122. Magnesium 1.2. Bilirubin 1.0. AST is 53, ALT 60, alkaline phosphatase 63. Albumin is 3.6. D- dimer is slightly elevated 0.92. Blood cultures are obtained and pending. Chest x-rays obtained showing interstitial change which is increasing within the right lung and left lung base. Findings could represent diffuse bronchitis either bacterial or viral. Please correlate with the patient's symptoms. CTA is obtained showing 1. Increasing density within the right lung base from the prior study presumably due to pneumonia. 2. No definite findings of pulmonary embolism. 3. Diffuse nodular interstitial change within the right lung with other smaller well-defined nodules within the periphery of the right lung. Please correlate if this represents infection which could be bacterial or viral, other atypical etiologies can be included within the differential. This finding is felt to be slightly increased from in prominence from previous exam. 4. Mild increase stool within the colon. He is given p.o. metoprolol for his tachycardia and an albuterol nebulizer. He started on 1 g Rocephin and 500 mg metronidazole. He is also given 4 g of IV magnesium. He carries a history of cleft palate, HLD, tachycardia, recurrent aspiration pneumonitis, GERD, hiatal hernia, acute renal failure, chronic neck pain secondary to neck fracture in 2005, concussion, anxiety, obesity. He is a former smoker who quit about 3 years ago. He is a full code. His PCP is Gayle Molina NP. He is subsequently admitted to the medical floor for management of his pneumonia. Neck Pain Score (Numeric/FACES): 8 - Related Data Allergies/Adverse Reactions: Allergies Allergy/AdvReac Type Severity Reaction Status Date / Time oxycodone AdvReac Severe Headache Verified 09/12/20 23:42 Home Medications: Home Meds ALPRAZolam [Xanax] 1 mg PO BEDTIME 04/19/19 [History] Cyclobenzaprine [Flexeril] 10 mg PO TID PRN 04/19/19 [History] Desvenlafaxine Succinate [Pristiq] 50 mg PO DAILY 04/19/19 [History] Hydrocodone/Acetaminophen [Hydrocodone-Acetamin 10-325 mg] 1 tab PO Q4H PRN 04/19/19 [History] Pantoprazole Sodium 40 mg PO BID #60 tablet. 06/09/19 [Rx] Fenofibrate Nanocrystallized [Fenofibrate] 145 mg PO DAILY 05/17/20 [History] Gabapentin [Neurontin] 300 mg PO TID 05/17/20 [History] Metoprolol Succinate [Toprol XL 50mg] 25 mg PO BID 05/17/20 [History] Rosuvastatin Calcium 20 mg PO BEDTIME 05/17/20 [History] Past Medical History HEENT History: Reports: Impaired Vision Other HEENT History: root canal on 06/03/2019, wears eyeglasses. 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 Patient has a history of recurrent aspiration pneumonitis. Gastrointestinal History: Reports: GERD, Hiatal Hernia Genitourinary History: Reports: Acute Renal Failure Musculoskeletal History: Reports: Fracture, Neck Pain, Chronic Other Musculoskeletal History: Broke neck in 2006. -Neck/back swell around nerves and he gets muscle spasms Neurological History: Reports: Concussion Psychiatric History: Reports: Anxiety Endocrine/Metabolic History: Reports: Obesity/BMI 30+ - Infectious Disease History Infectious Disease History: Reports: Chicken Pox, Mononucleosis - Past Surgical History HEENT Surgical History: Reports: Oral Surgery Other HEENT Surgeries/Procedures: cleft palate. GI Surgical History: Reports: EGD, Hernia, Inguinal Other GI Surgeries/Procedures: Hernia surgery Social & Family History - Family History Family Medical History: No Pertinent Family History - Tobacco Use Tobacco Use Status *Q: Former Tobacco User Used Tobacco, but Quit: Yes Month/Year Tobacco Last Used: 2018 - Caffeine Use Caffeine Use: Reports: Soda Caffeine Use Comment: Drinks about 2 20oz bottles of soda per day - Recreational Drug Use Recreational Drug Use: No - Living Situation & Occupation Living situation: Reports: , with Spouse, with Family (1 child) Occupation: Disabled H&P Review of Systems - Review of Systems: Review Of Systems: See Below General: Reports: Weakness, Fatigue. Denies: Fever (None since admission ), Chills (none since admission ), Malaise, Night Sweats HEENT: Reports: No Symptoms. Denies: Glasses, Headaches, Rhinitis, Sore Throat Pulmonary: Reports: Shortness of Breath, Cough, Sputum. Denies: Wheezing, Pleuritic Chest Pain Cardiovascular: Reports: No Symptoms, Dyspnea on Exertion. Denies: Chest Pain, Palpitations, Edema, Lightheadedness Gastrointestinal: Reports: No Symptoms. Denies: Abdominal Pain, Constipation, Diarrhea, Nausea, Vomiting Genitourinary: Reports: No Symptoms Musculoskeletal: Reports: Neck Pain (chornic ). Denies: Leg Pain Skin: Reports: No Symptoms. Denies: Cyanosis Psychiatric: Reports: No Symptoms. Denies: Confusion Neurological: Reports: No Symptoms. Denies: Confusion, Dizziness, Headache, Numbness, Pre-Existing Deficit, Syncope, Tingling, Trouble Speaking, Difficulty Walking, Gait Disturbance Hematologic/Lymphatic: Reports: No Symptoms Immunologic: Reports: No Symptoms Exam - Exam Exam: See Below - Vital Signs Vital Signs: Last Vital Signs Temp 98.1 F 09/13/20 04:52 Pulse 82 09/13/20 04:59 Resp 11 L 09/13/20 05:03 BP 102/63 09/13/20 05:03 Pulse Ox 99 09/13/20 04:59 Weight: 218 lb 3.2 oz - Exam Quality Assessment: Supplemental Oxygen (1L), DVT Prophylaxis. No: Urinary Catheter General: Alert, Oriented, Cooperative. No: Mild Distress HEENT: Conjunctiva Clear, EACs Clear, Hearing Intact, Mucosa Moist & [place], Posterior Pharynx Clear, PERRLA Neck: Supple, Trachea Midline Lungs: Normal Respiratory Effort, Decreased Breath Sounds, Rales (Bilateral ) Cardiovascular: Regular Rate, Regular Rhythm GI/Abdominal Exam: Normal Bowel Sounds, Soft, Non-Tender, No Distention (Male) Exam: Deferred Rectal (Males) Exam: Deferred Back Exam: Normal Inspection, Full Range of Motion Extremities: Normal Inspection, Normal Range of Motion, Non-Tender, No Pedal Edema, Normal Capillary Refill Peripheral Pulses: 2+: Radial (L), Radial (R), Dorsalis Pedis (L), Dorsalis Pedis (R) Skin: Warm, Dry, Intact Neurological: Cranial Nerves Intact (Grossly ) Neuro Extensive - Mental Status: Alert, Oriented x3, Normal Mood/Affect - Patient Data Lab Results Last 24 hrs: Laboratory Results - last 24 hr 09/12/20 09/12/20 09/12/20 Range/Units 18:15 19:10 19:10 WBC 9.11 H (4.23-9.07) K/mm3 RBC 4.32 L (4.63-6.08) M/mm3 Hgb 12.7 L D (13.7-17.5) gm/dl Hct 38.9 L (40.1-51.0) % MCV 90.0 D (79.0-92.2) fl MCH 29.4 (25.7-32.2) pg MCHC 32.6 (32.2-35.5) g/dl RDW Std Deviation 43.4 (35.1-43.9) fL Plt Count 288 D (163-337) K/mm3 MPV 8.4 L (9.4-12.3) fl Neut % (Auto) 84.1 H (34.0-67.9) % Lymph % (Auto) 7.1 L (21.8-53.1) % [place] % (Auto) 8.5 (5.3-12.2) % Eos % (Auto) 0 L (0.8-7.0) Baso % (Auto) 0.2 (0.1-1.2) % Neut # (Auto) 7.66 H (1.78-5.38) K/mm3 Lymph # (Auto) 0.65 L (1.32-3.57) K/mm3 [place] # (Auto) 0.77 (0.30-0.82) K/mm3 Eos # (Auto) 0.00 L (0.04-0.54) K/mm3 Baso # (Auto) 0.02 (0.01-0.08) K/mm3 Manual Slide Review Abnormal smear D-Dimer, Quantitative (0.19-0.50) mg/L Sodium 141 (136-145) mEq/L Potassium 4.3 (3.5-5.1) mEq/L Chloride 102 (98-107) mEq/L Carbon Dioxide 26 (21-32) mEq/L Anion Gap 17.3 H (5-15) BUN 12 (7-18) mg/dL Creatinine 1.3 (0.7-1.3) mg/dL Est Cr Clr Drug Dosing 78.77 mL/min Estimated GFR (MDRD) > 60 (>60) mL/min BUN/Creatinine Ratio 9.2 L (14-18) Glucose 122 H (74-106) mg/dL Calcium 9.3 (8.5-10.1) mg/dL Magnesium 1.2 L (1.8-2.4) mg/dl Total Bilirubin 1.0 (0.2-1.0) mg/dL AST 53 H (15-37) U/L ALT 68 H (16-63) U/L Alkaline Phosphatase 63 (46-116) U/L Total Protein 7.3 (6.4-8.2) g/dl Albumin 3.6 (3.4-5.0) g/dl Globulin 3.7 gm/dL Albumin/Globulin Ratio 1.0 (1-2) Influenza Type A RNA Negative (NEGATIVE) Influenza Type B RNA Negative (NEGATIVE) SARS-CoV-2 RNA (SYDNIE) Negative (NEGATIVE) 09/12/20 Range/Units 19:10 WBC (4.23-9.07) K/mm3 RBC (4.63-6.08) M/mm3 Hgb (13.7-17.5) gm/dl Hct (40.1-51.0) % MCV (79.0-92.2) fl MCH (25.7-32.2) pg MCHC (32.2-35.5) g/dl RDW Std Deviation (35.1-43.9) fL Plt Count (163-337) K/mm3 MPV (9.4-12.3) fl Neut % (Auto) (34.0-67.9) % Lymph % (Auto) (21.8-53.1) % [place] % (Auto) (5.3-12.2) % Eos % (Auto) (0.8-7.0) Baso % (Auto) (0.1-1.2) % Neut # (Auto) (1.78-5.38) K/mm3 Lymph # (Auto) (1.32-3.57) K/mm3 [place] # (Auto) (0.30-0.82) K/mm3 Eos # (Auto) (0.04-0.54) K/mm3 Baso # (Auto) (0.01-0.08) K/mm3 Manual Slide Review D-Dimer, Quantitative 0.92 H (0.19-0.50) mg/L Sodium (136-145) mEq/L Potassium (3.5-5.1) mEq/L Chloride (98-107) mEq/L Carbon Dioxide (21-32) mEq/L Anion Gap (5-15) BUN (7-18) mg/dL Creatinine (0.7-1.3) mg/dL Est Cr Clr Drug Dosing mL/min Estimated GFR (MDRD) (>60) mL/min BUN/Creatinine Ratio (14-18) Glucose (74-106) mg/dL Calcium (8.5-10.1) mg/dL Magnesium (1.8-2.4) mg/dl Total Bilirubin (0.2-1.0) mg/dL AST (15-37) U/L ALT (16-63) U/L Alkaline Phosphatase (46-116) U/L Total Protein (6.4-8.2) g/dl Albumin (3.4-5.0) g/dl Globulin gm/dL Albumin/Globulin Ratio (1-2) Influenza Type A RNA (NEGATIVE) Influenza Type B RNA (NEGATIVE) SARS-CoV-2 RNA (SYDNIE) (NEGATIVE) Result Diagrams: 09/13/20 09:05 09/13/20 09:05 Sepsis Event Note - Evaluation Sepsis Screening Result: No Definite Risk - Focused Exam Vital Signs: Vital Signs Temp Temp Pulse Pulse Resp BP BP 09/13/20 05:03 11 L 102/63 09/13/20 05:00 12 09/13/20 04:59 82 12 09/13/20 04:52 98.1 F 87 16 94/52 L 09/13/20 04:00 14 09/13/20 03:00 15 09/13/20 02:00 15 09/13/20 01:00 14 09/13/20 00:18 98.0 F 09/13/20 00:05 97 09/13/20 00:00 14 09/12/20 23:35 99 16 120/68 09/12/20 23:14 98.9 F 102 H 18 114/75 09/12/20 21:45 110 H 18 113/83 09/12/20 20:00 09/12/20 19:31 120 H 16 115/85 Pulse Ox Pulse Ox Pulse Ox 09/13/20 05:03 09/13/20 05:00 09/13/20 04:59 99 09/13/20 04:52 91 L 09/13/20 04:00 09/13/20 03:00 09/13/20 02:00 09/13/20 01:00 09/13/20 00:18 09/13/20 00:05 95 09/13/20 00:00 95 09/12/20 23:35 93 L 09/12/20 23:14 93 L 09/12/20 21:45 94 L 09/12/20 20:00 92 L 09/12/20 19:31 91 L - Problem List (1) History of cleft palate SNOMED Code(s): 926871361 ICD Code: Z87.730 - PERSONAL HISTORY OF (CORRECTED) CLEFT LIP AND PALATE Status: Chronic Priority: Low Current Visit: No (2) HLD (hyperlipidemia) SNOMED Code(s): 14992337 ICD Code: E78.5 - HYPERLIPIDEMIA, UNSPECIFIED Status: Chronic Priority: Low Current Visit: No Qualifiers: Hyperlipidemia type: unspecified Qualified Code(s): E78.5 - Hyperlipidemia, unspecified (3) Recurrent aspiration pneumonia SNOMED Code(s): 055649486 ICD Code: J69.0 - PNEUMONITIS DUE TO INHALATION OF FOOD AND VOMIT Status: Chronic Priority: High Current Visit: Yes (4) GERD (gastroesophageal reflux disease) SNOMED Code(s): 018580548 ICD Code: K21.9 - GASTRO-ESOPHAGEAL REFLUX DISEASE WITHOUT ESOPHAGITIS Status: Chronic Priority: High Current Visit: Yes Qualifiers: Esophagitis presence: esophagitis presence not specified Qualified Code(s): K21.9 - Gastro-esophageal reflux disease without esophagitis (5) Chronic neck pain SNOMED Code(s): 9812276900742 ICD Code: M54.2 - CERVICALGIA; G89.29 - OTHER CHRONIC PAIN Status: Chronic Priority: Medium Current Visit: Yes (6) History of cervical fracture SNOMED Code(s): 773051287, 762390629 ICD Code: Z87.81 - PERSONAL HISTORY OF (HEALED) TRAUMATIC FRACTURE Status: Chronic Priority: Low Current Visit: No (7) Obesity (BMI 30.0-34.9) SNOMED Code(s): 241750819705669 ICD Code: E66.9 - OBESITY, UNSPECIFIED Status: Chronic Priority: Low Current Visit: No (8) Hypomagnesemia SNOMED Code(s): 813942195 ICD Code: E83.42 - HYPOMAGNESEMIA Status: Acute Priority: High Current Visit: Yes (9) Abnormal LFTs SNOMED Code(s): 203317535 ICD Code: R94.5 - ABNORMAL RESULTS OF LIVER FUNCTION STUDIES Status: Acute Priority: Low Current Visit: Yes (10) Aspiration pneumonia SNOMED Code(s): 815576838 ICD Code: J69.0 - PNEUMONITIS DUE TO INHALATION OF FOOD AND VOMIT Status: Acute Priority: High Current Visit: Yes Qualifiers: Aspiration pneumonia type: unspecified Laterality: right Lung location: lower lobe of lung Qualified Code(s): J69.0 - Pneumonitis due to inhalation of food and vomit (11) Cough SNOMED Code(s): 86874736 ICD Code: R05 - COUGH Status: Acute Priority: High Current Visit: Yes (12) Dyspnea SNOMED Code(s): 975676237 ICD Code: R06.00 - DYSPNEA, UNSPECIFIED Status: Acute Priority: High Current Visit: Yes Qualifiers: Dyspnea type: unspecified Qualified Code(s): R06.00 - Dyspnea, unspecified (13) Hiatal hernia SNOMED Code(s): 81344241 ICD Code: K44.9 - DIAPHRAGMATIC HERNIA WITHOUT OBSTRUCTION OR GANGRENE Status: Chronic Priority: Medium Current Visit: No (14) Febrile illness, acute SNOMED Code(s): 316178001 ICD Code: R50.9 - FEVER, UNSPECIFIED Status: Acute Priority: High Current Visit: Yes (15) History of tachycardia SNOMED Code(s): 646203575 ICD Code: Z87.898 - PERSONAL HISTORY OF OTHER SPECIFIED CONDITIONS Status: Acute Priority: High Current Visit: Yes (16) Hypoxemia SNOMED Code(s): 124265534 ICD Code: R09.02 - HYPOXEMIA Status: Acute Priority: High Current Visit: Yes (17) Leukocytosis SNOMED Code(s): 792715920, 707149364 ICD Code: D72.829 - ELEVATED WHITE BLOOD CELL COUNT, UNSPECIFIED Status: Acute Priority: High Current Visit: Yes Qualifiers: Leukocytosis type: unspecified Qualified Code(s): D72.829 - Elevated white blood cell count, unspecified (18) Anxiety SNOMED Code(s): 05807497 ICD Code: F41.9 - ANXIETY DISORDER, UNSPECIFIED Status: Chronic Priority: Medium Current Visit: No (19) High anion gap metabolic acidosis SNOMED Code(s): 61620354 ICD Code: E87.2 - ACIDOSIS Status: Acute Priority: High Current Visit: Yes (20) Elevated d-dimer SNOMED Code(s): 610069621 ICD Code: R79.89 - OTHER SPECIFIED ABNORMAL FINDINGS OF BLOOD CHEMISTRY Status: Ruled-out Priority: High Current Visit: Yes (21) Sleep apnea SNOMED Code(s): 77965226 ICD Code: G47.30 - SLEEP APNEA, UNSPECIFIED Status: Chronic Priority: Medium Current Visit: Yes Qualifiers: Sleep apnea type: unspecified type Qualified Code(s): G47.30 - Sleep apnea, unspecified Problem List Initiated/Reviewed/Updated: Yes Orders Last 24hrs: Active Orders 24 hr Category Date Time Status Admission Status [Patient Status] [ADT] Routine ADT 09/12/20 23:00 Active Activity as Tolerated [RC] .Routine Care 09/12/20 23:49 Active Cardiac Monitoring [RC] . DIRECTED Care 09/12/20 23:00 Active Oxygen Therapy [RC] ASDIRECTED Care 09/12/20 23:50 Active RT Aerosol Therapy [RC] ASDIRECTED Care 09/12/20 19:48 Active RT BiPAP/CPAP [RC] ASDIRECTED Care 09/12/20 23:50 Active RT Incentive Spirometry [RC] ASDIRECTED Care 09/12/20 19:54 Active Regular Diet [DIET] Diet 09/13/20 Breakfast Active CULTURE BLOOD [BC] Stat Lab 09/12/20 19:00 Received CULTURE BLOOD [BC] Stat Lab 09/12/20 19:10 Received Sodium Chloride 0.9% [Saline Flush] Med 09/12/20 18:46 Active 10 ml FLUSH ASDIRECTED PRN metroNIDAZOLE/Normal Saline [Flagyl in NS 500 MG/100 ML Med 09/12/20 21:45 Active ] 500 mg Premix Bag 1 bag IV Q8H traMADol [Ultram] Med 09/13/20 05:39 Active 50 mg PO Q6HR PRN Blood Culture x2 Reflex Set [OM.PC] Stat Oth 09/12/20 18:49 Ordered Saline Lock Insert [OM.PC] Stat Oth 09/12/20 18:46 Ordered Resuscitation Status Routine Resus Stat 09/12/20 23:48 Ordered Medication Orders Metronidazole 500 mg/ Premix 100 mls @ 100 mls/hr IV Q8H RICH Last Admin: 09/13/20 04:59 Dose: 100 mls/hr Documented by: Infusion: 09/12/20 22:52 Dose: 100 mls/hr Documented by: Admin: 09/12/20 21:52 Dose: 100 mls/hr Documented by: YESSI Sodium Chloride (Sodium Chloride 0.9% 10 Ml Syringe) 10 ml FLUSH ASDIRECTED PRN PRN Reason: Keep Vein Open Last Admin: 09/12/20 19:08 Dose: 10 ml Documented by: TERRI Tramadol HCl (Tramadol 50 Mg Tab) 50 mg PO Q6HR PRN PRN Reason: Pain Last Admin: 09/13/20 06:27 Dose: 50 mg Documented by: MANOLO Assessment/Plan Comment:: Assessment - 09/13/2020 (admitted night of 09/12/2020) * 40 yo male who presents to ED with fever, chills, cough, sputum, SOB, headache * Reports fever of 101.7 [employer] - was taking tylenol * Hx/o HLD, tachycardia, recurrent aspiration pneumonitis, GERD, hiatal hernia, chronic neck pain secondary to cervical fracture, anxiety, obesity, Sleep apnea on nightly CPAP. * Twelve-lead EKG in ED shows sinus tachycardia 110 bpm with no ectopy. Patient reports he had not taken his beta-starla. * Chest x-ray shows increased interstitial change within right lung and left lung base. Findings could represent diffuse bronchitis either bacterial or viral. Please correlate with the patient's symptoms. * Chest CT obtained in ED shows: * 1. Increased density within the right lung base from prior study p resumably due to pneumonia. * 2. No definite findings of pulmonary embolism. * 3. Diffuse nodular interstitial change within the right lung base with other smaller well-defined nodules within the periphery of the right lung. Please correlate if this represents infection which could be bacterial or viral, other atypical etiologies can also be included within the differential. This finding is felt to be slightly increased in prominence from previous exam. * 4. Mild increase stool within the colon * Labs obtained in ED: * WBC 9.11 * Hemoglobin 12.8 * Platelet 288,000 * Neutrophils elevated at 84.1% * Sodium 141 * Potassium 4.3 * Chloride 102 * Carbon dioxide 26 * Anion gap 17.3 * BUN 12, creatinine 1.3, GFR greater than 60 * Glucose 122 * Magnesium 1.2 * Total bilirubin 1.0 * AST 53, ALT 68, alkaline phosphatase 63 * Albumin 3.6 * Influenza a and B both negative * SARS Covid 2 RNA negative * D-dimer 0.92 * Blood cultures obtained and pending * Given albuterol neb, 50 mg metoprolol succinate, 1 g Rocephin, 500 mg metronidazole, and 4 g of magnesium in ED. * Admitted observation status with telemetry to floor. Will increase to inpatient today. PLAN: Aspiration pneumonia Recurrent aspiration pneumonia Cough Dyspnea Febrile illness, acute High anion gap metabolic acidosis Hypoxemia Leukocytosis Elevated D-Dimer Sleep apnea * Follow daily labs * Rocephin 2gm daily * Flagyl 500mg Q8HR * IS/Acapella * RT consultation * PRN duonebs * O2 as needed - goal >90% saturations * Ambulate * Tylenol for fever * Check lactic acid * Await blood cultures * Sputum culture if able to produce * Check procalcitonin * Repeat CXRs as needed * CPAP at night * Check mycoplasma Hypomagnesemia * Supplemented in ED - 4gm * Re-check labs Abnormal LFTs * Very mildly elevated - reports has been taking Tylenol at home for fever * Follow daily labs History of tachycardia * Continue home metoprolol * Telemetry - will discontinue tomorrow if no concerns History of cleft palate Hiatal hernia GERD (gastroesophageal reflux disease) * Continue home PPI HLD (hyperlipidemia) * Continue home statin and fenofibrate * No acute concerns Chronic neck pain History of cervical fracture * As needed Percocet and Flexeril home medications * No acute concerns Obesity (BMI 30.0-34.9) * No acute concerns * Consider dietitian consult Anxiety * Home antianxiety meds as ordered * No acute concerns Code Status: Full Code PCP: Gayle Molina NP VTE prophylaxis: Lovenox Disposition: Patient admitted observation status for management of his aspiration pneumonia. Upgraded to inpatient today. LOS likely 3 to 4 days. - Mortality Measure Prognosis:: Good
[2020-09-13] MEDS ORDERED: Docusate Sodium 100 MG Cap PO PRN (08:52)
[2020-09-13] MEDS ORDERED: Albuterol/Ipratropium 3.0-0.5 MG/3 ML Neb Soln NEB PRN (08:52)
[2020-09-13] MEDS ORDERED: Acetaminophen 325 MG Tab PO PRN (08:52)
[2020-09-13] MEDS ORDERED: Ondansetron 4 MG/2 ML SDV IV PRN (08:52)
[2020-09-13] MEDS ORDERED: Magnesium Hydroxide 400 MG/5 ML Susp 30 ML Cup PO PRN (08:52)
[2020-09-13] MEDS ORDERED: Metoprolol Succinate 50 MG Tab.ER PO SCH (09:00)
[2020-09-13] MEDS: Gabapentin 300 MG Cap PO SCH ×3 (09:09→20:29)
[2020-09-13] MEDS: Fenofibrate Nanocrystallized 145 MG Tab PO SCH (09:10)
[2020-09-13] MEDS: Acetaminophen/HYDROcodone 325-10 MG Tab PO PRN ×3 (09:11→19:32)
[2020-09-13] MEDS: Pantoprazole 40 MG Tab.CR PO SCH ×2 (09:11→20:30)
[2020-09-13] MEDS: Enoxaparin 40 MG/0.4 ML Syringe SUBCUT SCH (09:11)
[2020-09-13] MEDS: Desvenlafaxine Succinate [Pristiq] 25 MG Tab.Er.24h PO SCH (09:54)
[2020-09-13] MEDS: Cyclobenzaprine 10 MG Tab PO PRN ×2 (14:09→19:32)
[2020-09-13] MEDS: Rosuvastatin 10 MG Tab PO SCH (20:28)
[2020-09-13] MEDS: Metoprolol Succinate 25 MG Tab.ER PO SCH (20:29)
[2020-09-13] MEDS: ALPRAZolam 1 MG Tab PO SCH (20:29)
[2020-09-13] MEDS: cefTRIAXone 2 GM in Sodium Chloride 0.9% 100 ML IV SCH (20:30)
[2020-09-13 21:42] LABS: BORDETELLA PARAPERT IS1001 Not Detected (Not Detected)
[2020-09-14] MEDS: metroNIDAZOLE/Normal Saline 500 MG in Premix Bag 1 BAG IV SCH ×3 (04:50→21:14)
[2020-09-14] MEDS: Acetaminophen/HYDROcodone 325-10 MG Tab PO PRN ×4 (05:02→22:19)
[2020-09-14] MEDS ORDERED: Sodium Chloride 0.9% 1,000 ML IV SCH (07:45)
[2020-09-14] MEDS: Gabapentin 300 MG Cap PO SCH ×3 (08:02→20:15)
[2020-09-14] MEDS: Enoxaparin 40 MG/0.4 ML Syringe SUBCUT SCH (08:02)
[2020-09-14] MEDS: Fenofibrate Nanocrystallized 145 MG Tab PO SCH (08:02)
[2020-09-14] MEDS: Pantoprazole 40 MG Tab.CR PO SCH ×2 (08:02→20:15)
[2020-09-14] MEDS: Metoprolol Succinate 25 MG Tab.ER PO SCH ×2 (08:02→20:15)
[2020-09-14] MEDS: Desvenlafaxine Succinate [Pristiq] 25 MG Tab.Er.24h PO SCH (08:03)
--- NOTE | 2020-09-14 08:10 | PCM.PN ---
- General Info Date of Service: 09/14/20 Admission Dx/Problem (Free Text): Admission Diagnosis/Problem Admission Diagnosis/Problem Hypoxia Functional Status: Reports: Pain Controlled, Tolerating Diet, Ambulating, Urinating, Incentive Spirometry, Other (Acapella ). Denies: New Symptoms - Review of Systems General: Reports: No Symptoms. Denies: Fever, Weakness, Fatigue, Malaise, Chills HEENT: Reports: No Symptoms. Denies: Headaches, Sore Throat Pulmonary: Reports: No Symptoms, Sputum. Denies: Shortness of Breath, Pleuritic Chest Pain, Cough, Wheezing Cardiovascular: Reports: No Symptoms, Dyspnea on Exertion. Denies: Chest Pain, Palpitations, Edema, Lightheadedness Gastrointestinal: Reports: No Symptoms. Denies: Abdominal Pain, Constipation, Diarrhea, Nausea, Vomiting Genitourinary: Reports: No Symptoms. Denies: Pain Musculoskeletal: Reports: Neck Pain (chronic ) Skin: Reports: No Symptoms. Denies: Cyanosis Neurological: Reports: No Symptoms. Denies: Confusion, Difficulty Walking, Gait Disturbance Psychiatric: Reports: No Symptoms - Patient Data Vitals - Most Recent: Last Vital Signs Temp 97.5 F 09/14/20 07:36 Pulse 76 09/14/20 08:02 Resp 16 09/14/20 07:36 BP 125/86 09/14/20 08:02 Pulse Ox 94 L 09/14/20 07:36 Weight - Most Recent: 218 lb 6.4 oz I&O - Last 24 Hours: Intake & Output 09/13/20 09/14/20 09/14/20 22:59 06:59 14:59 Intake Total 1440 1100 Output Total 1500 Balance -60 1100 Lab Results Last 24 Hours: Laboratory Results - last 24 hr 09/12/20 09/13/20 09/13/20 Range/Units 18:09 09:05 09:05 WBC 6.84 (4.23-9.07) K/mm3 RBC 4.00 L (4.63-6.08) M/mm3 Hgb 11.9 L (13.7-17.5) gm/dl Hct 36.7 L (40.1-51.0) % MCV 91.8 (79.0-92.2) fl MCH 29.8 (25.7-32.2) pg MCHC 32.4 (32.2-35.5) g/dl RDW Std Deviation 44.6 H (35.1-43.9) fL Plt Count 307 (163-337) K/mm3 MPV 8.5 L (9.4-12.3) fl Neut % (Auto) 68.4 H (34.0-67.9) % Lymph % (Auto) 21.1 L (21.8-53.1) % [place] % (Auto) 7.7 (5.3-12.2) % Eos % (Auto) 2.3 (0.8-7.0) Baso % (Auto) 0.4 (0.1-1.2) % Neut # (Auto) 4.67 (1.78-5.38) K/mm3 Lymph # (Auto) 1.44 (1.32-3.57) K/mm3 [place] # (Auto) 0.53 (0.30-0.82) K/mm3 Eos # (Auto) 0.16 (0.04-0.54) K/mm3 Baso # (Auto) 0.03 (0.01-0.08) K/mm3 Sodium 139 (136-145) mEq/L Potassium 4.0 (3.5-5.1) mEq/L Chloride 101 (98-107) mEq/L Carbon Dioxide 29 (21-32) mEq/L Anion Gap 13.0 (5-15) BUN 15 (7-18) mg/dL Creatinine 1.3 (0.7-1.3) mg/dL Est Cr Clr Drug Dosing 78.77 mL/min Estimated GFR (MDRD) > 60 (>60) mL/min BUN/Creatinine Ratio 11.5 L (14-18) Glucose 112 H (74-106) mg/dL Lactic Acid (0.4-2.0) mmol/L Calcium 9.2 (8.5-10.1) mg/dL Magnesium 2.3 (1.8-2.4) mg/dl Total Bilirubin 0.5 (0.2-1.0) mg/dL AST 41 H (15-37) U/L ALT 61 (16-63) U/L Alkaline Phosphatase 57 (46-116) U/L C-Reactive Protein 22.4 H* (<1.0) mg/dL Total Protein 7.5 (6.4-8.2) g/dl Albumin 3.5 (3.4-5.0) g/dl Globulin 4.0 gm/dL Albumin/Globulin Ratio 0.9 L (1-2) Procalcitonin ng/mL Adenovirus (PCR) Not detected (Not Detected) B. pertussis DNA (PCR) Not detected (Not Detected) B.parapertussis DNA PCR Not detected (Not Detected) C. pneumoniae DNA (PCR) Not detected (Not Detected) Coronavirus OC43 (PCR) Not detected (Not Detected) Coronavirus HKU1 (PCR) Not detected (Not Detected) Coronavirus 229E (PCR) Not detected (Not Detected) Coronavirus NL63 (PCR) Not detected (Not Detected) Human Metapneumovir PCR Not detected (Not Detected) Influenza A (RT-PCR) Not detected (Not Detected) Influenza B (RT-PCR) Not detected (Not Detected) Mycoplasma pneumon IgM (NEGATIVE) M. pneumoniae (PCR) Not detected (Not Detected) Parainfluenza 1 (PCR) Not detected (Not Detected) Parainfluenza 2 (PCR) Not detected (Not Detected) Parainfluenza 3 (PCR) Not detected (Not Detected) Parainfluenza 4 (PCR) Not detected (Not Detected) RSV (PCR) Not detected (Not Detected) Entero/Rhino (PCR) Not detected (Not Detected) SARS-CoV-2 (PCR) Not detected (Not Detected) 09/13/20 09/13/20 09/13/20 Range/Units 09:05 09:05 09:05 WBC (4.23-9.07) K/mm3 RBC (4.63-6.08) M/mm3 Hgb (13.7-17.5) gm/dl Hct (40.1-51.0) % MCV (79.0-92.2) fl MCH (25.7-32.2) pg MCHC (32.2-35.5) g/dl RDW Std Deviation (35.1-43.9) fL Plt Count (163-337) K/mm3 MPV (9.4-12.3) fl Neut % (Auto) (34.0-67.9) % Lymph % (Auto) (21.8-53.1) % [place] % (Auto) (5.3-12.2) % Eos % (Auto) (0.8-7.0) Baso % (Auto) (0.1-1.2) % Neut # (Auto) (1.78-5.38) K/mm3 Lymph # (Auto) (1.32-3.57) K/mm3 [place] # (Auto) (0.30-0.82) K/mm3 Eos # (Auto) (0.04-0.54) K/mm3 Baso # (Auto) (0.01-0.08) K/mm3 Sodium (136-145) mEq/L Potassium (3.5-5.1) mEq/L Chloride (98-107) mEq/L Carbon Dioxide (21-32) mEq/L Anion Gap (5-15) BUN (7-18) mg/dL Creatinine (0.7-1.3) mg/dL Est Cr Clr Drug Dosing mL/min Estimated GFR (MDRD) (>60) mL/min BUN/Creatinine Ratio (14-18) Glucose (74-106) mg/dL Lactic Acid 1.8 (0.4-2.0) mmol/L Calcium (8.5-10.1) mg/dL Magnesium (1.8-2.4) mg/dl Total Bilirubin (0.2-1.0) mg/dL AST (15-37) U/L ALT (16-63) U/L Alkaline Phosphatase (46-116) U/L C-Reactive Protein (<1.0) mg/dL Total Protein (6.4-8.2) g/dl Albumin (3.4-5.0) g/dl Globulin gm/dL Albumin/Globulin Ratio (1-2) Procalcitonin 1.32 H ng/mL Adenovirus (PCR) (Not Detected) B. pertussis DNA (PCR) (Not Detected) B.parapertussis DNA PCR (Not Detected) C. pneumoniae DNA (PCR) (Not Detected) Coronavirus OC43 (PCR) (Not Detected) Coronavirus HKU1 (PCR) (Not Detected) Coronavirus 229E (PCR) (Not Detected) Coronavirus NL63 (PCR) (Not Detected) Human Metapneumovir PCR (Not Detected) Influenza A (RT-PCR) (Not Detected) Influenza B (RT-PCR) (Not Detected) Mycoplasma pneumon IgM Negative (NEGATIVE) M. pneumoniae (PCR) (Not Detected) Parainfluenza 1 (PCR) (Not Detected) Parainfluenza 2 (PCR) (Not Detected) Parainfluenza 3 (PCR) (Not Detected) Parainfluenza 4 (PCR) (Not Detected) RSV (PCR) (Not Detected) Entero/Rhino (PCR) (Not Detected) SARS-CoV-2 (PCR) (Not Detected) 09/14/20 09/14/20 Range/Units 05:07 05:07 WBC 4.96 (4.23-9.07) K/mm3 RBC 3.85 L (4.63-6.08) M/mm3 Hgb 11.4 L (13.7-17.5) gm/dl Hct 35.6 L (40.1-51.0) % MCV 92.5 H (79.0-92.2) fl MCH 29.6 (25.7-32.2) pg MCHC 32.0 L (32.2-35.5) g/dl RDW Std Deviation 44.9 H (35.1-43.9) fL Plt Count 298 (163-337) K/mm3 MPV 8.5 L (9.4-12.3) fl Neut % (Auto) 52.4 (34.0-67.9) % Lymph % (Auto) 33.1 (21.8-53.1) % [place] % (Auto) 9.3 (5.3-12.2) % Eos % (Auto) 4.8 (0.8-7.0) Baso % (Auto) 0.4 (0.1-1.2) % Neut # (Auto) 2.60 (1.78-5.38) K/mm3 Lymph # (Auto) 1.64 (1.32-3.57) K/mm3 [place] # (Auto) 0.46 (0.30-0.82) K/mm3 Eos # (Auto) 0.24 (0.04-0.54) K/mm3 Baso # (Auto) 0.02 (0.01-0.08) K/mm3 Sodium 142 (136-145) mEq/L Potassium 4.0 (3.5-5.1) mEq/L Chloride 104 (98-107) mEq/L Carbon Dioxide 30 (21-32) mEq/L Anion Gap 12.0 (5-15) BUN 17 (7-18) mg/dL Creatinine 1.2 (0.7-1.3) mg/dL Est Cr Clr Drug Dosing 85.34 mL/min Estimated GFR (MDRD) > 60 (>60) mL/min BUN/Creatinine Ratio 14.2 (14-18) Glucose 104 H (74-106) mg/dL Lactic Acid (0.4-2.0) mmol/L Calcium 9.0 (8.5-10.1) mg/dL Magnesium 2.0 (1.8-2.4) mg/dl Total Bilirubin 0.3 (0.2-1.0) mg/dL AST 25 (15-37) U/L ALT 48 (16-63) U/L Alkaline Phosphatase 53 (46-116) U/L C-Reactive Protein 12.3 H* (<1.0) mg/dL Total Protein 7.0 (6.4-8.2) g/dl Albumin 3.3 L (3.4-5.0) g/dl Globulin 3.7 gm/dL Albumin/Globulin Ratio 0.9 L (1-2) Procalcitonin ng/mL Adenovirus (PCR) (Not Detected) B. pertussis DNA (PCR) (Not Detected) B.parapertussis DNA PCR (Not Detected) C. pneumoniae DNA (PCR) (Not Detected) Coronavirus OC43 (PCR) (Not Detected) Coronavirus HKU1 (PCR) (Not Detected) Coronavirus 229E (PCR) (Not Detected) Coronavirus NL63 (PCR) (Not Detected) Human Metapneumovir PCR (Not Detected) Influenza A (RT-PCR) (Not Detected) Influenza B (RT-PCR) (Not Detected) Mycoplasma pneumon IgM (NEGATIVE) M. pneumoniae (PCR) (Not Detected) Parainfluenza 1 (PCR) (Not Detected) Parainfluenza 2 (PCR) (Not Detected) Parainfluenza 3 (PCR) (Not Detected) Parainfluenza 4 (PCR) (Not Detected) RSV (PCR) (Not Detected) Entero/Rhino (PCR) (Not Detected) SARS-CoV-2 (PCR) (Not Detected) Akbar Results Last 24 Hours: Microbiology 09/12/20 19:00 Aerobic Blood Culture - Preliminary Blood - Venous - Lab Draw NO GROWTH AFTER 1 DAY Anaerobic Blood Culture - Preliminary NO GROWTH AFTER 1 DAY 09/12/20 19:10 Aerobic Blood Culture - Preliminary Blood - Venous NO GROWTH AFTER 1 DAY Anaerobic Blood Culture - Preliminary NO GROWTH AFTER 1 DAY 09/13/20 15:49 Gram Stain - Preliminary Sputum - Expectorated Med Orders - Current: Current Medications Acetaminophen (Acetaminophen 325 Mg Tab) 650 mg PO Q4H PRN PRN Reason: Pain (Mild 1-3)/fever Hydrocodone Bitart/Acetaminophen (Acetaminophen/Hydrocodone 325-10 Mg Tab) 1 tab PO Q4H PRN PRN Reason: Pain Last Admin: 09/14/20 05:02 Dose: 1 tab Documented by: Albuterol/Ipratropium (Albuterol/Ipratropium 3.0-0.5 Mg/3 Ml Neb Soln) 3 ml NEB Q4H PRN PRN Reason: Shortness Of Breath/wheezing Alprazolam (Alprazolam 1 Mg Tab) 1 mg PO BEDTIME [facility] Last Admin: 09/13/20 20:29 Dose: 1 mg Documented by: Cyclobenzaprine HCl (Cyclobenzaprine 10 Mg Tab) 10 mg PO TID PRN PRN Reason: Pain Last Admin: 09/13/20 19:32 Dose: 10 mg Documented by: Docusate Sodium (Docusate Sodium 100 Mg Cap) 100 mg PO BID PRN PRN Reason: Constipation Enoxaparin Sodium (Enoxaparin 40 Mg/0.4 Ml Syringe) 40 mg SUBCUT DAILY [facility] Last Admin: 09/14/20 08:02 Dose: 40 mg Documented by: Fenofibrate (Fenofibrate Nanocrystallized 145 Mg Tab) 145 mg PO DAILY [facility] Last Admin: 09/14/20 08:02 Dose: 145 mg Documented by: Gabapentin (Gabapentin 300 Mg Cap) 300 mg PO TID [facility] Last Admin: 09/14/20 08:02 Dose: 300 mg Documented by: Metronidazole 500 mg/ Premix 100 mls @ 100 mls/hr IV Q8H [facility] Last Admin: 09/14/20 04:50 Dose: 100 mls/hr Documented by: Ceftriaxone Sodium 2 gm/ (Sodium Chloride) 100 mls @ 200 mls/hr IV Q24H [facility] Last Admin: 09/13/20 20:30 Dose: 200 mls/hr Documented by: Sodium Chloride (Normal Saline) 1,000 mls @ 100 mls/hr IV ASDIRECTED [facility] Stop: 09/15/20 17:44 Magnesium Hydroxide (Magnesium Hydroxide 400 Mg/5 Ml Susp 30 Ml Cup) 30 ml PO Q12H PRN PRN Reason: Constipation Metoprolol Succinate (Metoprolol Succinate 25 Mg Tab.Er) 25 mg PO BID [facility] Last Admin: 09/14/20 08:02 Dose: 25 mg Documented by: Ondansetron HCl (Ondansetron 4 Mg/2 Ml Sdv) 4 mg IV Q6H PRN PRN Reason: Nausea/Vomiting Pantoprazole Sodium (Pantoprazole 40 Mg Tab.Cr) 40 mg PO BID [facility] Last Admin: 09/14/20 08:02 Dose: 40 mg Documented by: Desvenlafaxine Succinate [Pristiq] 25 Mg Tab.Er.24h 0 each PO DAILY [facility] Last Admin: 09/14/20 08:03 Dose: Not Given Documented by: Rosuvastatin Calcium (Rosuvastatin 10 Mg Tab) 20 mg PO BEDTIME [facility] Last Admin: 09/13/20 20:28 Dose: 20 mg Documented by: Sodium Chloride (Sodium Chloride 0.9% 10 Ml Syringe) 10 ml FLUSH ASDIRECTED PRN PRN Reason: Keep Vein Open Last Admin: 09/12/20 19:08 Dose: 10 ml Documented by: Tramadol HCl (Tramadol 50 Mg Tab) 50 mg PO Q6HR PRN PRN Reason: Pain Last Admin: 09/13/20 06:27 Dose: 50 mg Documented by: Discontinued Medications Albuterol (Albuterol 0.083% 2.5 Mg/3 Ml Neb Soln) 2.5 mg NEB ONETIME ONE Stop: 09/12/20 19:48 Last Admin: 09/12/20 19:58 Dose: 2.5 mg Documented by: Ceftriaxone Sodium 1 gm/ (Sodium Chloride) 100 mls @ 200 mls/hr IV ONETIME ONE Stop: 09/12/20 21:50 Last Admin: 09/12/20 21:44 Dose: 200 mls/hr Documented by: Magnesium Sulfate 4 gm/ Premix 50 mls @ 12.5 mls/hr IV ONETIME ONE Stop: 09/13/20 01:44 Last Admin: 09/12/20 21:57 Dose: 12.5 mls/hr Documented by: Sodium Chloride (Normal Saline) 100 mls @ 60 mls/hr IV ASDIRECTED [facility] Last Admin: 09/12/20 22:28 Dose: 60 mls/hr Documented by: Iopamidol (Iopamidol 755 Mg/Ml 100 Ml Bottle) 100 ml IVPUSH ONETIME ONE Stop: 09/12/20 22:11 Last Admin: 09/12/20 22:28 Dose: 100 ml Documented by: Metoprolol Succinate (Metoprolol Succinate 50 Mg Tab.Er) 50 mg PO ONETIME ONE Stop: 09/12/20 18:50 Last Admin: 09/12/20 19:01 Dose: 50 mg Documented by: Metoprolol Succinate (Metoprolol Succinate 50 Mg Tab.Er) 50 mg PO BID [facility] Last Admin: 09/13/20 09:10 Dose: 50 mg Documented by: Sodium Chloride (Sodium Chloride 0.9% 10 Ml Syringe) 10 ml FLUSH ONETIME ONE Stop: 09/12/20 22:11 Last Admin: 09/12/20 22:28 Dose: 10 ml Documented by: - Exam Quality Assessment: DVT Prophylaxis. No: Supplemental Oxygen, Urine Catheter General: Alert, Oriented, Cooperative, No Acute Distress HEENT: Pupils Equal, Pupils Reactive, Mucous Membr. Moist/[place] Neck: Supple, Trachea Midline Lungs: Clear to Auscultation, Normal Respiratory Effort. No: Crackles, Rhonchi, Wheezing Cardiovascular: Regular Rate, Regular Rhythm GI/Abdominal Exam: Normal Bowel Sounds, Soft, Non-Tender, No Distention (Male) Exam: Deferred Back Exam: Normal Inspection, Full Range of Motion Extremities: Normal Inspection, Normal Range of Motion, Non-Tender, No Pedal Edema, Normal Capillary Refill Peripheral Pulses: 2+: Radial (L), Radial (R), Dorsalis Pedis (L), Dorsalis Pedis (R) Skin: Warm, Dry, Intact Neurological: No New Focal Deficit Psy/Mental Status: Alert, Normal Affect, Normal Mood - Patient Data Lab Results Last 24 hrs: Laboratory Results - last 24 hr 09/12/20 09/13/20 09/13/20 Range/Units 18:09 09:05 09:05 WBC 6.84 (4.23-9.07) K/mm3 RBC 4.00 L (4.63-6.08) M/mm3 Hgb 11.9 L (13.7-17.5) gm/dl Hct 36.7 L (40.1-51.0) % MCV 91.8 (79.0-92.2) fl MCH 29.8 (25.7-32.2) pg MCHC 32.4 (32.2-35.5) g/dl RDW Std Deviation 44.6 H (35.1-43.9) fL Plt Count 307 (163-337) K/mm3 MPV 8.5 L (9.4-12.3) fl Neut % (Auto) 68.4 H (34.0-67.9) % Lymph % (Auto) 21.1 L (21.8-53.1) % [place] % (Auto) 7.7 (5.3-12.2) % Eos % (Auto) 2.3 (0.8-7.0) Baso % (Auto) 0.4 (0.1-1.2) % Neut # (Auto) 4.67 (1.78-5.38) K/mm3 Lymph # (Auto) 1.44 (1.32-3.57) K/mm3 [place] # (Auto) 0.53 (0.30-0.82) K/mm3 Eos # (Auto) 0.16 (0.04-0.54) K/mm3 Baso # (Auto) 0.03 (0.01-0.08) K/mm3 Sodium 139 (136-145) mEq/L Potassium 4.0 (3.5-5.1) mEq/L Chloride 101 (98-107) mEq/L Carbon Dioxide 29 (21-32) mEq/L Anion Gap 13.0 (5-15) BUN 15 (7-18) mg/dL Creatinine 1.3 (0.7-1.3) mg/dL Est Cr Clr Drug Dosing 78.77 mL/min Estimated GFR (MDRD) > 60 (>60) mL/min BUN/Creatinine Ratio 11.5 L (14-18) Glucose 112 H (74-106) mg/dL Lactic Acid (0.4-2.0) mmol/L Calcium 9.2 (8.5-10.1) mg/dL Magnesium 2.3 (1.8-2.4) mg/dl Total Bilirubin 0.5 (0.2-1.0) mg/dL AST 41 H (15-37) U/L ALT 61 (16-63) U/L Alkaline Phosphatase 57 (46-116) U/L C-Reactive Protein 22.4 H* (<1.0) mg/dL Total Protein 7.5 (6.4-8.2) g/dl Albumin 3.5 (3.4-5.0) g/dl Globulin 4.0 gm/dL Albumin/Globulin Ratio 0.9 L (1-2) Procalcitonin ng/mL Adenovirus (PCR) Not detected (Not Detected) B. pertussis DNA (PCR) Not detected (Not Detected) B.parapertussis DNA PCR Not detected (Not Detected) C. pneumoniae DNA (PCR) Not detected (Not Detected) Coronavirus OC43 (PCR) Not detected (Not Detected) Coronavirus HKU1 (PCR) Not detected (Not Detected) Coronavirus 229E (PCR) Not detected (Not Detected) Coronavirus NL63 (PCR) Not detected (Not Detected) Human Metapneumovir PCR Not detected (Not Detected) Influenza A (RT-PCR) Not detected (Not Detected) Influenza B (RT-PCR) Not detected (Not Detected) Mycoplasma pneumon IgM (NEGATIVE) M. pneumoniae (PCR) Not detected (Not Detected) Parainfluenza 1 (PCR) Not detected (Not Detected) Parainfluenza 2 (PCR) Not detected (Not Detected) Parainfluenza 3 (PCR) Not detected (Not Detected) Parainfluenza 4 (PCR) Not detected (Not Detected) RSV (PCR) Not detected (Not Detected) Entero/Rhino (PCR) Not detected (Not Detected) SARS-CoV-2 (PCR) Not detected (Not Detected) 09/13/20 09/13/20 09/13/20 Range/Units 09:05 09:05 09:05 WBC (4.23-9.07) K/mm3 RBC (4.63-6.08) M/mm3 Hgb (13.7-17.5) gm/dl Hct (40.1-51.0) % MCV (79.0-92.2) fl MCH (25.7-32.2) pg MCHC (32.2-35.5) g/dl RDW Std Deviation (35.1-43.9) fL Plt Count (163-337) K/mm3 MPV (9.4-12.3) fl Neut % (Auto) (34.0-67.9) % Lymph % (Auto) (21.8-53.1) % [place] % (Auto) (5.3-12.2) % Eos % (Auto) (0.8-7.0) Baso % (Auto) (0.1-1.2) % Neut # (Auto) (1.78-5.38) K/mm3 Lymph # (Auto) (1.32-3.57) K/mm3 [place] # (Auto) (0.30-0.82) K/mm3 Eos # (Auto) (0.04-0.54) K/mm3 Baso # (Auto) (0.01-0.08) K/mm3 Sodium (136-145) mEq/L Potassium (3.5-5.1) mEq/L Chloride (98-107) mEq/L Carbon Dioxide (21-32) mEq/L Anion Gap (5-15) BUN (7-18) mg/dL Creatinine (0.7-1.3) mg/dL Est Cr Clr Drug Dosing mL/min Estimated GFR (MDRD) (>60) mL/min BUN/Creatinine Ratio (14-18) Glucose (74-106) mg/dL Lactic Acid 1.8 (0.4-2.0) mmol/L Calcium (8.5-10.1) mg/dL Magnesium (1.8-2.4) mg/dl Total Bilirubin (0.2-1.0) mg/dL AST (15-37) U/L ALT (16-63) U/L Alkaline Phosphatase (46-116) U/L C-Reactive Protein (<1.0) mg/dL Total Protein (6.4-8.2) g/dl Albumin (3.4-5.0) g/dl Globulin gm/dL Albumin/Globulin Ratio (1-2) Procalcitonin 1.32 H ng/mL Adenovirus (PCR) (Not Detected) B. pertussis DNA (PCR) (Not Detected) B.parapertussis DNA PCR (Not Detected) C. pneumoniae DNA (PCR) (Not Detected) Coronavirus OC43 (PCR) (Not Detected) Coronavirus HKU1 (PCR) (Not Detected) Coronavirus 229E (PCR) (Not Detected) Coronavirus NL63 (PCR) (Not Detected) Human Metapneumovir PCR (Not Detected) Influenza A (RT-PCR) (Not Detected) Influenza B (RT-PCR) (Not Detected) Mycoplasma pneumon IgM Negative (NEGATIVE) M. pneumoniae (PCR) (Not Detected) Parainfluenza 1 (PCR) (Not Detected) Parainfluenza 2 (PCR) (Not Detected) Parainfluenza 3 (PCR) (Not Detected) Parainfluenza 4 (PCR) (Not Detected) RSV (PCR) (Not Detected) Entero/Rhino (PCR) (Not Detected) SARS-CoV-2 (PCR) (Not Detected) 09/14/20 09/14/20 Range/Units 05:07 05:07 WBC 4.96 (4.23-9.07) K/mm3 RBC 3.85 L (4.63-6.08) M/mm3 Hgb 11.4 L (13.7-17.5) gm/dl Hct 35.6 L (40.1-51.0) % MCV 92.5 H (79.0-92.2) fl MCH 29.6 (25.7-32.2) pg MCHC 32.0 L (32.2-35.5) g/dl RDW Std Deviation 44.9 H (35.1-43.9) fL Plt Count 298 (163-337) K/mm3 MPV 8.5 L (9.4-12.3) fl Neut % (Auto) 52.4 (34.0-67.9) % Lymph % (Auto) 33.1 (21.8-53.1) % [place] % (Auto) 9.3 (5.3-12.2) % Eos % (Auto) 4.8 (0.8-7.0) Baso % (Auto) 0.4 (0.1-1.2) % Neut # (Auto) 2.60 (1.78-5.38) K/mm3 Lymph # (Auto) 1.64 (1.32-3.57) K/mm3 [place] # (Auto) 0.46 (0.30-0.82) K/mm3 Eos # (Auto) 0.24 (0.04-0.54) K/mm3 Baso # (Auto) 0.02 (0.01-0.08) K/mm3 Sodium 142 (136-145) mEq/L Potassium 4.0 (3.5-5.1) mEq/L Chloride 104 (98-107) mEq/L Carbon Dioxide 30 (21-32) mEq/L Anion Gap 12.0 (5-15) BUN 17 (7-18) mg/dL Creatinine 1.2 (0.7-1.3) mg/dL Est Cr Clr Drug Dosing 85.34 mL/min Estimated GFR (MDRD) > 60 (>60) mL/min BUN/Creatinine Ratio 14.2 (14-18) Glucose 104 H (74-106) mg/dL Lactic Acid (0.4-2.0) mmol/L Calcium 9.0 (8.5-10.1) mg/dL Magnesium 2.0 (1.8-2.4) mg/dl Total Bilirubin 0.3 (0.2-1.0) mg/dL AST 25 (15-37) U/L ALT 48 (16-63) U/L Alkaline Phosphatase 53 (46-116) U/L C-Reactive Protein 12.3 H* (<1.0) mg/dL Total Protein 7.0 (6.4-8.2) g/dl Albumin 3.3 L (3.4-5.0) g/dl Globulin 3.7 gm/dL Albumin/Globulin Ratio 0.9 L (1-2) Procalcitonin ng/mL Adenovirus (PCR) (Not Detected) B. pertussis DNA (PCR) (Not Detected) B.parapertussis DNA PCR (Not Detected) C. pneumoniae DNA (PCR) (Not Detected) Coronavirus OC43 (PCR) (Not Detected) Coronavirus HKU1 (PCR) (Not Detected) Coronavirus 229E (PCR) (Not Detected) Coronavirus NL63 (PCR) (Not Detected) Human Metapneumovir PCR (Not Detected) Influenza A (RT-PCR) (Not Detected) Influenza B (RT-PCR) (Not Detected) Mycoplasma pneumon IgM (NEGATIVE) M. pneumoniae (PCR) (Not Detected) Parainfluenza 1 (PCR) (Not Detected) Parainfluenza 2 (PCR) (Not Detected) Parainfluenza 3 (PCR) (Not Detected) Parainfluenza 4 (PCR) (Not Detected) RSV (PCR) (Not Detected) Entero/Rhino (PCR) (Not Detected) SARS-CoV-2 (PCR) (Not Detected) Result Diagrams: 09/14/20 05:07 09/14/20 05:07 Akbar Results Last 24 hrs: Microbiology 09/12/20 19:00 Aerobic Blood Culture - Preliminary Blood - Venous - Lab Draw NO GROWTH AFTER 1 DAY Anaerobic Blood Culture - Preliminary NO GROWTH AFTER 1 DAY 09/12/20 19:10 Aerobic Blood Culture - Preliminary Blood - Venous NO GROWTH AFTER 1 DAY Anaerobic Blood Culture - Preliminary NO GROWTH AFTER 1 DAY 09/13/20 15:49 Gram Stain - Preliminary Sputum - Expectorated Sepsis Event Note - Evaluation Sepsis Screening Result: No Definite Risk - Focused Exam Vital Signs: Vital Signs Temp Pulse Resp BP Pulse Ox Pulse Ox 09/14/20 08:02 76 125/86 09/14/20 07:36 97.5 F 76 16 125/86 94 L 09/14/20 06:18 90 L 09/14/20 04:57 97.9 F 80 14 91/59 L 95 09/13/20 20:30 93 92/60 94 L 09/13/20 20:29 94 92/60 - Problem List & Annotations (1) History of cleft palate SNOMED Code(s): 963491621 Code(s): Z87.730 - PERSONAL HISTORY OF (CORRECTED) CLEFT LIP AND PALATE Status: Chronic Priority: Low Current Visit: No (2) HLD (hyperlipidemia) SNOMED Code(s): 21866599 Code(s): E78.5 - HYPERLIPIDEMIA, UNSPECIFIED Status: Chronic Priority: Low Current Visit: No Qualifiers: Hyperlipidemia type: unspecified Qualified Code(s): E78.5 - Hyperlipidemia, unspecified (3) Recurrent aspiration pneumonia SNOMED Code(s): 244911776 Code(s): J69.0 - PNEUMONITIS DUE TO INHALATION OF FOOD AND VOMIT Status: Chronic Priority: High Current Visit: Yes (4) GERD (gastroesophageal reflux disease) SNOMED Code(s): 198402838 Code(s): K21.9 - GASTRO-ESOPHAGEAL REFLUX DISEASE WITHOUT ESOPHAGITIS Status: Chronic Priority: High Current Visit: Yes Qualifiers: Esophagitis presence: esophagitis presence not specified Qualified Code(s): K21.9 - Gastro-esophageal reflux disease without esophagitis (5) Chronic neck pain SNOMED Code(s): 2009498505061 Code(s): M54.2 - CERVICALGIA; G89.29 - OTHER CHRONIC PAIN Status: Chronic Priority: Medium Current Visit: Yes (6) History of cervical fracture SNOMED Code(s): 960690086, 594665839 Code(s): Z87.81 - PERSONAL HISTORY OF (HEALED) TRAUMATIC FRACTURE Status: Chronic Priority: Low Current Visit: No (7) Obesity (BMI 30.0-34.9) SNOMED Code(s): 782432106114293 Code(s): E66.9 - OBESITY, UNSPECIFIED Status: Chronic Priority: Low Current Visit: No (8) Hypomagnesemia SNOMED Code(s): 983365661 Code(s): E83.42 - HYPOMAGNESEMIA Status: Acute Priority: High Current Visit: Yes (9) Abnormal LFTs SNOMED Code(s): 040180556 Code(s): R94.5 - ABNORMAL RESULTS OF LIVER FUNCTION STUDIES Status: Acute Priority: Low Current Visit: Yes (10) Aspiration pneumonia SNOMED Code(s): 921692632 Code(s): J69.0 - PNEUMONITIS DUE TO INHALATION OF FOOD AND VOMIT Status: Acute Priority: High Current Visit: Yes Qualifiers: Aspiration pneumonia type: unspecified Laterality: right Lung location: lower lobe of lung Qualified Code(s): J69.0 - Pneumonitis due to inhalation of food and vomit (11) Cough SNOMED Code(s): 33153550 Code(s): R05 - COUGH Status: Acute Priority: High Current Visit: Yes (12) Dyspnea SNOMED Code(s): 176123102 Code(s): R06.00 - DYSPNEA, UNSPECIFIED Status: Acute Priority: High Current Visit: Yes Qualifiers: Dyspnea type: unspecified Qualified Code(s): R06.00 - Dyspnea, unspecified (13) Hiatal hernia SNOMED Code(s): 02333206 Code(s): K44.9 - DIAPHRAGMATIC HERNIA WITHOUT OBSTRUCTION OR GANGRENE Status: Chronic Priority: Medium Current Visit: No (14) Febrile illness, acute SNOMED Code(s): 393282432 Code(s): R50.9 - FEVER, UNSPECIFIED Status: Acute Priority: High Current Visit: Yes (15) History of tachycardia SNOMED Code(s): 435468046 Code(s): Z87.898 - PERSONAL HISTORY OF OTHER SPECIFIED CONDITIONS Status: Acute Priority: High Current Visit: Yes (16) Hypoxemia SNOMED Code(s): 691701105 Code(s): R09.02 - HYPOXEMIA Status: Acute Priority: High Current Visit: Yes (17) Leukocytosis SNOMED Code(s): 685322833, 854957471 Code(s): D72.829 - ELEVATED WHITE BLOOD CELL COUNT, UNSPECIFIED Status: Acute Priority: High Current Visit: Yes Qualifiers: Leukocytosis type: unspecified Qualified Code(s): D72.829 - Elevated white blood cell count, unspecified (18) Anxiety SNOMED Code(s): 58436647 Code(s): F41.9 - ANXIETY DISORDER, UNSPECIFIED Status: Chronic Priority: Medium Current Visit: No (19) High anion gap metabolic acidosis SNOMED Code(s): 90634062 Code(s): E87.2 - ACIDOSIS Status: Acute Priority: High Current Visit: Yes (20) Elevated d-dimer SNOMED Code(s): 569672376 Code(s): R79.89 - OTHER SPECIFIED ABNORMAL FINDINGS OF BLOOD CHEMISTRY Status: Ruled-out Priority: High Current Visit: Yes (21) Sleep apnea SNOMED Code(s): 72241029 Code(s): G47.30 - SLEEP APNEA, UNSPECIFIED Status: Chronic Priority: Medium Current Visit: Yes Qualifiers: Sleep apnea type: unspecified type Qualified Code(s): G47.30 - Sleep apnea, unspecified (22) Hyperglycemia SNOMED Code(s): 78117149 Code(s): R73.9 - HYPERGLYCEMIA, UNSPECIFIED Status: Acute Priority: Medium Current Visit: Yes (23) Pre-diabetes SNOMED Code(s): 396607843 Code(s): R73.03 - PREDIABETES Status: Acute Priority: Medium Current Visit: Yes - Problem List Review Problem List Initiated/Reviewed/Updated: Yes - My Orders Last 24 Hours: My Active Orders 09/13/20 08:50 Acetaminophen/HYDROcodone [[place] 325-10 MG] 1 tab PO Q4H PRN Cyclobenzaprine [Flexeril] 10 mg PO TID PRN 09/13/20 08:52 Height and Weight [RC] 0600 Pulse Oximetry [RC] PRN Up ad Cristal [RC] ASDIRECTED VTE/DVT Education [RC] PER UNIT ROUTINE Vital Signs [RC] Q4HR Respiratory Care Assess and Treatment [CONS] Routine Acetaminophen [TylenoL] 650 mg PO Q4H PRN Albuterol/Ipratropium [DuoNeb 3.0-0.5 MG/3 ML] 3 ml NEB Q4H PRN Docusate Sodium [Colace] 100 mg PO BID PRN Magnesium Hydroxide [Milk of Magnesia] 30 ml PO Q12H PRN Ondansetron [Zofran] 4 mg IV Q6H PRN 09/13/20 08:53 RT Aerosol Therapy [RC] ASDIRECTED 09/13/20 08:54 Acapella [RT Chest Physiotherapy] [RC] ASDIRECTED 09/13/20 09:00 Enoxaparin [Lovenox] 40 mg SUBCUT DAILY Fenofibrate Nanocrystallized [Tricor] 145 mg PO DAILY Gabapentin [Neurontin] 300 mg PO TID Pantoprazole [ProTONIX] 40 mg PO BID Patient's Own Medication [Ptom] 0 each PO DAILY 09/13/20 11:00 Patient Status [ADT] Routine 09/13/20 12:47 Isolation [COMM] Routine 09/13/20 15:49 CULTURE SPUTUM + SMEAR [RM] Routine 09/13/20 21:00 ALPRAZolam [Xanax] 1 mg PO BEDTIME Metoprolol Succinate [Toprol XL] 25 mg PO BID Rosuvastatin [Crestor] 20 mg PO BEDTIME cefTRIAXone [Rocephin] 2 gm Sodium Chloride 0.9% [Normal Saline] 100 ml IV Q24H 09/14/20 07:45 Sodium Chloride 0.9% [Normal Saline] 1,000 ml IV ASDIRECTED 09/15/20 05:11 CBC WITH AUTO DIFF [HEME] AM CMP [COMPREHENSIVE METABOLIC PN,CMP] [CHEM] AM CRP [C-REACTIVE PROTEIN] [CHEM] AM MAGNESIUM [CHEM] AM 09/16/20 05:11 CBC WITH AUTO DIFF [HEME] AM CMP [COMPREHENSIVE METABOLIC PN,CMP] [CHEM] AM CRP [C-REACTIVE PROTEIN] [CHEM] AM MAGNESIUM [CHEM] AM 09/17/20 05:11 CBC WITH AUTO DIFF [HEME] AM CMP [COMPREHENSIVE METABOLIC PN,CMP] [CHEM] AM CRP [C-REACTIVE PROTEIN] [CHEM] AM MAGNESIUM [CHEM] AM - Assessment Assessment:: Assessment - 09/13/2020 (admitted night of 09/12/2020) * 40 yo male who presents to ED with fever, chills, cough, sputum, SOB, headache * Reports fever of 101.7 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 * Twelve-lead EKG in ED shows sinus tachycardia 110 bpm with no ectopy. Patient reports he had not taken his beta-starla. * Chest x-ray shows increased interstitial change within right lung and left lung base. Findings could represent diffuse bronchitis either bacterial or viral. Please correlate with the patient's symptoms. * Chest CT obtained in ED shows: * 1. Increased density within the right lung base from prior study presumably due to pneumonia. * 2. No definite findings of pulmonary embolism. * 3. Diffuse nodular interstitial change within the right lung base with other smaller well-defined nodules within the periphery of the right lung. Please correlate if this represents infection which could be bacterial or viral, other atypical etiologies can also be included within the differential. This finding is felt to be slightly increased in prominence from previous exam. * 4. Mild increase stool within the colon * Labs obtained in ED: * WBC 9.11 * Hemoglobin 12.8 * Platelet 288,000 * Neutrophils elevated at 84.1% * Sodium 141 * Potassium 4.3 * Chloride 102 * Carbon dioxide 26 * Anion gap 17.3 * BUN 12, creatinine 1.3, GFR greater than 60 * Glucose 122 * Magnesium 1.2 * Total bilirubin 1.0 * AST 53, ALT 68, alkaline phosphatase 63 * Albumin 3.6 * Influenza a and B both negative * SARS Covid 2 RNA negative * D-dimer 0.92 * Blood cultures obtained and pending * Given albuterol neb, 50 mg metoprolol succinate, 1 g Rocephin, 500 mg metronidazole, and 4 g of magnesium in ED. * Admitted observation status with telemetry to floor. Will increase to inpatient today. 09/14/2020 * Weaned off of oxygen with saturations in the low 90s * Discontinue telemetry as HR has been controlled * Reports he feels much better. Cough has resolved * Check MRSA screen * Await sputum cultures * Labs today: * WBC 4.96. * Hemoglobin 11.4. * Sodium 142. * Potassium 4.0. * Anion gap 12.0. * BUN 17, creatinine 1.2, GFR greater than 60 * glucose 104. * Magnesium 2.0. * CRP 12.3. * Albumin 3.3. * A1C 5.7% * Procalcitonin 1.32. (yesterday) * Mycoplasma negative (yesterday) * Viral respiratory PCR negative (yesterday) * Discussed lifestyle changes for mildly elevated A1C/Pre-diabetes. 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 * Continue current treatment plan. * Likely discharge tomorrow if continues to improve. - Plan Plan:: Aspiration pneumonia Recurrent aspiration pneumonia Cough Dyspnea Hypoxemia Sleep apnea * Follow daily labs * Rocephin 2gm daily * Flagyl 500mg Q8HR * IS/Acapella * RT consultation * PRN duonebs * O2 as needed - goal >90% saturations * Ambulate * Tylenol for fever * Await blood cultures - negative after one day * Sputum culture pending * Repeat CXRs as needed * CPAP at night * Check MRSA History of cleft palate Hiatal hernia GERD (gastroesophageal reflux disease) * Continue home PPI Hyperglycemia Pre-Diabetes Obesity (BMI 30.0-34.9) * Check A1C -5.7% * Mottler Operator consult * Discuss lifestyle changes HLD (hyperlipidemia) * Continue home statin and fenofibrate * No acute concerns Chronic neck pain History of cervical fracture * As needed Percocet and Flexeril home medications * No acute concerns Anxiety * Home antianxiety meds as ordered * No acute concerns Resolved: Leukocytosis, Resolved Febrile illness, acute, Resolved High anion gap metabolic acidosis,Resolved * Continue to monitor labs and vital signs Hypomagnesemia, Resolved * Supplemented in ED - 4gm * Monitor labs Abnormal LFTs, Resolved History of tachycardia * No acute concerns as rate has been controlled once home meds restarted * Continue home metoprolol * Discontinue telemetry Inactive: Elevated D-Dimer, Inactive Code Status: Full Code PCP: Gayle Molina NP VTE prophylaxis: Lovenox Disposition: Patient admitted observation status for management of his aspiration pneumonia. Upgraded to inpatient on 09/13/20. LOS likely 3 to 4 days. Likely discharge tomorrow pending continued stability/improvement.
[2020-09-14 09:03] LABS: HEMOGLOBIN A1C 5.7 %
[2020-09-14] MEDS: Cyclobenzaprine 10 MG Tab PO PRN (17:42)
[2020-09-14] MEDS: cefTRIAXone 2 GM in Sodium Chloride 0.9% 100 ML IV SCH (20:14)
[2020-09-14] MEDS: ALPRAZolam 1 MG Tab PO SCH (20:14)
[2020-09-14] MEDS: Rosuvastatin 10 MG Tab PO SCH (20:15)
[2020-09-15] MEDS: metroNIDAZOLE/Normal Saline 500 MG in Premix Bag 1 BAG IV SCH (05:18)
[2020-09-15] MEDS: Cyclobenzaprine 10 MG Tab PO PRN (05:19)
[2020-09-15] MEDS: Acetaminophen/HYDROcodone 325-10 MG Tab PO PRN ×2 (05:20→09:21)
--- NOTE | 2020-09-15 08:00 | PCM.DCSUM1 ---
Discharge Summary - Hospital Course HPI Initial Comments: This is a 40-year-old male who presents to ED on the evening of 09/12/2020 with respiratory concerns. He reports recent fever, cough, shortness of breath, and a slight headache. He does carry a history of aspiration pneumonia due to reflux and he has been hospitalized before for this. States he had been using his CPAP and he does have chronic GERD which would cause him to aspirate. He is on Protonix twice daily. He seen GI and pulmonology and they have been unable to figure out a cause thus far. He states he believes he aspirated in his sleep. Reports a temp of 101.7 accompanied by chills and increased cough which is causing him to vomit, as he is coughing so hard. He is afebrile in the ED but did take Tylenol prior to his arrival. He is noted to be tachycardic however he is on a beta-starla and he states he has not taken it because he has been sick. In the ED twelve-lead EKG is obtained showing a sinus tachycardia at 110 bpm with no ischemic changes. He is noted to have a temp of 98.7 pulse 110. Respirations 18. Blood pressure 113/83. Saturations are 88% on room air. Labs are obtained showing a leukocytosis at 9.11. Hemoglobin 12.7. Platelet 288,000. Neutrophils are elevated at 84.1%. Sodium 141. Potassium 4.3. Chloride 102. Carbon dioxide 26. Anion gap is high at 17.3. BUN is 12. Creatinine 1.3. GFR greater than 60. Glucose is 122. Magnesium 1.2. Bilirubin 1.0. AST is 53, ALT 60, alkaline phosphatase 63. Albumin is 3.6. D- dimer is slightly elevated 0.92. Blood cultures are obtained and pending. Chest x-rays obtained showing interstitial change which is increasing within the right lung and left lung base. Findings could represent diffuse bronchitis either bacterial or viral. Please correlate with the patient's symptoms. CTA is obtained showing 1. Increasing density within the right lung base from the prior study presumably due to pneumonia. 2. No definite findings of pulmonary embolism. 3. Diffuse nodular interstitial change within the right lung with other smaller well-defined nodules within the periphery of the right lung. Please correlate if this represents infection which could be bacterial or viral, other atypical etiologies can be included within the differential. This finding is felt to be slightly increased from in prominence from previous exam. 4. Mild increase stool within the colon. He is given p.o. metoprolol for his tachycardia and an albuterol nebulizer. He started on 1 g Rocephin and 500 mg metronidazole. He is also given 4 g of IV magnesium. He carries a history of cleft palate, HLD, tachycardia, recurrent aspiration pneumonitis, GERD, hiatal hernia, acute renal failure, chronic neck pain secondary to neck fracture in 2005, concussion, anxiety, obesity. He is a former smoker who quit about 3 years ago. He is a full code. His PCP is Gayle Molina NP. He is subsequently admitted to the medical floor for management of his pneumonia. Diagnosis: Stroke: No - Discharge Data Discharge Date: 09/15/20 (Admit date: 09/12/2020) Discharge Disposition: Home, Self-Care 01 Condition: Good - Referral to Home Health Primary Care Physician: Gayle Molina NP - Discharge Diagnosis/Problem(s) (1) History of cleft palate SNOMED Code(s): 105246041 ICD Code: Z87.730 - PERSONAL HISTORY OF (CORRECTED) CLEFT LIP AND PALATE Status: Chronic Priority: Low (2) HLD (hyperlipidemia) SNOMED Code(s): 39552286 ICD Code: E78.5 - HYPERLIPIDEMIA, UNSPECIFIED Status: Chronic Priority: Low Qualifiers: Hyperlipidemia type: unspecified Qualified Code(s): E78.5 - Hyperlipidemia, unspecified (3) Recurrent aspiration pneumonia SNOMED Code(s): 763133046 ICD Code: J69.0 - PNEUMONITIS DUE TO INHALATION OF FOOD AND VOMIT Status: Chronic Priority: High (4) GERD (gastroesophageal reflux disease) SNOMED Code(s): 325255775 ICD Code: K21.9 - GASTRO-ESOPHAGEAL REFLUX DISEASE WITHOUT ESOPHAGITIS Status: Chronic Priority: High Qualifiers: Esophagitis presence: esophagitis presence not specified Qualified Code(s): K21.9 - Gastro-esophageal reflux disease without esophagitis (5) Chronic neck pain SNOMED Code(s): 7067357414483 ICD Code: M54.2 - CERVICALGIA; G89.29 - OTHER CHRONIC PAIN Status: Chronic Priority: Medium (6) History of cervical fracture SNOMED Code(s): 459483186, 658720812 ICD Code: Z87.81 - PERSONAL HISTORY OF (HEALED) TRAUMATIC FRACTURE Status: Chronic Priority: Low (7) Obesity (BMI 30.0-34.9) SNOMED Code(s): 460983966518403 ICD Code: E66.9 - OBESITY, UNSPECIFIED Status: Chronic Priority: Low (8) Hypomagnesemia SNOMED Code(s): 183453531 ICD Code: E83.42 - HYPOMAGNESEMIA Status: Acute Priority: High (9) Abnormal LFTs SNOMED Code(s): 036337865 ICD Code: R94.5 - ABNORMAL RESULTS OF LIVER FUNCTION STUDIES Status: Resolved Priority: Low (10) Aspiration pneumonia SNOMED Code(s): 371718647 ICD Code: J69.0 - PNEUMONITIS DUE TO INHALATION OF FOOD AND VOMIT Status: Acute Priority: High Qualifiers: Aspiration pneumonia type: unspecified Laterality: right Lung location: lower lobe of lung Qualified Code(s): J69.0 - Pneumonitis due to inhalation of food and vomit (11) Cough SNOMED Code(s): 95332057 ICD Code: R05 - COUGH Status: Resolved Priority: High (12) Dyspnea SNOMED Code(s): 804639656 ICD Code: R06.00 - DYSPNEA, UNSPECIFIED Status: Resolved Priority: High Qualifiers: Dyspnea type: unspecified Qualified Code(s): R06.00 - Dyspnea, unspecified (13) Hiatal hernia SNOMED Code(s): 32187185 ICD Code: K44.9 - DIAPHRAGMATIC HERNIA WITHOUT OBSTRUCTION OR GANGRENE Status: Chronic Priority: Medium (14) Febrile illness, acute SNOMED Code(s): 825355657 ICD Code: R50.9 - FEVER, UNSPECIFIED Status: Resolved Priority: High (15) History of tachycardia SNOMED Code(s): 759080137 ICD Code: Z87.898 - PERSONAL HISTORY OF OTHER SPECIFIED CONDITIONS Status: Acute Priority: High (16) Hypoxemia SNOMED Code(s): 647108023 ICD Code: R09.02 - HYPOXEMIA Status: Resolved Priority: High (17) Leukocytosis SNOMED Code(s): 678872619, 478224632 ICD Code: D72.829 - ELEVATED WHITE BLOOD CELL COUNT, UNSPECIFIED Status: Resolved Priority: High Qualifiers: Leukocytosis type: unspecified Qualified Code(s): D72.829 - Elevated white blood cell count, unspecified (18) Anxiety SNOMED Code(s): 67862747 ICD Code: F41.9 - ANXIETY DISORDER, UNSPECIFIED Status: Chronic Priority: Medium (19) High anion gap metabolic acidosis SNOMED Code(s): 47506126 ICD Code: E87.2 - ACIDOSIS Status: Resolved Priority: High (20) Elevated d-dimer SNOMED Code(s): 848814459 ICD Code: R79.89 - OTHER SPECIFIED ABNORMAL FINDINGS OF BLOOD CHEMISTRY Status: Ruled-out Priority: High (21) Sleep apnea SNOMED Code(s): 87298957 ICD Code: G47.30 - SLEEP APNEA, UNSPECIFIED Status: Chronic Priority: Medium Qualifiers: Sleep apnea type: unspecified type Qualified Code(s): G47.30 - Sleep apnea, unspecified (22) Hyperglycemia SNOMED Code(s): 98449150 ICD Code: R73.9 - HYPERGLYCEMIA, UNSPECIFIED Status: Resolved Priority: Medium (23) Pre-diabetes SNOMED Code(s): 545546631 ICD Code: R73.03 - PREDIABETES Status: Acute Priority: Medium - Patient Summary/Data Consults: Consultations 09/13/20 08:52 Respiratory Care Assess and Treatment [CONS] Routine 09/14/20 11:02 Consult to Water Main Inspector [CONS] Routine Labs Pending at D/C: None Recommended Follow-up Testing/Procedures: Follow-up with primary care provider within 7-10 days of discharge, sooner if needed. -Recommend repeat CBC, CMP, and magnesium at follow-up -Patient discharged on short course of magnesium at discharge as he had been low while here. -Consider repeat CXR. Hospital Course: This is a 40-year-old male who presents to ED on 09/12/2020 with fever, chills, cough, sputum, shortness of breath, and headache. He carries a history of tachycardia, recurrent aspiration pneumonitis, GERD, hiatal hernia, chronic neck pain secondary to a prior cervical fracture, anxiety, obesity and sleep apnea on nightly CPAP. There were concerns on his admission as he was tachycardic but the patient does take a beta-starla and he had not taken that prior to presenting to our ED. Chest CT scan was obtained due to an elevated D-dimer of 0.92 and interpreted by radiology as: 1. Increased density within the right lung base from prior study presumably due to pneumonia. 2. No definite findings of pulmonary embolism. 3. Diffuse nodular interstitial change within the right lung base with other smaller well-defined nodules within the periphery of the right lung. Please correlate if this represents infection which could be bacterial or viral, other atypical etiologies can also be included within the differential. This finding is felt to be slightly increased in prominence from previous exam. 4. Mild increase stool within the colon. White count was very mildly elevated at 9.11 however neutrophils are elevated at 84.1%. Magnesium was low at 1.2 and this was supplemented. He was started on Rocephin and metronidazole for suspected aspiration pneumonia. Patient has been hospitalized multiple times in the past for this. He reports he is seen both GI and pulmonary who do not have much to offer him. He was recently started on CPAP. He does try to sleep in a recliner chair or with a wedge pillow. He was initially admitted observation status and ultimately increased to inpatient status. He was requiring oxygen up to 2 L and this was able to be weaned off. Respiratory viral panel and MRSA screen were obtained and were both negative. Procalcitonin on admission was 1.32. Patient was mildly hyperglycemic and A1c was obtained showing prediabetes at 5.7%. Dietitian consult was ordered and we discussed lifestyle changes. Blood cultures remain negative. LFTs were mildly elevated on admission and these did return to normal. He continued to improve and was ambulating around the room without difficulty. Denied any cough prior to discharge and did not have a fever while here. He will be discharged on every 8 hour Keflex with his first dose tonight. He will also be discharged on every 8 hour metronidazole with his first dose this afternoon. Both of these will continue for a total of 5 days of treatment. His magnesium did continue to trend downward and he will be discharged on 5 more days of 400 mg daily magnesium as well. All other home medications were continued. Recommend follow-up with primary care provider within 7 to 10 days of discharge. Recommend repeat CBC, CMP, and magnesium at that visit. Consider repeat chest x-ray. Consider follow-up with pulmonology again. Discharged home. - Patient Instructions Diet: Usual Diet as Tolerated Activity: As Tolerated Driving: Do Not Drive (today) Notify Provider of: Fever, Increased Pain, Nausea and/or Vomiting Other/Special Instructions: Follow-up with primary care provider within 7-10 days of discharge, sooner if needed. Continue to utilize your incentive spirometer (clear/blue device you inhale through) and acapella (green tube you blow through) for 1-2 weeks or until symptoms resolve. Take your antibiotic as prescribed. You were given 2 antibiotics. The first one is cefalexin. You should take this every 8 hours with your first dose tonight (09/15/2020) and the second one is metronidazole, which you should take every 8 hours with your first dose this afternoon (09/15/2020). Continue to elevate your head with a wedge pillow or in a reclining chair as we discussed. Resume home medications as directed. Should symptoms return or worsen contact primary care provider or return to the Emergency Department. - Discharge Plan *PRESCRIPTION DRUG MONITORING PROGRAM REVIEWED*: No *COPY OF PRESCRIPTION DRUG MONITORING REPORT IN PATIENT MIKE: No Prescriptions/Med Rec: metroNIDAZOLE [Flagyl] 500 mg PO Q8H #8 tab cephALEXin [Keflex] 500 mg PO Q8H #7 cap Magnesium Oxide 400 mg PO DAILY #5 tablet Home Medications: Home Meds ALPRAZolam [Xanax] 1 mg PO BEDTIME 04/19/19 [History] Cyclobenzaprine [Flexeril] 10 mg PO TID PRN 04/19/19 [History] Desvenlafaxine Succinate [Pristiq] 50 mg PO DAILY 04/19/19 [History] Hydrocodone/Acetaminophen [Hydrocodone-Acetamin 10-325 mg] 1 tab PO Q4H PRN 04/19/19 [History] Pantoprazole Sodium 40 mg PO BID #60 tablet. 06/09/19 [Rx] Fenofibrate Nanocrystallized [Fenofibrate] 145 mg PO DAILY 05/17/20 [History] Gabapentin [Neurontin] 300 mg PO TID 05/17/20 [History] Metoprolol Succinate [Toprol XL 50mg] 25 mg PO BID 05/17/20 [History] Rosuvastatin Calcium 20 mg PO BEDTIME 05/17/20 [History] Magnesium Oxide 400 mg PO DAILY #5 tablet 09/15/20 [Rx] cephALEXin [Keflex] 500 mg PO Q8H #7 cap 09/15/20 [Rx] metroNIDAZOLE [Flagyl] 500 mg PO Q8H #8 tab 09/15/20 [Rx] Oxygen Therapy Mode: Room Air Patient Handouts: Hypomagnesemia, How to Use an Incentive Spirometer, Prediabetes Eating Plan, Gastroesophageal Reflux Disease, Adult, [id number], Aspiration Pneumonia, Sepsis, Self Care, Adult Forms: ED Department Discharge Referrals: Gayle Molina NP [Primary Care Provider] - 09/23/20 1:00 pm (Follow up with your primary care provider. Please arrive at 1:00 for your appointment. ) - Discharge Summary/Plan Comment DC Time >30 min.: No - General Info Date of Service: 09/15/20 Admission Dx/Problem (Free Text: Admission Diagnosis/Problem Admission Diagnosis/Problem Hypoxia Functional Status: Reports: Pain Controlled, Tolerating Diet, Ambulating, Urinating, Incentive Spirometry, Other (Acapella ). Denies: New Symptoms - Review of Systems General: Reports: No Symptoms. Denies: Fever, Weakness, Fatigue, Malaise, Chills HEENT: Reports: No Symptoms. Denies: Headaches, Sore Throat Pulmonary: Reports: No Symptoms. Denies: Shortness of Breath, Cough, Sputum, Wheezing Cardiovascular: Reports: No Symptoms. Denies: Chest Pain, Palpitations, Dyspnea on Exertion, Edema Gastrointestinal: Reports: No Symptoms. Denies: Abdominal Pain, Constipation, Diarrhea, Nausea, Vomiting Genitourinary: Reports: No Symptoms. Denies: Pain Musculoskeletal: Reports: No Symptoms Skin: Reports: No Symptoms. Denies: Cyanosis Neurological: Reports: No Symptoms. Denies: Confusion, Pre-Existing Deficit, Difficulty Walking, Weakness, Gait Disturbance Psychiatric: Reports: No Symptoms - Patient Data Vitals - Most Recent: Last Vital Signs Temp 98.6 F 09/15/20 07:28 Pulse 77 09/15/20 07:28 Resp 16 09/15/20 07:28 BP 122/89 09/15/20 07:28 Pulse Ox 93 L 09/15/20 07:28 Weight - Most Recent: 215 lb 4.8 oz I&O - Last 24 hours: Intake & Output 09/14/20 09/15/20 09/15/20 22:59 06:59 14:59 Intake Total 1400 800 Output Total 1650 130 Balance -250 670 Lab Results - Last 24 hrs: Laboratory Results - last 24 hr 09/14/20 09/14/20 09/15/20 Range/Units 05:09 11:58 04:42 WBC 4.36 (4.23-9.07) K/mm3 RBC 3.86 L (4.63-6.08) M/mm3 Hgb 11.6 L (13.7-17.5) gm/dl Hct 35.5 L (40.1-51.0) % MCV 92.0 (79.0-92.2) fl MCH 30.1 (25.7-32.2) pg MCHC 32.7 (32.2-35.5) g/dl RDW Std Deviation 43.6 (35.1-43.9) fL Plt Count 288 (163-337) K/mm3 MPV 8.7 L (9.4-12.3) fl Neut % (Auto) 51.2 (34.0-67.9) % Lymph % (Auto) 33.3 (21.8-53.1) % [place] % (Auto) 8.9 (5.3-12.2) % Eos % (Auto) 5.5 (0.8-7.0) Baso % (Auto) 1.1 (0.1-1.2) % Neut # (Auto) 2.23 (1.78-5.38) K/mm3 Lymph # (Auto) 1.45 (1.32-3.57) K/mm3 [place] # (Auto) 0.39 (0.30-0.82) K/mm3 Eos # (Auto) 0.24 (0.04-0.54) K/mm3 Baso # (Auto) 0.05 (0.01-0.08) K/mm3 Sodium (136-145) mEq/L Potassium (3.5-5.1) mEq/L Chloride (98-107) mEq/L Carbon Dioxide (21-32) mEq/L Anion Gap (5-15) BUN (7-18) mg/dL Creatinine (0.7-1.3) mg/dL Est Cr Clr Drug Dosing mL/min Estimated GFR (MDRD) (>60) mL/min BUN/Creatinine Ratio (14-18) Glucose (70-99) mg/dL Hemoglobin A1c 5.7 H ( - 5.6) % Calcium (8.5-10.1) mg/dL Magnesium (1.8-2.4) mg/dL Total Bilirubin (0.2-1.0) mg/dL AST (15-37) U/L ALT (16-63) U/L Alkaline Phosphatase (46-116) U/L C-Reactive Protein (<1.0) mg/dL Total Protein (6.4-8.2) g/dl Albumin (3.4-5.0) g/dl Globulin gm/dL Albumin/Globulin Ratio (1-2) MRSA (PCR) Negative 09/15/20 Range/Units 04:42 WBC (4.23-9.07) K/mm3 RBC (4.63-6.08) M/mm3 Hgb (13.7-17.5) gm/dl Hct (40.1-51.0) % MCV (79.0-92.2) fl MCH (25.7-32.2) pg MCHC (32.2-35.5) g/dl RDW Std Deviation (35.1-43.9) fL Plt Count (163-337) K/mm3 MPV (9.4-12.3) fl Neut % (Auto) (34.0-67.9) % Lymph % (Auto) (21.8-53.1) % [place] % (Auto) (5.3-12.2) % Eos % (Auto) (0.8-7.0) Baso % (Auto) (0.1-1.2) % Neut # (Auto) (1.78-5.38) K/mm3 Lymph # (Auto) (1.32-3.57) K/mm3 [place] # (Auto) (0.30-0.82) K/mm3 Eos # (Auto) (0.04-0.54) K/mm3 Baso # (Auto) (0.01-0.08) K/mm3 Sodium 142 (136-145) mEq/L Potassium 4.2 (3.5-5.1) mEq/L Chloride 105 (98-107) mEq/L Carbon Dioxide 29 (21-32) mEq/L Anion Gap 12.2 (5-15) BUN 15 (7-18) mg/dL Creatinine 1.3 (0.7-1.3) mg/dL Est Cr Clr Drug Dosing 78.77 mL/min Estimated GFR (MDRD) > 60 (>60) mL/min BUN/Creatinine Ratio 11.5 L (14-18) Glucose 96 (70-99) mg/dL Hemoglobin A1c ( - 5.6) % Calcium 9.1 (8.5-10.1) mg/dL Magnesium 1.9 (1.8-2.4) mg/dL Total Bilirubin 0.3 (0.2-1.0) mg/dL AST 23 (15-37) U/L ALT 38 (16-63) U/L Alkaline Phosphatase 54 (46-116) U/L C-Reactive Protein 6.1 H* (<1.0) mg/dL Total Protein 7.1 (6.4-8.2) g/dl Albumin 3.3 L (3.4-5.0) g/dl Globulin 3.8 gm/dL Albumin/Globulin Ratio 0.9 L (1-2) MRSA (PCR) JOE Results - Last 24 hrs: Microbiology 09/12/20 19:00 Aerobic Blood Culture - Preliminary Blood - Venous - Lab Draw NO GROWTH AFTER 2 DAYS Anaerobic Blood Culture - Preliminary NO GROWTH AFTER 2 DAYS 09/12/20 19:10 Aerobic Blood Culture - Preliminary Blood - Venous NO GROWTH AFTER 2 DAYS Anaerobic Blood Culture - Preliminary NO GROWTH AFTER 2 DAYS 09/13/20 15:49 Gram Stain - Final Sputum - Expectorated Sputum Culture - Preliminary Med Orders - Current: Current Medications Acetaminophen (Acetaminophen 325 Mg Tab) 650 mg PO Q4H PRN PRN Reason: Pain (Mild 1-3)/fever Hydrocodone Bitart/Acetaminophen (Acetaminophen/Hydrocodone 325-10 Mg Tab) 1 tab PO Q4H PRN PRN Reason: Pain Last Admin: 09/15/20 05:20 Dose: 1 tab Documented by: Albuterol/Ipratropium (Albuterol/Ipratropium 3.0-0.5 Mg/3 Ml Neb Soln) 3 ml NEB Q4H PRN PRN Reason: Shortness Of Breath/wheezing Alprazolam (Alprazolam 1 Mg Tab) 1 mg PO BEDTIME RICH Last Admin: 09/14/20 20:14 Dose: 1 mg Documented by: Cyclobenzaprine HCl (Cyclobenzaprine 10 Mg Tab) 10 mg PO TID PRN PRN Reason: Pain Last Admin: 09/15/20 05:19 Dose: 10 mg Documented by: Docusate Sodium (Docusate Sodium 100 Mg Cap) 100 mg PO BID PRN PRN Reason: Constipation Enoxaparin Sodium (Enoxaparin 40 Mg/0.4 Ml Syringe) 40 mg SUBCUT DAILY [facility] Last Admin: 09/14/20 08:02 Dose: 40 mg Documented by: Fenofibrate (Fenofibrate Nanocrystallized 145 Mg Tab) 145 mg PO DAILY [facility] Last Admin: 09/14/20 08:02 Dose: 145 mg Documented by: Gabapentin (Gabapentin 300 Mg Cap) 300 mg PO TID [facility] Last Admin: 09/14/20 20:15 Dose: 300 mg Documented by: Metronidazole 500 mg/ Premix 100 mls @ 100 mls/hr IV Q8H [facility] Last Admin: 09/15/20 05:18 Dose: 100 mls/hr Documented by: Ceftriaxone Sodium 2 gm/ (Sodium Chloride) 100 mls @ 200 mls/hr IV Q24H [facility] Last Admin: 09/14/20 20:14 Dose: 200 mls/hr Documented by: Magnesium Hydroxide (Magnesium Hydroxide 400 Mg/5 Ml Susp 30 Ml Cup) 30 ml PO Q12H PRN PRN Reason: Constipation Magnesium Oxide (Magnesium Oxide 400 Mg Tab) 400 mg PO DAILY [facility] Metoprolol Succinate (Metoprolol Succinate 25 Mg Tab.Er) 25 mg PO BID [facility] Last Admin: 09/14/20 20:15 Dose: 25 mg Documented by: Ondansetron HCl (Ondansetron 4 Mg/2 Ml Sdv) 4 mg IV Q6H PRN PRN Reason: Nausea/Vomiting Pantoprazole Sodium (Pantoprazole 40 Mg Tab.Cr) 40 mg PO BID [facility] Last Admin: 09/14/20 20:15 Dose: 40 mg Documented by: Desvenlafaxine Succinate [Pristiq] 25 Mg Tab.Er.24h 0 each PO DAILY [facility] Last Admin: 09/14/20 08:03 Dose: Not Given Documented by: Rosuvastatin Calcium (Rosuvastatin 10 Mg Tab) 20 mg PO BEDTIME [facility] Last Admin: 09/14/20 20:15 Dose: 20 mg Documented by: Sodium Chloride (Sodium Chloride 0.9% 10 Ml Syringe) 10 ml FLUSH ASDIRECTED PRN PRN Reason: Keep Vein Open Last Admin: 09/12/20 19:08 Dose: 10 ml Documented by: Tramadol HCl (Tramadol 50 Mg Tab) 50 mg PO Q6HR PRN PRN Reason: Pain Last Admin: 09/13/20 06:27 Dose: 50 mg Documented by: Discontinued Medications Albuterol (Albuterol 0.083% 2.5 Mg/3 Ml Neb Soln) 2.5 mg NEB ONETIME ONE Stop: 09/12/20 19:48 Last Admin: 09/12/20 19:58 Dose: 2.5 mg Documented by: Ceftriaxone Sodium 1 gm/ (Sodium Chloride) 100 mls @ 200 mls/hr IV ONETIME ONE Stop: 09/12/20 21:50 Last Admin: 09/12/20 21:44 Dose: 200 mls/hr Documented by: Magnesium Sulfate 4 gm/ Premix 50 mls @ 12.5 mls/hr IV ONETIME ONE Stop: 09/13/20 01:44 Last Admin: 09/12/20 21:57 Dose: 12.5 mls/hr Documented by: Sodium Chloride (Normal Saline) 100 mls @ 60 mls/hr IV ASDIRECTED [facility] Last Admin: 09/12/20 22:28 Dose: 60 mls/hr Documented by: Sodium Chloride (Normal Saline) 1,000 mls @ 100 mls/hr IV ASDIRECTED [facility] Stop: 09/15/20 17:44 Iopamidol (Iopamidol 755 Mg/Ml 100 Ml Bottle) 100 ml IVPUSH ONETIME ONE Stop: 09/12/20 22:11 Last Admin: 09/12/20 22:28 Dose: 100 ml Documented by: Metoprolol Succinate (Metoprolol Succinate 50 Mg Tab.Er) 50 mg PO ONETIME ONE Stop: 09/12/20 18:50 Last Admin: 09/12/20 19:01 Dose: 50 mg Documented by: Metoprolol Succinate (Metoprolol Succinate 50 Mg Tab.Er) 50 mg PO BID [facility] Last Admin: 09/13/20 09:10 Dose: 50 mg Documented by: Sodium Chloride (Sodium Chloride 0.9% 10 Ml Syringe) 10 ml FLUSH ONETIME ONE Stop: 09/12/20 22:11 Last Admin: 09/12/20 22:28 Dose: 10 ml Documented by: - Exam Quality Assessment: Reports: DVT Prophylaxis. Denies: Supplemental Oxygen, Urine Catheter General: Reports: Alert, Oriented, Cooperative, No Acute Distress HEENT: Reports: Pupils Equal, Pupils Reactive, Mucous Membr. Moist/[place] Neck: Reports: Supple, Trachea Midline Lungs: Reports: Clear to Auscultation, Normal Respiratory Effort Cardiovascular: Reports: Regular Rate, Regular Rhythm GI/Abdominal Exam: Normal Bowel Sounds, Soft, Non-Tender, No Distention (Male) Exam: Deferred Rectal (Males) Exam: Deferred Back Exam: Reports: Normal Inspection, Full Range of Motion Extremities: Normal Inspection, Normal Range of Motion, Non-Tender, No Pedal Edema, Normal Capillary Refill Skin: Reports: Warm, Dry, Intact Neurological: Reports: No New Focal Deficit Psy/Mental Status: Reports: Alert, Normal Affect, Normal Mood
[2020-09-15] MEDS: Enoxaparin 40 MG/0.4 ML Syringe SUBCUT SCH (08:26)
[2020-09-15] MEDS: Desvenlafaxine Succinate [Pristiq] 25 MG Tab.Er.24h PO SCH (08:27)
[2020-09-15] MEDS: Metoprolol Succinate 25 MG Tab.ER PO SCH (08:27)
[2020-09-15] MEDS: Pantoprazole 40 MG Tab.CR PO SCH (08:27)
[2020-09-15] MEDS: Fenofibrate Nanocrystallized 145 MG Tab PO SCH (08:27)
[2020-09-15] MEDS: Gabapentin 300 MG Cap PO SCH (08:27)
[2020-09-15] MEDS ORDERED: Magnesium Oxide 400 MG Tab PO SCH (09:00)
== END 2020-09-15 09:30 | disposition home or self-care (01) | DRG 178 ==
LOC: JD.ED 17:54 → JD.MS 23:00 → OBSVTOIN 09-13 11:00
PROVIDERS: ADMIT Internal Medicine; ATTEND Internal Medicine
DX: J69.0 Pneumonitis due to inhalation of food and vomit (principal); E87.2 Acidosis; K21.9 Gastro-esophageal reflux disease without esophagitis; G89.29 Other chronic pain; E66.9 Obesity, unspecified; Z68.30 Body mass index [BMI] 30.0-30.9, adult; E83.42 Hypomagnesemia; K44.9 Diaphragmatic hernia without obstruction or gangrene; R09.02 Hypoxemia; F41.9 Anxiety disorder, unspecified; R79.89 Other specified abnormal findings of blood chemistry; G47.33 Obstructive sleep apnea (adult) (pediatric); R73.03 Prediabetes; Z20.822 Contact with and (suspected) exposure to COVID-19; Z87.81 Personal history of (healed) traumatic fracture; Z87.730 Personal history of (corrected) cleft lip and palate
CPT/HCPCS: 0240U; 36415; 71045; 71045-26; 71275; 71275-26; 80053; 83036; 83605; 83735; 84145; 85025; 85379; 86140; 86738; 87040; 87070; 87106; 87205; 87486; 87581; 87633; 87641; 87798; 93005; 94640; 94660; 94668; 94761; 96365; 96366; 96368; 96372; 96375; 99223; 99233; 99238; 99283; 99285-25; A9270-GY; G0378; J0696; J1650; J3475; J3490; Q9967